=== PATIENT | female | born 1970 | race Caucasian/White ===

== ENCOUNTER → 2017-08-27 13:57 | Day surgery (SDC) | payer OTHER, MEDICAID, SELFPAY ==
[2017-08-27 14:25] VITALS: BP 108/57; PULSE 82; RESP 18; TEMP 36.7; O2SAT 98
[2017-08-27 14:31] VITALS: BP 118/76; PULSE 79; RESP 20
[2017-08-27 14:32] VITALS: BP 126/79; PULSE 79; RESP 20
--- NOTE | 2017-08-27 14:33 | HMH.PMPROC ---
- Procedure Date: 08/27/17 Time: 14:36 Anesthesiologist:: Alberto Raymundo CRNA Complications:: None Pre-procedure Diagnosis:: Degenerative disc disease lumbar spine. Lumbar post laminectomy syndrome. Post-procedure Diagnosis:: Same Indications for Procedure:: Very pleasant 47-year-old white female with been treating for chronic low back pain with bilateral hip leg radicular symptoms secondary to degenerative disc disease lumbar spine multiple levels and postlaminectomy syndrome lumbar spine. Patient has responded extremely well to caudal epidural steroid injections in the past. Procedure Details:: Procedure: Caudal epidural steroid injection under fluoroscopy Informed consent was obtained and the risks and benefits of the procedure were explained to the patient. The patient was taken to the procedure room and noninvasive monitors placed, including noninvasive blood pressure cuff and pulse oximeter. The sacrum was viewed using C-arm Fluoroscopy in the lateral position and prepped using Betadine as a cleansing solution and the bottle interspace was viewed. Skin and subcutaneous tissues were anesthetized using lidocaine 1.5% and a 25-gauge needle. After this, a 22-gauge spinal needle was placed into the caudal space and advanced using fluoroscopic guidance. After confirmation of needle placement in the caudal space, with dye, a solution containing lidocaine 1.5%, 1 mL and Depo-Medrol 80 mg and 5 cc of normal saline were incrementally injected into the lumbar epidural space. The patient tolerated the procedure well with no complications. The patient was observed in the Pain Clinic and then discharged home neurologically intact. Plan and Disposition:: She was reevaluated 10 minutes post procedure. She is doing very well. She will return to see us in a pain clinic for further evaluation.
[2017-08-27 14:40] VITALS: BP 127/75; PULSE 84; RESP 20; O2SAT 97
== END ==
PROVIDERS: Family Provider Emergency Medicine; PCP Emergency Medicine; Visit Provider Nurse Anesthetist, Certified Registered
DX: M51.16 Intervertebral disc disorders with radiculopathy, lumbar region (principal); M96.1 Postlaminectomy syndrome, not elsewhere classified; M25.552 Pain in left hip; M25.551 Pain in right hip
CPT/HCPCS: 62323; J1040; Q9966

== ENCOUNTER → 2017-09-13 15:39 | Outpatient (REF) | payer OTHER, MEDICAID, SELFPAY ==
[2017-09-13 19:30] LABS: Amphetamine/Metha Screen,Urine Negative ng/mL (<1000); Barbiturates Screen,Urine Negative ng/mL (<200); Benzodiazepines Screen,Urine Negative ng/mL (200); Cannabinoid Screen,Urine Negative ng/mL (<50); Cocaine Screen,Urine Negative ng/g (<300); Methadone Screen,Urine Negative ng/mL (<300); Opiate Screen,Urine Negative ng/mL (<300); Phencyclidine Screen,Urine Negative ng/mL (<25)
== END ==
LOC: LAB 15:39
PROVIDERS: Visit Provider Emergency Medicine
DX: Z79.899 Other long term (current) drug therapy (principal)
CPT/HCPCS: 80305

== ENCOUNTER → 2017-10-11 15:17 | Outpatient (CLI) | payer OTHER, MEDICAID, SELFPAY ==
[2017-10-11 17:44] LABS: Amphetamine/Metha Screen,Urine Negative ng/mL (<1000); Barbiturates Screen,Urine Negative ng/mL (<200); Benzodiazepines Screen,Urine Negative ng/mL (200); Cannabinoid Screen,Urine Negative ng/mL (<50); Cocaine Screen,Urine Negative ng/g (<300); Methadone Screen,Urine Negative ng/mL (<300); Opiate Screen,Urine Negative ng/mL (<300); Phencyclidine Screen,Urine Negative ng/mL (<25)
== END ==
PROVIDERS: Visit Provider Emergency Medicine
DX: Z79.899 Other long term (current) drug therapy (principal)
CPT/HCPCS: 80305

== ENCOUNTER → 2017-10-14 11:24 | Outpatient (POV) | payer MEDICAID, SELFPAY ==
[2017-10-14 11:30] VITALS: BP 108/51; PULSE 71; RESP 15; O2SAT 98; BMI 21.2
--- NOTE | 2017-10-14 12:18 | HMH.PAINSOAP ---
[facility] Pain Management SOAP Note Subjective:: Patient is a pleasant 47-year-old white female who is being treated in our pain clinic for chronic low back pain secondary to degenerative disc disease of the lumbar spine and lumbar postlaminectomy syndrome. Patient does have radiculopathy in both legs. The left is worse than the right at this time. Patient is following up after caudal injection. Patient reports 90% relief for 6 weeks. Patient states that after the injection she becomes much more functional. Patient has tried and failed physical therapy, anti-inflammatory therapy and medications. Patient rates her pain today a 4 out of 10. Patient states that sitting down does help relieve the pain while movement can exacerbate it. ROS General: no recent weight change, no fever, no sleep disturbances Respiratory: no cough, no shortness of air, no recurring pulmonary infections Cardiovascular/Peripheral Vascular: No chest pain, No palpitations, no edema, no shortness of breath. Gastrointestinal: no incontinence, normal bowel movements reported Genitourinary: no incontinence Musculoskeletal: Lumbar back pain Psychiatric: normal mood/ affect Neurological: [denies weakness in extremities], [denies balance issues] Objective:: Physical Exam General: Alert and oriented x3, no acute distress, pleasant and cooperative, [on room air] Lungs: Resps E/U, Symmetrical chest expansion, Eyes: PERRL Musculoskeletal: Flexion and extension of lumbar spine somewhat guarded secondary to pain, deep tendon reflexes normal, strength in upper and lower extremities [5/5], slightly antalgic gait noted, positive straight leg raise test bilaterally at 30? Neurological: speech clear, flatcar whacker equal, no gross sensory deficits Assessment:: Postlaminectomy syndrome, degenerative disc disease of the lumbar spine with lumbar radiculopathy Plan:: We will plan another caudal epidural steroid injection. Patient has done well with these in the past receiving up to 90% relief for up to 6 weeks. She has tried and failed physical therapy, medications, anti-inflammatories. I believe that this would be helpful for the patient's functionality on a longer-term basis. We will ask her insurance for approval of this injection. This note was dictated using voice-recognition software and may contain errors or omissions
--- NOTE | 2017-10-14 12:22 | P.CONS_ITS ---
[facility] Pain Management SOAP Note Subjective:: Patient is a pleasant 47-year-old white female who is being treated in our pain clinic for chronic low back pain secondary to degenerative disc disease of the lumbar spine and lumbar postlaminectomy syndrome. Patient does have radiculopathy in both legs. The left is worse than the right at this time. Patient is following up after caudal injection. Patient reports 90% relief for 6 weeks. Patient states that after the injection she becomes much more functional. Patient has tried and failed physical therapy, anti-inflammatory therapy and medications. Patient rates her pain today a 4 out of 10. Patient states that sitting down does help relieve the pain while movement can exacerbate it. ROS General: no recent weight change, no fever, no sleep disturbances Respiratory: no cough, no shortness of air, no recurring pulmonary infections Cardiovascular/Peripheral Vascular: No chest pain, No palpitations, no edema, no shortness of breath. Gastrointestinal: no incontinence, normal bowel movements reported Genitourinary: no incontinence Musculoskeletal: Lumbar back pain Psychiatric: normal mood/ affect Neurological: [denies weakness in extremities], [denies balance issues] Objective:: Physical Exam General: Alert and oriented x3, no acute distress, pleasant and cooperative, [ on room air] Lungs: Resps E/U, Symmetrical chest expansion, Eyes: PERRL Musculoskeletal: Flexion and extension of lumbar spine somewhat guarded secondary to pain, deep tendon reflexes normal, strength in upper and lower extremities [5/5], slightly antalgic gait noted, positive straight leg raise test bilaterally at 30? Neurological: speech clear, spring inspector equal, no gross sensory deficits Assessment:: Postlaminectomy syndrome, degenerative disc disease of the lumbar spine with lumbar radiculopathy Plan:: We will plan another caudal epidural steroid injection. Patient has done well with these in the past receiving up to 90% relief for up to 6 weeks. She has tried and failed physical therapy, medications, anti-inflammatories. I believe that this would be helpful for the patient's functionality on a longer-term basis. We will ask her insurance for approval of this injection. This note was dictated using voice-recognition software and may contain errors or omissions
== END ==
PROVIDERS: Family Provider Emergency Medicine; PCP Emergency Medicine; Visit Provider Clinical Nurse Specialist Family Health
DX: M54.16 Radiculopathy, lumbar region (principal)
CPT/HCPCS: 99212

== ENCOUNTER → 2017-11-08 15:03 | Outpatient (REF) | payer MEDICAID, SELFPAY ==
[2017-11-08 19:05] LABS: Amphetamine/Metha Screen,Urine Negative ng/mL (<1000); Barbiturates Screen,Urine Negative ng/mL (<200); Benzodiazepines Screen,Urine Negative ng/mL (200); Cannabinoid Screen,Urine Negative ng/mL (<50); Cocaine Screen,Urine Negative ng/g (<300); Methadone Screen,Urine Negative ng/mL (<300); Opiate Screen,Urine Negative ng/mL (<300); Phencyclidine Screen,Urine Negative ng/mL (<25)
== END ==
LOC: LAB 15:03
PROVIDERS: Visit Provider Emergency Medicine
CPT/HCPCS: 80305

== ENCOUNTER 2017-11-08 15:33 | Day surgery (SDC) | payer BC, MEDICAID, SELFPAY ==
[2017-11-08 16:01] VITALS: BP 110/69; PULSE 76; RESP 16; TEMP 36.5; O2SAT 98; BMI 20.9
--- NOTE | 2017-11-08 16:05 | PC.NURSE ---
PATIENT ALERT/ORIENTED, CALM AT ASSESSMENT. NO DISTRESSED NOTED, BREATHING NORMALLY AND SITTING QUIETLY. NO SYMPTOMS EXPRESSED TO RN DURING ASSESSMENT.
--- NOTE | 2017-11-08 16:38 | HMH.PMPROC ---
- Procedure Date: 11/08/17 Time: 16:38 Anesthesiologist:: Shahid Grijalva MD Complications:: None Pre-procedure Diagnosis:: Degenerative disc disease of lumbar spine with lumbar radiculopathy symptoms and postlaminectomy syndrome of lumbar spine Post-procedure Diagnosis:: Same Indications for Procedure:: This patient is a pleasant 47-year-old white female who we have been treating for low back pain with degenerative disc disease of lumbar spine with lumbar radiculopathy symptoms and postlaminectomy syndrome lumbar spine. She did very well with her last epidural steroid injection. Pain is starting to return in her back and down her legs. We will plan on a repeat epidural steroid injection today. Procedure Details:: Lumbar epidural steroid injection under fluoroscopy Informed consent was obtained and the risk and benefits of the procedure was explained to the patient. The patient was taken to the procedure room. The patient was placed prone on the procedure table. The patient was prepped and draped in sterile fashion. C-arm fluoroscopy was used to view the lumbar spine. Skin and subcutaneous tissues were anesthetized using lidocaine. I placed an 18-gauge epidural needle and advanced into the L5-S1 interspace using fluoroscopic guidance and [id number] to air. After confirmation of needle placement in the epidural space with dye I injected 2 mL of lidocaine 1.5% with Depo-Medrol 80 mg. Patient tolerated the procedure well with no complications. Plan and Disposition:: Follow up with her in 2 weeks. We will reevaluate her symptoms at that time.
--- NOTE | 2017-11-08 16:42 | P.PCN_ITS ---
- Procedure Date: 11/08/17 Time: 16:38 Anesthesiologist:: Shahid Grijalva MD Complications:: None Pre-procedure Diagnosis:: Degenerative disc disease of lumbar spine with lumbar radiculopathy symptoms and postlaminectomy syndrome of lumbar spine Post-procedure Diagnosis:: Same Indications for Procedure:: This patient is a pleasant 47-year-old white female who we have been treating for low back pain with degenerative disc disease of lumbar spine with lumbar radiculopathy symptoms and postlaminectomy syndrome lumbar spine. She did very well with her last epidural steroid injection. Pain is starting to return in her back and down her legs. We will plan on a repeat epidural steroid injection today. Procedure Details:: Lumbar epidural steroid injection under fluoroscopy Informed consent was obtained and the risk and benefits of the procedure was explained to the patient. The patient was taken to the procedure room. The patient was placed prone on the procedure table. The patient was prepped and draped in sterile fashion. C-arm fluoroscopy was used to view the lumbar spine. Skin and subcutaneous tissues were anesthetized using lidocaine. I placed an 18-gauge epidural needle and advanced into the L5-S1 interspace using fluoroscopic guidance and [id number] to air. After confirmation of needle placement in the epidural space with dye I injected 2 mL of lidocaine 1.5 % with Depo-Medrol 80 mg. Patient tolerated the procedure well with no complications. Plan and Disposition:: Follow up with her in 2 weeks. We will reevaluate her symptoms at that time.
[2017-11-08 16:47] VITALS: BP 109/50; PULSE 75; RESP 20
[2017-11-08 16:51] VITALS: BP 128/71; PULSE 65; RESP 18
[2017-11-08 16:56] VITALS: BP 115/72; PULSE 68; RESP 16; O2SAT 98
== END 2017-11-08 17:00 | disposition home or self-care (01) ==
LOC: SC.PAINP 15:34
PROVIDERS: Family Provider Emergency Medicine; PCP Emergency Medicine; Visit Provider Anesthesiology
DX: M51.16 Intervertebral disc disorders with radiculopathy, lumbar region (principal); M96.1 Postlaminectomy syndrome, not elsewhere classified
CPT/HCPCS: 62323; 80305; J1040; Q9966

== ENCOUNTER → 2017-11-12 15:43 | Outpatient (CLI) | payer BC, MEDICAID, SELFPAY ==
--- NOTE | 2017-11-12 15:45 | MM_ITS ---
MM Dig screening mamm BI w/CAD CAD Screening ORDERING PHYSICIAN : Colton Lozano MD PATIENT AGE: 47 years GENDER: Female COMPARISON: Previous mammograms: November 2016[facility]: October 2015 bilateral mammogram. May 2016 right mammogram. October 2015 right breast ultrasound INDICATION: 47-year-old. Estradiol. No new complaints. Noncontributory Family history. TECHNIQUE: Standard CC and MLO images were obtained. R2 CAD reviewed. FINDINGS: Lower density breast with minimal fibroglandular elements bilaterally. RIGHT BREAST:. Small focal. Area of vague additional density towards the upper outer quadrant of the left breast today was not seen on previous studies. This Small low-density cloverleaf area 6 mm on cc view This could be a small collection cysts, vs a developing deep intramammary node given its central lucency on MLO. Would benefit from spot views to further evaluate. Ultrasound would be warranted. If it should persist on those spot views. prior Outside studies which were obtained previously showed a small cystic nodular at the 6:00 right breast which is since resolved since 2016. & No longer evident today LEFT BREAST:. Left breast. A small additional density inferior left breast' labeled X ' on MLO view. 6 mm length. Small density measuring 5 mm labeled Y ' Vague vague 5 mm density at the far lateral left breast labeled Z Suggest full 90 degree view & axillary cc view along with a spot MLO view X and Y ======IMPRESSION: 1. Right breast. Additional views recommended Recommend spot view MLO & 90 degree of the subtle new area of density deepupper-outer quadrant right breast on MLO view.. Most likely benign feature but warrants additional views.. Ultrasound may be warranted if this area persists on spot views 2. Left breast.: Additional views recommended A small additional density inferior left breast' labeled X ' on MLO view. 6 mm length. Small density measuring 5 mm labeled Y ' Vague vague 5 mm density at the far lateral left breast labeled Z Axillary cc view and Focal 90 degree view left breast suggested to further evaluate these small density inferior left breast and far lateral left breast. Ultrasound will likely be required subsequent if persists 3. Above recommended Additional views of these most most likely benign features are not urgent, can be be obtained when convenient for the patient... *In fact a reasonable alternative considered would be follow-up bilateral mammogram in 4- 6 months.. (A more cost -conscious alternative for what strongly believe are incidental benign findings) BI-RADS Category: 0 Need Additional Imaging Evaluaiton RECOMMENDED FOLLOW-UP: IMM - IMMEDIATE FOLLOW-UP RECOMMENDED Additional Spot views both breasts .: ... Left breast spot views as above ... Right breast spot view: upper-outer quadrant recommended If these densities persist ultrasound would be helpful and warranted (A letter has been sent to the patient regarding results of the study.)
--- NOTE | 2017-11-12 15:47 | US_ITS ---
US transvaginal HISTORY: ITS.REASON: Pelvic Mass ORDERING PHYSICIAN: Colton Lozano MD PATIENT AGE: 47 years COMPARISON: None FINDINGS: Patient has had a prior hysterectomy and bilateral oblique correctly. The vaginal cuff has an unremarkable appearance. No pelvic mass or abnormal fluid collection is evident. IMPRESSION: Prior total abdominal hysterectomy. No obvious pelvic mass or abnormal fluid collection
== END ==
PROVIDERS: Family Provider Emergency Medicine; PCP Emergency Medicine; Visit Provider Obstetrics & Gynecology
DX: Z12.31 Encounter for screening mammogram for malignant neoplasm of breast (principal); R10.2 Pelvic and perineal pain
CPT/HCPCS: 76830; 77067

== ENCOUNTER → 2017-12-02 14:35 | Outpatient (POV) | payer BC, MEDICAID, SELFPAY ==
[2017-12-02 15:04] VITALS: BP 130/73; PULSE 69; RESP 20; BMI 19.6
--- NOTE | 2017-12-02 15:27 | HMH.PAINSOAP ---
[facility] Pain Management SOAP Note Subjective:: Is a pleasant 47-year-old white female who is being treated in our pain clinic for chronic low back pain secondary to degenerative disc disease of the lumbar spine with lumbar postlaminectomy syndrome. Patient is following up after an L5-S1 lumbar epidural steroid injection. Patient reports 80% relief however her pain is beginning to return. Patient states that with the change in weather and increased activity she is having some increase in her pain. Patient has tried and failed physical therapy, anti-inflammatory therapy, medications. Patient rates her pain a 6 out of 10 today. Patient states that sitting down does help relieve the pain while movement can exacerbate it. ROS General: no recent weight change, no fever, no sleep disturbances Respiratory: no cough, no shortness of air, no recurring pulmonary infections Cardiovascular/Peripheral Vascular: No chest pain, No palpitations, no edema, no shortness of breath. Gastrointestinal: no incontinence, normal bowel movements reported Genitourinary: no incontinence Musculoskeletal: Back pain, bilateral leg pain Psychiatric: normal mood/ affect, [denies depression], [denies anxiety] Neurological: [denies weakness in extremities], [denies balance issues] Objective:: Physical Exam General: Alert and oriented x3, no acute distress, pleasant and cooperative, [on room air] Lungs: Resps E/U, Symmetrical chest expansion, Eyes: PERRL Musculoskeletal: Flexion and extension of lumbar spine somewhat guarded secondary to pain, deep tendon reflexes normal, strength in upper and lower extremities [5/5], slightly antalgic gait noted, positive straight leg raise test bilaterally at 30? Neurological: speech clear, sap ppm consultant equal, no gross sensory deficits Assessment:: Postlaminectomy syndrome, degenerative disc disease of the lumbar spine with lumbar radiculopathy Plan:: We will plan another lumbar epidural steroid injection at L5-S1 in several weeks. Patient has done well with these in the past receiving over 80% relief of symptoms. She has tried and failed physical therapy, medications, anti-inflammatories. I believe that this will be helpful for the patient's functionality on a longer-term basis. This note was dictated using voice recognition software and may contain errors or omissions
--- NOTE | 2017-12-02 15:30 | P.CONS_ITS ---
[facility] Pain Management SOAP Note Subjective:: Is a pleasant 47-year-old white female who is being treated in our pain clinic for chronic low back pain secondary to degenerative disc disease of the lumbar spine with lumbar postlaminectomy syndrome. Patient is following up after an L5 -S1 lumbar epidural steroid injection. Patient reports 80% relief however her pain is beginning to return. Patient states that with the change in weather and increased activity she is having some increase in her pain. Patient has tried and failed physical therapy, anti-inflammatory therapy, medications. Patient rates her pain a 6 out of 10 today. Patient states that sitting down does help relieve the pain while movement can exacerbate it. ROS General: no recent weight change, no fever, no sleep disturbances Respiratory: no cough, no shortness of air, no recurring pulmonary infections Cardiovascular/Peripheral Vascular: No chest pain, No palpitations, no edema, no shortness of breath. Gastrointestinal: no incontinence, normal bowel movements reported Genitourinary: no incontinence Musculoskeletal: Back pain, bilateral leg pain Psychiatric: normal mood/ affect, [denies depression], [denies anxiety] Neurological: [denies weakness in extremities], [denies balance issues] Objective:: Physical Exam General: Alert and oriented x3, no acute distress, pleasant and cooperative, [ on room air] Lungs: Resps E/U, Symmetrical chest expansion, Eyes: PERRL Musculoskeletal: Flexion and extension of lumbar spine somewhat guarded secondary to pain, deep tendon reflexes normal, strength in upper and lower extremities [5/5], slightly antalgic gait noted, positive straight leg raise test bilaterally at 30? Neurological: speech clear, furniture manager equal, no gross sensory deficits Assessment:: Postlaminectomy syndrome, degenerative disc disease of the lumbar spine with lumbar radiculopathy Plan:: We will plan another lumbar epidural steroid injection at L5-S1 in several weeks. Patient has done well with these in the past receiving over 80% relief of symptoms. She has tried and failed physical therapy, medications, anti- inflammatories. I believe that this will be helpful for the patient's functionality on a longer-term basis. This note was dictated using voice recognition software and may contain errors or omissions
== END ==
PROVIDERS: Family Provider Emergency Medicine; PCP Emergency Medicine; Visit Provider Clinical Nurse Specialist Family Health
DX: M96.1 Postlaminectomy syndrome, not elsewhere classified (principal)
CPT/HCPCS: 99212

== ENCOUNTER → 2017-12-06 13:37 | Outpatient (REF) | payer BC, MEDICAID, SELFPAY ==
[2017-12-06 19:40] LABS: Amphetamine/Metha Screen,Urine Negative ng/mL (<1000); Barbiturates Screen,Urine Negative ng/mL (<200); Benzodiazepines Screen,Urine Negative ng/mL (200); Cannabinoid Screen,Urine Negative ng/mL (<50); Cocaine Screen,Urine Negative ng/g (<300); Methadone Screen,Urine Negative ng/mL (<300); Opiate Screen,Urine Negative ng/mL (<300); Phencyclidine Screen,Urine Negative ng/mL (<25)
== END ==
LOC: LAB 13:37
PROVIDERS: Visit Provider Emergency Medicine
DX: Z79.899 Other long term (current) drug therapy (principal)
CPT/HCPCS: 80305

== ENCOUNTER → 2017-12-11 15:02 | Outpatient (CLI) | payer BC, MEDICAID, SELFPAY ==
--- NOTE | 2017-12-11 15:03 | MM_ITS ---
MM Dig mamm BI DX w/CAD, US breast RT complete, US breast LT complete COMPARISON: 320 03/05 and 11/29/2016 INDICATION: Follow-up abnormal mammogram ORDERING PHYSICIAN: Colton Lozano MD PATIENT AGE: 47 years TECHNIQUE: Problem-solving views performed of both breasts along with bilateral breast ultrasound FINDINGS: Right breast: The asymmetric density in the deep upper aspect of the right breast appear to compress out on the spot compression view and somewhat spread out on the MLO view. There remains some asymmetric density in this region on the spot compression view. Right breast ultrasound: No suspicious solid or cystic nodules evident. On second look there was a small area of increased echogenicity in the outer aspect of the right breast at 9:00 is nonspecific Left breast: Asymmetric density is present in the upper-outer aspect of the left breast and in the inferior aspect of the left breast. These areas appear to somewhat of face on the spot compression views and did not persist on the old views. Left breast ultrasound: 3 mm cyst at 3:00. 3 mm cyst at 5:00. No suspicious solid nodules evident. IMPRESSION: Bilateral asymmetric densities probably related to asymmetric fibroglandular tissue. No convincing evidence of malignancy. Short-term mammographic follow-up however is suggested as some of the nodules are new and did not completely compress out BI-RADS Category: 3 Benign Finding Short Term Follow-up RECOMMENDED FOLLOW-UP: 3M - 3 MONTH FOLLOWUP bilateral (A letter has been sent to the patient regarding results of the study.)
== END ==
PROVIDERS: Family Provider Emergency Medicine; PCP Emergency Medicine; Visit Provider Obstetrics & Gynecology
DX: R92.8 Other abnormal and inconclusive findings on diagnostic imaging of breast (principal)
CPT/HCPCS: 76641; 77066

== ENCOUNTER → 2017-12-17 12:58 | Outpatient (CLI) | payer BC, MEDICAID, SELFPAY ==
--- NOTE | 2017-12-17 13:01 | XR_ITS ---
XR chest 2V HISTORY: Chest pain, left arm pain, low blood pressure ITS.REASON: pt is smoker ORDERING PHYSICIAN: Isaac Pires MD PATIENT AGE: 47 years COMPARISON: FINDINGS: Unremarkable cardiovascular structures. There is mild hyperinflation with attenuation of the peripheral pulmonary vessels consistent with COPD. There is mild biapical pleural thickening. No acute bony anomalies. IMPRESSION: COPD, no acute finding.
== END ==
PROVIDERS: PCP Emergency Medicine; Visit Provider Internal Medicine
DX: R06.02 Shortness of breath (principal); I20.8 Other forms of angina pectoris; Z72.0 Tobacco use
CPT/HCPCS: 71046

== ENCOUNTER → 2018-01-21 11:50 | Outpatient (POV) | payer BC, MEDICAID, SELFPAY ==
[2018-01-21 12:03] VITALS: BP 99/55; PULSE 59; RESP 18; O2SAT 99; BMI 20.2
--- NOTE | 2018-01-21 12:16 | HMH.PAINSOAP ---
[facility] Pain Management SOAP Note Subjective:: Patient is a pleasant 47-year-old white female who presents today for follow-up after her third lumbar epidural steroid injection. Patient is doing extremely well. Patient states her pain is a 1 out of 10. Patient states that the injection has helped her symptoms 90%. Patient is being treated for pain secondary to degenerative disc disease of lumbar spine with lumbar postlaminectomy syndrome and lumbar radiculopathy symptoms. Patient has done well with injective therapies in the past. ROS General: no recent weight change, no fever, no sleep disturbances Respiratory: no cough, no shortness of air, no recurring pulmonary infections Cardiovascular/Peripheral Vascular: No chest pain, No palpitations, no edema, no shortness of breath. Gastrointestinal: no incontinence, normal bowel movements reported Genitourinary: no incontinence Musculoskeletal: Back pain, leg pain Psychiatric: normal mood/ affect Neurological: [denies weakness in extremities], [denies balance issues] Objective:: Physical Exam General: Alert and oriented x3, no acute distress, pleasant and cooperative, [on room air] Lungs: Resps E/U, Symmetrical chest expansion, Eyes: PERRL Musculoskeletal: Flexion and extension of lumbar spine somewhat guarded secondary to pain, deep tendon reflexes normal, strength in upper and lower extremities [5/5], normal gait noted Neurological: speech clear, school bus mechanic equal, no gross sensory deficits Assessment:: Degenerative disc disease of the lumbar spine with lumbar postlaminectomy syndrome and lumbar radiculopathy symptoms Plan:: We will follow-up with the patient on an as-needed basis patient will call us when she needs another appointment. Patient has done extremely well with injective therapy. This note was dictated using voice recognition software and may contain errors or omissions
== END ==
PROVIDERS: Family Provider Emergency Medicine; PCP Emergency Medicine; Visit Provider Clinical Nurse Specialist Family Health
DX: M54.16 Radiculopathy, lumbar region (principal)
CPT/HCPCS: 99212

== ENCOUNTER → 2018-01-22 06:43 | Outpatient (CLI) | payer BC, MEDICAID, SELFPAY ==
--- NOTE | 2018-01-22 06:47 | CA_ITS ---
PROCEDURE: 2-D M-mode and color Doppler study INDICATIONS FOR THE TEST: Chest pain + COPD Heart Murmur Tobacco SmokingY Palpitations FatigueY Syncope Edema Hypertension Diabetes Mellitus Rheumatic Fever SOBYDOE Obesity Hyperlipidemia Family History HDY Additional History PATIENT INFORMATION HEIGHT: 64 WEIGHT: GENDER: Female B/P: 2-D/M-MODE INTERPRETATION: 2-D MEASUREMENTS OBSERVED VALUES IN CMS Right Ventricular Dimension (RVDd) 2.2 Interventricular Septum (Thickness)(IVsd) 1.1 Left Ventricular Internal Dimensions(LVIDd) 4.2 Left Ventricular Posterior Wall (Thickness)(LVPWd) 0.7 Aortic Root 2.9 Aortic Cusp Separation 1.9 Left Atrial Dimensions (LAD) 3.3 2D 1. Left atrium is normal size, left ventricle is normal size, there is no concentric left ventricular hypertrophy, visually estimated ejection fraction 55% with no obvious regional wall motion abnormality. 2. The right atrium and right ventricle are normal size and contractility. 3. The aortic valve is minimally thickened and fibrosed. 4. The mitral and tricuspid valvular grossly normal. 5. The pulmonic valve is poorly visualized. 6. No significant pericardial effusion noted. DOPPLER INTERROGATION: Doppler interrogation of the aortic, mitral and tricuspid valvular presence of mild mitral and tricuspid regurgitation, tricuspid regurgitant jet velocity is insufficient for calculation of the right ventricular systolic pressure, diastolic parameters are within normal range. CONCLUSION: 1. Normal left ventricular size, preserved left ventricular systolic visually estimated ejection fraction 55% with no obvious regional wall motion abnormality, diastolic parameters are within normal range. 2. Mild mitral and tricuspid regurgitation 3. No significant pericardial effusion noted.
--- NOTE | 2018-01-22 06:56 | NM_ITS ---
History and Indications: Hypertension, tobacco use, family history, chest pain, shortness of breath and fatigue Procedure: Patient exercised on Ibrahima protocol 7 minutes and 30 seconds, resting heart rate was 57 bpm resting blood pressure 104/51, with exercise maximum heart rate achieved was 1 42 bpm which is equal to 83% of the maximum predicted heart rate and a blood pressure was 144/80. Test was started due to shortness of breath and fatigue, patient also complained of left shoulder pain. Patient has good exercise capacity achieved 10.1mets of workload on treadmill, the blood pressure response to exercise was adequate, patient did not achieve the target heart rate. Electrocardiogram: Resting electrocardiogram showed sinus bradycardia with exercise there is less than 1.[address] segment depression noted from the baseline EKG. The EKG portion of the exercise Myoview is nondiagnostic as patient did not achieve the target heart rate. Cardiac stress and resting SPECT images: Cardiac stress and resting SPECT images were obtained using technetium 99 Myoview 30.7 mCi at stress then 10.4 mCi at rest, gated SPECT further analysis of segmental wall motion and calculation of the ejection fraction also done. Cardiac stress and rest SPECT images show uniform myocardial activity without any segmental perfusion abnormality, computer derived ejection fraction is over 65% with no obvious regional wall motion, right ventricle is normal size and contractility. Conclusion: 1. The EKG portion of the exercise Myoview is nondiagnostic as patient did not achieve the target heart rate, patient has good exercise capacity achieved 10.1mets of workload on treadmill, the blood pressure response to exercise was adequate, test was started due to shortness of breath, fatigue and left shoulder pain. 2. No obvious scintigraphic evidence of reversible ischemia seen at this level of exercise, computer derived ejection fraction is over 65% with no obvious regional wall motion abnormality, right ventricle is normal size and contractility.
--- NOTE | 2018-01-22 07:17 | HMH.ITSHM ---
LISINOPRIL HCTZ EFFUROSET PERCOCET ESTRADIOL LEXAPRO
== END ==
PROVIDERS: Family Provider Emergency Medicine; PCP Emergency Medicine; Visit Provider Internal Medicine
DX: R07.9 Chest pain, unspecified (principal); R06.02 Shortness of breath; I20.8 Other forms of angina pectoris; I45.10 Unspecified right bundle-branch block
CPT/HCPCS: 78452; 93017; 93306; A9502

== ENCOUNTER → 2018-01-28 14:45 | Outpatient (REF) | payer BC, MEDICAID, SELFPAY ==
[2018-01-28 17:56] LABS: Amphetamine/Metha Screen,Urine Negative ng/mL (<1000); Barbiturates Screen,Urine Negative ng/mL (<200); Benzodiazepines Screen,Urine Negative ng/mL (200); Cannabinoid Screen,Urine Negative ng/mL (<50); Cocaine Screen,Urine Negative ng/g (<300); Methadone Screen,Urine Negative ng/mL (<300); Opiate Screen,Urine Negative ng/mL (<300); Phencyclidine Screen,Urine Negative ng/mL (<25)
== END ==
LOC: LAB 14:45
PROVIDERS: PCP Emergency Medicine; Visit Provider Emergency Medicine
DX: Z79.899 Other long term (current) drug therapy (principal)
CPT/HCPCS: 80305

== ENCOUNTER → 2018-02-26 15:14 | Outpatient (REF) | payer BC, MEDICAID, SELFPAY ==
[2018-02-26 18:23] LABS: Amphetamine/Metha Screen,Urine Negative ng/mL (<1000); Barbiturates Screen,Urine Negative ng/mL (<200); Benzodiazepines Screen,Urine Negative ng/mL (<200); Cannabinoid Screen,Urine Negative ng/mL (<50); Cocaine Screen,Urine Negative ng/mL (<300); Methadone Screen,Urine Negative ng/mL (<300); Opiate Screen,Urine Negative ng/mL (<300); Phencyclidine Screen,Urine Negative ng/mL (<25)
== END ==
LOC: LAB 15:14
PROVIDERS: Visit Provider Emergency Medicine
DX: Z79.899 Other long term (current) drug therapy (principal)
CPT/HCPCS: 80305

== ENCOUNTER → 2018-03-28 15:03 | Outpatient (REF) | payer MEDICAID, SELFPAY ==
[2018-03-28 18:46] LABS: Amphetamine/Metha Screen,Urine Negative ng/mL (<1000); Barbiturates Screen,Urine Negative ng/mL (<200); Benzodiazepines Screen,Urine Negative ng/mL (<200); Cannabinoid Screen,Urine Negative ng/mL (<50); Cocaine Screen,Urine Negative ng/mL (<300); Methadone Screen,Urine Negative ng/mL (<300); Opiate Screen,Urine Positive ng/mL (<300); Phencyclidine Screen,Urine Negative ng/mL (<25)
== END ==
LOC: LAB 15:03
PROVIDERS: Visit Provider Emergency Medicine
DX: Z79.899 Other long term (current) drug therapy (principal)
CPT/HCPCS: 80305

== ENCOUNTER → 2018-05-02 15:47 | Outpatient (CLI) | payer MEDICAID, SELFPAY ==
[2018-05-02 18:29] LABS: Amphetamine/Metha Screen,Urine Negative ng/mL (<1000); Barbiturates Screen,Urine Negative ng/mL (<200); Benzodiazepines Screen,Urine Negative ng/mL (<200); Cannabinoid Screen,Urine Negative ng/mL (<50); Cocaine Screen,Urine Negative ng/mL (<300); Methadone Screen,Urine Negative ng/mL (<300); Opiate Screen,Urine Positive ng/mL (<300); Phencyclidine Screen,Urine Negative ng/mL (<25)
== END ==
PROVIDERS: Visit Provider Emergency Medicine
DX: Z79.899 Other long term (current) drug therapy (principal)
CPT/HCPCS: 80305

== ENCOUNTER → 2018-05-30 16:07 | Outpatient (CLI) | payer MEDICAID, SELFPAY ==
[2018-05-30 19:14] LABS: Amphetamine/Metha Screen,Urine Negative ng/mL (<1000); Barbiturates Screen,Urine Negative ng/mL (<200); Benzodiazepines Screen,Urine Negative ng/mL (<200); Cannabinoid Screen,Urine Negative ng/mL (<50); Cocaine Screen,Urine Negative ng/mL (<300); Methadone Screen,Urine Negative ng/mL (<300); Opiate Screen,Urine Negative ng/mL (<300); Phencyclidine Screen,Urine Negative ng/mL (<25)
== END ==
PROVIDERS: Visit Provider Emergency Medicine
DX: Z79.899 Other long term (current) drug therapy (principal)
CPT/HCPCS: 80305

== ENCOUNTER → 2018-07-01 17:50 | Outpatient (CLI) | payer MEDICAID, SELFPAY ==
[2018-07-01 21:01] LABS: Amphetamine/Metha Screen,Urine Negative ng/mL (<1000); Barbiturates Screen,Urine Negative ng/mL (<200); Benzodiazepines Screen,Urine Negative ng/mL (<200); Cannabinoid Screen,Urine Negative ng/mL (<50); Cocaine Screen,Urine Negative ng/mL (<300); Methadone Screen,Urine Negative ng/mL (<300); Opiate Screen,Urine Negative ng/mL (<300); Phencyclidine Screen,Urine Negative ng/mL (<25)
== END ==
PROVIDERS: Visit Provider Emergency Medicine
DX: Z79.899 Other long term (current) drug therapy (principal)
CPT/HCPCS: 80305

== ENCOUNTER → 2018-07-30 18:37 | Outpatient (CLI) | payer MEDICAID, SELFPAY ==
[2018-07-30 22:39] LABS: Amphetamine/Metha Screen,Urine Negative ng/mL (<1000); Barbiturates Screen,Urine Negative ng/mL (<200); Benzodiazepines Screen,Urine Negative ng/mL (<200); Cannabinoid Screen,Urine Negative ng/mL (<50); Cocaine Screen,Urine Negative ng/mL (<300); Methadone Screen,Urine Negative ng/mL (<300); Opiate Screen,Urine Negative ng/mL (<300); Phencyclidine Screen,Urine Negative ng/mL (<25)
[2018-08-07 08:46] LABS: Oxycodone (GC/MS) 800 ng/mL (Cutoff=100)
[2018-08-08 16:10] LABS: Opiates Negative (Cutoff=100)
== END ==
PROVIDERS: Visit Provider Emergency Medicine
DX: Z79.899 Other long term (current) drug therapy (principal)
CPT/HCPCS: 80305; 80361; 80365; G0480

== ENCOUNTER → 2018-08-27 18:49 | Outpatient (CLI) | payer MEDICAID, SELFPAY ==
[2018-08-27 19:27] LABS: Amphetamine/Metha Screen,Urine Negative ng/mL (<1000); Barbiturates Screen,Urine Negative ng/mL (<200); Benzodiazepines Screen,Urine Negative ng/mL (<200); Cannabinoid Screen,Urine Negative ng/mL (<50); Cocaine Screen,Urine Negative ng/mL (<300); Methadone Screen,Urine Negative ng/mL (<300); Opiate Screen,Urine Negative ng/mL (<300); Phencyclidine Screen,Urine Negative ng/mL (<25)
[2018-09-02 09:21] LABS: Oxycodone (GC/MS) 629 ng/mL (Cutoff=100)
[2018-09-03 13:04] LABS: Opiates Negative (Cutoff=100)
== END ==
PROVIDERS: Visit Provider Emergency Medicine
DX: Z79.899 Other long term (current) drug therapy (principal)
CPT/HCPCS: 80305; 80361; 80365; G0480

== ENCOUNTER → 2018-10-24 13:39 | Outpatient (CLI) | payer MEDICAID, SELFPAY ==
[2018-10-24 14:59] LABS: Amphetamine/Metha Screen,Urine Negative ng/mL (<1000); Barbiturates Screen,Urine Positive ng/mL (<200); Benzodiazepines Screen,Urine Negative ng/mL (<200); Cannabinoid Screen,Urine Negative ng/mL (<50); Cocaine Screen,Urine Negative ng/mL (<300); Methadone Screen,Urine Negative ng/mL (<300); Opiate Screen,Urine Negative ng/mL (<300); Phencyclidine Screen,Urine Negative ng/mL (<25)
[2018-11-02 10:08] LABS: Oxycodone (GC/MS) 131 ng/mL (Cutoff=100)
[2018-11-02 17:29] LABS: Opiates Negative (Cutoff=100)
== END ==
PROVIDERS: Visit Provider Emergency Medicine
DX: Z79.899 Other long term (current) drug therapy (principal)
CPT/HCPCS: 80305; 80361; 80365; G0480

== ENCOUNTER → 2018-12-22 13:42 | Outpatient (CLI) | payer MEDICAID, SELFPAY ==
[2018-12-22 14:30] LABS: Amphetamine/Metha Screen,Urine Negative ng/mL (<1000); Barbiturates Screen,Urine Negative ng/mL (<200); Benzodiazepines Screen,Urine Negative ng/mL (<200); Cannabinoid Screen,Urine Negative ng/mL (<50); Cocaine Screen,Urine Negative ng/mL (<300); Methadone Screen,Urine Negative ng/mL (<300); Opiate Screen,Urine Negative ng/mL (<300); Phencyclidine Screen,Urine Negative ng/mL (<25)
[2018-12-30 15:09] LABS: Oxycodone (GC/MS) 669 ng/mL (Cutoff=100)
[2018-12-31 06:51] LABS: Opiates Negative (Cutoff=100); Oxymorphone (GC/MS) 535 ng/mL (Cutoff=100)
== END ==
PROVIDERS: Visit Provider Emergency Medicine
DX: Z79.899 Other long term (current) drug therapy (principal)
CPT/HCPCS: 80305; 80361; 80365; G0480

== ENCOUNTER → 2019-01-19 13:47 | Outpatient (POV) | payer MEDICAID, SELFPAY ==
[2019-01-19 13:57] VITALS: BP 144/87; PULSE 76; RESP 18; O2SAT 98; BMI 25.7
--- NOTE | 2019-01-19 14:02 | P.CONS_ITS ---
[facility] Pain Management SOAP Note Subjective:: Patient is a pleasant 47-year-old white female who presents today for complaints of lower pain. She is being treated for pain secondary to degenerative disc disease of lumbar spine with lumbar postlaminectomy syndrome and lumbar radiculopathy symptoms. The patient has been seen in the past, back in January 2018 for lumbar epidural steroid injections. She did really well at that time and reports the pain was relieved by 90% for a year. She is done well with injective therapies in the past, until the last month. ROS General: no recent weight change, no fever, no sleep disturbances Respiratory: no cough, no shortness of air, no recurring pulmonary infections Cardiovascular/Peripheral Vascular: No chest pain, No palpitations, no edema, no shortness of breath. Gastrointestinal: no incontinence, normal bowel movements reported Genitourinary: no incontinence Musculoskeletal: Back pain, leg pain Psychiatric: normal mood/ affect, [denies depression], [denies anxiety] Neurological: [denies weakness in extremities], [denies balance issues] Objective:: Physical Exam General: Alert and oriented x3, no acute distress, pleasant and cooperative, [on room air] Lungs: Resps E/U, Symmetrical chest expansion, Eyes: PERRL Musculoskeletal: Flexion and extension of lumbar spine somewhat guarded secondary to pain, deep tendon reflexes normal, strength in upper and lower extremities [5/5], normal gait noted. Neurological: speech clear, first aid director equal, no gross sensory deficits Assessment:: Degenerative disc disease of the lumbar spine with lumbar post laminectomy syndrome and lumbar radiculopathy symptoms Plan:: We will schedule the patient for a L5-S1 lumbar epidural steroid injection. The patient is not on any anticoagulants. Doing a home stretching routine and is on anti-inflammatories. she is been instructed to call the office if she has any issues prior to the next appointment. Dr. Grijalva has reviewed this note and agrees with this plan of care. This note was dictated using voice recognition software and may contain errors or omissions
== END ==
PROVIDERS: PCP Emergency Medicine; Visit Provider Clinical Nurse Specialist Family Health
DX: M51.16 Intervertebral disc disorders with radiculopathy, lumbar region (principal); M96.1 Postlaminectomy syndrome, not elsewhere classified
CPT/HCPCS: 99212

== ENCOUNTER → 2019-01-28 16:00 | Outpatient (CLI) | payer MEDICAID, SELFPAY ==
--- NOTE | 2019-01-28 16:01 | XR_ITS ---
XR mandible min 4V CLINICAL INDICATION: Laceration and bruising of the chin, pain ITS.REASON: jaw pain ORDERING PHYSICIAN: Colton Lozano MD PATIENT AGE: 48 years Comparison: None FINDINGS: No obvious fracture or dislocation. The patient is edentulous. IMPRESSION: No acute fracture.
--- NOTE | 2019-01-28 16:01 | XR_ITS ---
XR ankle LT min 3V HISTORY: Pain and swelling following injury ITS.REASON: ankle pain ORDERING PHYSICIAN: Colton Lozano MD PATIENT AGE: 48 years Comparison: None FINDINGS: No fracture or dislocation. No lytic or blastic change. There is normal mineralization.. The joint spaces are well-preserved. No significant degenerative/arthritic changes. No erosive changes evident. IMPRESSION: Negative ankle, no acute finding
--- NOTE | 2019-01-28 16:01 | XR_ITS ---
XR tibia fibula LT 2V CLINICAL INDICATION: Injury with pain and swelling ITS.REASON: left leg pain ORDERING PHYSICIAN: Colton Lozano MD PATIENT AGE: 48 years Comparison: None FINDINGS: No fracture or dislocation IMPRESSION: No acute finding
--- NOTE | 2019-01-28 16:01 | MM_ITS ---
MM Dig screening mamm BI w/CAD ORDERING PHYSICIAN : Colton Lozano MD PATIENT AGE: 48 years GENDER: Female COMPARISON: October 2017, November 2016 mammogram studies from [facility] Also bilateral breast ultrasound November 2017 [facility] mammogram: October 2015right mammogram May 2016 INDICATION:. No new complaints. Noncontributory family history This was ordered as routine screening mammography--(although previous mammogram/ultrasound studies November 2017 recommended short-term interval follow-up) TECHNIQUE: Standard CC and MLO images were obtained. R2 CAD reviewed. . Additional axillary cc views both breast FINDINGS: Mild residual fibroglandular elements bilaterally. Background fibroglandular elements slightly accentuated when compared back to 2016 , likely due to exogenous hormone effect LEFT BREAST: Minimal scattered areas of density at the lateral left breast are again noted.- For the most part these are by these are stable; but there but there is a new nodule which is Labeled 'New 'which measures up to 5 mm maximally. This is located deep left breast likely towards 10 o'clock position. Suggest spot views of this area ( cc & 90 degrees spot view) as well as a left breast ultrasound This may be a small cyst as Small cysts were identified previous left breast ultrasound 2017 RIGHT BREAST: A fairly stable area of density labeled A at deep axillary tail of right breast. Only slightly more focal & apparent on axillary cc view. when the patient returns I suggest spot views & ultrasound of this area again is well,-. Since This density is a new feature when compared back to 2016, 2017 mammogram studies..- It could reflect merely the accentuation of fibroglandular elements from estradiol or could be a tiny cyst in this area. ----IMPRESSION LEFT BREAST. New small focal 5 mm density at the deep LEFT breast towards 10 o'clock position. Recommend spot views & ultrasound primarily to address this area,. (These spot views this can also include other stable appearing areas nodularity upper-outer quadrant as well) Right Breast:. Small area of density towards upper-outer quadrant most likely stable since 2018, but would benefit from spot views an ultrasound to the patient returns as well (. This feature was not evident on 2017 or 2016 studies and likely reflects accentuated elements from exogenous hormone effect or possibly a small cyst) BI-RADS Category: 0 Need Additional Imaging Evaluation RECOMMENDED FOLLOW-UP: IMM - IMMEDIATE FOLLOW-UP RECOMMENDED Bilateral Spot views, with Bilateral breast ultrasound follow (A letter has been sent to the patient regarding results of the study.)
--- NOTE | 2019-01-28 16:01 | XR_ITS ---
XR foot LT min 3V HISTORY: Pain following injury ITS.REASON: left foot pain ORDERING PHYSICIAN: Colton Lozano MD PATIENT AGE: 48 years COMPARISON: None FINDINGS: No fracture or dislocation. No lytic or blastic change. There is normal mineralization.. The joint spaces are well-preserved. No significant degenerative/arthritic changes. No erosive changes evident. IMPRESSION: Negative, no acute finding
--- NOTE | 2019-01-28 16:01 | XR_ITS ---
XR DEXA axial skeleton HISTORY: ITS.REASON: screening ORDERING PHYSICIAN: Colton Lozano MD PATIENT AGE: 48 years COMPARISON: None FINDINGS: The BMD measured at the Total Left femoral neck is 0.600 g/cm squared with a T score of -3.2. This is considered Osteoporotic according to the World Health Organization criteria. Fracture risk is High. Treatment is advised. IMPRESSION: Osteoporosis with high fracture risk. Treatment is advised. Suggest follow up exam in 2019
== END ==
PROVIDERS: PCP Emergency Medicine; Visit Provider Obstetrics & Gynecology
DX: Z01.419 Encounter for gynecological examination (general) (routine) without abnormal findings (principal); Z78.0 Asymptomatic menopausal state; Z02.6 Encounter for examination for insurance purposes; R68.84 Jaw pain; M79.605 Pain in left leg; Z12.31 Encounter for screening mammogram for malignant neoplasm of breast
CPT/HCPCS: 70110; 73590; 73610; 73630; 77067; 77080

== ENCOUNTER → 2019-02-16 14:25 | Outpatient (CLI) | payer MEDICAID, SELFPAY ==
--- NOTE | 2019-02-16 14:34 | US_ITS ---
MM Dig mamm BI DX w/CAD, US breast LT complete, US breast RT complete INDICATION: Follow-up abnormal screening mammogram ORDERING PHYSICIAN: Colton Lozano MD PATIENT AGE: 48 years COMPARISON: 01/28/2019, 11/12/2017 TECHNIQUE: Spot compression views performed along with bilateral breast ultrasound complete with axilla. FINDINGS: Right breast: Persistent area of nodularity in the deep outer aspect of the right breast which is not well delineated. This may only be due to an area of asymmetric fibroglandular tissue. Right breast ultrasound: No sonographic findings detected in the breasts. There are small nodes in the axilla. Left breast: There are 3 areas of asymmetric density noted as previously described in the lateral aspect of the left breast. Spot compression views performed of these areas show them to partially compress out. Left breast ultrasound: At 3:00 there is a 4 mm hypoechoic nodule which may be due to a small cyst. This was present on previous exam. IMPRESSION: Follow-up of benign findings. Bilateral nodular areas may be due to asymmetric fibroglandular tissue in this patient with hormonal supplementation BI-RADS Category: 3 Probably Benign Finding Short Term Follow-up RECOMMENDED FOLLOW-UP: 6M - 6 MONTH FOLLOW-UP (A letter has been sent to the patient regarding results of the study.)
== END ==
PROVIDERS: PCP Emergency Medicine; Visit Provider Obstetrics & Gynecology
DX: R92.8 Other abnormal and inconclusive findings on diagnostic imaging of breast (principal)
CPT/HCPCS: 76641; 77066

== ENCOUNTER → 2019-02-20 13:27 | Outpatient (CLI) | payer MEDICAID, SELFPAY ==
[2019-02-20 15:04] LABS: Amphetamine/Metha Screen,Urine Negative ng/mL (<1000); Barbiturates Screen,Urine Negative ng/mL (<200); Benzodiazepines Screen,Urine Negative ng/mL (<200); Cannabinoid Screen,Urine Negative ng/mL (<50); Cocaine Screen,Urine Negative ng/mL (<300); Methadone Screen,Urine Negative ng/mL (<300); Opiate Screen,Urine Negative ng/mL (<300); Phencyclidine Screen,Urine Negative ng/mL (<25)
[2019-02-28 13:10] LABS: Oxycodone (GC/MS) 176 ng/mL (Cutoff=100)
[2019-03-01 22:47] LABS: Opiates Negative (Cutoff=100)
== END ==
PROVIDERS: Visit Provider Emergency Medicine
DX: Z79.899 Other long term (current) drug therapy (principal)
CPT/HCPCS: 80305; 80361; 80365; G0480

== ENCOUNTER 2019-02-24 09:16 | Outpatient (POV) | payer MEDICAID, SELFPAY ==
[2019-02-24 09:28] VITALS: BP 130/68; PULSE 80; RESP 18; O2SAT 98; BMI 24.4
--- NOTE | 2019-02-24 09:46 | HMH.PAINSOAP ---
[facility] Pain Management SOAP Note Subjective:: Patient is a pleasant 47-year-old white female who is following up today after a lumbar epidural steroid injection at L5-S1. Patient rates her pain a 2 out of 10 today. She says that the epidural was 90% effective. She does complain of muscle spasms in her lower back today. Patient has taken Flexeril in the past and says that this is been effective. She is continuing a home stretching program and anti-inflammatories. Review of Systems General: No recent weight changes, no fever, no sleep disturbances Respiratory: No cough, no shortness of air, no recurring pulmonary infections Cardiovascular/peripheral vascular: No chest pain, no palpitations, no edema, no shortness of breath Gastrointestinal: No new onset incontinence, normal bowel movements reported Genitourinary: No new onset incontinence Musculoskeletal: Back pain Psychiatric: Normal mood/affect Neurological: [Denies weakness in extremities], [denies balance issues] Objective:: Physical exam General: Alert and oriented x3, no acute distress, pleasant and cooperative, [on room air] Lungs: Respirations even and unlabored, symmetrical chest expansion Eyes: PERRL Musculoskeletal: Flexion and extension of lumbar spine somewhat guarded secondary to pain, deep tendon reflexes normal, strength in upper and lower extremities [5/5], [abnormal gait noted] Neurological: 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 3 times daily as needed muscle spasms. We will see her back in 1 month to reassess her symptoms at that time. She is been instructed to call the office if she has any concerns prior to her next appointment. She will continue a home stretching program, along with her T inflammatories. Dr. Grijalva has reviewed this note and agrees with this plan of care. This note was dictated using voice recognition software and make contain errors or omissions.
--- NOTE | 2019-02-24 09:50 | P.CONS_ITS ---
[facility] Pain Management SOAP Note Subjective:: Patient is a pleasant 47-year-old white female who is following up today after a lumbar epidural steroid injection at L5-S1. Patient rates her pain a 2 out of 10 today. She says that the epidural was 90% effective. She does complain of muscle spasms in her lower back today. Patient has taken Flexeril in the past and says that this is been effective. She is continuing a home stretching program and anti-inflammatories. Review of Systems General: No recent weight changes, no fever, no sleep disturbances Respiratory: No cough, no shortness of air, no recurring pulmonary infections Cardiovascular/peripheral vascular: No chest pain, no palpitations, no edema, no shortness of breath Gastrointestinal: No new onset incontinence, normal bowel movements reported Genitourinary: No new onset incontinence Musculoskeletal: Back pain Psychiatric: Normal mood/affect Neurological: [Denies weakness in extremities], [denies balance issues] Objective:: Physical exam General: Alert and oriented x3, no acute distress, pleasant and cooperative, [on room air] Lungs: Respirations even and unlabored, symmetrical chest expansion Eyes: PERRL Musculoskeletal: Flexion and extension of lumbar spine somewhat guarded secondary to pain, deep tendon reflexes normal, strength in upper and lower extremities [5/5], [abnormal gait noted] Neurological: Speech clear, 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 3 times daily as needed muscle spasms. We will see her back in 1 month to reassess her symptoms at that time. She is been instructed to call the office if she has any concerns prior to her next appointment. She will continue a home stretching program, along with her T inflammatories. Dr. Grijalva has reviewed this note and agrees with this plan of care. This note was dictated using voice recognition software and make contain errors or omissions.
[2019-02-24 10:05] VITALS: BP 127/72; PULSE 65; RESP 18; TEMP 36.7; O2SAT 98
== END 2019-02-24 10:27 | disposition home or self-care (01) ==
LOC: SC.PAIN 09:16
PROVIDERS: PCP Emergency Medicine; Referring Provider Obstetrics & Gynecology; Visit Provider Clinical Nurse Specialist Family Health
DX: M51.16 Intervertebral disc disorders with radiculopathy, lumbar region (principal); Z79.899 Other long term (current) drug therapy
CPT/HCPCS: 96372; 99212; J0897

== ENCOUNTER → 2019-03-24 09:10 | Outpatient (POV) | payer MEDICAID, SELFPAY ==
[2019-03-24 09:29] VITALS: BP 122/77; PULSE 86; RESP 18; O2SAT 99; BMI 24.0
--- NOTE | 2019-03-24 09:42 | HMH.PAINSOAP ---
[facility] Pain Management SOAP Note Subjective:: Patient is a pleasant 48-year-old white female who presents today for follow-up. Patient has not had a L5-S1 lumbar epidural steroid injection which was 90% effective. She still having good success from it she rates her pain today 3 out of 10. She is complaining of muscle spasms and was started on Flexeril. She states that this has taking care of her. Overall doing extremely well and would like to follow-up on an as-needed basis. ROS General: no recent weight change, no fever, no sleep disturbances Respiratory: no cough, no shortness of air, no recurring pulmonary infections Cardiovascular/Peripheral Vascular: No chest pain, No palpitations, no edema, no shortness of breath. Gastrointestinal: no incontinence, normal bowel movements reported Genitourinary: no incontinence Musculoskeletal: Back pain, muscle spasms Psychiatric: normal mood/ affect Neurological: [denies weakness in extremities], [denies balance issues] Objective:: Physical Exam General: Alert and oriented x3, no acute distress, pleasant and cooperative, [on room air] Lungs: Resps E/U, Symmetrical chest expansion, Eyes: PERRL Musculoskeletal: Flexion and extension of lumbar spine somewhat guarded secondary to pain, deep tendon reflexes normal, strength in upper and lower extremities [5/5], lightly antalgic gait noted Neurological: speech clear, director of product design equal, no gross sensory deficits Assessment:: Degenerative disc disease lumbar spine with lumbar radiculopathy and muscle spasms Plan:: Patient is good to continue her Flexeril 10 mg 1 p.o. 3 times daily as needed. Patient overall doing extremely well and will call us when she needs us. Dr. Grijalva has reviewed this note and agrees with this plan of care. This note was dictated using voice recognition software and may contain errors or omissions Pain Management Hx Components *Have you ever received a pneumonia vaccine?: No *Have you received a flu vaccine this season?: No - *Social History *Occupational Status:: other *Travel in the last 8 weeks: None
--- NOTE | 2019-06-29 08:50 | PC.NURSE ---
2 refills for flexeril 10mg tid faxed to [facility] [place] per provider order
== END ==
PROVIDERS: PCP Emergency Medicine; Visit Provider Clinical Nurse Specialist Family Health
DX: M51.16 Intervertebral disc disorders with radiculopathy, lumbar region (principal); M62.838 Other muscle spasm
CPT/HCPCS: 99212

== ENCOUNTER → 2019-04-22 11:48 | Outpatient (CLI) | payer MEDICAID, SELFPAY ==
[2019-04-23 16:49] LABS: Amphetamine/Metha Screen,Urine Negative ng/mL (<1000); Barbiturates Screen,Urine Negative ng/mL (<200); Benzodiazepines Screen,Urine Negative ng/mL (<200); Cannabinoid Screen,Urine Negative ng/mL (<50); Cocaine Screen,Urine Negative ng/mL (<300); Methadone Screen,Urine Negative ng/mL (<300); Opiate Screen,Urine Negative ng/mL (<300); Phencyclidine Screen,Urine Negative ng/mL (<25)
[2019-05-04 05:09] LABS: Oxycodone Positive (.); Oxymorphone Negative (Cutoff=100)
[2019-05-05 06:50] LABS: Oxycodone Confirm 360 ng/mL (Cutoff=100)
== END ==
PROVIDERS: Visit Provider Emergency Medicine
DX: Z79.891 Long term (current) use of opiate analgesic (principal)
CPT/HCPCS: 80305; 80365

== ENCOUNTER → 2019-06-22 17:11 | Outpatient (CLI) | payer MEDICAID, SELFPAY ==
[2019-06-22 19:41] LABS: Amphetamine/Metha Screen,Urine Negative ng/mL (<1000); Barbiturates Screen,Urine Positive ng/mL (<200); Benzodiazepines Screen,Urine Negative ng/mL (<200); Cannabinoid Screen,Urine Negative ng/mL (<50); Cocaine Screen,Urine Negative ng/mL (<300); Methadone Screen,Urine Negative ng/mL (<300); Opiate Screen,Urine Negative ng/mL (<300); Phencyclidine Screen,Urine Negative ng/mL (<25)
[2019-06-28 13:17] LABS: Oxycodone Positive (.); Oxymorphone Positive (.)
[2019-06-28 17:24] LABS: Barbiturates Positive (.); Oxycodone Confirm 657 ng/mL (Cutoff=100); Oxymorphone Confirm 275 ng/mL (Cutoff=100)
== END ==
PROVIDERS: Visit Provider Emergency Medicine
DX: Z79.899 Other long term (current) drug therapy (principal)
CPT/HCPCS: 80305; 80345; 80365

== ENCOUNTER → 2019-08-10 13:52 | Outpatient (CLI) | payer MEDICAID, SELFPAY ==
[2019-08-10 15:16] LABS: Amphetamine/Metha Screen,Urine Negative ng/mL (<1000); Barbiturates Screen,Urine Negative ng/mL (<200); Benzodiazepines Screen,Urine Negative ng/mL (<200); Cannabinoid Screen,Urine Negative ng/mL (<50); Cocaine Screen,Urine Negative ng/mL (<300); Methadone Screen,Urine Negative ng/mL (<300); Opiate Screen,Urine Negative ng/mL (<300); Phencyclidine Screen,Urine Negative ng/mL (<25)
[2019-08-17 21:22] LABS: Opiates Negative ng/mL (Cutoff=100)
== END ==
PROVIDERS: Visit Provider Emergency Medicine
DX: Z79.899 Other long term (current) drug therapy (principal)
CPT/HCPCS: 80305; 80361; G0480

== ENCOUNTER 2019-08-27 12:54 | Outpatient (CLI) | payer MEDICAID, SELFPAY ==
[2019-08-27 13:00] VITALS: BP 117/64; PULSE 75; RESP 18; TEMP 36.6; O2SAT 100
[2019-08-27 13:30] VITALS: BP 122/69; PULSE 73; RESP 18; TEMP 36.6; O2SAT 100
== END 2019-08-27 13:30 | disposition home or self-care (01) ==
LOC: INF 12:54
PROVIDERS: Visit Provider Obstetrics & Gynecology
DX: M81.0 Age-related osteoporosis without current pathological fracture (principal)
CPT/HCPCS: 96372; J0897

== ENCOUNTER → 2019-11-16 14:38 | Outpatient (CLI) | payer MEDICAID, SELFPAY ==
--- NOTE | 2019-11-16 14:54 | US_ITS ---
PROCEDURE: US BREAST RT COMPLETE CLINICAL INDICATION: family history of breast cancer COMPARISON: US BREAST LT COMPLETE from 11/16/2019. Mammogram 11/16/2019. FINDINGS: No discrete cystic or solid lesion is seen in the right breast. Three separate axillary lymph nodes are incidentally noted largest 1.3 centimeters. IMPRESSION: BI-RADS category 2 benign findings. Mammographic follow-up will be required Dictated by: Gustavo Rao 11/16/2019 18:52 Electronically signed by Gustavo Rao in [place] 11/16/2019 18:52
--- NOTE | 2019-11-16 14:54 | MM_ITS ---
PROCEDURE: MM DIG MAMM BI DX W/CAD Digital Breast Tomosynthesis Included CLINICAL INDICATION: 6 mo follow up do to family history COMPARISON: [facility] MM Dig mamm BI DX w/CAD from 12/11/2017 [facility] MM Dig screening mamm BI w/CAD from 01/28/2019 DIG MAMM-DX LOIS from 02/16/2019 TECHNIQUE: Standard CC and MLO images and 3D Tomosynthesis was obtained. R2 CAD reviewed. FINDINGS: The breasts are of average density. There has been interval regression of a nodular density seen in the deep lateral left breast. This did measure up to 7 by 5 millimeters 01/28/2019. It is now approximately 6 x 2.8 millimeters. Asymmetrical density in the deep lateral right breast is not significantly changed. There are no new findings suspicious for malignancy. IMPRESSION: BI-RAD Category: 3 Probably Benign Finding Short Term Follow-up FOLLOW-UP: 6M 6Month Follow-up (A letter has been sent to the patient regarding results of the study.) Dictated by: Gustavo Rao 11/16/2019 17:33 Electronically signed by Gustavo Rao in [place] 11/16/2019 17:33
--- NOTE | 2019-11-16 14:54 | US_ITS ---
PROCEDURE: US BREAST LT COMPLETE CLINICAL INDICATION: family history of breast cancer COMPARISON: BREASTLT US breast LT complete from 02/16/2019 FINDINGS: At the 3 o'clock position near the nipple a cystic lesion approximately 3.0 x 2.2 x 1.9 millimeters is noted. This is not significantly changed from the previous exam where it was approximately 3.5 x 2.8 x 2.3 millimeters. There are no other breast lesions. There are 2 separate fat containing lymph nodes in the left axilla largest 1.5 centimeters. IMPRESSION: BI-RADS category 3 probably benign. Six-month follow-up exam is recommended. Dictated by: Gustavo Rao 11/16/2019 17:27 Electronically signed by Gustavo Rao in [place] 11/16/2019 17:27
== END ==
PROVIDERS: PCP Emergency Medicine; Visit Provider Emergency Medicine
DX: R92.8 Other abnormal and inconclusive findings on diagnostic imaging of breast (principal); Z80.3 Family history of malignant neoplasm of breast
CPT/HCPCS: 76641; 77062; 77066; G0279

== ENCOUNTER → 2020-02-23 16:25 | Outpatient (CLI) | payer MEDICAID, SELFPAY ==
[2020-02-23 17:06] LABS: Basophils # 0.1 K/mm3 (0-0.2); Basophils % 0.9 % (0.1-2.0); Eosinophils # 0.2 K/mm3 (0.0-0.4); Eosinophils % 1.7 % (0.1-12.0); Hematocrit 36.9 % (37.0-47.0); Hemoglobin 12.8 g/dL (12.2-16.2); Lymphocytes # 3.7 K/mm3 (0.7-4.5); Lymphocytes % 32.8 % (10-50); Mean Corpuscular HGB Conc 34.7 g/dL (31.8-35.4); Mean Corpuscular Hemoglobin 33.8 pg (27.0-31.2); Mean Corpuscular Volume 97.4 fl (81-99); Mean Platelet Volume 8.7 fl (7.4-10.4); Monocytes # 0.6 K/mm3 (0.1-1.0); Neutrophils # 6.6 K/mm3 (1.8-7.8); Neutrophils % 59.6 % (37.0-80.0); Platelet Count 340 K/mm3 (142-424); White Blood Count 11.1 K/mm3 (4.8-10.8)
[2020-02-23 17:12] LABS: Chloride 106 mmol/L (98-107)
[2020-02-23 17:13] LABS: Potassium 4.6 mmoL/L (3.5-5.1); Sodium 141 mmol/L (136-145)
[2020-02-23 17:15] LABS: Alanine Aminotransferase 18 U/L (12-78); Alkaline Phosphatase 80 U/L (38-126); Anion Gap 14.6 mEq/L (5-15); Aspartate Amino Transferase 24 U/L (14-36); Bilirubin,Total 0.4 mg/dl (0.2-1.3); Blood Urea Nitrogen 23 mg/dl (7-17); Carbon Dioxide 25 mmol/L (22.0-30.0); Cholesterol 293 mg/dl (140-200); Estimated Glomerular Filt Rate 47 ml/min (>60); GFR (African American) 57 ML/MIN (>60); Triglycerides 234 mg/dl (30-150); VLDL Cholesterol 47 mg/dL (0-40)
[2020-02-23 17:16] LABS: Albumin/Globulin Ratio 1.5 (1.1-1.8); Calcium 10.4 mg/dl (8.4-10.2); Chol/HDL Ratio 4.6 (1-3.5); Globulin 2.6 g/dL (1.3-3.2); Glucose 83 mg/dl (74-100); HDL Cholesterol 64 mg/dl (40-60); Total Protein,Serum 6.6 g/dl (6.3-8.2)
[2020-02-23 17:32] LABS: Direct LDL Cholesterol 170.72 mg/dL (100-129)
[2020-02-23 17:33] LABS: 25-OH Vitamin D, Total 56.6 ng/mL (30-100)
[2020-02-23 17:39] LABS: T4 (Thyroxine) 6.9 ug/dl (5.53-11.0)
[2020-02-23 17:52] LABS: Thyroid Stimulating Hormone 2.85 uIU/mL (0.465-4.68)
== END ==
PROVIDERS: Visit Provider Emergency Medicine
DX: M81.0 Age-related osteoporosis without current pathological fracture (principal); R53.83 Other fatigue
CPT/HCPCS: 36415; 80053; 80061; 82306; 84436; 84443; 85025

== ENCOUNTER 2020-03-07 14:10 | Outpatient (CLI) | payer MEDICAID, SELFPAY ==
[2020-03-07 14:25] VITALS: BP 97/55; PULSE 90; RESP 18; TEMP 36.5; O2SAT 98
== END 2020-03-07 14:25 | disposition home or self-care (01) ==
LOC: INF 14:10
PROVIDERS: Visit Provider Emergency Medicine
DX: M81.0 Age-related osteoporosis without current pathological fracture (principal)
CPT/HCPCS: 96372; J0897

== ENCOUNTER → 2020-05-02 15:54 | Outpatient (CLI) | payer MEDICAID, SELFPAY ==
--- NOTE | 2020-05-02 16:06 | MR_ITS ---
PROCEDURE: MR HEAD/BRAIN WO CON CLINICAL INDICATION: severe headaches HEADACHE XYRS GETTING WORSE WITH TIME. NO INURY OR TRAUMA. NO PRIOR. COMPARISON: No exams were available for comparison TECHNIQUE: Routine multiplanar multi echo sequences are performed without gadolinium enhancement. FINDINGS: No midline shift, mass effect, intracranial hemorrhage, or hydrocephalus is evident. There is some nonspecific slight increase FLAIR signal within the central aspect of the fina. No definite acute infarction evident. The cerebellopontine angles, cerebellum, and brainstem have an unremarkable appearance. There are some scattered subcortical T2 white matter hyperintensities. The pituitary, optic chiasm, corpus callosum, and craniocervical junction have an unremarkable appearance. There is bulging disc noted at the C3-C4 level causing some impingement upon the anterior aspect of the cord only imaged in the sagittal plane and may be better evaluated with cervical spine MRI if clinically warranted. No mastoid effusion or sinus air-fluid level. IMPRESSION: 1. No definite acute intracranial finding. 2. There are few scattered and subcortical T2 white matter hyperintensities which are nonspecific. Differential diagnosis would include ischemic gliotic foci, migraine headache, or demyelinating process. Please correlate with clinical parameters. 3. Nonspecific slight increased diffusion signal within the fina centrally not as intense as 1 would expect for an acute infarction and may be due to some ischemic gliotic change. Follow-up may confirm stability. 4. Bulging disc at C3-C4 causing impingement and mild contour deformity of the anterior aspect of the cord. Consider MRI of the cervical spine for more thorough evaluation Dictated by: Geovany Ta MD 05/03/2020 10:00 Geovany Ta MD in [place] 05/03/2020 10:00
== END ==
PROVIDERS: PCP Emergency Medicine; Visit Provider Specialist
DX: G43.719 Chronic migraine without aura, intractable, without status migrainosus (principal); G47.19 Other hypersomnia; I10 Essential (primary) hypertension
CPT/HCPCS: 70551

== ENCOUNTER → 2020-05-05 09:32 | Outpatient (CLI) | payer MEDICAID, SELFPAY ==
--- NOTE | 2020-05-05 09:36 | XR_ITS ---
PROCEDURE: XR KNEE RT 4V CLINICAL INDICATION: right knee pain COMPARISON: No exams were available for comparison FINDINGS: No fracture or dislocation. No lytic or blastic change. There is normal mineralization. The joint spaces are well-preserved. No significant degenerative/arthritic changes. No erosive changes evident. Other findings:None. IMPRESSION: No acute findings. Dictated by: Geovany Ta MD 05/05/2020 11:18 Geovany Ta MD in [facility] 05/05/2020 11:18
== END ==
PROVIDERS: PCP Emergency Medicine; Visit Provider Orthopaedic Surgery
DX: M25.561 Pain in right knee (principal)
CPT/HCPCS: 73564

== ENCOUNTER 2020-05-05 10:36 | Outpatient (RCR) | payer MEDICAID, SELFPAY | END 2020-05-05 11:12 | disposition home or self-care (01) | LOC: PT 10:36 | PROVIDERS: Visit Provider Orthopaedic Surgery | DX: S89.91XA Unspecified injury of right lower leg, initial encounter (principal); S83.411A Sprain of medial collateral ligament of right knee, initial encounter; S83.206A Unspecified tear of unspecified meniscus, current injury, right knee, initial encounter | CPT/HCPCS: 97760 ==

== ENCOUNTER → 2020-05-17 12:45 | Outpatient (CLI) | payer MEDICAID, SELFPAY | PROVIDERS: PCP Emergency Medicine; Visit Provider Orthopaedic Surgery | DX: M25.561 Pain in right knee (principal); M25.461 Effusion, right knee ==

== ENCOUNTER → 2020-05-30 13:04 | Outpatient (CLI) | payer MEDICAID, SELFPAY ==
--- NOTE | 2020-05-30 13:13 | MM_ITS ---
PROCEDURE: MM DIG MAMM BI DX W/CAD Digital Breast Tomosynthesis Included CLINICAL INDICATION: ABN MAMM,6 MONTH F/U COMPARISON: MG SCBI MM Dig screening mamm BI w/CAD from 01/28/2019 MG DIG MAMM-DX LOIS from 02/16/2019 US US BREAST LT COMPLETE from 11/16/2019 MG MM DIG MAMM BI DX W/CAD from 11/16/2019 US US BREAST LT COMPLETE from 05/30/2020 TECHNIQUE: Standard CC and MLO images and 3D Tomosynthesis was obtained. R2 CAD reviewed. FINDINGS: Average fibroglandular tissue. No discrete mass or malignant-appearing microcalcification. Area of asymmetry in the lateral aspect of the left breast is once again noted not significantly changed. Left breast ultrasound: There is a 3 mm cyst at 1 o'clock. Small nodes are present in the axilla. No significant change from 11/16/2019. IMPRESSION: BI-RAD Category: 2 Benign Finding(s) FOLLOW-UP: 1YR 1 Year Follow-up (A letter has been sent to the patient regarding results of the study.) Dictated by: Geovany Ta MD 05/31/2020 13:21 Geovany Ta MD in [place] 05/31/2020 13:21
== END ==
PROVIDERS: PCP Emergency Medicine; Visit Provider Emergency Medicine
DX: R92.8 Other abnormal and inconclusive findings on diagnostic imaging of breast (principal)
CPT/HCPCS: 76641; 77062; 77066; G0279

== ENCOUNTER → 2020-06-09 13:51 | Outpatient (CLI) | payer MEDICAID, SELFPAY ==
--- NOTE | 2020-06-09 13:52 | CA_ITS ---
APPROVED REPORT Exam: Pharmacologic Technologist: Lamar Estrella, Ht: 5 ft 4 in Wt: 137 lbs BSA: 1.67 m2 HR: 80 bpm BP: 143/90 mmHg Rhythm: NSR Medical History Medical History: HTN, Hyperlipidemia Medications: Lisinopril,,,,, Atorvastatin,,,,, Escitalopram,,,,, Albuterol,,,,, AmiTRIPTYLINE,,,,, BuPROPION,,,,, Cyclobenzaprine,,,,, EMGALITY,,,,, Allergies: No known drug allergies Cardiac Risk Factors: HTN, Hyperlipidemia, FHX of CAD, Smoking Stress Test Details Test: Ibrahima HR Resting HR: 93 bpm Max Heart Rate (APMHR): 169 bpm Max HR Achieved: 152 bpm Target HR (85% APMHR): 143 bpm % of APMHR: 89 Recovery HR: 132 bpm BP Resting BP: 143.0/90.0 mmHg Max BP: 179.0/78.0 mmHg Recovery BP: 182.0/80.0 mmHg ECG Resting ECG: NSR Clinical Reason for Termination: Dyspnea Exercise duration: 09:00 min Highest Stage Achieved: Exercise capacity: 10.1 METs Stress ECG Conclusion MAX HEART RATE 152 BPM WHICH IS 102% OF PM FOR AGE. MAX BP 182/80. METS = 10.1. TEST STOPPED DUE TO SOA. NO ARRHYTHMIAS/ECTOPY. NO ST-T CHANGES. Normal exercise treadmill stress test. Test Summary REST . . . . . . . Standing REST . . . . . . . Sitting REST . . . . . . . Sitting REST 14:18 0.0 1.2 93 . 143/ 90 . . Stage 1 01:00 10.0 1.7 103 . . . . Stage 1 02:00 10.0 1.7 114 . . . . Stage 1 03:00 10.0 1.7 115 . 145/ 68 . . Stage 2 01:00 12.0 2.5 120 . . . . Stage 2 02:00 12.0 2.5 123 . . . . Stage 2 03:00 12.0 2.5 125 . 165/ 70 . . Stage 3 01:00 14.0 3.4 95 . . . . Stage 3 02:00 14.0 3.4 133 . . . . Stage 3 03:00 14.0 3.4 106 . . . Stop exercise at 09:00 RECOVERY 01:00 0.0 0.0 132 . . . . RECOVERY 02:00 0.0 0.0 119 . . . . RECOVERY 03:00 0.0 0.0 103 . 179/ 78 . . RECOVERY 04:00 0.0 0.0 93 . 179/ 78 . . RECOVERY 04:54 0.0 0.0 92 . 160/ 84 . . Electronically signed by : Bobby Armas, 06/09/2020 16:45:55
== END ==
PROVIDERS: PCP Emergency Medicine; Visit Provider Urology
DX: Z01.810 Encounter for preprocedural cardiovascular examination (principal); R06.00 Dyspnea, unspecified; R00.2 Palpitations; R94.31 Abnormal electrocardiogram [ECG] [EKG]; R60.0 Localized edema; E78.5 Hyperlipidemia, unspecified
CPT/HCPCS: 93017

== ENCOUNTER → 2020-06-13 13:57 | Outpatient (CLI) | payer MEDICAID, SELFPAY ==
[2020-06-13 16:12] LABS: Coronavirus 19 IgG Antibody Negative (Negative); Coronavirus 19 IgM Antibody Negative (Negative)
== END ==
PROVIDERS: Visit Provider Surgery
DX: Z01.818 Encounter for other preprocedural examination (principal); Z12.11 Encounter for screening for malignant neoplasm of colon
CPT/HCPCS: 36415; 86328

== ENCOUNTER 2020-06-14 07:39 | Day surgery (SDC) | payer MEDICAID, SELFPAY ==
[2020-06-13 12:02] VITALS: BMI 23.6
[2020-06-14 07:55] VITALS: BP 118/94; PULSE 83; RESP 20; TEMP 36.6; O2SAT 99
[2020-06-14 08:13] VITALS: O2SAT 99
--- NOTE | 2020-06-14 08:25 | P.PN_ITS ---
[facility] Anesthesia Checklist - Patient Identification Patient Identification: Arm Band, Verbal (Name & ) - Structural Data Admitted From: Home Planned Operative Procedure/s: Colonoscopy Consent for Planned Operative Procedure(s) Verified: Yes Verified Documents: Surgical Consent, History and Physical - NPO Status Verified Time NPO: 00:00 - Chart Verification Results Verified: None - Additional verifications Anesthesia Reactions: No Hx Blood Transfusions: No Blood Transfusion Reaction: No - Airway Assessment C-Spine Mobility Assessed: Yes (MP 2, TMD 3, Full neck ROM) TMJ Mobility Assessed: Yes Dentition: Edentulous - Neurological Assessment Level of Consciousness: Awake, Alert, Appropriate, Follows Commands Hx Seizures: No Numbness or tingling in extremities: No - Anesthesia Plan Anesthesia Risk discussed: Yes Anesthesia Plan: Verified ASA Class: III Anesthesia Type: MAC [facility] History I have reviewed the patient's past medical history: Yes Medical History: Reports:: Anxiety, Atherosclerotic Heart Disease, Chronic Obstructive Pulmonary Disease (COPD), Depression, Hyperlipidemia, Hypertension, Migraine, Osteoporosis Denies:: Cancer, Diabetes Mellitus Type 1, Diabetes Mellitus Type 2, Internal Pacemaker, Lung Disease, MRSA, Seizures *Have you ever received a pneumonia vaccine?: Yes *Have you received a flu vaccine this season?: Yes Other Medical History: Reports: Anemia, Arthritis, Glaucoma, Hypothyroidism, Osteoporosis, Thyroid Disease, Other. Denies: Blood Transfusion Reaction Anesthesia experience/problems:: None Other Surgeries: Yes: Cholecystectomy, Colonoscopy, , Hysterectomy- Total, Hysterectomy-Partial, Tubal Ligation, Other. No: Pacemaker Amputation: No Fractures: No - *Social History Last grade of school completed: 9th or 10th Smoking Status: Current every day smoker Tobacco Type: cigarettes # Packs/Day (cigarettes): 1 Alcohol Intake: never Alcohol Intake Frequency:: other Substance Use Type: denies use *Occupational Status:: employed Housing: house Household Members: spouse *Travel in the last 8 weeks: None - Psychiatric History Pschychiatric History:: Reports:: Anxiety, Depression Family Hx:: Cancer, Diabetes
[2020-06-14 09:05] VITALS: BP 98/59; PULSE 65; RESP 18; TEMP 36.4; O2SAT 96
--- NOTE | 2020-06-14 09:08 | P.PCN_ITS ---
- Procedure: Date: 06/14/20 Patient Date of :: 1970 Procedure Performed:: Colonoscopy with polypectomy by snare and biopsy forceps Indications:: Patient is a 49-year-old female referred by Dr. Santana for colonoscopy. I had actually seen the patient 2 years ago and she had been scheduled for a colonoscopy after referral by gynecology to investigate lower abdominal/pelvic pain. However, she complained of chest pain immediately prior to the procedure and therefore cardiology consultation was obtained and it was recommended her procedure be postponed. She has never had prior colonoscopy. She does describe abdominal swelling . Patient states I have IBS . This had been diagnosed clinically by a physician in [facility]. She describes moving her bowels about once per week. Performing Provider:: Gustavo Rivera MD Referring Provider:: Agustin Santana Sedation:: MAC sedation Procedure:: Patient was taken to endoscopy procedure room. She was positioned in a lateral decubitus position. Adequate intravenous sedation was achieved with anesthesia titration of propofol. Variable stiffness Olympus colonoscope was inserted via the anus. Was advanced to the cecum with some difficulty due to floppiness and redundancy of the sigmoid colon entered. There was a large amount of stool and particulate food matter retained within the cecum. Thorough irrigation was performed which ultimately allowed for adequate visualization. Ileocecal valve and appendiceal orifice were identified. Colonoscope slowly withdrawn through the colon. Several diminutive polyps were encountered which appeared hyperplastic. Please see findings below. Within the rectum retroflexion was performed which revealed internal anal papillae but no pathologic hemorrhoids. Colonoscope was withdrawn. Findings:: Hyperplastic appearing polyps x3 at the splenic flexure Hyperplastic appearing descending colon polyp x2 Sigmoid colon polyp, hyperplastic appearing, removed with cold cutting snare Hyperplastic appearing rectosigmoid polyp removed with biopsy forceps Internal anal papillae Recommendations:: Pending the pathology repeat colonoscopy 1 or 2 years given the suboptimal preparation. 2 years if no adenomatous component. 1 year if any adenomatous component to the polyps. Complications:: None immediately apparent Estimated blood obtained (mL): 3
[2020-06-14 09:15] VITALS: BP 120/72; PULSE 66; RESP 18; O2SAT 97
[2020-06-14 09:25] VITALS: BP 124/70; PULSE 69; RESP 18; O2SAT 97
[2020-06-14 09:35] VITALS: BP 118/65; PULSE 67; RESP 18; O2SAT 97
== END 2020-06-14 09:35 | disposition home or self-care (01) ==
LOC: OUTP 07:40
PROVIDERS: PCP Emergency Medicine; Visit Provider Surgery
PROC: 0DJD8ZZ Inspection of Lower Intestinal Tract, Via Natural or Artificial Opening Endoscopic (ICD-10-PCS; CPT 45385; principal; 2020-06-14 08:30)
DX: R19.00 Intra-abdominal and pelvic swelling, mass and lump, unspecified site (principal); K63.5 Polyp of colon; D12.9 Benign neoplasm of anus and anal canal; I25.10 Atherosclerotic heart disease of native coronary artery without angina pectoris; J44.9 Chronic obstructive pulmonary disease, unspecified; E78.5 Hyperlipidemia, unspecified; I10 Essential (primary) hypertension; M81.0 Age-related osteoporosis without current pathological fracture; F41.9 Anxiety disorder, unspecified; F32.9 Major depressive disorder, single episode, unspecified; G43.909 Migraine, unspecified, not intractable, without status migrainosus; M19.90 Unspecified osteoarthritis, unspecified site
CPT/HCPCS: 45385; 45380

== ENCOUNTER 2020-09-21 10:45 | Outpatient (CLI) | payer MEDICAID, SELFPAY ==
[2020-09-21 11:00] VITALS: BP 141/84; PULSE 91; RESP 18; TEMP 36.5; O2SAT 98
== END 2020-09-21 11:00 | disposition home or self-care (01) ==
LOC: INF 10:46
PROVIDERS: Visit Provider Emergency Medicine
DX: M81.0 Age-related osteoporosis without current pathological fracture (principal)
CPT/HCPCS: 96372; J0897

== ENCOUNTER → 2020-11-23 17:19 | Outpatient (CLI) | payer MEDICAID, SELFPAY ==
[2020-11-23 17:44] LABS: Amphetamine/Metha Screen,Urine Negative ng/ml (<1000); Benzodiazepines Screen,Urine Negative ng/ml (<200)
[2020-11-23 17:45] LABS: Barbiturates Screen,Urine Negative ng/ml (<200); Methadone Screen,Urine Negative ng/ml (<300)
[2020-11-23 17:46] LABS: Cannabinoid Screen,Urine Negative ng/ml (<50)
[2020-11-23 17:47] LABS: Cocaine Screen,Urine Negative ng/ml (<300); Opiate Screen,Urine Negative ng/ml (<300)
[2020-11-23 17:48] LABS: Phencyclidine Screen,Urine Negative ng/ml (<25)
== END ==
PROVIDERS: Visit Provider Emergency Medicine
DX: G89.29 Other chronic pain (principal); M54.5 Low back pain
CPT/HCPCS: 80305

== ENCOUNTER → 2021-02-01 18:04 | Outpatient (CLI) | payer MEDICAID, SELFPAY ==
[2021-02-01 21:33] LABS: Amphetamine/Metha Screen,Urine Negative ng/ml (<1000); Barbiturates Screen,Urine Negative ng/ml (<200)
[2021-02-01 21:34] LABS: Benzodiazepines Screen,Urine Negative ng/ml (<200)
[2021-02-01 21:35] LABS: Cannabinoid Screen,Urine Negative ng/ml (<50); Cocaine Screen,Urine Negative ng/ml (<300)
[2021-02-01 21:36] LABS: Methadone Screen,Urine Negative ng/ml (<300)
[2021-02-01 21:37] LABS: Opiate Screen,Urine Negative ng/ml (<300); Phencyclidine Screen,Urine Negative ng/ml (<25)
== END ==
PROVIDERS: Visit Provider Emergency Medicine
DX: Z79.899 Other long term (current) drug therapy (principal)
CPT/HCPCS: 80305

== ENCOUNTER 2021-03-21 13:57 | Outpatient (CLI) | payer MEDICAID, SELFPAY | END 2021-03-21 14:39 | disposition home or self-care (01) | LOC: INF 13:58 | PROVIDERS: Visit Provider Emergency Medicine | DX: M81.0 Age-related osteoporosis without current pathological fracture (principal) | CPT/HCPCS: 96401; J0897 ==

== ENCOUNTER → 2021-03-31 17:17 | Outpatient (CLI) | payer MEDICAID, SELFPAY ==
[2021-03-31 20:00] LABS: Amphetamine/Metha Screen,Urine Negative ng/ml (<1000)
[2021-03-31 20:01] LABS: Barbiturates Screen,Urine Negative ng/ml (<200)
[2021-03-31 20:02] LABS: Benzodiazepines Screen,Urine Negative ng/ml (<200)
[2021-03-31 20:03] LABS: Cannabinoid Screen,Urine Negative ng/ml (<50); Cocaine Screen,Urine Negative ng/ml (<300)
[2021-03-31 20:04] LABS: Methadone Screen,Urine Negative ng/ml (<300); Opiate Screen,Urine Negative ng/ml (<300)
[2021-03-31 20:05] LABS: Phencyclidine Screen,Urine Negative ng/ml (<25)
== END ==
PROVIDERS: Visit Provider Emergency Medicine
DX: M54.9 Dorsalgia, unspecified (principal); G89.29 Other chronic pain
CPT/HCPCS: 80305

== ENCOUNTER → 2021-04-12 17:23 | Outpatient (CLI) | payer MEDICAID, SELFPAY ==
[2021-04-12 19:17] LABS: Basophils # 0.1 K/mm3 (0-0.2); Eosinophils # 0.2 K/mm3 (0.0-0.4); Hematocrit 41.5 % (37.0-47.0); Hemoglobin 12.9 g/dL (12.2-16.2); Lymphocytes # 2.6 K/mm3 (0.7-4.5); Lymphocytes % 27.9 % (10-50); Mean Corpuscular HGB Conc 31.1 g/dL (31.8-35.4); Mean Corpuscular Hemoglobin 31.6 pg (27.0-31.2); Mean Corpuscular Volume 101.7 fl (81-99); Mean Platelet Volume 10.4 fl (7.4-10.4); Monocytes # 0.5 K/mm3 (0.1-1.0); Monocytes % 5.2 % (1.7-9.3); Neutrophils # 6.1 K/mm3 (1.8-7.8); Neutrophils % 63.9 % (37.0-80.0); Platelet Count 334 K/mm3 (142-424); Red Blood Count 4.08 M/mm3 (4.20-5.40); Red Cell Distribution Width 14.4 % (11.5-17.5); White Blood Count 9.5 K/mm3 (4.8-10.8)
[2021-04-12 19:36] LABS: Alanine Aminotransferase 79 U/L (12-78); Albumin Level 3.9 g/dl (3.5-5.0); Albumin/Globulin Ratio 1.4 (1.1-1.8); Alkaline Phosphatase 214 U/L (38-126); Anion Gap 12.2 mEq/L (5-15); Aspartate Amino Transferase 49 U/L (14-36); Blood Urea Nitrogen 11 mg/dl (7-17); Calcium 9.8 mg/dl (8.4-10.2); Carbon Dioxide 29 mmol/L (22.0-30.0); Chloride 106 mmol/L (98-107); Chol/HDL Ratio 4.4 (1-3.5); Cholesterol 248 mg/dl (140-200); Estimated Glomerular Filt Rate 66 ml/min (>60); GFR (African American) 80 ML/MIN (>60); Globulin 2.7 g/dL (1.3-3.2); Glucose 94 mg/dl (74-100); HDL Cholesterol 56 mg/dl (40-60); Potassium 5.2 mmoL/L (3.5-5.1); Sodium 142 mmol/L (136-145); Total Protein,Serum 6.6 g/dl (6.3-8.2); Triglycerides 178 mg/dl (30-150); VLDL Cholesterol 36 mg/dL (0-40)
[2021-04-12 19:40] LABS: Bilirubin,Total < 0.1 mg/dl (0.2-1.3)
[2021-04-12 19:46] LABS: Direct LDL Cholesterol 140.41 mg/dL (100-129)
[2021-04-12 19:52] LABS: Free T4 (Free Thyroxine) 0.85 ng/dl (0.78-2.19)
[2021-04-12 19:54] LABS: 25-OH Vitamin D, Total 65.9 ng/mL (30-100)
[2021-04-12 20:09] LABS: Thyroid Stimulating Hormone 3.09 uIU/mL (0.465-4.68)
[2021-04-12 21:31] LABS: Erythrocyte Sedimentation Rate 63 mm/hr (0-30)
[2021-04-14 05:53] LABS: HIV Screen 4th Generation wRfx Non Reactive (Non Reactive)
[2021-04-14 08:17] LABS: Hep A Ab, IgM Negative (Negative); Hep A Ab, Total Negative (Negative); Hep B Core Ab, Total Negative (Negative); Hep B Surface Ab, Qual Non Reactive (.); Hepatitis B Surface Antigen Negative (Negative); Hepatitis C Antibody 0.1 s/co ratio (0.0-0.9)
[2021-04-14 23:44] LABS: ALT (SGPT) P5P 80 IU/L (0-40); Alpha 2-Macroglobulins, Qn 302 mg/dL (110-276); Apolipoprotein A-1 153 mg/dL (116-209); Bilirubin, Total <0.1 mg/dL (0.0-1.2); GGT 191 IU/L (0-60); Haptoglobin 195 mg/dL (33-346); Necroinflammat Activity Grade A1-A2 (.); Necroinflammat Activity Score 0.44 (0.00-0.17)
== END ==
PROVIDERS: Visit Provider Emergency Medicine
DX: N19 Unspecified kidney failure (principal); R10.9 Unspecified abdominal pain; E55.9 Vitamin D deficiency, unspecified; Z11.4 Encounter for screening for human immunodeficiency virus [HIV]; R74.8 Abnormal levels of other serum enzymes; R94.5 Abnormal results of liver function studies
CPT/HCPCS: 80053; 80061; 81596; 82306; 84439; 84443; 85025; 85651; 86703; 86704; 86706; 86708; 87340; 87380; 87522; G0432

== ENCOUNTER → 2021-04-17 14:56 | Outpatient (CLI) | payer MEDICAID, SELFPAY ==
--- NOTE | 2021-04-17 15:00 | XR_ITS ---
PROCEDURE: XR CHEST 2V CLINICAL HISTORY: chest pain COMPARISON: CR CXR2V XR chest 2V from 12/17/2017 FINDINGS: The cardiomediastinal silhouette and pulmonary vascularity are within normal limits. The lungs are clear without infiltrates, suspicious nodules, or pleural effusions. No acute bony abnormalities. IMPRESSION: No acute findings. Dictated by: Geovany Ta MD 04/17/2021 15:36 Geovany Ta MD in [place] 04/17/2021 15:36
== END ==
PROVIDERS: PCP Emergency Medicine; Visit Provider Physician Assistant
DX: R07.89 Other chest pain (principal); R06.00 Dyspnea, unspecified; R60.0 Localized edema; R94.31 Abnormal electrocardiogram [ECG] [EKG]; E78.2 Mixed hyperlipidemia; Z72.0 Tobacco use
CPT/HCPCS: 71046

== ENCOUNTER → 2021-04-26 07:55 | Outpatient (CLI) | payer MEDICAID, SELFPAY ==
--- NOTE | 2021-04-26 07:56 | CA_ITS ---
APPROVED REPORT EXAM: Comprehensive 2D, Doppler, and color-flow Echocardiogram Media Associate: Jaci Dorsey, SAMIRA, RVS Ht: 5 ft 4 in Wt: 133lbs BSA: 1.64 BP: 140/82 mmHg Indications: Smoker, CP, HTN, Abn EKG, Family hx-cad,COPD, Fatigue, SQUIRES 2D Dimensions IVSd 0.90 cm LVEF (Visual) 65.00 % PWd 0.78 cm LA Volume 44.10 mL LVDd 4.72 cm LA Volume Index 26.90 mL/m2 (M/F) 16-34 LVDs 2.56 cm Aortic Root 2.56 cm Left Atrium 3.20 cm LVOT 1.77 cm (M/F) 1.5-2.5 M-Mode Dimensions LA Diam 3.35 cm (1.9-4.0) Ao Diam 2.74 cm (2.0-3.7) EPSs 0.64 cm TAPSE 1.41 (<1.7) LV Diastology E Decel Time 363.00 (160-240 msec) E/A Ratio 1.75 MED E' 10.90 (< 7 cm/sec) MED A' 7.80 cm/s E'/MED E' Ratio 7.24 (>14) LAT E' 13.70 (<10 cm/sec) LAT A' 7.80 cm/s E/LAT E' Ratio 5.76 (>14) Aortic Valve LVOT Max 106.00 (70-110 cm/s) LVOT VTI 22.12 cm AoV Peak Leonel. 100.00 (50-130 cm/s) AO Peak GR. 4.00 mmHg AO Mean GR. 2.00 (<5 mmHg) AO VTI 22.80 (18-25 cm) EMIR (VTI) 2.39 (2.5-4.5 cm2) Mitral Valve MV A Velocity 45.00 (40-130 cm/s) E/A Ratio 1.75 MV Decel. Time 363.00 (160-240 ms) Pulmonary Valve PV Peak Velocity 75.00 (50-150 cm/s) Tricuspid Valve TR P. Velocity 191.00 cm/s RAP Estimate 10.00 mmHg RVSP 24.50 mmHg Left Ventricle Left atrium is mildly enlarged, left ventricle is normal size, mild concentric left ventricular hypertrophy, visually estimated ejection fraction 55% with no regional wall motion abnormality, grade 1 diastolic dysfunction seen without tissue Doppler evidence of raise left atrial pressure. Right Ventricle Right atrium and right ventricle qualitatively mildly enlarged with normal contractility. Aortic Valve Aortic valve is minimally thickened and fibrosed. There is no aortic stenosis or aortic insufficiency. Mitral Valve Mitral valve is grossly normal, there is trace mitral regurgitation. Tricuspid Valve Tricuspid valve grossly normal, there is trace tricuspid regurgitation, calculated right ventricular systolic pressure is 24 mmHg. Pulmonic Valve Pulmonic valve is poorly visualized. Great Vessels Aortic root is normal size. Inferior vena cava is poorly visualized. Pericardium No significant pericardial effusion noted Conclusion 1. Mild biatrial enlargement, normal left ventricular size, mild concentric left ventricular hypertrophy, visually estimated ejection fraction 55% with no regional wall motion abnormality, grade 1 diastolic dysfunction seen without tissue Doppler evidence of raise left atrial pressure. 2. Mildly enlarged right ventricle with normal contractility. 3. Trace mitral and tricuspid regurgitation, calculated right ventricular systolic pressure 24 mmHg 4. No significant pericardial effusion noted. Electronically signed by : Bobby Armas MD 04/27/2021 11:53:28
--- NOTE | 2021-04-26 08:00 | NM_ITS ---
APPROVED REPORT Exam: Nuclear Stress Test Indication: HTN, HYPERLIPIDEMIA, TOB USE, FM HX, C.P., SOB, PALPITATIONS, FATIGUE Patient Location: Outpatient Stress Tech: Nikia Palacio CT Tech:Jania Mi, ARRT, RT (R)(N) Ht: 5 ft 4 in Wt: 130 lbs Bra Size: A HR: 63 bpm BP: 134/60 mmHg BSA: 1.63 m2 BMI: 22.3 History: HTN, HYPERLIPIDEMIA, TOB USE, FM HX, C.P., SOB, PALPITATIONS, FATIGUE Procedure: Patient exercised on Ibrahima protocol 8:45 minutes and sec, resting heart rate 63 bpm, resting blood pressure 134/60 mmHg, with exercise maximum heart rate achived was 120 bpm which is 71 % of the maximum predicted heart rate and blood pressure was 157/73 mmHg. Test was stopped due to FATIGUE. Patient has good exercise capacity, achieved 10.1 METs of workload on treadmill, the blood pressure response to exercise was Adequate. Electrocardiogram Resting electrocardiogram showed sinus rhythm with exercise there is less than 1.[address] segment depression noted from the baseline EKG. The EKG portion of the exercise Myoview is nondiagnostic as patient did not achieve the target heart rate. Cardiac Stress and Resting SPECT Images: Cardiac Stress and Resting SPECT images were obtained using technetium 99m Myoview 30.9 mCi stress and 10.31 mCi at rest. Gated SPECT for analysis of segmental wall motion and calculation of the ejection fraction also done. Prone images were also obtained. Cardiac stress and resting SPECT images show uniform myocardial activity without segmental perfusion abnormality, computer derived ejection fraction is 53% with no regional wall motion abnormality, right ventricle is normal size and contractility. Conclusion: 1. The EKG portion of the exercise Myoview was nondiagnostic as patient did not achieve the target heart rate, patient has good exercise capacity achieved 10.1 METs of workload on treadmill, the blood pressure response to exercise was adequate, there was no exercise-induced chest discomfort. 2. No scintigraphic evidence of reversible ischemia seen, computer derived ejection fraction is 53% with no regional wall motion abnormality, right ventricle is normal size and contractility. Electronically signed by : Bobby Armas MD 04/27/2021 10:39:01
--- NOTE | 2021-04-26 09:29 | HMH.ITSHM ---
Current Home Medications as stated by this patient Aviva Ledbetter or provider relations representative. []ZOLIPIDEM RIMEGEPANT PANTOPRAZOLE OXYCODONE INDOMETHACIN DENOSUMAB CLONAZEPAM VITAMIN D3 BISOPROLOL ASA AMLODIPINE ALBUTEROL AJOVY AMTRIPTYLINE
--- NOTE | 2021-04-26 10:25 | CA_ITS ---
APPROVED REPORT Exam: Exercise Treadmill Technologist: Radha Antuenz, Ht: 5 ft 4 in Wt: 133 lbs BSA: 1.64 m2 HR: 58 bpm BP: 134/60 mmHg Indications: Fatigue, Hypertension Medical History Medications: Amlodipine,,,,, Vitamin D3,,,,, Atorvastatin,,,,, Escitalopram,,,,, ClonAZEPAM,,,,, Albuterol,,,,, Zolpidem,,,,, AmiTRIPTYLINE,,,,, INdomethacin,,,,, Denosumab,,,,, RImegepant,,,,, BuTalbital-Acetominophen,,,,, Stress Test Details Test: Ibrahima HR Resting HR: 63 bpm Max Heart Rate (APMHR): 168.761463 bpm Max HR Achieved: 120 bpm Target HR (85% APMHR): 142.656858 bpm % of APMHR: 71.43 Recovery HR: 68 bpm BP Resting BP: 134/60 mmHg Max BP: 157/73 mmHg Recovery BP: 132.0/78.0 mmHg ECG Resting ECG: Sinus bradycardia, otherwise normal Clinical Exercise duration: 08:45 min Highest Stage Achieved: Exercise capacity: 10.1 METs Stress ECG Conclusion Exercised 8:45 on Ibrahima Protocol Max HR: 120 % of PM: 71% Max BP: 157/73 Met's: 10.1 Test stopped due to: SOA, Fatigue Symptoms: Mild chest pressure in recovery. Arrhythmias/Ectopy: None. ST-T Changes: Within normal ST response to the HR achieved. Conclusion: Mild CP in recovery -Normal EKG's to HR achieved (71% of PM). Myoview images reported separately. Test Summary REST . . . . . . . Sitting REST . . . . . . . Standing REST 03:40 0.0 0.0 63 . 134/ 60 . . Stage 1 01:00 10.0 1.7 80 . . . . Stage 1 02:00 10.0 1.7 87 . . . . Stage 1 03:00 10.0 1.7 90 . 138/ 70 . . Stage 2 01:00 12.0 2.5 91 . . . . Stage 2 02:00 12.0 2.5 95 . . . . Stage 2 03:00 12.0 2.5 97 . 140/ 70 . . Stage 3 01:00 14.0 3.4 108 . . . . Stage 3 . . . . . . . Myoview Injected Stage 3 02:00 14.0 3.4 114 . . . . Stage 3 02:45 14.0 3.4 109 . . . Stop exercise at 08:45 RECOVERY 01:00 0.0 0.0 101 . . . . RECOVERY 02:00 0.0 0.0 85 . 157/ 73 . . RECOVERY . . . . . . . chest pressure RECOVERY 03:00 0.0 0.0 74 . 157/ 73 . . RECOVERY 04:00 0.0 0.0 69 . 156/ 66 . . RECOVERY 05:00 0.0 0.0 69 . 156/ 66 . . RECOVERY 06:00 0.0 0.0 68 . 156/ 66 . . RECOVERY 07:00 0.0 0.0 66 . 132/ 78 . . RECOVERY 07:17 0.0 0.0 66 . 132/ 78 . . Electronically signed by : Bobby Armas MD 04/27/2021 10:35:41
== END ==
PROVIDERS: PCP Emergency Medicine; Visit Provider Physician Assistant
DX: R06.00 Dyspnea, unspecified (principal); Z01.810 Encounter for preprocedural cardiovascular examination; R00.2 Palpitations; R60.0 Localized edema; E78.2 Mixed hyperlipidemia; R07.89 Other chest pain
CPT/HCPCS: 78452; 93017; 93306; A9502

== ENCOUNTER → 2021-04-27 08:56 | Outpatient (CLI) | payer MEDICAID, SELFPAY ==
--- NOTE | 2021-04-27 08:56 | CT_ITS ---
PROCEDURE: CT ABDOMEN PELVIS WO CON CLINICAL INDICATION: right flank pain COMPARISON: No exams were available for comparison TECHNIQUE: Axial images obtained with sagittal and coronal reformats. All CT scans at the facility use one or more dose reduction, viz: automated exposure control, ma/kV adjustment per patient size (including targeted exams where dose is matched to indication, i.e. head), or iterative reconstruction technique. FINDINGS: LOWER THORAX: Minimal atelectatic or fibrotic changes in both lung bases. ABDOMEN & PELVIS: Prior cholecystectomy. No focal liver lesion apparent. Spleen, adrenal glands, pancreas, and kidneys have an unremarkable unenhanced appearance. No renal or ureteral calculi. No hydronephrosis. There is a moderate amount of retained colonic feces. No intestinal obstruction or free air. There is prominence of the tip of the appendix at approximately 9 mm in diameter. This is of questionable clinical significance. Dedicated CT of the abdomen and pelvis with IV and oral contrast may further evaluate if clinically warranted. There has been a prior hysterectomy. No pelvic mass or abnormal fluid collection. There are scattered colonic diverticula but no evidence of diverticulitis. Postsurgical changes are present of the lumbar spine with prior posterior fusion at L4 and L5 with normal alignment. IMPRESSION: No renal or ureteral calculi. No hydronephrosis. Prominence of the tip of the appendix of questionable clinical significance. There is some minimal stranding of the fat at the tip of the appendix. This could even be related to adjacent atrophic ovarian tissue or an unopacified bowel loop. Dedicated CT abdomen pelvis with IV AND oral contrast may provide further evaluation if clinically warranted. Dictated by: Geovany Ta MD 04/27/2021 10:52 Geovany Ta MD in [place] 04/27/2021 10:52
== END ==
PROVIDERS: PCP Emergency Medicine; Visit Provider Emergency Medicine
DX: R10.9 Unspecified abdominal pain (principal)
CPT/HCPCS: 74176

== ENCOUNTER 2021-05-09 20:40 | Emergency (ER) | payer MEDICAID, SELFPAY ==
[2021-05-09 20:41] VITALS: BP 118/67; PULSE 68; RESP 18; TEMP 36.8; O2SAT 100; BMI 23.0
--- NOTE | 2021-05-09 21:21 | CT_ITS ---
PROCEDURE INFORMATION: Exam: CT Abdomen And Pelvis With Contrast Exam date and time: 05/09/2021 9:21 PM Age: 50 years old Clinical indication: Nausea; Abdominal pain; Localized; Right; Prior surgery; Surgery type: Gallbladder, hysterectomy; Additional info: Abd pain TECHNIQUE: Imaging protocol: Computed tomography of the abdomen and pelvis with contrast. Radiation optimization: All CT scans at this facility use at least one of these dose optimization techniques: automated exposure control; mA and/or kV adjustment per patient size (includes targeted exams where dose is matched to clinical indication); or iterative reconstruction. Contrast material: ISOVUE; Contrast volume: 75 ml; Contrast route: IV; COMPARISON: CT ABDOMEN PELVIS WO CON 04/27/2021 9:21 AM FINDINGS: Lungs: No mass/infiltrate at either lung base. No pleural effusion. Liver: The liver is normal in size and attenuation. No intrahapatic biliary dilitation. Gallbladder and bile ducts: Cholecystectomy has been performed. There is no evidence of extrahepatic biliary dilatation. Pancreas: Normal. No ductal dilation. Spleen: Normal. No splenomegaly. Adrenal glands: Normal. No mass. Kidneys and ureters: Normal. No hydronephrosis. Stomach and bowel: Prominent fecal retention within the colon. No obstruction. No mucosal thickening. Small bowel mesentery is normal. Appendix: Unremarkable. Intraperitoneal space: Unremarkable. No free air. No significant fluid collection. Vasculature: Unremarkable. No abdominal aortic aneurysm. Lymph nodes: Unremarkable. No enlarged lymph nodes. Urinary bladder: Unremarkable as visualized. Reproductive: Hysterectomy has been performed. Bones/joints: L4 laminectomy has been performed. There has been fusion of L4-L5. No acute fracture. Soft tissues: Unremarkable. IMPRESSION: 1. Cholecystectomy and hysterectomy has been performed. 2. No evidence of acute process within the abdomen or pelvis. 3. L4-L5 fusion and L4 laminectomy has been performed.
[2021-05-09 21:32] LABS: Microscopic, Urine URINE MICROSCOPIC (MICROSCOPIC)
[2021-05-09 21:34] LABS: Appearance,Urine SL CLOUDY (Clear); Bilirubin,Urine Negative (Negative); Blood, Urine Negative (Negative); Color,Urine RED (Yellow); Glucose,Urine (UA) Negative (Negative); Ketones,Urine Negative (Negative); Leukocyte Esterase,Urine 2+ (Negative); Nitrate,Urine POSITIVE (Negative); Protein,Urine Negative (Negative); Urobilinogen,Urine 0.2 EU/dl (0.2)
[2021-05-09 21:42] LABS: Basophils # 0.1 K/mm3 (0-0.2); Basophils % 1.3 % (0.1-2.0); Eosinophils # 0.4 K/mm3 (0.0-0.4); Eosinophils % 4.9 % (0.1-12.0); Hematocrit 38.1 % (37.0-47.0); Hemoglobin 12.2 g/dL (12.2-16.2); Lymphocytes # 3.3 K/mm3 (0.7-4.5); Lymphocytes % 39.2 % (10-50); Mean Corpuscular HGB Conc 32.2 g/dL (31.8-35.4); Mean Corpuscular Hemoglobin 32.4 pg (27.0-31.2); Mean Corpuscular Volume 100.8 fl (81-99); Mean Platelet Volume 8.7 fl (7.4-10.4); Monocytes # 0.5 K/mm3 (0.1-1.0); Monocytes % 5.3 % (1.7-9.3); Neutrophils # 4.2 K/mm3 (1.8-7.8); Neutrophils % 49.3 % (37.0-80.0); Platelet Count 341 K/mm3 (142-424); Red Blood Count 3.78 M/mm3 (4.20-5.40); Red Cell Distribution Width 14.2 % (11.5-17.5); White Blood Count 8.5 K/mm3 (4.8-10.8)
[2021-05-09 21:50] LABS: Alanine Aminotransferase 104 U/L (12-78); Albumin/Globulin Ratio 1.3 (1.1-1.8); Alkaline Phosphatase 171 U/L (38-126); Amylase 109 U/L (30-110); Anion Gap 12.9 mEq/L (5-15); Aspartate Amino Transferase 62 U/L (14-36); Bilirubin,Total 0.2 mg/dl (0.2-1.3); Blood Urea Nitrogen 25 mg/dl (7-17); Calcium 9.5 mg/dl (8.4-10.2); Carbon Dioxide 33 mmol/L (22.0-30.0); Chloride 100 mmol/L (98-107); Creatinine Clearance Estimated 44 mL/min (50-200); Estimated Glomerular Filt Rate 39 ml/min (>60); GFR (African American) 48 ML/MIN (>60); Globulin 3.2 g/dL (1.3-3.2); Glucose 123 mg/dl (74-100); Lipase 292 U/L (23-300); Potassium 3.9 mmoL/L (3.5-5.1); Sodium 142 mmol/L (136-145); Total Protein,Serum 7.2 g/dl (6.3-8.2)
--- NOTE | 2021-05-09 21:53 | PC.NURSE ---
Pt completed oral contrast @ 2114, radiology notified.
[2021-05-09 21:56] LABS: C-Reactive Protein 5.9 mg/L (0-4)
[2021-05-09 21:58] LABS: Bacteria,Urine 2+ /lpf; RBC,Urine Occasional #/hpf (0-3)
--- NOTE | 2021-05-09 22:02 | HMH.EDNVD ---
ED Disposition Clinical Impression: Abdominal pain Qualifiers: Abdominal location: right lower quadrant Qualified Code(s): R10.31 - Right lower quadrant pain UTI (urinary tract infection) Qualifiers: Urinary tract infection type: site unspecified Hematuria presence: without hematuria Qualified Code(s): N39.0 - Urinary tract infection, site not specified Disposition: Home, Self-Care Condition on Discharge: Good Instructions: DI for Acute Abdominal Pain, DI for Urinary Tract Infection (UTI) Additional Instructions: fluids and call office for urine culture results and follow up Prescriptions: levoFLOXacin [Levaquin 500mg tab] 500 mg PO DAILY #7 tab Transmission Status: Pending to [facility]/pharmacy #[id number] Referrals: Desmond Santana MD [Primary Care Provider] - - Critical Care Critical Care Time: No Attestation: On 05/09/21, the high probability of a clinically significant, sudden or life threatening deterioration of the following system(s) required my full and direct attention, intervention and personal management. The time I documented below is in addition to time spent performing reported procedures but includes the following listed in this critical care notation. Medical Decision Making - Medical Records Medical records reviewed: Yes: I reviewed the patient's medical records. - Luis E Inquiry Pt receiving controlled substance: No Vital Signs: 05/09/21 20:41 05/09/21 23:09 Temperature 98.3 F Temperature Source Oral Pulse Rate 72 Pulse Rate [Right] 68 Respiratory Rate 18 Blood Pressure 98/66 L Blood Pressure [Right Arm] 118/67 Blood Pressure Mean [Right Arm] 84 Blood Pressure Source [Right Arm] Automatic Cuff 02 Sat by Pulse Oximetry 100 92 L Oxygen Delivery Method Room Air - Lab Data Lab results reviewed: Yes: I reviewed the patient's lab results. Lab Results 05/09/21 21:12: Urine Color Red, Urine Appearance Sl cloudy, Urine pH 6.0, Ur Specific [place] 1.020, Urine Protein Negative, Urine Glucose (UA) Negative, Urine Ketones Negative, Urine Blood Negative, Urine Nitrate Positive, Urine Bilirubin Negative, Urine Urobilinogen 0.2, Ur Leukocyte Esterase 2+ A, Urine RBC Occasional, Urine WBC 10-20, Ur Squamous Epith Cells 3-5, Urine Bacteria 2+ 05/09/21 21:30: WBC 8.5, RBC 3.78 L, Hgb 12.2, Hct 38.1, MCV 100.8 H, MCH 32.4 H, MCHC 32.2, RDW 14.2, Plt Count 341, MPV 8.7, Neut % (Auto) 49.3, Lymph % (Auto) 39.2, [place] % (Auto) 5.3, Eos % (Auto) 4.9, Baso % (Auto) 1.3, Neut # (Auto) 4.2, Lymph # (Auto) 3.3, [place] # (Auto) 0.5, Eos # (Auto) 0.4, Baso # (Auto) 0.1, ESR 23 05/09/21 21:30: Sodium 142, Potassium 3.9, Chloride 100, Carbon Dioxide 33 H, Anion Gap 12.9, BUN 25 H, Creatinine 1.40 H, Estimated Creat Clear 44, Estimated GFR 39 L, Est GFR ( Amer) 48 L, Glucose 123 H, Calcium 9.5, Total Bilirubin 0.2, AST 62 H, ALT 104 H, Alkaline Phosphatase 171 H, Troponin I < 0.01, C-Reactive Protein 5.9 H, Total Protein 7.2, Albumin 4.0, Globulin 3.2, Albumin/Globulin Ratio 1.3, Amylase 109, Lipase 292, Procalcitonin 0.061 05/10/21 00:25: Troponin I < 0.01 Result diagrams: 05/09/21 21:30 05/09/21 21:30 Orders (Tests/Meds): ED MEDICATIONS Generic Name Dose Route Start Last Admin Trade Name Freq PRN Reason Stop Dose Admin Sodium Chloride 1,000 mls @ 999 mls/hr 05/09/21 21:45 05/09/21 21:51 Sod Chlor 0.9% 1000ml Bag IV 05/09/21 22:45 999 mls/hr .Q1H1M JARON Administration Sodium Chloride 1,000 mls @ 999 mls/hr 05/09/21 23:45 05/09/21 23:49 Sod Chlor 0.9% 1000ml Bag IV 05/10/21 00:45 999 mls/hr .Q1H1M JARON Administration Ceftriaxone Sodium 1 gm/ 50 mls @ 100 mls/hr 05/10/21 00:30 05/10/21 00:31 Sodium Chloride IV 05/24/21 00:29 100 mls/hr Q24H JARON Administration Sodium Chloride 8 ml 05/09/21 21:39 Sodium Chloride 0.9% 10ml Vial IV 06/08/21 21:38 NEEDED PRN dilute pepcid Discontinued Medications Generic Name Dose Route Start Last Admin Tra
[2021-05-09 22:06] LABS: Troponin I < 0.01 ng/ml (0.00-0.034)
[2021-05-09 22:08] LABS: Erythrocyte Sedimentation Rate 23 mm/hr (0-30)
[2021-05-09 22:09] LABS: Procalcitonin 0.061 ng/mL (0.0-2.0)
--- NOTE | 2021-05-09 22:32 | PC.NURSE ---
pt going up for ct scan
[2021-05-09 23:09] VITALS: BP 98/66; PULSE 72; O2SAT 92
[2021-05-09 23:30] VITALS: BP 117/69; PULSE 59; O2SAT 98
[2021-05-10] VITALS: BP 112/73; PULSE 64; O2SAT 95
[2021-05-10 00:30] VITALS: BP 113/67; PULSE 69; O2SAT 96
[2021-05-10 01:00] VITALS: BP 103/58; PULSE 63; O2SAT 95
[2021-05-10 01:01] LABS: Troponin I < 0.01 ng/ml (0.00-0.034)
[2021-05-10 01:16] VITALS: BP 103/58; PULSE 60; RESP 16; TEMP 36.7; O2SAT 97
== END 2021-05-10 01:18 | disposition home or self-care (01) ==
PROVIDERS: Emergency Provider Emergency Medicine; PCP Emergency Medicine
DX: N30.00 Acute cystitis without hematuria (principal); J44.9 Chronic obstructive pulmonary disease, unspecified; I25.10 Atherosclerotic heart disease of native coronary artery without angina pectoris; F41.8 Other specified anxiety disorders; E78.5 Hyperlipidemia, unspecified; I10 Essential (primary) hypertension; M81.0 Age-related osteoporosis without current pathological fracture; F17.290 Nicotine dependence, other tobacco product, uncomplicated; Z79.899 Other long term (current) drug therapy
CPT/HCPCS: 36415; 74177; 80053; 81001; 82150; 83690; 84145; 84484; 85025; 85651; 86140; 87086; 96365; 96366; 96367; 96375; 99283; J2405; Q9967

== ENCOUNTER → 2021-05-29 19:03 | Outpatient (CLI) | payer MEDICAID, SELFPAY ==
[2021-05-29 21:49] LABS: Amphetamine/Metha Screen,Urine Negative ng/ml (<1000); Barbiturates Screen,Urine Negative ng/ml (<200); Benzodiazepines Screen,Urine Negative ng/ml (<200); Cannabinoid Screen,Urine Negative ng/ml (<50); Cocaine Screen,Urine Negative ng/ml (<300); Methadone Screen,Urine Negative ng/ml (<300); Opiate Screen,Urine Negative ng/ml (<300); Phencyclidine Screen,Urine Negative ng/ml (<25)
== END ==
PROVIDERS: Visit Provider Emergency Medicine
DX: Z79.899 Other long term (current) drug therapy (principal)
CPT/HCPCS: 80305

== ENCOUNTER → 2021-07-26 18:23 | Outpatient (CLI) | payer MEDICAID, SELFPAY ==
[2021-07-27 04:54] LABS: Amphetamine/Metha Screen,Urine Negative ng/ml (<1000); Barbiturates Screen,Urine Positive ng/ml (<200); Benzodiazepines Screen,Urine Negative ng/ml (<200); Cannabinoid Screen,Urine Negative ng/ml (<50); Cocaine Screen,Urine Negative ng/ml (<300); Methadone Screen,Urine Negative ng/ml (<300); Opiate Screen,Urine Negative ng/ml (<300); Phencyclidine Screen,Urine Negative ng/ml (<25)
== END ==
PROVIDERS: Visit Provider Emergency Medicine
DX: Z79.899 Other long term (current) drug therapy (principal)
CPT/HCPCS: 80305

== ENCOUNTER → 2021-08-02 15:15 | Outpatient (CLI) | payer MEDICAID, SELFPAY ==
[2021-08-02 15:40] LABS: Basophils # 0.1 K/mm3 (0-0.2); Eosinophils # 0.2 K/mm3 (0.0-0.4); Eosinophils % 2.7 % (0.1-12.0); Hematocrit 36.8 % (37.0-47.0); Hemoglobin 12.5 g/dL (12.2-16.2); Lymphocytes # 3.5 K/mm3 (0.7-4.5); Lymphocytes % 40.3 % (10-50); Mean Corpuscular Hemoglobin 33.1 pg (27.0-31.2); Mean Corpuscular Volume 97.5 fl (81-99); Mean Platelet Volume 10.4 fl (7.4-10.4); Monocytes # 0.4 K/mm3 (0.1-1.0); Monocytes % 5.1 % (1.7-9.3); Neutrophils # 4.4 K/mm3 (1.8-7.8); Neutrophils % 50.9 % (37.0-80.0); Platelet Count 320 K/mm3 (142-424); Red Blood Count 3.77 M/mm3 (4.20-5.40); Red Cell Distribution Width 14.9 % (11.5-17.5); White Blood Count 8.7 K/mm3 (4.8-10.8)
[2021-08-02 17:01] LABS: Chloride 109 mmol/L (98-107); Potassium 5.3 mmoL/L (3.5-5.1); Sodium 144 mmol/L (136-145)
[2021-08-02 17:04] LABS: Alanine Aminotransferase 46 U/L (12-78); Albumin Level 4.2 g/dl (3.5-5.0); Alkaline Phosphatase 174 U/L (38-126); Anion Gap 12.3 mEq/L (5-15); Aspartate Amino Transferase 43 U/L (14-36); Bilirubin,Direct 0.2 mg/dl (0.0-0.4); Bilirubin,Total 0.2 mg/dl (0.2-1.3); Blood Urea Nitrogen 26 mg/dl (7-17); Calcium 10.3 mg/dl (8.4-10.2); Carbon Dioxide 28 mmol/L (22.0-30.0); Cholesterol 273 mg/dl (140-200); Estimated Glomerular Filt Rate 52 ml/min (>60); GFR (African American) 63 ML/MIN (>60); Glucose 97 mg/dl (74-100); Total Protein,Serum 6.8 g/dl (6.3-8.2); Triglycerides 312 mg/dl (30-150); VLDL Cholesterol 62 mg/dL (0-40)
[2021-08-02 17:05] LABS: Chol/HDL Ratio 5.6 (1-3.5); HDL Cholesterol 49 mg/dl (40-60)
[2021-08-02 17:24] LABS: Direct LDL Cholesterol 152.89 mg/dL (100-129)
[2021-08-02 17:38] LABS: Free T4 (Free Thyroxine) 0.92 ng/dl (0.78-2.19)
== END ==
PROVIDERS: Visit Provider Physician Assistant
DX: R06.00 Dyspnea, unspecified (principal); R07.89 Other chest pain; E78.2 Mixed hyperlipidemia; R60.0 Localized edema; R94.31 Abnormal electrocardiogram [ECG] [EKG]
CPT/HCPCS: 36415; 80048; 80061; 80076; 84439; 84443; 85025

== ENCOUNTER → 2021-09-25 16:00 | Outpatient (CLI) | payer MEDICAID, SELFPAY ==
[2021-09-25 18:12] LABS: Barbiturates Screen,Urine Negative ng/ml (<200); Benzodiazepines Screen,Urine Negative ng/ml (<200)
[2021-09-25 18:13] LABS: Amphetamine/Metha Screen,Urine Negative ng/ml (<1000)
[2021-09-25 18:14] LABS: Cocaine Screen,Urine Negative ng/ml (<300); Methadone Screen,Urine Negative ng/ml (<300)
[2021-09-25 18:15] LABS: Cannabinoid Screen,Urine Negative ng/ml (<50); Opiate Screen,Urine Negative ng/ml (<300)
[2021-09-25 18:16] LABS: Phencyclidine Screen,Urine Negative ng/ml (<25)
== END ==
PROVIDERS: Visit Provider Emergency Medicine
DX: Z79.899 Other long term (current) drug therapy (principal)
CPT/HCPCS: 80305

== ENCOUNTER 2021-10-10 14:07 | Outpatient (CLI) | payer MEDICAID, SELFPAY ==
[2021-10-10 14:30] VITALS: BP 127/79; PULSE 65; RESP 18; TEMP 36.2; O2SAT 97
[2021-10-10 14:52] VITALS: BP 124/69; PULSE 69; RESP 16; TEMP 36.2; O2SAT 98
== END 2021-10-10 14:52 | disposition home or self-care (01) ==
PROVIDERS: PCP Emergency Medicine; Visit Provider Emergency Medicine
DX: M81.0 Age-related osteoporosis without current pathological fracture (principal)
CPT/HCPCS: 96372; J0897

== ENCOUNTER → 2021-11-21 14:39 | Outpatient (CLI) | payer MEDICAID, SELFPAY ==
[2021-11-21 19:34] LABS: Barbiturates Screen,Urine Negative ng/ml (<200)
[2021-11-21 19:35] LABS: Benzodiazepines Screen,Urine Negative ng/ml (<200)
[2021-11-21 19:36] LABS: Amphetamine/Metha Screen,Urine Negative ng/ml (<1000); Cannabinoid Screen,Urine Negative ng/ml (<50)
[2021-11-21 19:37] LABS: Cocaine Screen,Urine Negative ng/ml (<300); Methadone Screen,Urine Negative ng/ml (<300)
[2021-11-21 19:38] LABS: Opiate Screen,Urine Negative ng/ml (<300)
[2021-11-21 19:39] LABS: Phencyclidine Screen,Urine Negative ng/ml (<25)
== END ==
PROVIDERS: Visit Provider Emergency Medicine
DX: Z79.899 Other long term (current) drug therapy (principal)
CPT/HCPCS: 80305

== ENCOUNTER → 2022-01-18 06:43 | Outpatient (CLI) | payer MEDICAID, SELFPAY ==
[2022-01-17 18:47] LABS: Amphetamine/Metha Screen,Urine Negative ng/ml (<1000)
[2022-01-17 18:48] LABS: Barbiturates Screen,Urine Negative ng/ml (<200)
[2022-01-17 18:49] LABS: Benzodiazepines Screen,Urine Negative ng/ml (<200); Cannabinoid Screen,Urine Negative ng/ml (<50)
[2022-01-17 18:50] LABS: Cocaine Screen,Urine Negative ng/ml (<300)
[2022-01-17 18:51] LABS: Methadone Screen,Urine Negative ng/ml (<300)
[2022-01-17 18:52] LABS: Opiate Screen,Urine Negative ng/ml (<300); Phencyclidine Screen,Urine Negative ng/ml (<25)
== END ==
PROVIDERS: PCP Emergency Medicine; Visit Provider Emergency Medicine
DX: Z79.899 Other long term (current) drug therapy (principal)
CPT/HCPCS: 80305

== ENCOUNTER → 2022-05-11 06:35 | Outpatient (CLI) | payer MEDICAID, SELFPAY | PROVIDERS: PCP Emergency Medicine; Visit Provider Emergency Medicine | DX: M54.50 Low back pain, unspecified (principal) ==

== ENCOUNTER → 2022-07-09 13:17 | Outpatient (CLI) | payer MEDICAID, SELFPAY ==
[2022-07-09 20:22] LABS: Amphetamine/Metha Screen,Urine Negative ng/ml (<1000)
[2022-07-09 20:23] LABS: Barbiturates Screen,Urine Positive ng/ml (<200)
[2022-07-09 20:24] LABS: Benzodiazepines Screen,Urine Negative ng/ml (<200); Cannabinoid Screen,Urine Negative ng/ml (<50)
[2022-07-09 20:25] LABS: Cocaine Screen,Urine Negative ng/ml (<300)
[2022-07-09 20:26] LABS: Methadone Screen,Urine Negative ng/ml (<300)
[2022-07-09 20:27] LABS: Opiate Screen,Urine Negative ng/ml (<300); Phencyclidine Screen,Urine Negative ng/ml (<25)
== END ==
PROVIDERS: PCP Emergency Medicine; Visit Provider Emergency Medicine
DX: Z79.899 Other long term (current) drug therapy (principal)
CPT/HCPCS: 80305

== ENCOUNTER → 2022-09-05 14:00 | Outpatient (CLI) | payer MEDICAID, SELFPAY ==
[2022-09-05 20:09] LABS: Amphetamine/Metha Screen,Urine Negative ng/ml (<1000)
[2022-09-05 20:10] LABS: Barbiturates Screen,Urine Negative ng/ml (<200); Benzodiazepines Screen,Urine Negative ng/ml (<200)
[2022-09-05 20:11] LABS: Cannabinoid Screen,Urine Negative ng/ml (<50)
[2022-09-05 20:12] LABS: Cocaine Screen,Urine Negative ng/ml (<300); Methadone Screen,Urine Negative ng/ml (<300)
[2022-09-05 20:13] LABS: Opiate Screen,Urine Negative ng/ml (<300); Phencyclidine Screen,Urine Negative ng/ml (<25)
== END ==
PROVIDERS: PCP Emergency Medicine; Visit Provider Emergency Medicine
DX: Z79.899 Other long term (current) drug therapy (principal)
CPT/HCPCS: 80305

== ENCOUNTER → 2022-10-31 22:33 | Outpatient (CLI) | payer MEDICAID, SELFPAY ==
[2022-10-31 18:22] LABS: Barbiturates Screen,Urine Negative ng/ml (<200)
[2022-10-31 18:23] LABS: Benzodiazepines Screen,Urine Negative ng/ml (<200)
[2022-10-31 18:25] LABS: Cannabinoid Screen,Urine Negative ng/ml (<50); Cocaine Screen,Urine Negative ng/ml (<300)
[2022-10-31 18:26] LABS: Opiate Screen,Urine Negative ng/ml (<300)
[2022-10-31 18:27] LABS: Phencyclidine Screen,Urine Negative ng/ml (<25)
[2022-10-31 18:56] LABS: Amphetamine/Metha Screen,Urine Negative ng/ml (<1000)
[2022-10-31 19:00] LABS: Methadone Screen,Urine Negative ng/ml (<300)
== END ==
PROVIDERS: PCP Emergency Medicine; Visit Provider Emergency Medicine
DX: Z79.899 Other long term (current) drug therapy (principal)
CPT/HCPCS: 80305

== ENCOUNTER → 2022-11-26 14:29 | Outpatient (POV) | payer MEDICAID, SELFPAY ==
--- NOTE | 2022-11-26 14:33 | EXP.PAIN.OV ---
HPI Data of Consult Patient: new to practice Consult date: 11/26/22 Requesting Physician: Margie Cavazos APRN Consult Narrative Reason for consult: Low back pain, leg pain History of present illness: Ms. Ledbetter is a 52 year old female who presents today as a new patient. She is a referral from Dr. Santana's office. Today she rates her pain at a 5 out of 10. Patient states her pain is all in her back with radiating symptoms into her lower extremities. She does state that she was a prior patient of ours a couple years ago. Patient has had back injections and a lumbar fusion by Dr. Main in the past. She does states she continues to have back pain with an aching, pounding sensation with occasional catching sensation when going from a bending to standing posture. She states this pain has been going on for at least 6 months if not longer. Patient is currently ordered physical therapy however she has not yet completed this. She does do at home exercising and stretching for longer than 6 weeks with minimal improvement. Patient states she is unable to do a MRI of her lumbar spine until she completes 6 weeks of physical therapy. Patient does state that she also had a fall approximately 1 year ago where she landed on a concrete step and still has a large area over her left hip that is bothersome. Patient is currently managed with Percocet 10 mg 3 times a day from her primary care doctor and lidocaine patches. Patient denies any side effects from this medication. She states she has tried [id number] ibuprofen and Tylenol along with heat and ice and diclofenac gel with no additional improvement. Patient has been prescribed muscle relaxers in the past including Flexeril that she states did not provide any additional relief. Her Luis E is [phone]. Its been reviewed and appropriate. CC: Margie Cavazos APRN [facility] Disclaimer: The information contained in this section may have been updated after the patient was seen, as this information can be updated by other users. Medical History Chest pain Chronic back pain Maintain on chronic narcotic therapy Fatigue Right bundle branch block (RBBB) SOB (shortness of breath) Tobacco abuse Social History (Updated 11/26/22 @ 14:38 by Lorelei Garcia RN) Smoking Status: Current every day smoker tobacco type: cigarettes packs per day: 1 second hand exposure: No alcohol intake: never substance use type: denies use current occupational status: unemployed Travel in the last 8 weeks: None household members: spouse housing: house current occupation: [employer] current occupational exposures/hazards: No caffeine: Yes Review of Systems Review of Systems Review of systems:: pertinent systems reviewed and negative unless documented below Review of systems (narrative): Review of Systems: General: No recent weight changes, no fever, no sleep disturbances Respiratory: No cough, no shortness of air, no recurring pulmonary infections Cardiovascular/peripheral vascular: No chest pain, no palpitations, no edema, no shortness of breath Gastrointestinal: No new onset incontinence, normal bowel movements reported Genitourinary: No new onset incontinence Musculoskeletal: Low back pain, leg pain Psychiatric: [Normal mood/affect] Neurological: [Denies weakness in extremities], [denies balance issues] Meds Home Medications and Allergies Home Medications Medication Instructions Recorded Confirmed Type timolol maleate 0.5 % eye drops 1 drp ophthalmic (eye) BID eye 06/20/21 10/31/22 History drops aspirin 81 mg tablet,delayed 81 mg PO DAILY blood thinner 10/10/21 10/31/22 History release furosemide 20 mg tablet 20 mg PO DAILY PRN 09/25/22 10/31/22 History latanoprost 0.005 % eye drops 1 drp Eye-Both .COMPLEX 09/25/22 10/31/22 History rimegepant 75 mg disintegrating 75 mg PO ONCE PRN migraine 09/25/22 10/31/22 Rx tablet (Nurtec ODT) matias
[2022-11-26 15:11] VITALS: BP 126/76; PULSE 79; RESP 18; O2SAT 97; BMI 21.2
--- NOTE | 2022-11-26 15:37 | XR_ITS ---
FINAL REPORT CLINICAL HISTORY: BACK PAIN FINDINGS: SACROILIAC JOINTS Three views demonstrate no acute fracture or dislocation. The sacral arches are intact. There are mild degenerative changes with mild irregularity. No soft tissue abnormality is seen. IMPRESSION: Mild degenerative change. Reviewed, Interpreted and Dictated by Gustavo Sagastume III, MD Transcribed by Jason Bell Authenticated and [facility]
--- NOTE | 2022-11-26 15:38 | XR_ITS ---
FINAL REPORT CLINICAL HISTORY: lower back pain FINDINGS: Five views were obtained. There has been fusion of L4-L5. There is no acute fracture. There is mild anterolisthesis of L3 on L4. There are mild degenerative changes with osteophytes. IMPRESSION: Postoperative and degenerative changes. Reviewed, Interpreted and Dictated by Gustavo Sagastume III, MD Transcribed by Jason Bell Authenticated and [facility]
== END | disposition home or self-care (01) ==
PROVIDERS: Visit Provider Nurse Practitioner Family
DX: M54.16 Radiculopathy, lumbar region (principal); M46.1 Sacroiliitis, not elsewhere classified; M54.50 Low back pain, unspecified; G89.29 Other chronic pain
CPT/HCPCS: 72110; 72202; 99202; G0463

== ENCOUNTER → 2022-11-26 15:29 | Outpatient (CLI) | payer MEDICAID, SELFPAY | PROVIDERS: PCP Emergency Medicine; Visit Provider Nurse Practitioner Family | DX: M53.3 Sacrococcygeal disorders, not elsewhere classified (principal) ==

== ENCOUNTER 2022-12-04 10:09 | Day surgery (SDC) | payer MEDICAID, SELFPAY ==
[2022-12-04 10:23] VITALS: BP 148/70; PULSE 79; RESP 18; TEMP 36.6; O2SAT 97; BMI 20.5
[2022-12-04 10:38] VITALS: BP 154/86; PULSE 77; RESP 18; O2SAT 97
[2022-12-04 10:39] VITALS: BP 154/86; PULSE 77; RESP 18; O2SAT 97
[2022-12-04 10:45] VITALS: BP 158/90; PULSE 75; RESP 18; O2SAT 97
--- NOTE | 2022-12-04 10:45 | EXP.PAIN.PRO ---
Procedure Date: 12/04/22 Time: 10:40 Anesthesiologist:: Alberto Raymundo CRNA Complications:: None Pre-procedure Diagnosis:: Left sacroiliitis Post-procedure Diagnosis:: Same Indications for Procedure:: Patient is a very pleasant 52-year-old female comes our clinic today for a left sacroiliac joint injection. She has extreme point tenderness of the left sacroiliac joint. Patient reports suffering a fall a year ago onto her buttocks. She developed a hematoma on the left buttock. This pain began shortly after the fall. She has positive Armani's test on the left. Positive left sacroiliac joint compression test. She rates her pain 8/10. Procedure Details:: Procedure: Left sacroiliac injection under fluoroscopy Informed consent was obtained and the risk and benefits of the procedure were explained to the patient.~ The patient was taken to the procedure room and noninvasive monitors were placed including noninvasive blood pressure cuff and pulse oximeter.~ The patient was placed prone on the procedure table.~ The~ left hip was cleansed using Betadine as a cleansing solution.~ C-arm fluorosocpy was used to view the left SI joint.~ The skin and subcutaneous tissues were anesthetized using Lidocaine 1.5% and a 25-gauge needle.~ After this, a 22-gauge spinal needle was inserted under fluoroscopic guidance into the inferior aspect of the left SI joint.~ Omnipaque dye was injected and a good spread was seen throughout the joint.~ After this, approximately 5 mL of bupivacaine 0.25% and Depo-Medrol 40 mg was incrementally injected into the sacroiliac joint.~ The patient tolerated the procedure well with no complications.~ The patient was observed in the Pain Clinic for a period of 30-45 minutes, then discharged home neurologically intact.~ Plan and Disposition:: Patient was reevaluated 10 minutes post procedure. She reports significant improvement terms of her left posterior hip pain. Essentially, patient reports no pain.
== END 2022-12-04 10:45 | disposition home or self-care (01) ==
PROVIDERS: PCP Emergency Medicine; Visit Provider Nurse Anesthetist, Certified Registered
DX: M46.1 Sacroiliitis, not elsewhere classified (principal)
CPT/HCPCS: 27096; G0260; J1040

== ENCOUNTER → 2023-01-23 11:23 | Outpatient (POV) | payer MEDICAID, SELFPAY ==
[2023-01-23 11:36] VITALS: BP 136/79; PULSE 94; RESP 18; O2SAT 96; BMI 21.8
--- NOTE | 2023-01-23 11:46 | EXP.PAIN.SOA ---
[facility] Pain Management SOAP Note Subjective:: Patient is a pleasant 52-year-old female who presents today for follow-up of left SI injection on 12/04/2022. We are currently treating the patient for low back pain with lumbar radiculopathy symptoms, left-sided sacroiliitis, chronic back pain. Today she rates her pain a 6 out of 10. Patient states that she continues to have pain in her low back however now it is going all the way down to her bilateral feet. Patient does describe this as an aching, throbbing sensation that is worse with increased activity. She states this does interfere with her ability to perform activities of daily living such as cooking and cleaning. She states the SI injection only provided approximately 10 to 15% improvement for short-term. She also states she continues to have frequent falls. Patient denies any specific aggravating factors but she states her legs will just randomly give out. She states her most recent episode happened while she was in the bathroom. She states she has been told to use a cane however at this time she has not done this. Patient has had previous back injections and a lumbar fusion. Patient did just recently go to physical therapy however she was not able to complete all of her sessions due to severe worsening pain. She states that physical therapy did discharge her due to the worsening symptoms. Patient states she continues to do at home exercising and stretching for longer than 6 weeks with no additional relief. Patient is currently managed with Percocet 10 mg 3 times a day from her primary care doctor along with lidocaine patches. At her last visit we did prescribe her methocarbamol 500 mg twice a day and she states this did help additionally. She is requesting a refill at today's visit. She does state that she has a metal cage in place and cannot do MRI. Her Luis E is [phone]. Its been reviewed and appropriate. Review of Systems: General: No recent weight changes, no fever, no sleep disturbances Respiratory: No cough, no shortness of air, no recurring pulmonary infections Cardiovascular/peripheral vascular: No chest pain, no palpitations, no edema, no shortness of breath Gastrointestinal: No new onset incontinence, normal bowel movements reported Genitourinary: No new onset incontinence Musculoskeletal: Low back pain, bilateral leg pain Psychiatric: [Normal mood/affect] Neurological: [Denies weakness in extremities], [denies balance issues] Objective:: Physical Exam: General: Alert and oriented x3, no acute distress, pleasant and cooperative Lungs: Respirations even and unlabored, symmetrical chest expansion Eyes: PERRL Musculoskeletal: Flexion and extension of lumbar [spine] somewhat guarded secondary to pain, [antalgic gait noted] Neurological: Speech clear, no gross sensory deficit INDINGS: Five views were obtained.? There has been fusion of L4-L5. There is no acute fracture. There is mild anterolisthesis of L3 on L4.? There are mild degenerative changes with osteophytes. IMPRESSION: Postoperative and degenerative changes. Reviewed, Interpreted and Dictated by Gustavo Sagastume III, MD Transcribed by Jason Bell Authenticated and [facility] Assessment:: Degenerative disc disease of lumbar spine with lumbar radiculopathy symptoms, left-sided sacroiliitis, chronic pain Plan:: Patient continues to experience significant pain in her low back and legs with limited range of motion. I have discussed with the patient that she may benefit from a lumbar epidural steroid injection. Risk and benefits were discussed with the patient and she would like to proceed forward with this plan of care. Patient is not on any blood thinners. I will also order CT without contrast of her lumbar spine. Patient does have a metal cage and from a previous fusion and cannot have an MRI. Patient has tried and failed conservative therap
== END | disposition home or self-care (01) ==
PROVIDERS: PCP Emergency Medicine; Visit Provider Nurse Practitioner Family
DX: M51.16 Intervertebral disc disorders with radiculopathy, lumbar region (principal); M46.1 Sacroiliitis, not elsewhere classified; G89.29 Other chronic pain
CPT/HCPCS: 99212; G0463

== ENCOUNTER 2023-01-29 11:44 | Day surgery (SDC) | payer MEDICAID, SELFPAY ==
[2023-01-29 12:03] VITALS: BP 103/58; PULSE 66; RESP 18; TEMP 36.4; O2SAT 99; BMI 22.3
[2023-01-29 12:15] VITALS: BP 120/66; PULSE 68; RESP 18; O2SAT 99
--- NOTE | 2023-01-29 12:15 | P.PCN_ITS ---
Procedure Date: 01/29/23 Time: 12:10 Anesthesiologist:: Alberto Raymundo CRNA Complications:: None Pre-procedure Diagnosis:: Degenerative disc lumbar spine multilevels. Lumbar radiculopathy. Lumbar postlaminectomy syndrome. Lumbar spondylosis Post-procedure Diagnosis:: Same. Indications for Procedure:: Very pleasant 52-year-old female that comes our clinic today for lumbar epidural steroid injection L5-S1 level. Patient has low back pain she describes as constant, dull, aching. Patient also complains of bilateral hip and leg radicular symptoms. Procedure Details:: Procedure: Lumbar epidural steroid injection under fluoroscopy Informed consent was obtained and the risks and benefits of the procedure were explained to the patient. The patient was taken to the procedure room and noninvasive monitors placed, including noninvasive blood pressure cuff and pulse oximeter. The back was viewed using C-arm Fluoroscopy and prepped using Chloraprep as a cleansing solution and the L4-L5 interspace was palpated. Skin and subcutaneous tissues were anesthetized using lidocaine 1.5% and a 25-gauge needle. After this, an 18-gauge Touhy epidural needle was placed into the L4-L5 interspace and advanced using fluoroscopic guidance and loss of resistance to air until the epidural space was encountered. After confirmation of needle placement in the epidural space, with dye, a solution containing normal saline, 3 mL and Depo-Medrol 80 mg were incrementally injected into the lumbar epidural space. The patient tolerated the procedure well with no complications. The patient was observed in the Pain Clinic and then discharged home neurolog ically intact. Plan and Disposition:: Patient was discharged without incident.
[2023-01-29 13:37] LABS: Basophils # 0.1 K/mm3 (0-0.2); Basophils % 0.7 % (0.1-2.0); Eosinophils # 0.3 K/mm3 (0.0-0.4); Eosinophils % 2.8 % (0.1-12.0); Hematocrit 40.1 % (37.0-47.0); Hemoglobin 12.4 g/dL (12.2-16.2); Lymphocytes # 3.3 K/mm3 (0.7-4.5); Mean Corpuscular HGB Conc 30.8 g/dL (31.8-35.4); Mean Corpuscular Hemoglobin 32.1 pg (27.0-31.2); Mean Corpuscular Volume 104.1 fl (81-99); Mean Platelet Volume 9.4 fl (7.4-10.4); Monocytes # 0.8 K/mm3 (0.1-1.0); Monocytes % 8.1 % (1.7-9.3); Neutrophils # 5.3 K/mm3 (1.8-7.8); Neutrophils % 54.4 % (37.0-80.0); Platelet Count 338 K/mm3 (142-424); Red Blood Count 3.85 M/mm3 (4.20-5.40); Red Cell Distribution Width 15.7 % (11.5-17.5); White Blood Count 9.8 K/mm3 (4.8-10.8)
[2023-01-29 14:14] LABS: Alanine Aminotransferase 40 U/L (12-78); Albumin Level 3.5 g/dl (3.5-5.0); Albumin/Globulin Ratio 1.5 (1.1-1.8); Alkaline Phosphatase 199 U/L (38-126); Anion Gap 12.8 mEq/L (5-15); Aspartate Amino Transferase 47 U/L (14-36); Bilirubin,Total 0.3 mg/dl (0.2-1.3); Blood Urea Nitrogen 18 mg/dl (7-17); Calcium 9.6 mg/dl (8.4-10.2); Carbon Dioxide 28 mmol/L (22.0-30.0); Chloride 106 mmol/L (98-107); Creatinine Clearance Estimated 58 mL/min (50-200); Estimated Glomerular Filt Rate 58 ml/min (>60); GFR (African American) 70 ML/MIN (>60); Globulin 2.4 g/dL (1.3-3.2); Glucose 70 mg/dl (74-100); Potassium 4.8 mmoL/L (3.5-5.1); Sodium 142 mmol/L (136-145); Total Protein,Serum 5.9 g/dl (6.3-8.2)
== END 2023-01-29 12:15 | disposition home or self-care (01) ==
PROVIDERS: PCP Specialist; Visit Provider Nurse Anesthetist, Certified Registered
DX: M51.16 Intervertebral disc disorders with radiculopathy, lumbar region (principal); M96.1 Postlaminectomy syndrome, not elsewhere classified; M47.896 Other spondylosis, lumbar region
CPT/HCPCS: 36415; 62323; 80053; 85025; J1040

== ENCOUNTER → 2023-02-11 09:11 | Outpatient (CLI) | payer MEDICAID, SELFPAY | PROVIDERS: PCP Emergency Medicine; Visit Provider Nurse Practitioner | DX: R07.9 Chest pain, unspecified (principal) ==

== ENCOUNTER 2023-02-12 15:11 | Emergency (ER) | payer MEDICAID, SELFPAY ==
[2023-02-12 15:11] VITALS: BP 124/74; PULSE 82; RESP 16; TEMP 36.8; O2SAT 100; BMI 21.2
[2023-02-12 15:30] VITALS: BP 107/69; PULSE 78; O2SAT 97
--- NOTE | 2023-02-12 15:32 | HMH.EDGENADL ---
Discharge Plan Disposition Patient Disposition: Home, Self-Care Condition: Fair Prescriptions Prescriptions: New diclofenac sodium 3 % gel 1 applic topical BID Qty: 100 0RF Rx Instructions: apply to affected area No Action timolol maleate 0.5 % drops 1 drp OPHTHALMIC BID zolpidem 5 mg tablet 5 mg PO QHS PRN (Reason: insomnia) duloxetine 60 mg capsule,delayed release(DR/EC) 60 mg PO DAILY MDD 90 mg Qty: 30 6RF duloxetine 30 mg capsule,delayed release(DR/EC) 30 mg PO DAILY MDD 90 mg Qty: 30 2RF amlodipine 5 mg tablet See Rx Instructions .ROUTE .COMPLEX Qty: 90 0RF Rx Instructions: TAKE 1 TABLET BY MOUTH EVERYDAY AT BEDTIME atorvastatin 20 mg tablet See Rx Instructions .ROUTE .COMPLEX Qty: 90 0RF Rx Instructions: TAKE 1 TABLET BY MOUTH EVERY DAY bisoprolol fumarate 5 mg tablet See Rx Instructions .ROUTE .COMPLEX Qty: 90 0RF Rx Instructions: TAKE 1 TABLET BY MOUTH EVERY DAY furosemide 20 mg tablet 20 mg PO DAILY PRN (Reason: FLUID) latanoprost 0.005 % drops 1 drp Eye-Both .COMPLEX Rx Instructions: 1 drp Both Eyes BID; Nurtec ODT 75 mg tablet,disintegrating 75 mg PO ONCE PRN (Reason: migraine headache) Qty: 10 11RF iragwvgygd-djruzzsdmyryr-fdax 50-325-40 mg capsule 1 cap PO BID PRN (Reason: pain) Qty: 30 1RF oxycodone-acetaminophen [Percocet] 10-325 mg tablet 1 tab PO TID Qty: 90 0RF clonazepam 0.5 mg tablet 0.5 mg PO BID PRN (Reason: anxiety) Qty: 60 1RF trazodone 100 mg tablet 100 mg PO HS PRN (Reason: insomnia) Qty: 30 2RF pantoprazole 40 mg tablet,delayed release (DR/EC) See Rx Instructions .ROUTE .COMPLEX Qty: 30 5RF Rx Instructions: TAKE 1 TABLET BY MOUTH EVERY DAY cholecalciferol (vitamin D3) 125 mcg (5,000 unit) capsule See Rx Instructions .ROUTE .COMPLEX Rx Instructions: TAKE 1 CAPSULE BY MOUTH EVERY DAY methocarbamol 500 mg tablet 500 mg PO BID PRN (Reason: muscle spasm) Qty: 60 0RF aspirin 81 MG tablet,delayed release (DR/EC) 81 mg PO DAILY amitriptyline 25 mg tablet See Rx Instructions .ROUTE .COMPLEX Rx Instructions: TAKE 1 TABLET BY MOUTH EVERY DAY AT BEDTIME FOR ANXIETY lidocaine 5 % adhesive patch,medicated 1 patch topical DAILY Rx Instructions: leave on most painful area for up to 12 hrs albuterol sulfate [ProAir HFA] 90 mcg/actuation HFA aerosol inhaler See Rx Instructions .ROUTE .COMPLEX Rx Instructions: INHALE 2 PUFFS EVERY 4 TO 6 HOURS NEEDED FOR SHORTNESS OF BREATH/WHEEZING Ajovy Autoinjector 225 mg/1.5 mL auto-injector 225 mg SQ QMONTH diclofenac sodium 1 % gel See Rx Instructions .ROUTE .COMPLEX Rx Instructions: 2 G TOPICALLY FOUR TIMES A DAY APPLY TO SINGLE ELBOW, WRIST OR HAND FOR HAND INCLUDES PALM/FINGERS/BACK OF HAND Referrals Follow up/Referrals: Desmodn Santana MD [Primary Care Provider] - See instructions Clinical Impressions Clinical Impression: Fracture of rib Instructions Patient Instructions: DI for Rib Fracture Print Language Print Language: Georgian Discharge ED Provider: Fran Handley General Adult HPI General Chief complaint: PAIN Stated complaint: CP Time Seen by Provider: 02/12/23 15:31 History of Present Illness HPI narrative: The patient reports right lateral and left lateral chest pain over the past 5 days. Patient reports dyspnea and palpitations. Patient states that she feels movement in her back and she has diffuse weakness. Patient reports weakness and movement in her back has been going on for months. complaint: Chest pain Location: chest Radiation: non-radiation Exacerbating factors: movement Related Data Home Medications Medication Instructions Recorded Confirmed timolol maleate 0.5 % eye drops 1 drp ophthalmic (eye) BID eye 06/20/21 02/12/23 drops aspirin 81 mg tablet,delayed 81 mg PO DAILY blood thinner 0
--- NOTE | 2023-02-12 15:45 | XR_ITS ---
PROCEDURE INFORMATION: Exam: XR Left Ribs with PA Chest Exam date and time: 02/12/2023 3:47 PM Age: 52 years old Clinical indication: Injury or trauma; Fall; Rib area, left side; Blunt trauma; Patient HX: Patient fell 2 days ago, low left anterior rib pain. ; Additional info: Fall chest pain TECHNIQUE: Imaging protocol: Radiologic exam of the left ribs with PA chest. Views: 3 views COMPARISON: CR XR CHEST 2V 04/17/2021 3:25 PM FINDINGS: Lungs: No consolidation or lung nodules. Pleural spaces: No pleural effusion. No pneumothorax. Heart/Mediastinum: No abnormalities. No cardiomegaly. No pulmonary vascular congestion. Bones/joints: Possible fractures in the lateral left 7th and 8th ribs. No other fractures or bone lesions. IMPRESSION: 1. Questionable nondisplaced fractures in the lateral left 7th and/or 8th ribs. No pneumothorax. 2. No other acute findings in the chest.
[2023-02-12 15:56] LABS: Basophils # 0.1 K/mm3 (0-0.2); Basophils % 0.5 % (0.1-2.0); Eosinophils # 0.3 K/mm3 (0.0-0.4); Eosinophils % 2.6 % (0.1-12.0); Hematocrit 39.2 % (37.0-47.0); Hemoglobin 12.3 g/dL (12.2-16.2); Lymphocytes # 2.4 K/mm3 (0.7-4.5); Lymphocytes % 22.3 % (10-50); Mean Corpuscular HGB Conc 31.4 g/dL (31.8-35.4); Mean Corpuscular Volume 105.2 fl (81-99); Mean Platelet Volume 8.8 fl (7.4-10.4); Monocytes # 0.6 K/mm3 (0.1-1.0); Monocytes % 5.4 % (1.7-9.3); Neutrophils # 7.4 K/mm3 (1.8-7.8); Neutrophils % 69.3 % (37.0-80.0); Platelet Count 324 K/mm3 (142-424); Red Blood Count 3.72 M/mm3 (4.20-5.40); Red Cell Distribution Width 15.3 % (11.5-17.5); White Blood Count 10.7 K/mm3 (4.8-10.8)
[2023-02-12 15:59] LABS: Chloride 107 mmol/L (98-107)
--- NOTE | 2023-02-12 15:59 | PC.NURSE ---
PT RETURNED FROM CT
[2023-02-12 16:00] LABS: Potassium 3.6 mmoL/L (3.5-5.1); Sodium 145 mmol/L (136-145)
[2023-02-12 16:02] LABS: Blood Urea Nitrogen 27 mg/dl (7-17); Creatinine Clearance Estimated 57 mL/min (50-200); Estimated Glomerular Filt Rate 58 ml/min (>60); GFR (African American) 70 ML/MIN (>60)
[2023-02-12 16:03] LABS: Anion Gap 11.6 mEq/L (5-15); Calcium 9.8 mg/dl (8.4-10.2); Carbon Dioxide 30 mmol/L (22.0-30.0); Glucose 82 mg/dl (74-100)
[2023-02-12 16:17] LABS: Troponin I < 0.01 ng/ml (0.00-0.034)
[2023-02-12 16:30] VITALS: BP 110/62; PULSE 72; O2SAT 98
[2023-02-12 17:00] VITALS: BP 119/75; PULSE 89; O2SAT 98
[2023-02-12 18:10] VITALS: BP 119/75; PULSE 89; RESP 17; TEMP 36.8; O2SAT 98
== END 2023-02-12 18:10 | disposition home or self-care (01) ==
PROVIDERS: Emergency Provider Emergency Medicine; PCP Emergency Medicine
DX: R07.9 Chest pain, unspecified (principal); R53.1 Weakness; I20.9 Angina pectoris, unspecified; Z87.891 Personal history of nicotine dependence
CPT/HCPCS: 71101; 80048; 84484; 85025; 96374; 99284; 99285

== ENCOUNTER → 2023-02-20 15:27 | Outpatient (CLI) | payer MEDICAID, SELFPAY ==
[2023-02-20 19:57] LABS: Amphetamine/Metha Screen,Urine Negative ng/ml (<1000); Barbiturates Screen,Urine Negative ng/ml (<200)
[2023-02-20 19:58] LABS: Benzodiazepines Screen,Urine Positive ng/ml (<200)
[2023-02-20 19:59] LABS: Cannabinoid Screen,Urine Negative ng/ml (<50); Cocaine Screen,Urine Negative ng/ml (<300)
[2023-02-20 20:00] LABS: Methadone Screen,Urine Negative ng/ml (<300)
[2023-02-20 20:01] LABS: Opiate Screen,Urine Negative ng/ml (<300); Phencyclidine Screen,Urine Negative ng/ml (<25)
== END ==
PROVIDERS: PCP Emergency Medicine; Visit Provider Emergency Medicine
DX: Z79.899 Other long term (current) drug therapy (principal)
CPT/HCPCS: 80305

== ENCOUNTER → 2023-02-25 15:14 | Outpatient (POV) | payer MEDICAID, SELFPAY ==
--- NOTE | 2023-02-25 15:34 | EXP.PAIN.SOA ---
[facility] Pain Management SOAP Note Subjective:: Patient is a pleasant 52-year-old female who presents today following lumbar epidural steroid injection of L4-L5 on 01/29/2023. We are currently treating the patient for degenerative disc disease of lumbar spine with lumbar radiculopathy symptoms, left-sided sacroiliitis, chronic pain. Today she rates her pain a 3 out of 10. She states she has had at least 70% improvement following this injection and feels like it is still continuing to provide additional relief. She states she has been able to increase her activity with decreased pain symptoms and feels overall more functional. She does state that she still will occasionally have some soreness and stiffness however it is much more manageable and tolerable at this level. Patient denies any new trauma or injury. Patient denies any change she will location or type of pain she experiences. She is prescribed methocarbamol 500 mg twice daily and states this also provides significant improvement. She denies any side effects from this medication. She is currently managed with Percocet 10 mg 3 times a day, clonazepam 0.5 mg twice a day, Ambien 5 mg at bedtime and butyryl twice a day as needed from Dr. Santana's office. Her Luis E is [phone]. Its been reviewed and appropriate. Review of Systems: General: No recent weight changes, no fever, no sleep disturbances Respiratory: No cough, no shortness of air, no recurring pulmonary infections Cardiovascular/peripheral vascular: No chest pain, no palpitations, no edema, no shortness of breath Gastrointestinal: No new onset incontinence, normal bowel movements reported Genitourinary: No new onset incontinence Musculoskeletal: Low back pain Psychiatric: [Normal mood/affect] Neurological: [Denies weakness in extremities], [denies balance issues] Objective:: Physical Exam: General: Alert and oriented x3, no acute distress, pleasant and cooperative Lungs: Respirations even and unlabored, symmetrical chest expansion Eyes: PERRL Musculoskeletal: Flexion and extension of lumbar [spine] somewhat guarded secondary to pain, [antalgic gait noted] Neurological: Speech clear, no gross sensory deficit Assessment:: Degenerative disc disease of lumbar spine with lumbar radiculopathy symptoms, left-sided sacroiliitis, chronic pain Plan:: Patient has had significant improvement following her lumbar epidural and does not require any additional injective therapy. I will send in a refill of her methocarbamol 500 mg at bedtime and provide a 1 month supply of this medication. Patient will return to clinic in 1 month for reevaluation of symptoms and medication refill. Patient has been instructed to contact the clinic with any concerns before the next appointment. Dr. Grijalva has reviewed this note and agrees with this plan of care. This note was dictated using voice recognition software and make contain errors or omissions. [facility] Disclaimer: The information contained in this section may have been updated after the patient was seen, as this information can be updated by other users. Medical History (Updated 02/20/23 @ 19:45 by Korin Ryan MD) Back pain at L4-L5 level Chest pain Chronic back pain Fatigue Insomnia Right bundle branch block (RBBB) SOB (shortness of breath) Tobacco abuse Unstable angina Surgical History History of appendectomy History of History of cholecystectomy History of hysterectomy Social History Smoking Status: Never smoker second hand exposure: No alcohol intake: never substance use type: denies use current occupational status: unemployed Travel in the last 8 weeks: None household members: spouse housing: house current occupation: [employer] current occupational exposures/hazards: No caffeine: Yes
[2023-02-25 15:37] VITALS: BP 122/72; PULSE 70; RESP 18; O2SAT 98; BMI 20.5
== END | disposition home or self-care (01) ==
PROVIDERS: PCP Emergency Medicine; Visit Provider Nurse Practitioner Family
DX: M51.16 Intervertebral disc disorders with radiculopathy, lumbar region (principal); M46.1 Sacroiliitis, not elsewhere classified; G89.29 Other chronic pain
CPT/HCPCS: 99212; G0463

== ENCOUNTER → 2023-03-21 07:06 | Outpatient (CLI) | payer MEDICAID, SELFPAY ==
--- NOTE | 2023-03-21 | CA_ITS ---
APPROVED REPORT Exam: Pharmacologic Technologist: Winnie Salazar, Ht: 5 ft 3 in Wt: 125 lbs BSA: 1.58 m2 HR: 61 bpm BP: 129/66 mmHg Medical History Medications: Amlodipine,,,,, Aspirin,,,,, Vitamin D3,,,,, Pantoprazole,,,,, Atorvastatin,,,,, PERCOCET,,,,, ClonAZEPAM,,,,, Albuterol,,,,, DulOXETINE,,,,, BisOPROLOL Fumarate,,,,, AmiTRIPTYLINE,,,,, Trazodone,,,,, Stress Test Details Test: Ibrahima Reason for pharmacologic stress test: physical limitation. HR Resting HR: 62 bpm Max Heart Rate (APMHR): 166 bpm Max HR Achieved: 72 bpm Target HR (85% APMHR): 141 bpm % of APMHR: 43 Recovery HR: 68 bpm BP Resting BP: 129.0/66.0 mmHg Max BP: 129.0/66.0 mmHg Recovery BP: 113.0/66.0 mmHg ECG Resting ECG: NSR, low voltage QRS Stress ECG: No change Arrhythmia: None Clinical Exercise duration: 04:00 min Highest Stage Achieved: Exercise capacity: 1.0 METs Stress ECG Conclusion Symptoms: None Arrhythmias/Ectopy: None ST-T Changes: No significant changes. Conclusion: Unremarkable Lexiscan stress. Myoview images reported separately. Test Summary REST . . . . . . . Resting REST 04:42 0.0 0.0 62 . 129/ 66 . . Stage 1 01:00 10.0 0.0 68 . . . . Stage 1 02:00 10.0 0.0 71 . . . . Stage 1 03:00 10.0 0.0 71 . 115/ 62 . . Stage 2 01:00 12.0 0.0 72 . 108/ 68 . Stop exercise at 04:00 RECOVERY 01:00 0.0 0.0 71 . . . . RECOVERY 02:00 0.0 0.0 70 . 112/ 66 . . RECOVERY 03:00 0.0 0.0 70 . 113/ 66 . . RECOVERY 03:18 0.0 0.0 68 . 113/ 66 . . Electronically signed by : Sary Guerra, 03/23/2023 15:26:27
--- NOTE | 2023-03-21 07:12 | NM_ITS ---
APPROVED REPORT Exam: Nuclear Stress Test Indication: chest pain..soa Patient Location: Outpatient Stress Tech: Winnie Guillen [place] Tech:Karey CaputoANGEL RT(R)(N) Ht: 5 ft 3 in Wt: 125 lbs Bra Size: 32a HR: 62 bpm BP: 129/65 mmHg BSA: 1.58 m2 Rhythm: NSR TID: 1.07 BMI: 22.1 History: chest pain Procedure: Patient received 0.4 mg of intravenous Lexiscan, resting heart rate 62 bpm, resting blood pressure 129/65 mmHg, with Lexiscan maximum heart rate achieved was 72 bpm which is 85 % of the maximum predicted heart rate and blood pressure was 129/66 mmHg. With Lexiscan, patient denied any complaint of chest pain. Cardiac Stress and Resting SPECT Images: Cardiac Stress and Resting SPECT images were obtained using technetium 99m Myoview 30.0 mCi stress and 9.39 mCi at rest. Resting and stress imaging in both supine and prone positions demonstrate no fixed or reversible perfusion defects. Gated imaging demonstrates normal global and regional LV systolic function. LVEF is calculated at 61%. Conclusion: No fixed or reversible perfusion defects. Gated imaging demonstrates normal global and regional LV systolic function. LVEF is calculated at 61%. Electronically signed by : Sary Guerra, 03/23/2023 15:29:11
== END ==
LOC: RAD 07:07
PROVIDERS: PCP Emergency Medicine; Visit Provider Nurse Practitioner
DX: R06.02 Shortness of breath (principal); R07.9 Chest pain, unspecified
CPT/HCPCS: 78452; 93017; A9502; J2785

== ENCOUNTER → 2023-04-16 21:03 | Outpatient (CLI) | payer MEDICAID, SELFPAY ==
[2023-04-16 22:35] LABS: Microscopic, Urine URINE MICROSCOPIC (MICROSCOPIC)
[2023-04-16 23:04] LABS: Appearance,Urine CLEAR (Clear); Blood, Urine 1+ (Negative); Color,Urine YELLOW (Yellow); Glucose,Urine (UA) Negative (Negative); Ketones,Urine Negative (Negative); Leukocyte Esterase,Urine Negative (Negative); Nitrate,Urine Negative (Negative); Protein,Urine TRACE (Negative); Specific Gravity, Urine >= 1.030 (1.005-1.030); Urobilinogen,Urine 0.2 EU/dl (0.2)
[2023-04-16 23:14] LABS: Bilirubin,Urine 1+ (Negative)
[2023-04-16 23:31] LABS: Calcium Oxalate Crystals,Urine 2+ /lpf; Squamous Epithelial Cell,Urine Occasional #/hpf (0-5); WBC,Urine Occasional #/hpf (0-3)
== END ==
PROVIDERS: PCP Emergency Medicine; Visit Provider Emergency Medicine
DX: N39.0 Urinary tract infection, site not specified (principal)
CPT/HCPCS: 81001; 87086

== ENCOUNTER → 2023-04-25 10:18 | Outpatient (CLI) | payer MEDICAID, SELFPAY ==
--- NOTE | 2023-04-25 10:18 | US_ITS ---
FINAL REPORT CLINICAL HISTORY: questionable mass on left posterior thigh COMPARISON: none FINDINGS: ULTRASOUND SOFT TISSUE Sonographic images of the left posterior thigh were obtained in the area of interest. There is a focal area of soft tissue fluid in the left upper thigh. Within this fluid is a 20 mm ovoid solid mass of uncertain etiology. This could represent hematoma or other solid mass. In addition, there is a 12 mm hypoechoic solid-appearing focus also in the left upper thigh. This does not appear to be fluid and has a nonspecific appearance. IMPRESSION: 20 mm mass left upper thigh of uncertain etiology. Additional 12 mm solid-appearing focus left upper thigh. These can be further evaluated with follow-up ultrasound or MRI. Reviewed, Interpreted and Dictated by Gustavo Sagastume III, MD Transcribed by Chiquita Mcgill Authenticated and [facility]
== END ==
PROVIDERS: PCP Emergency Medicine; Visit Provider Emergency Medicine
DX: R22.42 Localized swelling, mass and lump, left lower limb (principal)
CPT/HCPCS: 76882

== ENCOUNTER → 2023-05-15 14:50 | Outpatient (CLI) | payer MEDICAID, SELFPAY ==
--- NOTE | 2023-05-15 14:54 | XR_ITS ---
FINAL REPORT CLINICAL HISTORY: CHF COMPARISON: 04/17/2021 FINDINGS: PA and lateral views of the chest were obtained. The cardiac and mediastinal silhouettes are within normal limits. The lungs are clear. There is no pleural effusion or pneumothorax. No acute osseous abnormality is identified. IMPRESSION: No radiographic evidence of acute cardiac or pulmonary disease. Reviewed, Interpreted and Dictated by Edita Arvizu MD Transcribed by Araceli French Authenticated and [facility]
[2023-05-15 19:59] LABS: Creatinine,Urine Random 44 mg/dL (Not Estab.)
[2023-05-15 20:02] LABS: Microalbumin/Creatinine Ratio 14.5
[2023-05-15 20:08] LABS: Chloride 108 mmol/L (98-107); Potassium 3.9 mmoL/L (3.5-5.1); Sodium 143 mmol/L (136-145)
[2023-05-15 20:10] LABS: Blood Urea Nitrogen 22 mg/dl (7-17); Estimated Glomerular Filt Rate 52 ml/min (>60); GFR (African American) 63 ML/MIN (>60)
[2023-05-15 20:11] LABS: Alanine Aminotransferase 55 U/L (12-78); Albumin Level 3.3 g/dl (3.5-5.0); Albumin/Globulin Ratio 1.4 (1.1-1.8); Alkaline Phosphatase 251 U/L (38-126); Anion Gap 7.9 mEq/L (5-15); Aspartate Amino Transferase 47 U/L (14-36); Bilirubin,Total < 0.1 mg/dl (0.2-1.3); Calcium 9.1 mg/dl (8.4-10.2); Carbon Dioxide 31 mmol/L (22.0-30.0); Globulin 2.3 g/dL (1.3-3.2); Glucose 89 mg/dl (74-100); Total Protein,Serum 5.6 g/dl (6.3-8.2)
== END ==
PROVIDERS: PCP Emergency Medicine; Visit Provider Internal Medicine
DX: R06.02 Shortness of breath (principal)
CPT/HCPCS: 71046; 80053; 82043; 82570

== ENCOUNTER → 2023-05-15 23:24 | Outpatient (CLI) | payer MEDICAID, SELFPAY | PROVIDERS: PCP Emergency Medicine; Visit Provider Internal Medicine | DX: R06.02 Shortness of breath (principal) ==

== ENCOUNTER → 2023-05-21 08:45 | Outpatient (CLI) | payer MEDICAID, SELFPAY ==
--- NOTE | 2023-05-21 08:45 | MR_ITS ---
FINAL REPORT CLINICAL HISTORY: Lt thigh mass fall x 1 year ago palpable area 10ml prohance FINDINGS: Multiplanar MR imaging of the left thigh was performed with and without contrast. There is a wraparound artifact which obscures detail. There is motion on many of the images. There is no evidence of fracture, bone bruise or marrow edema. No bony mass is identified. The musculature is intact. No localized soft tissue inflammation is identified. There is an irregular fluid collection measuring 10.0 x 3.5 x 1.5 cm in the posterior upper thigh subcutaneous tissues. There is no definite evidence of abnormal contrast enhancement. IMPRESSION: Irregular fluid collection in the posterior upper thigh subcutaneous tissues may represent a seroma or chronic hematoma. Reviewed, Interpreted and Dictated by Gustavo Sagastume III, MD Transcribed by Jason Bell Authenticated and [facility]
== END ==
PROVIDERS: PCP Emergency Medicine; Visit Provider Surgery
DX: R22.40 Localized swelling, mass and lump, unspecified lower limb (principal)
CPT/HCPCS: 73720; A9576

== ENCOUNTER → 2023-05-28 08:19 | Outpatient (CLI) | payer MEDICAID, SELFPAY ==
--- NOTE | 2023-05-28 08:24 | US_ITS ---
FINAL REPORT CLINICAL HISTORY: .lt post thigh fna and drained-- keshav ortez--5 ml drained FINDINGS: Ultrasound guided right posterior thigh aspiration HISTORY: Right posterior thigh fluid collection. Attending radiologist: Dr. Sagastume Physician [employer]: Keshav Ortez PA-C PROCEDURE: After informed consent was obtained and a time-out was performed, the patient was prepped and draped in usual sterile fashion over the right posterior thigh. Utilizing local anesthesia and sterile technique with a 25-gauge needle, access to lesion was obtained under direct ultrasound guidance. Aspiration was performed with removal of approximately 5 mL of serosanguineous fluid. No other fluid was able to be aspirated. Preprocedure imaging demonstrated a heterogeneous collection within the posterior thigh containing a small amount of fluid. The patient received no conscious sedation. The patient tolerated procedure well and left the department in good condition. IMPRESSION: Status post ultrasound guided aspiration of right posterior thigh fluid collection without immediate complication. Films reviewed , interpreted and dictated by Dr. Sagastume. Transcribed by Keshav Ortez PA-C. Reviewed, Interpreted and Dictated by Gustavo Sagastume III, MD Transcribed by ETHAN Ag Authenticated and [facility]
== END ==
PROVIDERS: PCP Emergency Medicine; Visit Provider Surgery
DX: D17.9 Benign lipomatous neoplasm, unspecified (principal); M79.89 Other specified soft tissue disorders
CPT/HCPCS: 10005; 76942

== ENCOUNTER → 2023-05-28 14:20 | Outpatient (CLI) | payer MEDICAID, SELFPAY | PROVIDERS: PCP Surgery; Visit Provider Surgery | DX: M79.89 Other specified soft tissue disorders (principal) | CPT/HCPCS: 87070 ==

== ENCOUNTER → 2023-06-05 11:53 | Outpatient (CLI) | payer MEDICAID, SELFPAY ==
--- NOTE | 2023-06-05 11:56 | XR_ITS ---
FINAL REPORT CLINICAL HISTORY: lt hip pain COMPARISON: None FINDINGS: LEFT HIP: Two views of the left hip demonstrate no acute fracture or dislocation. Mild degenerative change is present. The visualized bony structures are well aligned. No soft tissue abnormality is seen. Postoperative change from remote fusion at the L4-5 level is noted. IMPRESSION: Mild degenerative change in the left hip. Reviewed, Interpreted and Dictated by Gustavo Sagastume III, MD Transcribed by Araceli French Authenticated and . [facility]
== END ==
PROVIDERS: PCP Emergency Medicine; Visit Provider Surgery
DX: M25.552 Pain in left hip (principal)
CPT/HCPCS: 73502

== ENCOUNTER → 2023-06-12 06:22 | Outpatient (CLI) | payer MEDICAID, SELFPAY ==
[2023-06-12 18:33] LABS: Amphetamine/Metha Screen,Urine Negative ng/ml (<1000)
[2023-06-12 18:34] LABS: Barbiturates Screen,Urine Negative ng/ml (<200)
[2023-06-12 18:35] LABS: Benzodiazepines Screen,Urine Positive ng/ml (<200); Cannabinoid Screen,Urine Negative ng/ml (<50)
[2023-06-12 18:36] LABS: Cocaine Screen,Urine Negative ng/ml (<300)
[2023-06-12 18:37] LABS: Methadone Screen,Urine Negative ng/ml (<300); Opiate Screen,Urine Negative ng/ml (<300)
[2023-06-12 18:38] LABS: Phencyclidine Screen,Urine Negative ng/ml (<25)
== END ==
PROVIDERS: PCP Emergency Medicine; Visit Provider Emergency Medicine
DX: Z79.899 Other long term (current) drug therapy (principal)
CPT/HCPCS: 80305

== ENCOUNTER → 2023-06-17 07:54 | Outpatient (CLI) | payer MEDICAID, SELFPAY ==
--- NOTE | 2023-06-17 07:56 | CA_ITS ---
APPROVED REPORT EXAM: Comprehensive 2D, Doppler, and color-flow Echocardiogram Catering Barista: Milvia Swenson RVT Ht: 5 ft 4 in Wt: 122lbs BSA: 1.59 BP: 116/60 mmHg Indications: CP,SMOKER,FATIGUE,SOA,RBBB,HTN 2D Dimensions LVOT 2.01 cm (M/F) 1.5-2.5 LA Volume 30.50 mL LA Volume Index 19.18 mL/m2 (M/F) 16-34 M-Mode Dimensions RVDd 3.02 cm (0.9-2.6) LA Diam 3.39 cm (1.9-4.0) LVDd 4.21 cm (3.5-5.7) Ao Diam 2.92 cm (2.0-3.7) LVDs 3.11 cm (3.5-5.7) IVSd 0.61 cm (0.6-1.1) PWd 0.49 cm (0.6-1.1) EF (Teich) 51.60% FS 26.10% EDV (Teich) 79.00 mL TAPSE 2.49 (<1.7) ESV (Teich) 38.20 mL LV Diastology E Decel Time 97.00 (160-240 msec) E/A Ratio 0.9 MED E' 12.00 (< 7 cm/sec) E'/MED E' Ratio 6.15 (>14) LAT E' 12.40 (<10 cm/sec) E/LAT E' Ratio 5.95 (>14) Aortic Valve LVOT Max 90.00 (70-110 cm/s) LVOT VTI 19.14 cm AoV Peak Leonel. 116.00 (50-130 cm/s) AO Peak GR. 5.40 mmHg AO Mean GR. 2.70 (<5 mmHg) AO VTI 23.82 (18-25 cm) EMIR (VTI) 2.55 (2.5-4.5 cm2) Mitral Valve MV E Max Leonel. 74.00 (40-130 cm/s) MV A Velocity 82.00 (40-130 cm/s) E/A Ratio 0.90 MV Decel. Time 97.00 (160-240 ms) MV PHT 28.00 ms Pulmonary Valve PV Peak Velocity 74.00 (50-150 cm/s) Tricuspid Valve TR P. Velocity 244.00 cm/s RAP Estimate 10.00 mmHg RVSP 33.80 mmHg Left Ventricle The left ventricle is normal size. The left ventricular systolic function is low normal. There is normal left ventricular wall thickness. There is low normal LV segmental wall motion. The left ventricular diastolic function is normal. LVEF is 50%. Right Ventricle Right ventricle is mildly dilated. The right ventricular systolic function is normal. There is increased RV wall thickness. Atria The left atrium size is normal. The right atrium size is normal. There is no Doppler evidence of interatrial shunt. Aortic Valve The aortic valve is trileaflet. The aortic valve opens well. There is no aortic valvular stenosis. No aortic regurgitation is present. Mitral Valve The mitral valve is normal in structure. No evidence of mitral valve stenosis. Trace mitral regurgitation. Tricuspid Valve The tricuspid valve leaflets are thin and pliable. Mild tricuspid regurgitation. RVSP is 25???30 mmHg. Pulmonic Valve The pulmonary valve is normal in structure. Trace pulmonic regurgitation. Great Vessels The aortic root is normal in size. The ascending aorta is normal in size. IVC is normal in size and collapses >50% with inspiration. Pericardium There is no pericardial effusion. Other Information Study Quality: Fair Conclusion Low normal LV systolic function (LVEF 50%). Mildly dilated RV. Mild TR. RVSP 25-30 mmHg. Electronically signed by : Sary Guerra MD 06/17/2023 21:51:37
== END ==
PROVIDERS: PCP Emergency Medicine; Visit Provider Nurse Practitioner
DX: R06.00 Dyspnea, unspecified (principal)
CPT/HCPCS: 93306

== ENCOUNTER 2023-10-02 21:38 | Outpatient (CLI) | payer MEDICAID, SELFPAY ==
[2023-10-02 22:09] LABS: Chloride 104 mmol/L (98-107); Sodium 140 mmol/L (136-145)
[2023-10-02 22:12] LABS: Alanine Aminotransferase 64 U/L (12-78); Albumin Level 4.5 g/dl (3.5-5.0); Albumin/Globulin Ratio 1.7 (1.1-1.8); Alkaline Phosphatase 177 U/L (38-126); Aspartate Amino Transferase 55 U/L (14-36); Bilirubin,Total 0.2 mg/dl (0.2-1.3); Blood Urea Nitrogen 23 mg/dl (7-17); Carbon Dioxide 24 mmol/L (22.0-30.0); Estimated Glomerular Filt Rate 58 ml/min (>60); GFR (African American) 70 ML/MIN (>60); Globulin 2.7 g/dL (1.3-3.2); Total Protein,Serum 7.2 g/dl (6.3-8.2)
[2023-10-02 22:13] LABS: Calcium 10.2 mg/dl (8.4-10.2); Glucose 107 mg/dl (74-100)
[2023-10-02 23:35] LABS: Hemoglobin A1C 4.9 % (4.0-6.0)
== END 2023-10-02 23:59 ==
LOC: LAB.DROPOF 21:39
PROVIDERS: PCP Internal Medicine; Visit Provider Internal Medicine
DX: E11.9 Type 2 diabetes mellitus without complications (principal); Z79.899 Other long term (current) drug therapy
CPT/HCPCS: 80053; 83036

== ENCOUNTER 2023-10-30 20:02 | Outpatient (CLI) | payer MEDICAID, SELFPAY ==
[2023-10-30 19:27] LABS: Alanine Aminotransferase 14 U/L (12-78); Albumin/Globulin Ratio 1.5 (1.1-1.8); Alkaline Phosphatase 192 U/L (38-126); Anion Gap 13.7 mEq/L (5-15); Aspartate Amino Transferase 24 U/L (14-36); Bilirubin,Total 0.3 mg/dl (0.2-1.3); Blood Urea Nitrogen 13 mg/dl (7-17); Calcium 9.9 mg/dl (8.4-10.2); Carbon Dioxide 21 mmol/L (22.0-30.0); Chloride 99 mmol/L (98-107); Estimated Glomerular Filt Rate 58 ml/min (>60); GFR (African American) 70 ML/MIN (>60); Globulin 2.6 g/dL (1.3-3.2); Glucose 88 mg/dl (74-100); Potassium 4.7 mmoL/L (3.5-5.1); Sodium 129 mmol/L (136-145); Total Protein,Serum 6.6 g/dl (6.3-8.2)
[2023-10-30 19:42] LABS: Basophils # 0.1 K/mm3 (0-0.2); Basophils % 1.3 % (0.1-2.0); Eosinophils # 0.1 K/mm3 (0.0-0.4); Eosinophils % 1.1 % (0.1-12.0); Hematocrit 43.2 % (37.0-47.0); Lymphocytes # 3.4 K/mm3 (0.7-4.5); Lymphocytes % 40.1 % (10-50); Mean Corpuscular HGB Conc 32.3 g/dL (31.8-35.4); Mean Corpuscular Hemoglobin 32.7 pg (27.0-31.2); Mean Corpuscular Volume 101.2 fl (81-99); Mean Platelet Volume 8.8 fl (7.4-10.4); Monocytes # 0.5 K/mm3 (0.1-1.0); Monocytes % 5.3 % (1.7-9.3); Neutrophils # 4.5 K/mm3 (1.8-7.8); Neutrophils % 52.3 % (37.0-80.0); Platelet Count 386 K/mm3 (142-424); Red Blood Count 4.27 M/mm3 (4.20-5.40); Red Cell Distribution Width 14.5 % (11.5-17.5); White Blood Count 8.6 K/mm3 (4.8-10.8)
[2023-10-30 19:55] LABS: 25-OH Vitamin D, Total 56.5 ng/mL (30-100)
[2023-10-30 20:26] LABS: Vitamin B12 329 pg/mL (239-931)
[2023-10-30 21:13] LABS: Iron 162 ug/dL (37-170)
[2023-10-30 21:22] LABS: Total Iron Binding Capacity 308 ug/dL (265-497)
[2023-10-30 21:57] LABS: Ferritin 38.8 ng/ml (11.1-264)
== END 2023-10-30 23:59 ==
LOC: LAB.DROPOF 20:02
PROVIDERS: PCP Internal Medicine; Visit Provider Internal Medicine
DX: E78.2 Mixed hyperlipidemia (principal); R53.83 Other fatigue; N18.31 Chronic kidney disease, stage 3a; I10 Essential (primary) hypertension; Z79.899 Other long term (current) drug therapy
CPT/HCPCS: 80053; 82306; 82607; 82728; 83540; 83550; 85025

== ENCOUNTER 2023-11-13 18:11 | Outpatient (CLI) | payer MEDICAID, SELFPAY ==
[2023-11-13 18:58] LABS: Alanine Aminotransferase 19 U/L (12-78); Albumin Level 3.5 g/dl (3.5-5.0); Albumin/Globulin Ratio 1.5 (1.1-1.8); Alkaline Phosphatase 166 U/L (38-126); Aspartate Amino Transferase 24 U/L (14-36); Bilirubin,Total 0.2 mg/dl (0.2-1.3); Blood Urea Nitrogen 9 mg/dl (7-17); Calcium 9.9 mg/dl (8.4-10.2); Carbon Dioxide 27 mmol/L (22.0-30.0); Chloride 105 mmol/L (98-107); Estimated Glomerular Filt Rate 65 ml/min (>60); GFR (African American) 79 ML/MIN (>60); Globulin 2.4 g/dL (1.3-3.2); Glucose 75 mg/dl (74-100); Sodium 137 mmol/L (136-145); Total Protein,Serum 5.9 g/dl (6.3-8.2)
== END 2023-11-13 23:59 ==
LOC: LAB.DROPOF 18:11
PROVIDERS: PCP Nurse Practitioner Acute Care; Visit Provider Nurse Practitioner Acute Care
DX: E87.0 Hyperosmolality and hypernatremia (principal)
CPT/HCPCS: 80053

== ENCOUNTER 2023-12-30 14:42 | Outpatient (CLI) | payer MEDICAID, SELFPAY ==
[2023-12-30 15:51] LABS: Alanine Aminotransferase 43 U/L (12-78); Albumin Level 3.6 g/dl (3.5-5.0); Albumin/Globulin Ratio 1.4 (1.1-1.8); Alkaline Phosphatase 176 U/L (38-126); Anion Gap 9.6 mEq/L (5-15); Aspartate Amino Transferase 34 U/L (14-36); Bilirubin,Total 0.3 mg/dl (0.2-1.3); Blood Urea Nitrogen 22 mg/dl (7-17); Calcium 9.7 mg/dl (8.4-10.2); Carbon Dioxide 28 mmol/L (22.0-30.0); Chloride 104 mmol/L (98-107); Estimated Glomerular Filt Rate 58 ml/min (>60); GFR (African American) 70 ML/MIN (>60); Globulin 2.5 g/dL (1.3-3.2); Glucose 73 mg/dl (74-100); Potassium 4.6 mmoL/L (3.5-5.1); Sodium 137 mmol/L (136-145); Total Protein,Serum 6.1 g/dl (6.3-8.2)
== END 2023-12-30 23:59 | disposition home or self-care (01) ==
LOC: LAB 14:43
PROVIDERS: PCP Internal Medicine; Visit Provider Specialist
DX: R51.9 Headache, unspecified (principal); E87.1 Hypo-osmolality and hyponatremia
CPT/HCPCS: 36415; 80053

== ENCOUNTER 2024-01-10 07:53 | Outpatient (CLI) | payer MEDICAID, SELFPAY ==
--- NOTE | 2024-01-10 07:54 | MR_ITS ---
FINAL REPORT TECHNIQUE: Multiplanar MR, without and with contrast administration CLINICAL HISTORY: Worsening of headaches COMPARISON: 05/02/2020 FINDINGS: Diffusion sequences show no signal abnormalities to indicate acute infarct. There is mildly increased abnormal diffusion in the central fina which is stable from prior exam. There are worsening of bilateral periventricular areas of abnormal T2 flair without enhancement which may represent small vessel ischemic disease. Demyelinating process not excluded. The brain parenchyma is homogeneous with normal signal pattern. Ventricles are normal. No edema or hemorrhage is seen. Major vessel flow-voids are intact. Following contrast administration, there is no mass or abnormal parenchymal enhancement. IMPRESSION: Worsening bilateral periventricular areas of abnormal T2 FLAIR without enhancement. Demyelinating process not excluded. Recommend follow-up. Reviewed, Interpreted and Dictated by Lissette Bhatia MD Transcribed by Susan Lockwood Authenticated and [facility]
[2024-01-10] MEDS: GADOTERIDOL INJ 20ML SYRINGE 13 ML IV (10:09)
[2024-01-10] MEDS: SODIUM CHLORIDE 0.9% 10ML SYR (RAD ONLY) 10 ML IV (10:09)
== END 2024-01-10 23:59 | disposition home or self-care (01) ==
LOC: RAD 07:54
PROVIDERS: PCP Internal Medicine; Visit Provider Specialist
DX: R51.9 Headache, unspecified (principal)
CPT/HCPCS: 70553; A9576

== ENCOUNTER 2024-01-15 09:28 | Outpatient (CLI) | payer MEDICAID, SELFPAY ==
--- NOTE | 2024-01-15 09:28 | XR_ITS ---
FINAL REPORT CLINICAL HISTORY: osteoporosis FINDINGS: Using the right forearm, the bone mineral density of the forearm is 0.358 g/cm2, corresponding to T-score of -4.1. Using the right hip, the bone mineral density of the femoral neck is 0.516 g/cm2, corresponding to a T-score of -3.0. NOTE: T-score: Standard deviation compared with peak bone mass of young adult mean. *Following the recommendations of the International Society of Bone densitometry, classification of hip BMD is based on the lower of two T-scores; total hip or femoral neck. IMPRESSION: Low bone mineral density in the hips and right forearm, consistent with osteoporosis. Reviewed, Interpreted and Dictated by Navid Mendiola MD Transcribed by Araceli French Authenticated and . [facility]
== END 2024-01-15 23:59 | disposition home or self-care (01) ==
LOC: RAD 09:28
PROVIDERS: PCP Internal Medicine; Visit Provider Internal Medicine
DX: M81.0 Age-related osteoporosis without current pathological fracture (principal); R51.9 Headache, unspecified
CPT/HCPCS: 77080; 94762

== ENCOUNTER 2024-02-13 07:32 | Outpatient (CLI) | payer MEDICAID, SELFPAY ==
--- NOTE | 2024-02-13 07:33 | CT_ITS ---
APPROVED REPORT [place] [employer] Guide: CLINICAL INDICATION Chest Pain TECHNIQUE Image Acquisition: A 128 slice MDCT scanner (Actiwavea View) was used for data acquisition. A noncontrast coronary calcium scan was performed. A CT attenuation threshold of 130 Hounsfield units (HU) was used for the detection of calcium in contiguous voxels of 1 sq mm in area to be counted as individual lesions. Bolus tracking in the ascending aorta with a threshold of 180 HU was performed. Immediately afterwards, ECG synchronized cardiac CT was then performed from the cardiac base to apex using retrospective gating with ECG tube current modulation. A total of 85 mL of Isovue 370 mg/mL contrast medium was administered at 5 mL/sec followed by a saline flush using a biphasic injection protocol. A tube voltage of 120 KVp was used. The patient received the following medications prior to the cardiac CT. 50 mg of oral metoprolol 15 mg of oral ivabradine 0.8 mg of sublingual nitroglycerin The average heart rate at the time of acquisition was 45 bpm and regular. Image Reconstruction Transaxial images were reconstructed at 0.67 mm slide thickness. Data was reviewed interactively on an advanced workstation capable of 2 and 3-dimensional displays in all conventional reconstruction formats, including multiplanar reformations, maximum intensity projections, curved multiplanar reformations, and volume rendered reconstructions. When applicable, selected routine images describing the relevant coronary anatomy and pathology were saved and sent to PACS. Complications None Technical Quality Overall image quality was good. Coronary artery opacification was adequate. Total DLP (Dose-Length Product) is 1419.5 mGy-cm. The reported value represents the total of one or more individual components during the CT acquisition of this date and at this time, and as such, the same value may appear in more than one CT report depending on the interpreting/reporting physicians. COMPARISON None FINDINGS CT Coronary Calcium Scoring LMA (Left Main Artery) = 0 LAD (Left Anterior Descending) = 5 LCX (Left Coronary Circumflex) = 0 RCA (Right Coronary Artery) = 12 Total Calcium Score = 17 using the AJ-130 method. The observed calcium score of 17 is at 85th percentile for subjects of the same age, sex, and race/ethnicity. The interpretation of the calcium heart score is based on the following continuum*: 0 = no calcified plaque detected (risk of coronary artery disease is very low ??? less than 5%) 1-10 = calcium detected in extremely minimal levels (risk of coronary diseases is still low ??? less than 10%) 11-100 = mild levels of plaque detected with certainty (mild or minimal narrowing of heart arteries is likely) 101-400 = definite,at least moderate levels of plaque detected (relatively high risk of a heart attack within 3-5 years) >401-999 = extensive levels of plaque detected (high risk of heart attack, high levels of vascular disease are present, high likelihood of at least one significant coronary narrowing) *The calcium heart score quantifies the burden of coronary calcification/plaque in the coronary arteries. The calcium heart score is not able to evaluate the presence or burden of non-calcified (i.e. soft) plaque. There is no identifiable calcification in the aortic valve, mitral annulus or mitral valve, pericardium, or myocardium. Coronary CT Angiography The coronary arterial system is right dominant. Quantitative Stenosis Grading: Left Main (LM): The left main originates normally from the left sinus of Valsalva. The LM triifurcates into the left anterior descending artery, ramus intermedius, and left circumflex artery. The LM is patent with no evidence of atherosclerosis. Left Anterior Descending (LAD) and Diagonal Branches: The LAD gives off 2 diagonal branch(es). There is mixed calcified/noncalcified focal plaque in the ostial LAD segment, with up to 50-70% luminal stenosis. There is no evidence of LAD-myocardial bridge. Ramus-intermedius (RI): The RI is patent. Left Circumflex (LCX) and Obtuse Marginals (OM): The LCX gives off 1 Obtuse Marginal (OM) branch(es). The LCX and its branches are patent with no evidence of atherosclerosis. Right Coronary Artery (RCA): The RCA originates normally from the right sinus of Valsalva. The RCA gives off a posterior descending artery (PDA) and posterolateral (PL) branches. There is mixed calcified plaque noted in the proximal RCA segment, with no luminal stenosis. Non-Coronary Cardiac Findings: Analysis of the left ventricular (LV) structure and function was performed after 3-D reconstruction of the LV from axial images, with user-corrected automatic contouring for assessment of LV volumes and user-defined reconstruction from oblique planes for measurement of 3-D cardiac structure and function. -The left ventricle systolic function is normal. -There is no left atrial appendage filling defect. Two right pulmonary veins and two left pulmonary veins drain normally into the left atrium. -No pericardial thickening or calcification. -Central and branch pulmonary arteries in the [id number] are unremarkable. -Thoracic aorta within the visualized thoracic aortic-branches in the [id number] is unremarkable. Extracardiac Structures No significant extra-cardiac findings. Note, however, that this study is focused on the cardiac findings. IMPRESSION -Presence of coronary calcification with an Agatston score = 17 using the AJ-130 method. -The observed calcium score of 17 is at 85th percentile for subjects of the same age, sex, and race/ethnicity. -Atherosclerotic plaque in the LAD and RCA, with possible evidence of significant flow-limiting atherosclerosis of the ostial LAD segment. -CAD-RADS 3. Management recommendations per ACC/AHA guidelines*, as clinically appropriate. *Recommendations: CAD RADS 0: Reassurance. Consider non-atherosclerotic causes of chest pain. CAD RADS 1: Consider non-atherosclerotic causes of chest pain. Consider preventive therapy and risk factor modification. CAD RADS 2: Consider non-atherosclerotic causes of chest pain. Consider preventive therapy and risk factor modification, particularly for patients with nonobstructive plaque in multiple segments. CAD RADS 3: Consider further functional testing. Consider symptom-guided anti-ischemic and preventive pharmacotherapy as well as risk factor modification per published guideline statements. CAD RADS 4A: Consider further functional testing or invasive coronary angiography with revascularization per published guideline statements. Consider symptom-guided anti-ischemic and preventive pharmacotherapy as well as risk factor modification per published guideline statements. CAD RADS 4B: Invasive coronary angiography recommended with revascularization per published guideline statements. Consider symptom-guided anti-ischemic and preventive pharmacotherapy as well as risk factor modification per published guideline statements. CAD RADS 5: Consider invasive angiography and/or viability assessment with revascularization per published guideline statements. Consider symptom-guided anti-ischemic and preventive pharmacotherapy as well as risk factor modification per published guideline statements. CRITICAL RESULT None COMMUNICATION Per this written report The coronary and cardiac findings of this CCTA were reviewed, reported, and signed by Chi Guerra MD (Agricultural Economist) Conclusion Electronically signed by : Sary Guerra MD 02/17/2024 12:52:55
[2024-02-13 07:42] VITALS: BMI 23.0
[2024-02-13 07:55] VITALS: BP 153/71; PULSE 73; RESP 16; O2SAT 100
[2024-02-13] MEDS: IVABRADINE HCL 7.5MG TABLET *IVABRADINE+METOPROLOL REGIMINE 15 MG PO (08:04)
[2024-02-13] MEDS: METOPROLOL TARTRATE 50MG TABLET *IVABRADINE+METOPROLOL REGIMINE 50 MG PO (08:04)
[2024-02-13 08:31] LABS: Chloride 108 mmol/L (98-107); Sodium 139 mmol/L (136-145)
[2024-02-13 08:32] LABS: Potassium 4.4 mmoL/L (3.5-5.1)
[2024-02-13 08:34] LABS: Blood Urea Nitrogen 15 mg/dl (7-17); Creatinine Clearance Estimated 66 mL/min (50-200); Estimated Glomerular Filt Rate 65 ml/min (>60); GFR (African American) 79 ML/MIN (>60)
[2024-02-13 08:35] LABS: Anion Gap 10.4 mEq/L (5-15); Calcium 9.6 mg/dl (8.4-10.2); Carbon Dioxide 25 mmol/L (22.0-30.0); Glucose 82 mg/dl (74-100)
[2024-02-13 08:40] VITALS: BP 154/84; PULSE 62; RESP 16; O2SAT 100
[2024-02-13] MEDS: NITROGLYCERIN 0.4MG SL TABLET 0.8 MG SL (08:40)
[2024-02-13 08:43] VITALS: BP 162/90; PULSE 59; RESP 16; O2SAT 100
[2024-02-13 08:46] VITALS: BP 127/81; PULSE 62; RESP 16; O2SAT 99
[2024-02-13 08:49] VITALS: BP 128/80; PULSE 56; RESP 16; O2SAT 100
[2024-02-13] MEDS: SODIUM CHLORIDE 0.9% 10ML SYR (RAD ONLY) 10 ML IV (08:53)
[2024-02-13] MEDS: 0.9 % SODIUM CHLORIDE 50 ML VIAL IV (08:53)
[2024-02-13] MEDS: IOPAMIDOL-370 (76%);100ML BOTTLE 85 ML IV (08:53)
[2024-02-13 09:05] VITALS: BP 137/79; PULSE 55; RESP 16; O2SAT 99
== END 2024-02-13 09:14 | disposition home or self-care (01) ==
PROVIDERS: PCP Family Medicine; Visit Provider Family Medicine
DX: I20.89 Other forms of angina pectoris (principal); R60.9 Edema, unspecified; F17.210 Nicotine dependence, cigarettes, uncomplicated
CPT/HCPCS: 75574; 80048; Q9967

== ENCOUNTER 2024-03-17 08:06 | Day surgery (SDC) | payer MEDICAID, SELFPAY ==
[2024-03-17] VITALS (16 sets, daily range): BP systolic 110–163; BP diastolic 61–105; PULSE 65–78; RESP 16–18; TEMP 36.2–36.9; O2SAT 97–100; BMI 22.6
--- NOTE | 2024-03-17 07:02 | IR_ITS ---
APPROVED REPORT Patient Location: Outpatient [employer]: ANGEL Talbot RT (R) PROCEDURES Left heart catheterization Left ventriculogram Selective coronary angiogram INDICATION Abnormal CCTA, Angina pectoris Informed consent was obtained prior to the procedure. COMPLICATIONS None Estimated Blood Loss: Less than 10 mls TECHNIQUE One percent lidocaine used to anesthetize the right anterior aspect of the wrist. The right radial artery was accessed via the Seldinger technique. A 6 Albanian sheath was placed in the right radial artery. 2.5 mg of Verapamil, 800 mcg of nitroglycerin, 1mg Lidocaine and 5000 U Heparin were given through the arterial sheath. The papa catheter was also used to perform left heart catheterization, left ventriculogram and selective coronary angiogram. At the end of the procedure the sheath was removed good hemostasis was achieved using Traclet band, patient was transferred to the postop holding area in stable condition. ANGIOGRAPHIC RESULTS The left main artery Is a distal 20% stenosis which extends into the ostial LAD The left anterior descending artery Has a smooth ostial proximal 30 to 40% stenosis with remaining vessel widely patent The circumflex artery Normal The right coronary artery Dominant with 10% luminal irregularities The BROWNING ventriculogram reveals Normal 65% The left ventricular end-diastolic pressure 10 to 15 mmHg IMPRESSION Mild to moderate coronary artery disease as described above which is unlikely to be producing angina Normal ejection fraction Normal LVEDP PLAN 1. Patient's symptoms appear to be GI in etiology and she is a smoker. Recommend referral to Dr. Bae with plans to perform EGD 2. Consider barium swallow 3. Empiric PPI treatment 4. Avoidance of tobacco products 5. Risk factor modification for coronary disease 6. Maximize antianginals Electronically signed by : Isaac Pires MD 03/17/2024 10:45:05
[2024-03-17 08:59] LABS: Basophils # 0.1 K/mm3 (0-0.2); Basophils % 1.5 % (0.1-2.0); Eosinophils # 0.2 K/mm3 (0.0-0.4); Eosinophils % 1.9 % (0.1-12.0); Hematocrit 40.3 % (37.0-47.0); Hemoglobin 14.4 g/dL (12.2-16.2); Lymphocytes # 2.7 K/mm3 (0.7-4.5); Lymphocytes % 32.4 % (10-50); Mean Corpuscular HGB Conc 35.8 g/dL (31.8-35.4); Mean Corpuscular Hemoglobin 35.2 pg (27.0-31.2); Mean Corpuscular Volume 98.4 fl (81-99); Mean Platelet Volume 7.7 fl (7.4-10.4); Monocytes # 0.6 K/mm3 (0.1-1.0); Monocytes % 7.6 % (1.7-9.3); Neutrophils # 4.7 K/mm3 (1.8-7.8); Neutrophils % 56.7 % (37.0-80.0); Platelet Count 502 K/mm3 (142-424); Red Cell Distribution Width 14.7 % (11.5-17.5); White Blood Count 8.3 K/mm3 (4.8-10.8)
[2024-03-17 09:04] LABS: Anion Gap 11.5 mEq/L (5-15); Blood Urea Nitrogen 21 mg/dl (7-17); Carbon Dioxide 25 mmol/L (22.0-30.0); Chloride 93 mmol/L (98-107); Creatinine Clearance Estimated 58 mL/min (50-200); Estimated Glomerular Filt Rate 58 ml/min (>60); GFR (African American) 70 ML/MIN (>60); Glucose 92 mg/dl (74-100); Potassium 4.5 mmoL/L (3.5-5.1); Sodium 125 mmol/L (136-145)
[2024-03-17] MEDS: LIDOCAINE 1% 10ML MDV 20 ML IJ (09:56)
[2024-03-17] MEDS: 0.9 % SODIUM CHLORIDE 500 ML 25 ML IV (09:56)
[2024-03-17] MEDS: HEPARIN 1,000 UNITS/ML 10ML VIAL (CATH LAB) 10000 UNIT IV (09:57)
[2024-03-17] MEDS: VERAPAMIL 2.5MG/ML 2ML VIAL 2.5 MG IV (09:57)
[2024-03-17] MEDS: NITROGLYCERIN 800MCG/8ML SYR (CATH LAB) 800 MCG IA (09:58)
[2024-03-17] MEDS: HEPARIN 1,000 UNITS/500ML NS (CATH LAB) 3000 UNIT IV (09:58)
[2024-03-17] MEDS: diphenhydrAMINE 50MG/ML VIAL 50 MG IV (10:01)
[2024-03-17] MEDS: FENTANYL 100MCG/2ML VIAL 50 MCG IV (10:17)
[2024-03-17] MEDS: MIDAZOLAM HCL 1MG/1ML 5ML VIAL 1 MG IV (10:17)
[2024-03-17] MEDS: IOPAMIDOL-370 (76%);100ML BOTTLE 50 ML IV (13:06)
== END 2024-03-17 13:45 | disposition home or self-care (01) ==
PROVIDERS: PCP Internal Medicine; Visit Provider Internal Medicine
DX: R93.1 Abnormal findings on diagnostic imaging of heart and coronary circulation (principal); K21.00 Gastro-esophageal reflux disease with esophagitis, without bleeding; R06.02 Shortness of breath; I10 Essential (primary) hypertension; E78.2 Mixed hyperlipidemia; F17.210 Nicotine dependence, cigarettes, uncomplicated; I25.118 Atherosclerotic heart disease of native coronary artery with other forms of angina pectoris; Z79.899 Other long term (current) drug therapy; J44.9 Chronic obstructive pulmonary disease, unspecified
CPT/HCPCS: 80048; 85025; 93458; 99152; C1725; C1769; J1200; J1644; J2250; J3010; Q9967

== ENCOUNTER 2024-03-24 10:53 | Outpatient (CLI) | payer MEDICAID, SELFPAY ==
--- NOTE | 2024-03-24 11:02 | XR_ITS ---
FINAL REPORT CLINICAL HISTORY: Shortness of breath/tob use COMPARISON: 05/15/2023 FINDINGS: Two views of the chest were obtained. The heart size and pulmonary vascularity are within normal limits. The mediastinum is normal. No acute pulmonary abnormality is identified. There is no pneumothorax. The bony thorax is intact. IMPRESSION: No active cardiopulmonary disease. Reviewed, Interpreted and Dictated by Gustavo Sagastume III, MD Transcribed by Chiquita Mcgill Authenticated and [facility]
== END 2024-03-24 23:59 | disposition home or self-care (01) ==
LOC: RAD 10:55
PROVIDERS: PCP Internal Medicine; Visit Provider Internal Medicine
DX: R06.02 Shortness of breath (principal); F17.210 Nicotine dependence, cigarettes, uncomplicated
CPT/HCPCS: 71046

== ENCOUNTER 2024-05-04 16:14 | Outpatient (CLI) | payer MEDICAID, SELFPAY ==
[2024-05-04 19:50] LABS: Alanine Aminotransferase 28 U/L (12-78); Albumin Level 3.5 g/dl (3.5-5.0); Albumin/Globulin Ratio 1.3 (1.1-1.8); Alkaline Phosphatase 195 U/L (38-126); Anion Gap 6.2 mEq/L (5-15); Aspartate Amino Transferase 28 U/L (14-36); Bilirubin,Total 0.3 mg/dl (0.2-1.3); Blood Urea Nitrogen 14 mg/dl (7-17); Calcium 9.5 mg/dl (8.4-10.2); Carbon Dioxide 28 mmol/L (22.0-30.0); Chloride 106 mmol/L (98-107); Estimated Glomerular Filt Rate 43 ml/min (>60); GFR (African American) 51 ML/MIN (>60); Globulin 2.7 g/dL (1.3-3.2); Glucose 67 mg/dl (74-100); Potassium 4.2 mmoL/L (3.5-5.1); Sodium 136 mmol/L (136-145); Total Protein,Serum 6.2 g/dl (6.3-8.2)
[2024-05-04 21:21] LABS: Creatinine,Urine Random 231 mg/dL (Not Estab.)
== END 2024-05-04 23:59 | disposition home or self-care (01) ==
LOC: LAB.DROPOF 05-05 13:35
PROVIDERS: PCP Internal Medicine; Visit Provider Internal Medicine
DX: I25.10 Atherosclerotic heart disease of native coronary artery without angina pectoris (principal); F17.210 Nicotine dependence, cigarettes, uncomplicated
CPT/HCPCS: 80053; 82043; 82570

== ENCOUNTER 2024-05-13 13:38 | Outpatient (CLI) | payer MEDICAID, SELFPAY ==
[2024-05-13] MEDS: DENOSUMAB 60 MG/ML SYRINGE SQ (13:56)
[2024-05-13 13:57] VITALS: BP 115/95; PULSE 77; RESP 17; O2SAT 97
[2024-05-13 14:01] VITALS: BP 115/95; PULSE 77; RESP 17; O2SAT 97
== END 2024-05-13 14:02 | disposition home or self-care (01) ==
LOC: INF 13:39
PROVIDERS: PCP Internal Medicine; Visit Provider Internal Medicine
DX: M81.0 Age-related osteoporosis without current pathological fracture (principal)
CPT/HCPCS: 96372; J0897

== ENCOUNTER 2024-05-13 17:33 | Outpatient (CLI) | payer MEDICAID, SELFPAY ==
[2024-05-13 17:25] LABS: Basophils # 0.1 K/mm3 (0-0.2); Basophils % 1.8 % (0.1-2.0); Eosinophils # 0.3 K/mm3 (0.0-0.4); Eosinophils % 3.8 % (0.1-12.0); Hematocrit 40.7 % (37.0-47.0); Hemoglobin 12.7 g/dL (12.2-16.2); Lymphocytes # 3.1 K/mm3 (0.7-4.5); Lymphocytes % 43.5 % (10-50); Mean Corpuscular HGB Conc 31.1 g/dL (31.8-35.4); Mean Corpuscular Hemoglobin 32.3 pg (27.0-31.2); Mean Corpuscular Volume 103.9 fl (81-99); Mean Platelet Volume 8.8 fl (7.4-10.4); Monocytes # 0.5 K/mm3 (0.1-1.0); Monocytes % 6.7 % (1.7-9.3); Neutrophils # 3.2 K/mm3 (1.8-7.8); Neutrophils % 44.2 % (37.0-80.0); Platelet Count 417 K/mm3 (142-424); Red Blood Count 3.92 M/mm3 (4.20-5.40); Red Cell Distribution Width 15.1 % (11.5-17.5); White Blood Count 7.2 K/mm3 (4.8-10.8)
[2024-05-13 17:40] LABS: Hemoglobin A1C 5.3 % (4.0-6.0)
[2024-05-13 17:54] LABS: Alanine Aminotransferase 15 U/L (12-78); Albumin Level 3.7 g/dl (3.5-5.0); Albumin/Globulin Ratio 1.6 (1.1-1.8); Alkaline Phosphatase 152 U/L (38-126); Anion Gap 5.5 mEq/L (5-15); Aspartate Amino Transferase 25 U/L (14-36); Bilirubin,Total 0.4 mg/dl (0.2-1.3); Blood Urea Nitrogen 15 mg/dl (7-17); Calcium 9.6 mg/dl (8.4-10.2); Carbon Dioxide 27 mmol/L (22.0-30.0); Chloride 112 mmol/L (98-107); Chol/HDL Ratio 3.8 (1-3.5); Cholesterol 160 mg/dl (140-200); Estimated Glomerular Filt Rate 58 ml/min (>60); GFR (African American) 70 ML/MIN (>60); Globulin 2.3 g/dL (1.3-3.2); Glucose 75 mg/dl (74-100); HDL Cholesterol 42 mg/dl (40-60); Potassium 4.5 mmoL/L (3.5-5.1); Sodium 140 mmol/L (136-145); Triglycerides 175 mg/dl (30-150); VLDL Cholesterol 35 mg/dL (0-40)
[2024-05-13 18:05] LABS: Direct LDL Cholesterol 73.07 mg/dL (100-129)
[2024-05-13 18:11] LABS: 25-OH Vitamin D, Total 81.1 ng/mL (30-100)
== END 2024-05-13 23:59 | disposition home or self-care (01) ==
LOC: LAB.DROPOF 17:33
PROVIDERS: PCP Nurse Practitioner Acute Care; Visit Provider Nurse Practitioner Acute Care
DX: E78.2 Mixed hyperlipidemia (principal); E87.1 Hypo-osmolality and hyponatremia; E55.9 Vitamin D deficiency, unspecified; Z13.1 Encounter for screening for diabetes mellitus; R53.83 Other fatigue
CPT/HCPCS: 80053; 80061; 82306; 83036; 85025

== ENCOUNTER → 2024-09-11 14:40 | Outpatient (CLI) | payer MEDICAID, SELFPAY | LOC: SL 14:41 | PROVIDERS: PCP Internal Medicine; Visit Provider Specialist | DX: G47.34 Idiopathic sleep related nonobstructive alveolar hypoventilation (principal); R51.9 Headache, unspecified | CPT/HCPCS: 94762 ==

== ENCOUNTER 2024-11-12 14:03 | Outpatient (CLI) | payer MEDICAID, SELFPAY ==
[2024-11-12 14:12] VITALS: BP 144/95; PULSE 79; RESP 18; TEMP 36.7; O2SAT 98
[2024-11-12] MEDS: DENOSUMAB 60 MG/ML SYRINGE SUBCUT (14:12)
[2024-11-12 14:35] LABS: Basophils # 0.1 K/mm3 (0-0.2); Basophils % 0.5 % (0.1-2.0); Eosinophils # 0.3 K/mm3 (0.0-0.4); Eosinophils % 2.6 % (0.1-12.0); Hematocrit 40.3 % (37.0-47.0); Hemoglobin 13.8 g/dL (12.2-16.2); Lymphocytes # 3.3 K/mm3 (0.7-4.5); Lymphocytes % 25.2 % (10-50); Mean Corpuscular HGB Conc 34.2 g/dL (31.8-35.4); Mean Corpuscular Hemoglobin 32.4 pg (27.0-31.2); Mean Corpuscular Volume 94.6 fl (81-99); Mean Platelet Volume 10.2 fl (7.4-10.4); Monocytes # 0.7 K/mm3 (0.1-1.0); Monocytes % 5.6 % (1.7-9.3); Neutrophils # 8.6 K/mm3 (1.8-7.8); Neutrophils % 65.7 % (37.0-80.0); Platelet Count 382 K/mm3 (142-424); Red Blood Count 4.26 M/mm3 (4.20-5.40); White Blood Count 13.1 K/mm3 (4.8-10.8)
[2024-11-12 14:47] LABS: Albumin Level 4.2 g/dl (3.5-5.0); Chloride 103 mmol/L (98-107); Potassium 4.4 mmoL/L (3.5-5.1); Sodium 135 mmol/L (136-145)
[2024-11-12 14:50] LABS: Alanine Aminotransferase 24 U/L (12-78); Albumin/Globulin Ratio 1.8 (1.1-1.8); Alkaline Phosphatase 102 U/L (38-126); Anion Gap 12.4 mEq/L (5-15); Aspartate Amino Transferase 34 U/L (14-36); Bilirubin,Total 0.3 mg/dl (0.2-1.3); Blood Urea Nitrogen 18 mg/dl (7-17); Calcium 9.8 mg/dl (8.4-10.2); Carbon Dioxide 24 mmol/L (22.0-30.0); Cholesterol 238 mg/dl (140-200); Estimated Glomerular Filt Rate 57 ml/min (>60); GFR (African American) 69 ML/MIN (>60); Globulin 2.3 g/dL (1.3-3.2); Glucose 97 mg/dl (74-100); Total Protein,Serum 6.5 g/dl (6.3-8.2); Triglycerides 205 mg/dl (30-150); VLDL Cholesterol 41 mg/dL (0-40)
[2024-11-12 14:51] LABS: Chol/HDL Ratio 3.2 (1-3.5); HDL Cholesterol 74 mg/dl (40-60)
[2024-11-12 15:01] LABS: Direct LDL Cholesterol 114.85 mg/dL (100-129)
[2024-11-12 15:45] LABS: Vitamin B12 305 pg/mL (239-931)
[2024-11-12 16:13] LABS: Folate 2.69 ng/mL
== END 2024-11-12 14:44 | disposition home or self-care (01) ==
PROVIDERS: PCP Family Medicine; Visit Provider Internal Medicine
DX: D75.89 Other specified diseases of blood and blood-forming organs (principal); E78.2 Mixed hyperlipidemia; I10 Essential (primary) hypertension; M81.0 Age-related osteoporosis without current pathological fracture
CPT/HCPCS: 36415; 80053; 80061; 82607; 82746; 85025; 96372; J0897

== ENCOUNTER 2025-02-04 16:09 | Outpatient (CLI) | payer MEDICAID, SELFPAY ==
--- OUTSIDE RECORDS SUMMARY | 2025-02-04 16:12 | XMS_ITS ---
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 Name Role Phone ZIGGY ROMAN Registered Nurse Unavailable AUGUSTIN REYNOLDS Attending Unavailable [facility] Unavailable AUGUSTIN REYNOLDS Referring Provider Immunization Immunization Date Status Additional Notes Code Code System pneumococcal polysaccharide PPV23 12/24/2016 Completed 33 CVX DTaP, unspecified formulation 08/18/2022 Completed 107 CVX Tdap 08/18/2022 Completed 115 CVX Tdap 12/24/2016 Completed 115 CVX Tdap 12/31/2020 Completed 115 CVX Influenza, split virus, quadrivalent, PF 05/24/2017 Completed 150 CVX Influenza, split virus, quadrivalent, PF 04/22/2019 Completed 150 CVX Influenza, split virus, quadrivalent, PF 04/21/2020 Completed 150 CVX Influenza, split virus, quadrivalent, PF 05/29/2021 Completed 150 CVX zoster recombinant 04/21/2020 Completed 187 CVX zoster recombinant 12/31/2020 Completed 187 CVX COVID-19, mRNA, LNP-S, PF, 1 00 mcg/0.5mL dose or 50 mcg/0.25mL dose 07/08/2021 Completed 207 CVX COVID-19, mRNA, LNP-S, PF, 1 00 mcg/0.5mL dose or 50 mcg/0.25mL dose 01/01/2022 Completed 207 CVX COVID-19, mRNA, LNP-S, PF, 3 0 mcg/0.3 mL dose 08/25/2020 Completed 208 CVX COVID-19, mRNA, LNP-S, PF, 3 0 mcg/0.3 mL dose 09/15/2020 Completed 208 CVX COVID-19, mRNA, LNP-S, bivalent, PF, 30 mcg/0.3 mL dose 05/08/2022 Completed 300 CVX COVID-19, mRNA, LNP-S, bivalent, PF, 30 mcg/0.3 mL dose 03/12/2023 Completed 300 CVX COVID-19, mRNA, LNP-S, PF, 5 0 mcg/0.5 mL 01/28/2024 Completed 312 CVX Social History Type Status Start Date End Date Code Code Syst em Smoking History Never smoker (Never Smoked) 305222758 SNOMED CT Smoking History Current every day smoker 280695837 SNOMED CT Sex Female Vital Signs Vital Sign Value Unit Rhea Value Rhea Unit Date/Time Recent/Initial? Code Code System Body Mass Index 22.85 kg/m2 06/08/2024 10:34 Initial 36705 -5 INC Systolic Blood Pressure 158 mm[Hg] 06/08/2024 10:34 Initial 8480- 6 LOINC Diastolic Blood Pressure 92 mm[Hg] 06/08/2024 10:34 Initial 8462- 4 [facility] Body Surface Area 1.61 m2 06/08/2024 10:34 Initial 3140- 1 LOINC Height 160.020 0 cm 63.00 in 06/08/2024 10:34 Initial 8302- 2 LOINC Pulse 88.0 /min 06/08/2024 10:34 Initial 8867- 4 LOINC Respiration 20 /min 06/08/20 24 10:34 Initial 9279- 1 LOINC Temperature 37.1 Barbara 98.7 F 06/08/20 24 10:34 Initial 8310- 5 LOINC Weight 58.51 kg 129.00 lbs 06/08/2024 10:34 Initial 67119 -7 [facility] Medications Medication Start Date End Date Route Frequency Dose Code Code System Medication Instructions Home Meds Ajovy 225MG/1.5ML Subcutaneous Solution 03/02/2022 Unknown SUBCUTANEOUS MONTHLY 1 Unit RxNorm INJECT 1 Unit SUBCUTANEOUS MONTHLY Latanoprost 0.005% Ophthalmic Solution 03/02/2022 Unknown BOTH EYES AT BEDTIME 1 DROP 934674 RxNorm 1 DROP BOTH EYES AT BEDTIME Bisoprolol Fumarate 5MG Oral Tablet 03/02/2022 11/05/19 25 ORAL DAILY 1 TABLE T 454251 RxNorm TAKE 1 TABLET ORAL DAILY Lasix 20MG Oral Tablet 03/02/2022 Unknown ORAL DAILY 1 TABLE T 337230 RxNorm TAKE 1 TABLET ORAL DAILY Protonix 40 MG Oral Tablet, Delayed Release 03/02/2022 Unknown ORAL DAILY 1 TABLE T 955603 RxNorm TAKE 1 TABLET ORAL DAILY Lipitor 20MG Oral Tablet 03/02/2022 11/05/19 25 ORAL AT BEDTIME 1 TABLE T 028627 RxNorm TAKE 1 TABLET ORAL AT BEDTIME Vitamin D 5000 IU Oral Tablet 03/02/2022 11/05/19 25 ORAL DAILY 1 TABLE T 075867 RxNorm TAKE 1 TABLET ORAL DAILY Timolol Maleate 0.5% Ophthalmic Solution 03/02/2022 Unknown BOTH EYES AT BEDTIME 1 DROP 8941661 RxNorm 1 DROP BOTH EYES AT BEDTIME Nurtec ODT 75 MG Oral Tablet, Disintegratin g 03/02/2022 Unknown ORAL NEEDED DAILY 1 TABLE T 2683873 RxNorm TAKE 1 TABLET ORAL NEEDED DAILY ZyrTEC 10MG Oral Tablet 10/01/2023 11/05/19 25 ORAL DAILY 1 TABLE T RxNorm TAKE 1 TABLET ORAL DAILY Trileptal 150MG Oral Tablet 10/18/2023 11/05/19 25 ORAL TWICE A DAY 1 TABLE T 032082 RxNorm TAKE 1 TABLET ORAL TWICE A DAY amLODIPine Besylate 5MG Oral Tablet 10/18/2023 11/05/19 25 ORAL DAILY 1 TABLE T 271237 RxNorm TAKE 1 TABLET ORAL DAILY traZODone hydrochloride 100MG Oral Tablet 10/18/2023 11/05/19 25 ORAL AT BEDTIME 1 TABLE T 493892 RxNorm TAKE 1 TABLET ORAL AT BEDTIME Macrobid 100MG Oral Capsule 05/21/2024 06/08/20 24 ORAL TWICE A DAY 1 [facility] 427967 RxNorm TAKE 1 CAPSULE ORAL TWICE A DAY Zofran 4MG Oral Tablet 05/21/2024 07/27/20 24 ORAL NEEDED EVERY 8 HOURS 1 TABLE T 232932 RxNorm TAKE 1 TABLET ORAL NEEDED EVERY 8 HOURS Cipro 500MG Oral Tablet 06/08/2024 06/14/20 24 ORAL TWICE A DAY 1 TABLE T 653001 RxNorm TAKE 1 TABLET ORAL TWICE A DAY metroNIDAZOLE 500MG Oral Tablet 06/08/2024 06/14/20 24 ORAL THREE TIMES A DAY 1 TABLE T 182737 RxNorm TAKE 1 TABLET ORAL THREE TIMES A DAY Zofran 4MG Oral Tablet 07/24/2024 11/05/19 25 ORAL NEEDED EVERY 8 HOURS 1 TABLE T 696403 RxNorm TAKE 1 TABLET ORAL NEEDED EVERY 8 HOURS Atorvastatin Calcium 40MG Oral Tablet 11/04/2024 Unknown ORAL DAILY 1 TABLE T 499835 RxNorm TAKE 1 TABLET ORAL DAILY Baclofen 5MG Oral Tablet 11/04/2024 Unknown ORAL NEEDED EVERY 8 HOURS 1 TABLE T 043751 RxNorm TAKE 1 TABLET ORAL NEEDED EVERY 8 HOURS Cyproheptadin e HCl 4MG Oral Tablet 11/04/2024 Unknown ORAL AT BEDTIME 1 TABLE T 086935 RxNorm TAKE 1 TABLET ORAL AT BEDTIME Fosamax 10MG Oral Tablet 11/04/2024 Unknown ORAL DAILY 1 TABLE T RxNorm TAKE 1 TABLET ORAL DAILY Linzess 145MCG Oral Capsule 11/04/2024 Unknown ORAL DAILY 1 CAPSU LE 3845710 RxNorm TAKE 1 CAPSULE ORAL DAILY OXcarbazepine 300MG Oral Tablet 11/04/2024 Unknown ORAL TWICE A DAY 1 TABLE T 250817 RxNorm TAKE 1 TABLET ORAL TWICE A DAY Wellbutrin SR 150MG Oral Tablet, Extended Release, 12 HR 11/04/2024 11/05/19 25 ORAL DAILY 1 TABLE T 909585 RxNorm TAKE 1 TABLET ORAL DAILY hydrOXYzine HCl 10MG Oral Tablet 11/04/2024 Unknown ORAL NEEDED EVERY 8 HOURS 1 TABLE T 433965 RxNorm TAKE 1 TABLET ORAL NEEDED EVERY 8 HOURS HYDROcodone bitartrate-ac etaminophen 10MG-325MG Oral Tablet 11/04/2024 Unknown ORAL NEEDED EVERY 6 HOURS 1 TABLE T 299862 RxNorm TAKE 1 TABLET ORAL NEEDED EVERY 6 HOURS predniSONE 20MG Oral Tablet 11/04/2024 12/10/19 25 ORAL TWICE A DAY 1 TABLE T 303288 RxNorm TAKE 1 TABLET ORAL TWICE A DAY FOR 5 DAYS Meloxicam 15MG Oral Tablet 11/04/2024 01/26/20 25 ORAL DAILY 1 TABLE T 070071 RxNorm TAKE 1 TABLET ORAL DAILY Remeron 30MG Oral Tablet 11/04/2024 Unknown ORAL AT BEDTIME 1 TABLE T 823670 RxNorm TAKE 1 TABLET ORAL AT BEDTIME Elavil 25MG Oral Tablet 11/04/2024 Unknown ORAL AT BEDTIME 1 TABLE T 555054 RxNorm TAKE 1 TABLET ORAL AT BEDTIME Augmentin 875MG-125MG Oral Tablet 12/09/2024 12/19/19 25 ORAL TWICE A DAY 1 TABLE T 973777 RxNorm TAKE 1 TABLET ORAL TWICE A DAY Cymbalta 20MG Oral Capsule, Delayed Release 12/09/2024 Unknown ORAL DAILY 1 LUZ PADILLA 682850 RxNorm TAKE 1 CAPSULE ORAL DAILY Meloxicam 15MG Oral Tablet 01/25/2025 Unknown ORAL DAILY 1 TABLE T 133073 RxNorm take 1 tablet by mouth daily. Assessment You had the following problems:ESSENTIAL HYPERTENSIONINSOMNIACHRONIC BACK PAINDEPRESSIVE DISORDERCHRONIC HEADACHE DISORDERBIPOLAR DISORDERMIGRAINECADCKDURIFAMILY GRIEVINGANXIETYHYPERLIPIDEMIA Hospital Discharge Instructions Should you have any questions prior to discharge, please contact a member of your healthcare team. If you have left the hospital and have any questions, please contact your primary care physician. Reason For Referral Reason for Referral: PERSIST (R) ABD PAIN,CT WAS NEG, ENDOSCOPY NEED Receiving Provider: [facility] [place], [place] Appointment Date: 07/01/2024 Additional Information: APPT 07/01/24 2 PM,PT NOTIFIED OF APPT TIME Problems Problem Start Date Resolved Date Status Code Code System ESSENTIAL HYPERTENSION active 8642278 0 SNOMED-CT INSOMNIA active 039747752 SNOMED-CT CHRONIC BACK PAIN active 168770832 SN OMED-CT DEPRESSIVE DISORDER active 44879711 SNOMED-CT CHRONIC HEADACHE DISORDER active 4312 34279 SNOMED-CT BIPOLAR DISORDER active 08262778 SNO MED-CT MIGRAINE active 83710566 SNOMED-CT CAD active 81913234 SNOMED-CT CKD active 452421009 SNOMED-CT URI active 32709294 SNOMED-CT FAMILY GRIEVING active 936725817 SNOM ED-CT ANXIETY active 46462217 SNOMED-CT HYPERLIPIDEMIA active 65130671 SNOME D-CT FACIAL INJURY 05/20/2024 resolved 697347742 SNOME D-CT RLQ PAIN 12/09/2024 resolved 714268062 SNOMED-CT DYSURIA 12/09/2024 resolved 94824681 SNOMED-CT FALL 05/20/2024 resolved 1452453 SNOMED-CT ABDOMINAL PAIN 12/09/2024 resolved 03220305 SNOM ED-CT HEMATURIA 12/09/2024 resolved 16299162 SNOMED-CT HIDRADENITIS SUPPURATIVA 05/20/2024 resolved 5939 3003 SNOMED-CT FALLING 08/28/2022 resolved 964171687 SNOMED-CT DISLOCATION OF TOE JOINT 10/18/2023 resolved 2638 68783 SNOMED-CT Allergies and Adverse Reactions Allergy Substance Reaction Severity Start Date Concern Status Co de Code System LISINOPRIL Cough (SNOMED-CT: 98290898) Moderate Active 66062 RxNorm LAMOTRIGINE Active 54399 RxNorm Plan of Treatment CT FACIAL-SINUS WO CONTRAST 05/14/2024 MAMMO SCREEN 06/10/2024 CT ABDOMEN - PELVIS WO CONTRAST 025 [facility] 07/01/2024 Personal Care Team Section Progress Notes [facility] 06/08/2024 11:13 Patient Name: SIMRAN BILLRajendra, : 1970, Age: 53 years 06/08/2024 10:32 History of Present Illness Chief Complaint: Continued RLQ/low back pain - pain not any better 53-year-old white female seen for follow-up. Patient with RLQ pain for the last 4 weeks. No change. Workup was negative including CT on 05/19/2024. Past Medical/Surgical/Family/Social History Past Medical History: All Problems Problem ICD Code Onset Date Resolved Date Age Status Comment Essential hypertension I10 Active Insomnia G47.00 Active Chronic back pain M54.9 Active Depressive disorder F32.A Active Chronic headache disorder G44.89 Active Dislocation of toe joint S93.105A 10/18/2023 Historic Anxiety F41.9 02/04/2022 Historic Depression F32.A 02/04/2022 Historic Hypertension I10 02/04/2022 Historic Migraine G43.909 Active Falling R29.6 08/28/2022 Historic Hidradenitis suppurativa L73.2 05/20/2024 Historic Bipolar disorder F31.9 Active Fall W19.XXXA 05/20/2024 Historic Facial injury S09.93XA 05/20/2024 Historic CAD I25.10 Active RLQ pain R10.31 Active Dysuria R30.0 Active Past Surgical History: Surgery List Laminotomy, History of appendectomy, section, History of cholecystectomy, Hysterectomy, History of section, Past Family History: Family History List FH: Congenital heart disease, BROTHER Family history of cancer, FATHER FH: Hypertension, MOTHER Smoking Status: Smoking Status: Current every day smoker, Cessation Education: Allergy List No Known Drug Allergies, Medication Home Meds: Dose and Freq Medication Dosage Frequency Ajovy 225MG/1.5ML Subcutaneous Solution 1 Unit MONTHLY Latanoprost 0.005% Ophthalmic Solution 1 DROP AT BEDTIME Bisoprolol Fumarate 5MG Oral Tablet 1 TABLET DAILY Lasix 20MG Oral Tablet 1 TABLET DAILY Protonix 40 MG Oral Tablet, Delayed Release 1 TABLET DAILY Lipitor 20MG Oral Tablet 1 TABLET AT BEDTIME Vitamin D 5000 IU Oral Tablet 1 TABLET DAILY Timolol Maleate 0.5% Ophthalmic Solution 1 DROP AT BEDTIME Nurtec ODT 75 MG Oral Tablet, Disintegrating 1 TABLET NEEDED DAILY ZyrTEC 10MG Oral Tablet 1 TABLET DAILY Trileptal 150MG Oral Tablet 1 TABLET TWICE A DAY amLODIPine Besylate 5MG Oral Tablet 1 TABLET DAILY traZODone hydrochloride 100MG Oral Tablet 1 TABLET AT BEDTIME Macrobid 100MG Oral Capsule 1 CAPSULE TWICE A DAY Zofran 4MG Oral Tablet 1 TABLET NEEDED EVERY 8 HOURS Review of Systems Constitutional: Denies fever, Denies chills, Denies fatigue, Denies malaise Denies night sweats, Denies weight gain HEENT: Denies ear drainage, Denies ear pain, Denies eye discharge, Denies eye pain, Denies hearing loss, Denies nasal drainage, Denies sinus pressure, Denies sore throat, Denies visual changes Respiratory: Denies cough, Denies Shortness of breath, Denies wheezing Cardiovascular: Denies chest pain, Denies claudication, Denies edema, Denies palpitations Gastrointestinal: c/o abdominal pain, Denies blood in stools, Denies change in stools, Denies constipation, Denies diarrhea, Denies heartburn, Denies loss of appetite, Denies nausea, Denies vomiting Genitourinary: Denies dysuria, Denies hematuria, Denies urinary frequency, Denies urinary incontinence, Denies urinary retention Skin: Denies hair loss, Denies brittle hair, Denies brittle nails, Denies hives, Denies rash, Denies skin lesion, Denies mole changes Neurological: Denies dizziness, Denies extremity numbness, Denies extremity weakness, Denies gait disturbance, Denies headache, Denies memory impairment, Denies seizures, Denies tremors Psychiatric: Denies anxiety, Denies depression, Denies insomnia Metabolic / Endocrine: Denies cold intolerance, Denies heat intolerance, Denies polydipsia, Denies polyphagia Musculoskeletal: c/o back pain, Denies joint pain, Denies joint swelling, Denies muscle weakness, Denies neck pain Hematologic / Lymphatic: Denies easy bleeding, Denies easy bruising, Denies Lymphadenopathy Physical Exam Vital Signs: This Visit Date/Time BP (mm/Hg) BP Position/Site MAP (mm/Hg) Heart Rate Pulse Site Resp Temp (C) Temp (F) SPO2% O2 L/min FiO2 O2 Device Blood Sugar Pain Score Height (cm) Height (in) Weight (kg) Weight (lbs/ozs) Scale BMI BSA Head Cir (cm) 06/08/2024 10:34 158/92 Sitting/Left Arm 114 88 Radial 20 37.1 Oral 98.7 Oral 7 160 cm 63 in 58.51 kg 129.0 Floor Scale 22.85 1.61 GENERAL: Well appearing and well nourished. In no apparent distress. EYES: Conjunctiva - Right: Normal, Left: Normal. Pupil - Right: Normal , Left: Normal EARS: Inspection - Right: Normal, Left: Normal. Canal - Right: Normal, Left: Normal. TM - Right: Normal, Left: Normal Respiratory: Inspection - Normal. Auscultation - Normal. Effort - Normal Cardiovascular: Heart rate - Regular rate. Rhythm - Regular. ABDOMEN: Inspection - Normal. Auscultation - Positive bowel sounds. Right sided abdominal tenderness EXTREMITIES: No edema PSYCHIATRIC: Orientation - Oriented to time, place, person and situation Assessment Treated This Visit RLQ pain, R10.31 CKD, N18.2 Plan 1. Persistent right sided abdominal pain - CT was negative on 05/19/2024. Will prescribe Flagyl 500 mg 3 times daily for 7 days and Cipro 500 mg twice daily for 7 days. Will refer to GI for endoscopy. 2. History of CKD stage II - Nothing to do. Avoid NSAIDs [id number]. Medications given this visit: New Prescriptions This Visit New Rx This Visit Cipro 500MG Oral Tablet, 1 TABLET, ORAL, TWICE A DAY, 06/08/2024 metroNIDAZOLE 500MG Oral Tablet, 1 TABLET, ORAL, THREE TIMES A DAY, 06/08/2024 Portions of this note were transcribed by ronen Roman LPN. GAIL Hernandez personally performed the history, physical exam and medical decision making; and confirmed the accuracy of the information in the transcribed note
--- OUTSIDE RECORDS SUMMARY | 2025-02-04 16:12 | XMS_ITS ---
Author Organization Unknown Address [address] [place] [address] Phone Care Team Providers Care Journal Clerk Name Role Phone ELIOT Trujillo Attending Unavailable Immunization Immunization Date Status Additional Notes Code [...] 0 mcg/0.5 mL 01/28/2024 Completed [address] ABD/PELVIS W/O C - Comple mj: 11/06/2024 14:07 LOINC: HX: Flank pain, hematuria, a bdominal pain. Axial images through the abdomen and pelvis were obtained without IV or oral contrast following the renal stone protocol. Coronal and sagittal reformatted images were also obtained. Comparisons are made with the exam from 05/19/2024. There is subsegmental atelectasis in the lung bases. There is a non-obstructing 3 mm calculus in the inferior pole of the left kidney. There are no ureteral or bladder calculi identified. There is no hydroureter or hydronephrosis identified. Unchanged mild rotation of the right kidney. Status post cholecystectomy. The non contrasted liver, adrenals, and pancreas appear grossly unremarkable. Calcified splenic granulomas. There is fluid within the stomach. No evidence of bowel obstruction. Status post appendectomy. No free fluid or free air identified. Status post hysterectomy. No bladder wall thickening identified. Small bladder wall calcification is unchanged. Aortic and other arteriovascular calcifications are noted. No evidence of abdominal aortic aneurysm. Post surgical changes in the anterior abdominal wall. Post surgical changes of L4/L5 fusion with posterior rods and screws. Superior L5/S1 degenerative disc disease. Unchanged mild anterolisthesis of L3 on L4. IMPRESSION: 1. Non obstructing left nephrolithiasis. 2. No ureteral calculi identified. No hydroureter or hydronephrosis identified. 3. Status post cholecystectomy, appendectomy, hysterectomy, and L4/L5 posterior fusion. Electronically Reviewed and Signed By NINO TAYLOR MD RADIOLOGIST 11/10/24 18:25 Dictating Initials: STD Transcribe Initials: 11/06/24 16:02 Transcribe Initials: AC Copy for: ELIOT Trujillo via fax Social History Type Status Start Date End Date Code Code Syst em Smoking History Never smoker (Never Smoked) 518538340 SNOMED CT Smoking History Current every day smoker 670970017 SNOMED CT Sex Female Medications Medication Start Date End Date Route Frequency Dose Code Code System Medication Instructions Home Meds Ajovy 225MG/1.5ML Subcutaneous Solution 03/02/2022 Unknown SUBCUTANEOUS MONTHLY 1 Unit RxNorm INJECT 1 Unit SUBCUTANEOUS MONTHLY Latanoprost 0.005% Ophthalmic Solution 03/02/2022 Unknown BOTH EYES AT BEDTIME 1 DROP 854174 RxNorm 1 DROP BOTH EYES AT BEDTIME Lasix 20MG Oral Tablet 03/02/2022 Unknown ORAL DAILY 1 TABLE T RxNorm TAKE 1 TABLET ORAL DAILY Protonix 40 MG Oral Tablet, Delayed Release 03/02/2022 Unknown ORAL DAILY 1 TABLE T 023810 RxNorm TAKE 1 TABLET ORAL DAILY Timolol Maleate 0.5% Ophthalmic Solution 03/02/2022 Unknown BOTH EYES AT BEDTIME 1 DROP 0920650 RxNorm 1 DROP BOTH EYES AT BEDTIME Nurtec ODT 75 MG Oral Tablet, Disintegratin g 03/02/2022 Unknown ORAL NEEDED DAILY 1 TABLE T 2172873 RxNorm TAKE 1 TABLET ORAL NEEDED DAILY Atorvastatin Calcium 40MG Oral Tablet 11/04/2024 Unknown ORAL DAILY 1 TABLE T 195372 RxNorm TAKE 1 TABLET ORAL DAILY Baclofen 5MG Oral Tablet 11/04/2024 Unknown ORAL NEEDED EVERY 8 HOURS 1 TABLE T 952928 RxNorm TAKE 1 TABLET ORAL NEEDED EVERY 8 HOURS Cyproheptadin e HCl 4MG Oral Tablet 11/04/2024 Unknown ORAL AT BEDTIME 1 TABLE T 843796 RxNorm TAKE 1 TABLET ORAL AT BEDTIME Fosamax 10MG Oral Tablet 11/04/2024 Unknown ORAL DAILY 1 TABLE T RxNorm TAKE 1 TABLET ORAL DAILY Linzess 145MCG Oral Capsule 11/04/2024 Unknown ORAL DAILY [facility] RxNorm TAKE 1 CAPSULE ORAL DAILY OXcarbazepine 300MG Oral Tablet 11/04/2024 Unknown ORAL TWICE A DAY 1 TABLE T 044106 RxNorm TAKE 1 TABLET ORAL TWICE A DAY hydrOXYzine HCl 10MG Oral Tablet 11/04/2024 Unknown ORAL NEEDED EVERY 8 HOURS 1 TABLE T 759134 RxNorm TAKE 1 TABLET ORAL NEEDED EVERY 8 HOURS HYDROcodone bitartrate-ac etaminophen 10MG-325MG Oral Tablet 11/04/2024 Unknown ORAL NEEDED EVERY 6 HOURS 1 TABLE T 570374 RxNorm TAKE 1 TABLET ORAL NEEDED EVERY 6 HOURS predniSONE 20MG Oral Tablet 11/04/2024 12/10/19 25 ORAL TWICE A DAY 1 TABLE T 517587 RxNorm TAKE 1 TABLET ORAL TWICE A DAY FOR 5 DAYS Meloxicam 15MG Oral Tablet 11/04/2024 01/26/20 25 ORAL DAILY 1 TABLE T 116563 RxNorm TAKE 1 TABLET ORAL DAILY Remeron 30MG Oral Tablet 11/04/2024 Unknown ORAL AT BEDTIME 1 TABLE T 400215 RxNorm TAKE 1 TABLET ORAL AT BEDTIME Elavil 25MG Oral Tablet 11/04/2024 Unknown ORAL AT BEDTIME 1 TABLE T 236317 RxNorm TAKE 1 TABLET ORAL AT BEDTIME Augmentin 875MG-125MG Oral Tablet 12/09/2024 12/19/19 25 ORAL TWICE A DAY 1 TABLE T 929831 RxNorm TAKE 1 TABLET ORAL TWICE A DAY Cymbalta 20MG Oral Capsule, Delayed Release 12/09/2024 Unknown ORAL DAILY 1 [facility] 838803 RxNorm TAKE 1 CAPSULE ORAL DAILY Meloxicam 15MG Oral Tablet 01/25/2025 Unknown ORAL DAILY 1 TABLE T 709349 RxNorm take 1 tablet by mouth daily. Assessment You had the following problems:ESSENTIAL HYPERTENSIONINSOMNIACHRONIC BACK PAINDEPRESSIVE DISORDERCHRONIC HEADACHE DISORDERBIPOLAR DISORDERMIGRAINECADCKDURIFAMILY GRIEVINGANXIETYHYPERLIPIDEMIA Hospital Discharge Instructions Should you have any questions prior to discharge, please contact a member of your healthcare team. If you have left the hospital and have any questions, please contact your primary care physician. Reason For Referral No Data Found Problems Problem Start Date Resolved Date Status Code Code System ESSENTIAL HYPERTENSION active 6771294 0 SNOMED-CT INSOMNIA active 661193884 SNOMED-CT CHRONIC BACK PAIN active 859102900 SN OMED-CT DEPRESSIVE DISORDER active 63973774 SNOMED-CT CHRONIC HEADACHE DISORDER active 4312 13569 SNOMED-CT BIPOLAR DISORDER active 63551480 SNO MED-CT MIGRAINE active 51486545 SNOMED-CT CAD active 15736222 SNOMED-CT CKD active 690329867 SNOMED-CT URI active 41105145 SNOMED-CT FAMILY GRIEVING active 652178781 SNOM ED-CT ANXIETY active 35859059 SNOMED-CT HYPERLIPIDEMIA active 58819399 SNOME D-CT FACIAL INJURY 05/20/2024 resolved 626893894 SNOME D-CT RLQ PAIN 12/09/2024 resolved 704050871 SNOMED-CT DYSURIA 12/09/2024 resolved 60751548 SNOMED-CT FALL 05/20/2024 resolved 4810228 SNOMED-CT ABDOMINAL PAIN 12/09/2024 resolved 58623563 SNOM ED-CT HEMATURIA 12/09/2024 resolved 08197127 SNOMED-CT HIDRADENITIS SUPPURATIVA 05/20/2024 resolved 5939 3003 SNOMED-CT FALLING 08/28/2022 resolved 853362576 SNOMED-CT DISLOCATION OF TOE JOINT 10/18/2023 resolved 5454 10074 SNOMED-CT Allergies and Adverse Reactions Allergy Substance Reaction Severity Start Date Concern Status Co de Code System LISINOPRIL Cough (SNOMED-CT: 42437637) Moderate Active 21713 RxNorm LAMOTRIGINE Active 70633 RxNorm Plan of Treatment CT FACIAL-SINUS WO CONTRAST 05/14/2024 MAMMO SCREEN 06/10/2024 CT ABDOMEN - PELVIS WO CONTRAST 025 Encounters Encounter Diagnosis Start Date Code Code Sys tem Abdominal pain 11/06/2024 73768429 SNOMED-CT Personal Care Team Section Imaging Narrative Notes [facility] 11/10/2024 18:[address] [address] DIAGNOSTIC IMAGING REPORT Name: FLY KHALIL [facility] Type: O/P Patient Number: [id number] Room: X-Ray Number: [id number] MR Number: [id number] Age: 54 Sex: F Admit. Physician: ELIOT FITZPATRICK Date of : 1970 Ordering Physician: ELIOT FITZPATRICK CT ABD/PELVIS W/O C 36473 COMPLETE:11/06/24 14:07 NOV [id number] (REASON FOR ABDOMEN: ABD PAIN/RT SIDE FLANK PAIN/HEMATURIA HX: Flank pain, hematuria, abdominal pain. Axial images through the abdomen and pelvis were obtained without IV or oral contrast following the renal stone protocol. Coronal and sagittal reformatted images were also obtained. Comparisons are made with the exam from 05/19/2024. There is subsegmental atelectasis in the lung bases. There is a non-obstructing 3 mm calculus in the inferior pole of the left kidney. There are no ureteral or bladder calculi identified. There is no hydroureter or hydronephrosis identified. Unchanged mild rotation of the right kidney. Status post cholecystectomy. The non contrasted liver, adrenals, and pancreas appear grossly unremarkable. Calcified splenic granulomas. There is fluid within the stomach. No evidence of bowel obstruction. Status post appendectomy. No free fluid or free air identified. Status post hysterectomy. No bladder wall thickening identified. Small bladder wall calcification is unchanged. Aortic and other arteriovascular calcifications are noted. No evidence of abdominal aortic aneurysm. Post surgical changes in the anterior abdominal wall. Post surgical changes of L4/L5 fusion with posterior rods and screws. Superior L5/S1 degenerative disc disease. Unchanged mild anterolisthesis of L3 on L4. IMPRESSION: 1. Non obstructing left nephrolithiasis. 2. No ureteral calculi identified. No hydroureter or hydronephrosis identified. 3. Status post cholecystectomy, appendectomy, hysterectomy, and L4/L5 posterior fusion. Electronically Reviewed and Signed By NINO TAYLOR MD RADIOLOGIST 11/10/24 18:25 Dictating Initials: STD Transcribe Initials: 11/06/24 16:02 Transcribe Initials: AC *Unsigned transcriptions represent a preliminary report and do not reflect a medical or legal document* [address] [place] [address] DIAGNOSTIC IMAGING REPORT Name: FLY MIRANDACY Stay Type: O/P Patient Number: [id number] Room: X-Ray Number: [id number] MR Number: [id number] Age: 54 Sex: F Admit. Physician: ELIOT FITZPATRICK Date of : 1970 Ordering Physician: ELIOT FITZPATRICK CT ABD/PELVIS W/O C 00831 COMPLETE:11/06/24 14:07 NOV [id number] (REASON FOR ABDOMEN: ABD PAIN/RT SIDE FLANK PAIN/HEMATURIA Copy for: ELIOT DEAN K via fax *Unsigned transcriptions represent a preliminary report and do not reflect a medical or legal document*
--- OUTSIDE RECORDS SUMMARY | 2025-02-04 16:12 | XMS_ITS | Clinical Summary ---
Author Organization Healthcare Address [address] [place] [address] Care Team Providers Care Wrapper Opener Name Role Phone Desmond Santana MD Primary Care Provider [phone] Family History Medical History Relation Name Comments Cardiac disorder Father Other cancer Father Cardiac disorder Mother Hypertension Mother Relation Name Status Comments Father Mother Social History Tobacco Use Types Packs/Day Years Used Date Smoking Tobacco: Never Assessed Comments Unknown Sex and Gender Information Value Date Recorded Sex Assigned at Not on file Legal Sex Female 8:28 PM EDT Gender Identity Not on file Sexual Orientation Not on file Last Filed Vital Signs Vital Sign Reading Time Taken Comments Blood Pressure - - Pulse - - Temperature - - Respiratory Rate - - Oxygen Saturation - - Inhaled Oxygen Concentration - - Weight 56.3 kg (124 lb 0.1 oz) 11/02/2016 9:04 A M EDT Height 162.6 cm (5' 4 ) 11/02/2016 9:04 AM EDT Body Mass Index 21.29 11/02/2016 9:04 AM EDT Plan of Treatment Not on file Care Teams Wrapper Opener Relationship Specialty Start Date End Date Desmond Santana MD [address] [place] [address] PCP - General 12/30/20
--- OUTSIDE RECORDS SUMMARY | 2025-02-04 16:12 | XMS_ITS ---
Author Organization Unknown Address [address] [place] [address] Phone Care Team Providers Care Exterminator Termite Name Role Phone ZIGGY ROMAN Registered Nurse Unavailable AUGUSTIN REYNOLDS Attending Unavailable [facility] Unavailable NFD Primary Unavailable Immunization Immunization Date Status Additional Notes [...] em Smoking History Never smoker (Never Smoked) 057163548 SNOMED CT Smoking History Current every day smoker 436663612 SNOMED CT Sex Female Vital Signs Vital Sign Value Unit [place] Value [place] [facility] Date/Time Recent/Initial? Code Code System Body Mass Index 22.50 kg/m2 05/12/2024 11:51 Initial 92182 -5 LOINC Systolic Blood Pressure 140 mm[Hg] 05/12/2024 11:51 Initial 8480- 6 LOINC Diastolic Blood Pressure 80 mm[Hg] 05/12/2024 11:51 Initial 8462- 4 [facility] Body Surface Area 1.60 m2 05/12/2024 11:51 Initial 3140- 1 LOINC Height 160.020 0 cm 63.00 in 05/12/2024 11:51 Initial 8302- 2 LOINC Pulse 104.0 /min 05/12/2024 11:51 Initial 8867- 4 LOINC Respiration 20 /min 05/12/20 11:51 Initial 9279- 1 LOINC Temperature 36.8 Barbara 98.2 F 05/12/20 11:51 Initial 8310- 5 LOINC Weight 57.61 kg 127.00 lbs 05/12/2024 11:51 Initial 72426 -7 [facility] Medications Medication Start Date End Date Route Frequency Dose Code Code System Medication Instructions Home Meds Ajovy 225MG/1.5ML Subcutaneous Solution 03/02/2022 Unknown SUBCUTANEOUS MONTHLY 1 Unit RxNorm INJECT 1 Unit SUBCUTANEOUS MONTHLY Latanoprost 0.005% Ophthalmic Solution 03/02/2022 Unknown BOTH EYES AT BEDTIME 1 DROP 021405 RxNorm 1 DROP BOTH EYES AT BEDTIME Bisoprolol Fumarate 5MG Oral Tablet 03/02/2022 11/05/19 25 ORAL DAILY 1 TABLE T 463849 RxNorm TAKE 1 TABLET ORAL DAILY Lasix 20MG Oral Tablet 03/02/2022 Unknown ORAL DAILY 1 TABLE T 573285 RxNorm TAKE 1 TABLET ORAL DAILY Protonix 40 MG Oral Tablet, Delayed Release 03/02/2022 Unknown ORAL DAILY 1 TABLE T 024565 RxNorm TAKE 1 TABLET ORAL DAILY Lipitor 20MG Oral Tablet 03/02/2022 11/05/19 25 ORAL AT BEDTIME 1 TABLE T 492476 RxNorm TAKE 1 TABLET ORAL AT BEDTIME Vitamin D 5000 IU Oral Tablet 03/02/2022 11/05/19 25 ORAL DAILY 1 TABLE T 901375 RxNorm TAKE 1 TABLET ORAL DAILY Timolol Maleate 0.5% Ophthalmic Solution 03/02/2022 Unknown BOTH EYES AT BEDTIME 1 DROP 5113086 RxNorm 1 DROP BOTH EYES AT BEDTIME Nurtec ODT 75 MG Oral Tablet, Disintegratin g 03/02/2022 Unknown ORAL NEEDED DAILY 1 TABLE T 4647597 RxNorm TAKE 1 TABLET ORAL NEEDED DAILY ZyrTEC 10MG Oral Tablet 10/01/2023 11/05/19 25 ORAL DAILY 1 TABLE T RxNorm TAKE 1 TABLET ORAL DAILY Trileptal 150MG Oral Tablet 10/18/2023 11/05/19 25 ORAL TWICE A DAY 1 TABLE T 889013 RxNorm TAKE 1 TABLET ORAL TWICE A DAY amLODIPine Besylate 5MG Oral Tablet 10/18/2023 11/05/19 25 ORAL DAILY 1 TABLE T 920900 RxNorm TAKE 1 TABLET ORAL DAILY traZODone hydrochloride 100MG Oral Tablet 10/18/2023 11/05/19 25 ORAL AT BEDTIME 1 TABLE T 346891 RxNorm TAKE 1 TABLET ORAL AT BEDTIME Macrobid 100MG Oral Capsule 05/21/2024 06/08/20 24 ORAL TWICE A DAY 1 [facility] 186628 RxNorm TAKE 1 CAPSULE ORAL TWICE A DAY Zofran 4MG Oral Tablet 05/21/2024 07/27/20 24 ORAL NEEDED EVERY 8 HOURS 1 TABLE T 178569 RxNorm TAKE 1 TABLET ORAL NEEDED EVERY 8 HOURS Cipro 500MG Oral Tablet 06/08/2024 06/14/20 24 ORAL TWICE A DAY 1 TABLE T 031381 RxNorm TAKE 1 TABLET ORAL TWICE A DAY metroNIDAZOLE 500MG Oral Tablet 06/08/2024 06/14/20 24 ORAL THREE TIMES A DAY 1 TABLE T 669707 RxNorm TAKE 1 TABLET ORAL THREE TIMES A DAY Zofran 4MG Oral Tablet 07/24/2024 11/05/19 25 ORAL NEEDED EVERY 8 HOURS 1 TABLE T 407528 RxNorm TAKE 1 TABLET ORAL NEEDED EVERY 8 HOURS Atorvastatin Calcium 40MG Oral Tablet 11/04/2024 Unknown ORAL DAILY 1 TABLE T 823818 RxNorm TAKE 1 TABLET ORAL DAILY Baclofen 5MG Oral Tablet 11/04/2024 Unknown ORAL NEEDED EVERY 8 HOURS 1 TABLE T 613036 RxNorm TAKE 1 TABLET ORAL NEEDED EVERY 8 HOURS Cyproheptadin e HCl 4MG Oral Tablet 11/04/2024 Unknown ORAL AT BEDTIME 1 TABLE T 103219 RxNorm TAKE 1 TABLET ORAL AT BEDTIME Fosamax 10MG Oral Tablet 11/04/2024 Unknown ORAL DAILY 1 TABLE T RxNorm TAKE 1 TABLET ORAL DAILY Linzess 145MCG Oral Capsule 11/04/2024 Unknown ORAL DAILY 1 [facility] LE 4473384 RxNorm TAKE 1 CAPSULE ORAL DAILY OXcarbazepine 300MG Oral Tablet 11/04/2024 Unknown ORAL TWICE A DAY 1 TABLE T 502841 RxNorm TAKE 1 TABLET ORAL TWICE A DAY Wellbutrin SR 150MG Oral Tablet, Extended Release, 12 HR 11/04/2024 11/05/19 25 ORAL DAILY 1 TABLE T 401906 RxNorm TAKE 1 TABLET ORAL DAILY hydrOXYzine HCl 10MG Oral Tablet 11/04/2024 Unknown ORAL NEEDED EVERY 8 HOURS 1 TABLE T 589979 RxNorm TAKE 1 TABLET ORAL NEEDED EVERY 8 HOURS HYDROcodone bitartrate-ac etaminophen 10MG-325MG Oral Tablet 11/04/2024 Unknown ORAL NEEDED EVERY 6 HOURS 1 TABLE T 405897 RxNorm TAKE 1 TABLET ORAL NEEDED EVERY 6 HOURS predniSONE 20MG Oral Tablet 11/04/2024 12/10/19 25 ORAL TWICE A DAY 1 TABLE T 690703 RxNorm TAKE 1 TABLET ORAL TWICE A DAY FOR 5 DAYS Meloxicam 15MG Oral Tablet 11/04/2024 01/26/20 25 ORAL DAILY 1 TABLE T 398839 RxNorm TAKE 1 TABLET ORAL DAILY Remeron 30MG Oral Tablet 11/04/2024 Unknown ORAL AT BEDTIME 1 TABLE T 106214 RxNorm TAKE 1 TABLET ORAL AT BEDTIME Elavil 25MG Oral Tablet 11/04/2024 Unknown ORAL AT BEDTIME 1 TABLE T 406011 RxNorm TAKE 1 TABLET ORAL AT BEDTIME Augmentin 875MG-125MG Oral Tablet 12/09/2024 12/19/19 25 ORAL TWICE A DAY 1 TABLE T 607105 RxNorm TAKE 1 TABLET ORAL TWICE A DAY Cymbalta 20MG Oral Capsule, Delayed Release 12/09/2024 Unknown ORAL DAILY 1 [facility] 631665 RxNorm TAKE 1 CAPSULE ORAL DAILY Meloxicam 15MG Oral Tablet 01/25/2025 Unknown ORAL DAILY 1 TABLE T 797748 RxNorm take 1 tablet by mouth daily. [...] Status Code Code System ESSENTIAL HYPERTENSION active 8969978 0 SNOMED-CT INSOMNIA active 360207619 SNOMED-CT CHRONIC BACK PAIN active 816926235 SN OMED-CT DEPRESSIVE DISORDER active 35946785 SNOMED-CT CHRONIC HEADACHE DISORDER active 4312 39392 SNOMED-CT BIPOLAR DISORDER active 55972439 SNO MED-CT MIGRAINE active 67767673 SNOMED-CT CAD active 21304370 SNOMED-CT CKD active 751893001 SNOMED-CT URI active 61798528 SNOMED-CT FAMILY GRIEVING active 860570083 SNOM ED-CT ANXIETY active 40311421 SNOMED-CT HYPERLIPIDEMIA active 16351390 SNOME D-CT FACIAL INJURY 05/20/2024 resolved 125171251 SNOME D-CT RLQ PAIN 12/09/2024 resolved 266011413 SNOMED-CT DYSURIA 12/09/2024 resolved 02357299 SNOMED-CT FALL 05/20/2024 resolved 7628822 SNOMED-CT ABDOMINAL PAIN 12/09/2024 resolved 91806610 SNOM ED-CT HEMATURIA 12/09/2024 resolved 58447449 SNOMED-CT HIDRADENITIS SUPPURATIVA 05/20/2024 resolved 5939 3003 SNOMED-CT FALLING 08/28/2022 resolved 285943285 SNOMED-CT DISLOCATION OF TOE JOINT 10/18/2023 resolved 6582 72118 SNOMED-CT Allergies and Adverse Reactions Allergy Substance Reaction Severity Start Date Concern Status Co de Code System LISINOPRIL Cough (SNOMED-CT: 40982094) Moderate Active 48792 RxNorm LAMOTRIGINE Active 69495 RxNorm Plan of Treatment CT FACIAL-SINUS WO CONTRAST 05/14/2024 MAMMO SCREEN 06/10/2024 CT ABDOMEN - PELVIS WO CONTRAST 025 Personal Care Team Section Progress Notes [facility] 05/13/2024 14:26 Patient Name: SIMRAN BILL, : 1970, Age: 53 years 05/12/2024 11:48 History of Present Illness Chief Complaint: c/o fall at home . c/o BHAT, right face bruising 53-year-old white female who fell on 05/07/2024 at home in the backyard. Patient with right below orbit and right cheek bruises. No vision problems. Past Medical/Surgical/Family/Social History Past Medical History: All [...] Falling R29.6 08/28/2022 Historic Hidradenitis suppurativa L73.2 Active Bipolar disorder F31.9 Active CAD I25.10 Active Past Surgical History: Surgery List Laminotomy, History of appendectomy, section, History of cholecystectomy, Hysterectomy, History of hysterectomy, History of section, Past Family History: Family [...] Oral Tablet, Delayed Release 1 TABLET DAILY traZODone hydrochloride 100MG Oral Tablet 1 TABLET AT BEDTIME ZyrTEC 10MG Oral Tablet 1 TABLET DAILY Nurtec ODT 75 MG Oral Tablet, Disintegrating 1 TABLET NEEDED DAILY Timolol Maleate 0.5% Ophthalmic Solution 1 DROP AT BEDTIME Vitamin D 5000 IU Oral Tablet 1 TABLET DAILY amLODIPine Besylate 5MG Oral Tablet 1 TABLET DAILY Trileptal 150MG Oral Tablet 1 TABLET TWICE A DAY Lipitor 20MG Oral Tablet 1 TABLET AT BEDTIME Review of Systems Constitutional: Denies fever, Denies [...] Denies claudication, Denies edema, Denies palpitations Gastrointestinal: Denies abdominal pain, Denies blood in stools, Denies change in stools, Denies constipation, Denies diarrhea, Denies heartburn, Denies loss of appetite, Denies nausea, Denies vomiting Genitourinary: Denies dysuria, Denies hematuria, Denies urinary frequency, Denies urinary incontinence, Denies urinary retention Skin: Denies hair loss, Denies brittle hair, Denies brittle nails, Denies hives, Denies rash, Denies skin lesion, Denies mole changes, c/o facial bruising Neurological: Denies dizziness, Denies extremity numbness, Denies extremity weakness, Denies gait disturbance, Denies headache, Denies memory impairment, Denies seizures, Denies tremors Psychiatric: Denies anxiety, Denies depression, Denies insomnia Metabolic / Endocrine: Denies cold intolerance, Denies heat intolerance, Denies polydipsia, Denies polyphagia Musculoskeletal: Denies back pain, Denies joint pain, Denies joint [...] (lbs/ozs) Scale BMI BSA Head Cir (cm) 05/12/2024 11:51 140/80 Sitting/Left Arm 100 104 Radial 20 36.8 Oral 98.2 Oral 0 160 cm 63 in 57.61 kg 127.0 Floor Scale 22.5 1.6 GENERAL: Well appearing and well nourished. In no apparent distress. SKIN: Right below orbit ecchymosis. EYES: Conjunctiva - Right: Normal, Left: Normal. Pupil - Right: Normal , Left: Normal EARS: Inspection - Right: Normal, Left: Normal. Canal - Right: Normal, Left: Normal. TM - Right: Normal, Left: Normal Respiratory: Inspection - Normal. Auscultation - Normal. Effort - Normal Cardiovascular: Heart rate - Regular rate. Rhythm - Regular. ABDOMEN: Inspection - Normal. Auscultation - Normal. No abdominal tenderness EXTREMITIES: No edema PSYCHIATRIC: Orientation - Oriented to time, place, person and situation Assessment Treated This Visit Migraine, G43.909 Fall, W19.XXXA Facial injury, S09.93XA Plan 1. Fall with facial injury - Fall with excessive swelling, bruising, and pain over the right orbit and right jaw. Will check CT of facial bones. 2. Severe migraine - Patient is on Nurtec and Ajovy injections. Will refer to Neurology. Medications given this visit: New Prescriptions This Visit Portions of this note were transcribed by ronen Roman LPN. GAIL Hernandez personally performed the history, physical exam and medical decision making; and confirmed the accuracy of the information in the transcribed note
--- OUTSIDE RECORDS SUMMARY | 2025-02-04 16:12 | XMS_ITS ---
Author Organization Unknown Address [address] [place] [address] Phone Care Team Providers Care Professor Of Sociology Name Role Phone PAT COSTA Registered Nurse Unavailable [facility] Unavailable [facility] Primary Unavailable Immunization Immunization [...] em Smoking History Never smoker (Never Smoked) [id number] SNOMED CT Smoking History Current every day smoker [id number] SNOMED CT Sex Female Vital Signs Vital Sign Value Unit Scenic Value Scenic Unit Date/Time Recent/Initial? Code Code System Body Mass Index 24.62 kg/m2 10/18/2023 14:42 Initial 40525 -5 LOINC Systolic Blood Pressure 116 mm[Hg] 10/18/2023 14:42 Initial 8480- 6 LOINC Diastolic Blood Pressure 80 mm[Hg] 10/18/2023 14:42 Initial 8462- 4 LOINC Body Surface Area 1.67 m2 10/18/2023 14:42 Initial 3140- 1 LOINC Height 160.020 0 cm 63.00 in 10/18/2023 14:42 Initial 8302- 2 LOINC Pulse 84.0 /min 10/18/2023 14:42 Initial 8867- 4 LOINC Respiration 20 /min 10/18/19 14:42 Initial 9279- 1 LOINC Temperature 36.7 Barbara 98.0 F 10/18/19 14:42 Initial 8310- 5 LOINC Weight 63.05 kg 139.00 lbs 10/18/2023 14:42 Initial 79782 -7 [facility] Medications Medication Start Date End Date Route Frequency Dose Code Code System Medication Instructions Home Meds amLODIPine Besylate 5MG Oral Tablet 03/02/2022 10/18/2023 ORAL DAILY 1 TABLET 169791 RxNorm TAKE 1 TABLET ORAL DAILY EC Naprosyn 375MG Oral Tablet, Enteric Coated 03/02/2022 10/18/2023 ORAL TWICE A DAY 1 TABLET 379155 RxNorm TAKE 1 TABLET ORAL TWICE A DAY with food KlonoPIN 0.5MG Oral Tablet 03/02/2022 10/18/2023 ORAL TWICE A DAY 1 TABLET 161438 RxNorm TAKE 1 TABLET ORAL TWICE A DAY Ambien 5MG Oral Tablet 03/02/2022 10/18/2023 ORAL AT BEDTIME 1 TABLET 029559 RxNorm TAKE 1 TABLET ORAL AT BEDTIME oxyCODONE HCl-acetaminop hen 5MG-325MG Oral Tablet 03/02/2022 10/18/2023 ORAL THREE TIMES A DAY 1 TABLET 3173886 RxNorm TAKE 1 TABLET ORAL THREE TIMES A DAY Butalbital-Francisco Javier taminophen-Caf feine [id number] G Oral Tablet 03/02/2022 10/18/2023 ORAL TWICE A DAY 1 TABLET 319409 RxNorm TAKE 1 TABLET ORAL TWICE A DAY Amitriptyline 25MG Oral Tablet 03/02/2022 10/18/2023 ORAL DAILY 1 TABLET 899743 RxNorm TAKE 1 TABLET ORAL DAILY Ajovy 225MG/1.5ML Subcutaneous Solution 03/02/2022 Unknown SUBCUTAN EOUS MONTHLY 1 Unit RxNorm INJECT 1 Unit SUBCUTANE OUS MONTHLY Latanoprost 0.005% Ophthalmic Solution 03/02/2022 Unknown BOTH EYES AT BEDTIME 1 DROP 475604 RxNorm 1 DROP BOTH EYES AT BEDTIME Bisoprolol Fumarate 5MG Oral Tablet 03/02/2022 11/04/2024 ORAL DAILY 1 TABLET 344415 RxNorm TAKE 1 TABLET ORAL DAILY Lasix 20MG Oral Tablet 03/02/2022 Unknown ORAL DAILY 1 TABLET 909080 RxNorm TAKE 1 TABLET ORAL DAILY Protonix 40 MG Oral Tablet, Delayed Release 03/02/2022 Unknown ORAL DAILY 1 TABLET 515385 RxNorm TAKE 1 TABLET ORAL DAILY Lipitor 20MG Oral Tablet 03/02/2022 11/04/2024 ORAL AT BEDTIME 1 TABLET 693735 RxNorm TAKE 1 TABLET ORAL AT BEDTIME Vitamin D 5000 IU Oral Tablet 03/02/2022 11/04/2024 ORAL DAILY 1 TABLET 787991 RxNorm TA KE 1 TABLET ORAL DAILY Timolol Maleate 0.5% Ophthalmic Solution 03/02/2022 Unknown BOTH EYES AT BEDTIME 1 DROP 8007039 RxNorm 1 DROP BOTH EYES AT BEDTIME Nurtec ODT 75 MG Oral Tablet, Disintegrating 03/02/2022 Unknown ORAL NEEDED DAILY 1 TABLET 6876257 RxNorm TAKE 1 TABLET ORAL NEEDED DAILY Prolia 60MG/1ML Subcutaneous Solution 03/02/2022 10/18/2023 SUBCUTAN EOUS every 6 months 1 Unit 149921 RxNorm INJECT 1 Unit SUBCUTANE OUS every 6 months Cyclobenzaprin e HCl 5MG Oral Tablet 04/27/2022 10/18/2023 ORAL NEEDED DAILY 1 TABLET 682351 RxNorm TAKE 1 TABLET ORAL NEEDED DAILY CeleXA 10MG Oral Tablet 05/21/2022 10/18/2023 ORAL DAILY 1 TABLET 153103 RxNorm TAKE 1 TABLET ORAL DAILY Zanaflex 2MG Oral Tablet 06/28/2022 10/18/2023 ORAL DAILY 1 TABLET 888515 RxNorm TAKE 1 TABLET ORAL DAILY Penicillin VK 500MG Oral Tablet 08/28/2022 10/18/2023 ORAL FOUR TIMES A DAY 1 TABLET 750172 RxNorm TAKE 1 TABLET ORAL FOUR TIMES A DAY Medrol Dosepak 4MG Oral Tablet 10/01/2023 10/18/2023 ORAL DAILY 1 TABLET 558393 RxNorm TAKE PER PACKAGE DIRECTION S ZyrTEC 10MG Oral Tablet 10/01/2023 11/04/2024 ORAL DAILY 1 TABLET RxNorm TAKE 1 TABLET ORAL DAILY Trileptal 150MG Oral Tablet 10/18/2023 11/04/2024 ORAL TWICE A DAY 1 TABLET 937403 RxNorm TAKE 1 TABLET ORAL TWICE A DAY Bactrim DS 800MG-160MG Oral Tablet 10/18/2023 10/28/2023 ORAL EVERY 12 HOURS 1 TABLET 530679 RxNorm TAKE 1 TABLET ORAL EVERY 12 HOURS FOR 10 DAYS Mupirocin 2% Topical application Ointment 10/18/2023 10/25/2023 TOPICAL APPLICAT ION THREE TIMES A DAY 1 APPLICATI ON 804623 RxNorm APPLY TO AFFECTED AREA THREE TIMES A DAY FOR 7 DAYS amLODIPine Besylate 5MG Oral Tablet 10/18/2023 11/04/2024 ORAL DAILY 1 TABLET 370526 RxNorm TAKE 1 TABLET ORAL DAILY traZODone hydrochloride 100MG Oral Tablet 10/18/2023 11/04/2024 ORAL AT BEDTIME 1 TABLET 999224 RxNorm TAKE 1 TABLET ORAL AT BEDTIME Macrobid 100MG Oral Capsule 05/21/2024 06/08/2024 ORAL TWICE A DAY 1 CAPSULE 617486 RxNorm TAKE 1 CAPSULE ORAL TWICE A DAY Zofran 4MG Oral Tablet 05/21/2024 07/27/2024 ORAL NEEDED EVERY 8 HOURS 1 TABLET 390153 RxNorm TAKE 1 TABLET ORAL NEEDED EVERY 8 HOURS Cipro 500MG Oral Tablet 06/08/2024 06/14/2024 ORAL TWICE A DAY 1 TABLET 833196 RxNorm TAKE 1 TABLET ORAL TWICE A DAY metroNIDAZOLE 500MG Oral Tablet 06/08/2024 06/14/2024 ORAL THREE TIMES A DAY 1 TABLET 534627 RxNorm TAKE 1 TABLET ORAL THREE TIMES A DAY Zofran 4MG Oral Tablet 07/24/2024 11/04/2024 ORAL NEEDED EVERY 8 HOURS 1 TABLET 618830 RxNorm TAKE 1 TABLET ORAL NEEDED EVERY 8 HOURS Atorvastatin Calcium 40MG Oral Tablet 11/04/2024 Unknown ORAL DAILY 1 TABLET 396814 RxNorm TAKE 1 TABLET ORAL DAILY Baclofen 5MG Oral Tablet 11/04/2024 Unknown ORAL NEEDED EVERY 8 HOURS 1 TABLET 400792 RxNorm TAKE 1 TABLET ORAL NEEDED EVERY 8 HOURS Cyproheptadine HCl 4MG Oral Tablet 11/04/2024 Unknown ORAL AT BEDTIME 1 TABLET 582864 RxNorm TAKE 1 TABLET ORAL AT BEDTIME Fosamax 10MG Oral Tablet 11/04/2024 Unknown ORAL DAILY 1 TABLET RxNorm TAKE 1 TABLET ORAL DAILY Linzess 145MCG Oral Capsule 11/04/2024 Unknown ORAL DAILY 1 CAPSULE 0547390 RxNorm TAKE 1 CAPSULE ORAL DAILY OXcarbazepine 300MG Oral Tablet 11/04/2024 Unknown ORAL TWICE A DAY 1 TABLET 027423 RxNorm TAKE 1 TABLET ORAL TWICE A DAY Wellbutrin SR 150MG Oral Tablet, Extended Release, 12 HR 11/04/2024 11/04/2024 ORAL DAILY 1 TABLET 919898 RxNorm TA KE 1 TABLET ORAL DAILY hydrOXYzine HCl 10MG Oral Tablet 11/04/2024 Unknown ORAL NEEDED EVERY 8 HOURS 1 TABLET 138652 RxNorm TAKE 1 TABLET ORAL NEEDED EVERY 8 HOURS HYDROcodone bitartrate-francisco javier taminophen 10MG-325MG Oral Tablet 11/04/2024 Unknown ORAL NEEDED EVERY 6 HOURS 1 TABLET 306231 RxNorm TAKE 1 TABLET ORAL NEEDED EVERY 6 HOURS predniSONE 20MG Oral Tablet 11/04/2024 12/09/2024 ORAL TWICE A DAY 1 TABLET 820873 RxNorm TAKE 1 TABLET ORAL TWICE A DAY FOR 5 DAYS Meloxicam 15MG Oral Tablet 11/04/2024 01/25/2025 ORAL DAILY 1 TABLET 341918 RxNorm TAKE 1 TABLET ORAL DAILY Remeron 30MG Oral Tablet 11/04/2024 Unknown ORAL AT BEDTIME 1 TABLET 367694 RxNorm TAKE 1 TABLET ORAL AT BEDTIME Elavil 25MG Oral Tablet 11/04/2024 Unknown ORAL AT BEDTIME 1 TABLET 832209 RxNorm TAKE 1 TABLET ORAL AT BEDTIME Augmentin 875MG-125MG Oral Tablet 12/09/2024 12/18/2024 ORAL TWICE A DAY 1 TABLET 454043 RxNorm TAKE 1 TABLET ORAL TWICE A DAY Cymbalta 20MG Oral Capsule, Delayed Release 12/09/2024 Unknown ORAL DAILY 1 CAPSULE 673716 RxNorm TAKE 1 CAPSULE ORAL DAILY Meloxicam 15MG Oral Tablet 01/25/2025 Unknown ORAL DAILY 1 TABLET 124352 RxNorm take 1 tablet by mouth daily. [...] Status Code Code System ESSENTIAL HYPERTENSION active 6377061 0 SNOMED-CT INSOMNIA active 178464036 SNOMED-CT CHRONIC BACK PAIN active 133754051 SN OMED-CT DEPRESSIVE DISORDER active 54417950 SNOMED-CT CHRONIC HEADACHE DISORDER active 4312 70015 SNOMED-CT BIPOLAR DISORDER active 80250227 SNO MED-CT MIGRAINE active 39740157 SNOMED-CT CAD active 16888547 SNOMED-CT CKD active 715016367 SNOMED-CT URI active 61287361 SNOMED-CT FAMILY GRIEVING active 442404989 SNOM ED-CT ANXIETY active 80978951 SNOMED-CT HYPERLIPIDEMIA active 49334533 SNOME D-CT FACIAL INJURY 05/20/2024 resolved 997537097 SNOME D-CT RLQ PAIN 12/09/2024 resolved 587724845 SNOMED-CT DYSURIA 12/09/2024 resolved 67655961 SNOMED-CT FALL 05/20/2024 resolved 2501760 SNOMED-CT ABDOMINAL PAIN 12/09/2024 resolved 42311609 SNOM ED-CT HEMATURIA 12/09/2024 resolved 59318104 SNOMED-CT HIDRADENITIS SUPPURATIVA 05/20/2024 resolved 5939 3003 SNOMED-CT FALLING 08/28/2022 resolved 761067360 SNOMED-CT DISLOCATION OF TOE JOINT 10/18/2023 resolved 2630 55456 SNOMED-CT Allergies and Adverse Reactions Allergy Substance Reaction Severity Start Date Concern Status Co de Code System LISINOPRIL Cough (SNOMED-CT: 31874195) Moderate Active 58659 RxNorm LAMOTRIGINE Active 51276 RxNorm Plan of Treatment CT FACIAL-SINUS WO CONTRAST 05/14/2024 MAMMO SCREEN 06/10/2024 CT ABDOMEN - PELVIS WO CONTRAST 025 Encounters Encounter Diagnosis Start Date Code Code Sys tem Essential hypertension 10/18/2023 50399573 SNOME D-CT Personal Care Team Section Progress Notes [facility] 10/18/2023 16:00 Patient Name: SIMRAN BILL, : 1970, Age: 53 years 10/18/2023 14:44 Chief Complaint: c/o possible reaction to new medication, lesion to genital area History of Present Illness 53-year-old female presents to clinic with complaints of lesion to mons pubis/genital area. She reports area was blistered and had drainage. She appears area appeared 3 days ago. She is concerned she is having a possible reaction to her new bipolar medication oxycarbazepine. He has been on oxcarbazepine 150 mg daily for the past 2 weeks. Patient denies any other symptoms or any other lesions. Past Medical/Surgical/Family/Social History Past Medical History: All Problems Problem ICD Code Onset Date Resolved Date Age Status Comment Essential hypertension I10 Active Insomnia G47.00 Active Chronic back pain M54.9 Active Depressive disorder F32.A Active Chronic headache disorder G44.89 Active Dislocation of toe joint S93.105A Active Anxiety F41.9 02/04/2022 Historic Depression F32.A 02/04/2022 Historic Hypertension I10 02/04/2022 Historic Migraine G43.909 08/18/2022 Historic Falling R29.6 08/28/2022 Historic Past Surgical History: Surgery List Laminotomy, History of appendectomy, section, History of cholecystectomy, Hysterectomy, History of hysterectomy, History of section, Past Family History: Family History List FH: Congenital heart disease, BROTHER Family history of cancer, FATHER FH: Hypertension, MOTHER Smoking Status: Current every day smoker, Cessation Education: Allergy List No Known Drug Allergies, Medication Home Meds: Dose and Freq Medication Dosage Frequency amLODIPine Besylate 5MG Oral Tablet 1 TABLET DAILY EC Naprosyn 375MG Oral Tablet, Enteric Coated 1 TABLET TWICE A DAY Ajovy 225MG/1.5ML Subcutaneous Solution 1 Unit MONTHLY Latanoprost 0.005% Ophthalmic Solution 1 DROP AT BEDTIME Bisoprolol Fumarate 5MG Oral Tablet 1 TABLET DAILY Lasix 20MG Oral Tablet 1 TABLET DAILY Zanaflex 2MG Oral Tablet 1 TABLET DAILY ZyrTEC 10MG Oral Tablet 1 TABLET DAILY Lipitor 20MG Oral Tablet 1 TABLET AT BEDTIME Nurtec ODT 75 MG Oral Tablet, Disintegrating 1 TABLET NEEDED DAILY Protonix 40 MG Oral Tablet, Delayed Release 1 TABLET DAILY Timolol Maleate 0.5% Ophthalmic Solution 1 DROP AT BEDTIME Vitamin D 5000 IU Oral Tablet 1 TABLET DAILY Review of Systems Constitutional: Denies fever, Denies chills, Denies fatigue, Denies myalgia, Denies weight gain. HEENT: Denies ear drainage, Denies ear pain, Denies eye discharge, Denies eye pain, Denies hearing loss, Denies nasal drainage, Denies sinus pressure, Denies sore throat, Denies visual changes. Respiratory: Denies cough, Denies Shortness of breath, Denies wheezing. Cardiovascular: Denies chest pain, Denies edema, Denies palpitations. Gastrointestinal: Denies abdominal pain, Denies blood in stools, Denies constipation, Denies diarrhea, Denies heartburn, Denies loss of appetite, Denies nausea, Denies vomiting. Genitourinary: Denies dysuria, Denies hematuria, Denies urinary frequency, Denies urinary incontinence, Denies urinary retention. Skin: Denies hair loss Denies hives, Denies rash, C/O skin lesion. Neurological: Denies dizziness, Denies extremity numbness, Denies extremity weakness, Denies gait disturbance, Denies headache, Denies memory impairment, Denies seizures, Denies tremors Psychiatric: Denies anxiety, Denies depression, Denies insomnia Metabolic / Endocrine: denies cold intolerance, Denies heat intolerance, Denies polydipsia, Denies polyphagia. Musculoskeletal: Denies backpain, Denies joint pain, Denies joint swelling, Denies muscle weakness, Denies neck pain Hematologic / Lymphatic: Denies easy bleeding, easy bruising, Denies Lymphadenopathy. Physical Exam Vital Signs: This Visit Date/Time BP (mm/Hg) BP Position/Site MAP (mm/Hg) Heart Rate Pulse Site Resp Temp (C) Temp (F) SPO2% O2 L/min FiO2 O2 Device Blood Sugar Pain Score Height (cm) Height (in) Weight (kg) Weight (lbs/ozs) Scale BMI BSA Head Cir (cm) 10/18/2023 14:42 116/80 Sitting/Left Arm 92 84 Radial 20 36.7 Oral 98 Oral 5 160 cm 63 in 63.05 kg 139 lbs Floor Scale 24.62 1.67 General: Awake, alert and oriented. No acute distress. Well developed, hydrated and nourished. Appears stated age. Skin: Nickel sized lesion/blister to mons pubis, no drainage at this time. Eyes: Conjunctivae are clear without exudates or hemorrhage. EOM are intact, PERRLA. Eyelids are normal in appearance without swelling or lesions. Ears: The external ear and ear canal are non-tender and without swelling. The canal is clear without discharge. The tympanic membrane is normal in appearance with normal landmarks and cone of light. Hearing is intact. Nose: Nasal mucosa is pink and moist. The nasal septum is midline. Nares are patent bilaterally. Throat: Oral mucosa is pink and moist with good dentition. Tongue normal in appearance without lesions and with good symmetrical movement. No buccal nodules or lesions are noted. The pharynx is normal in appearance without tonsillar swelling or exudates. Neck: The neck is supple without adenopathy. Trachea is midline. Thyroid gland is normal without masses. No JVD. Cardiac: Heart rate and rhythm are normal. No murmurs, gallops, or rubs are auscultated. S1 and S2 are heard and are of normal intensity. Respiratory: No signs of respiratory distress. Lung sounds are clear in all lobes bilaterally without rales, rhonchi, or wheezes. Abdominal: Abdomen is soft, symmetric, and non-tender without distention. Bowel sounds are present and normoactive in all four quadrants. No masses, hepatomegaly, or splenomegaly are noted. Extremities: Upper and lower extremities are atraumatic in appearance without tenderness or deformity. No swelling or erythema. Full range of motion is noted to all joints. Steady gait noted. Neurological: Memory is normal and thought process is intact. No gait abnormalities are appreciated. Speech is normal. Psychiatric: Appropriate mood and affect. Good judgement and insight. No visual or auditory hallucinations. No suicidal or homicidal ideation. Assessment Treated This Visit Essential hypertension, I10 Hidradenitis suppurativa, L73.2 Bipolar disorder, F31.9 Plan 1. Hypertensionrefill amlodipine 5 mg daily #90+1 2. Hidradenitis suppurativa- take Bactrim DS take 1 tablet twice a day for 10 days Use mupirocin ointment 3 times a day for 7 days. Return to care if worsening or no improvement. Keep area clean, wash area with antibacterial soap daily. 3. Bipolar disorderpatient to continue oxycarbazepine and follow-up with Psychiatrist. I do not believe she is having reaction or side effect to oxycarbazepine. Lab Results: Last 4 Hours: No Labs Available New Rx This Visit Bactrim DS 800MG-160MG Oral Tablet, 1 TABLET, ORAL, EVERY 12 HOURS, 10/18/2023 Mupirocin 2% Topical application Ointment, 1 APPLICATION, TOPICAL APPLICATION, THREE TIMES A DAY, 10/18/2023 amLODIPine Besylate 5MG Oral Tablet, 1 TABLET, ORAL, DAILY, 10/18/2023
--- OUTSIDE RECORDS SUMMARY | 2025-02-04 16:12 | XMS_ITS ---
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 Code Code System Body Mass Index 23.91 kg/m2 07/24/2024 15:36 Initial 86655 -5 LOINC Systolic Blood Pressure 118 mm[Hg] 07/24/2024 15:36 Initial 8480- 6 LOINC Diastolic Blood Pressure 64 mm[Hg] 07/24/2024 15:36 Initial 8462- 4 LOINC Body Surface Area 1.65 m2 07/24/2024 15:36 Initial 3140- 1 LOINC Height 160.020 0 cm 63.00 in 07/24/2024 15:36 Initial 8302- 2 LOINC Pulse 72.0 /min 07/24/2024 15:36 Initial 8867- 4 LOINC Respiration 20 /min 07/24/20 15:36 Initial 9279- 1 LOINC Temperature 36.8 Barbara 98.2 F 07/24/20 15:36 Initial 8310- 5 LOINC Weight 61.23 kg 135.00 lbs 07/24/2024 15:36 Initial 84555 -[facility] Medication Start Date End Date Route Frequency Dose Code Code System Medication Instructions Home Meds Ajovy 225MG/1.5ML Subcutaneous Solution 03/02/2022 Unknown SUBCUTANEOUS MONTHLY 1 Unit RxNorm INJECT 1 Unit SUBCUTANEOUS MONTHLY Latanoprost 0.005% Ophthalmic Solution 03/02/2022 Unknown BOTH EYES AT BEDTIME 1 DROP 168704 RxNorm 1 DROP BOTH EYES AT BEDTIME Bisoprolol Fumarate 5MG Oral Tablet 03/02/2022 11/05/19 25 ORAL DAILY 1 TABLE T 576174 RxNorm TAKE 1 TABLET ORAL DAILY Lasix 20MG Oral Tablet 03/02/2022 Unknown ORAL DAILY 1 TABLE T 254237 RxNorm TAKE 1 TABLET ORAL DAILY Protonix 40 MG Oral Tablet, Delayed Release 03/02/2022 Unknown ORAL DAILY 1 TABLE T 470110 RxNorm TAKE 1 TABLET ORAL DAILY Lipitor 20MG Oral Tablet 03/02/2022 11/05/19 25 ORAL AT BEDTIME 1 TABLE T 096825 RxNorm TAKE 1 TABLET ORAL AT BEDTIME Vitamin D 5000 IU Oral Tablet 03/02/2022 11/05/19 25 ORAL DAILY 1 TABLE T 446576 RxNorm TAKE 1 TABLET ORAL DAILY Timolol Maleate 0.5% Ophthalmic Solution 03/02/2022 Unknown BOTH EYES AT BEDTIME 1 DROP 4481449 RxNorm 1 DROP BOTH EYES AT BEDTIME Nurtec ODT 75 MG Oral Tablet, Disintegratin g 03/02/2022 Unknown ORAL NEEDED DAILY 1 TABLE T 6848861 RxNorm TAKE 1 TABLET ORAL NEEDED DAILY ZyrTEC 10MG Oral Tablet 10/01/2023 11/05/19 25 ORAL DAILY 1 TABLE T RxNorm TAKE 1 TABLET ORAL DAILY Trileptal 150MG Oral Tablet 10/18/2023 11/05/19 25 ORAL TWICE A DAY 1 TABLE T 696319 RxNorm TAKE 1 TABLET ORAL TWICE A DAY amLODIPine Besylate 5MG Oral Tablet 10/18/2023 11/05/19 25 ORAL DAILY 1 TABLE T 501214 RxNorm TAKE 1 TABLET ORAL DAILY traZODone hydrochloride 100MG Oral Tablet 10/18/2023 11/05/19 25 ORAL AT BEDTIME 1 TABLE T 371244 RxNorm TAKE 1 TABLET ORAL AT BEDTIME Zofran 4MG Oral Tablet 05/21/2024 07/27/20 24 ORAL NEEDED EVERY 8 HOURS 1 TABLE T 821491 RxNorm TAKE 1 TABLET ORAL NEEDED EVERY 8 HOURS Zofran 4MG Oral Tablet 07/24/2024 11/05/19 25 ORAL NEEDED EVERY 8 HOURS 1 TABLE T 737581 RxNorm TAKE 1 TABLET ORAL NEEDED EVERY 8 HOURS Atorvastatin Calcium 40MG Oral Tablet 11/04/2024 Unknown ORAL DAILY 1 TABLE T 297058 RxNorm TAKE 1 TABLET ORAL DAILY Baclofen 5MG Oral Tablet 11/04/2024 Unknown ORAL NEEDED EVERY 8 HOURS 1 TABLE T 265226 RxNorm TAKE 1 TABLET ORAL NEEDED EVERY 8 HOURS Cyproheptadin e HCl 4MG Oral Tablet 11/04/2024 Unknown ORAL AT BEDTIME 1 TABLE T 998865 RxNorm TAKE 1 TABLET ORAL AT BEDTIME Fosamax 10MG Oral Tablet 11/04/2024 Unknown ORAL DAILY 1 TABLE T RxNorm TAKE 1 TABLET ORAL DAILY Linzess 145MCG Oral Capsule 11/04/2024 Unknown ORAL DAILY 1 CAPSU LE 5855264 RxNorm TAKE 1 CAPSULE ORAL DAILY OXcarbazepine 300MG Oral Tablet 11/04/2024 Unknown ORAL TWICE A DAY 1 TABLE T 501409 RxNorm TAKE 1 TABLET ORAL TWICE A DAY Wellbutrin SR 150MG Oral Tablet, Extended Release, 12 HR 11/04/2024 11/05/19 25 ORAL DAILY 1 TABLE T 388182 RxNorm TAKE 1 TABLET ORAL DAILY hydrOXYzine HCl 10MG Oral Tablet 11/04/2024 Unknown ORAL NEEDED EVERY 8 HOURS 1 TABLE T 627031 RxNorm TAKE 1 TABLET ORAL NEEDED EVERY 8 HOURS HYDROcodone bitartrate-ac etaminophen 10MG-325MG Oral Tablet 11/04/2024 Unknown ORAL NEEDED EVERY 6 HOURS 1 TABLE T 748564 RxNorm TAKE 1 TABLET ORAL NEEDED EVERY 6 HOURS predniSONE 20MG Oral Tablet 11/04/2024 12/10/19 25 ORAL TWICE A DAY 1 TABLE T 757408 RxNorm TAKE 1 TABLET ORAL TWICE A DAY FOR 5 DAYS Meloxicam 15MG Oral Tablet 11/04/2024 01/26/20 25 ORAL DAILY 1 TABLE T 795128 RxNorm TAKE 1 TABLET ORAL DAILY Remeron 30MG Oral Tablet 11/04/2024 Unknown ORAL AT BEDTIME 1 TABLE T 817003 RxNorm TAKE 1 TABLET ORAL AT BEDTIME Elavil 25MG Oral Tablet 11/04/2024 Unknown ORAL AT BEDTIME 1 TABLE T 592385 RxNorm TAKE 1 TABLET ORAL AT BEDTIME Augmentin 875MG-125MG Oral Tablet 12/09/2024 12/19/19 25 ORAL TWICE A DAY 1 TABLE T 382502 RxNorm TAKE 1 TABLET ORAL TWICE A DAY Cymbalta 20MG Oral Capsule, Delayed Release 12/09/2024 Unknown ORAL DAILY 1 CAPSU LE 974707 RxNorm TAKE 1 CAPSULE ORAL DAILY Meloxicam 15MG Oral Tablet 01/25/2025 Unknown ORAL DAILY 1 TABLE T 126284 RxNorm take 1 tablet by mouth daily. Assessment You had the following problems:ESSENTIAL HYPERTENSIONINSOMNIACHRONIC BACK PAINDEPRESSIVE DISORDERCHRONIC HEADACHE DISORDERBIPOLAR DISORDERMIGRAINECADCKDURIFAMILY GRIEVINGANXIETYHYPERLIPIDEMIA Assessments: Chronic headache Anxiety Chronic pain syndrome Hospital Discharge Instructions Should you have any questions prior to discharge, please contact a member of your healthcare team. If you have left the hospital and have any questions, please contact your primary care physician. Reason For Referral No Data Found Problems Problem Start Date Resolved Date Status Code Code System ESSENTIAL HYPERTENSION active 4945503 0 SNOMED-CT INSOMNIA active 194795434 SNOMED-CT CHRONIC BACK PAIN active 949723599 SN OMED-CT DEPRESSIVE DISORDER active 68975178 SNOMED-CT CHRONIC HEADACHE DISORDER active 4312 55207 SNOMED-CT BIPOLAR DISORDER active 81127030 SNO MED-CT MIGRAINE active 13597520 SNOMED-CT CAD active 38587685 SNOMED-CT CKD active 545304312 SNOMED-CT URI active 74857796 SNOMED-CT FAMILY GRIEVING active 613012961 SNOM ED-CT ANXIETY active 66773892 SNOMED-CT HYPERLIPIDEMIA active 56279471 SNOME D-CT FACIAL INJURY 05/20/2024 resolved 435357497 SNOME D-CT RLQ PAIN 12/09/2024 resolved 633625400 SNOMED-CT DYSURIA 12/09/2024 resolved 22299682 SNOMED-CT FALL 05/20/2024 resolved 2185621 SNOMED-CT ABDOMINAL PAIN 12/09/2024 resolved 83889137 SNOM ED-CT HEMATURIA 12/09/2024 resolved 50427259 SNOMED-CT HIDRADENITIS SUPPURATIVA 05/20/2024 resolved 5939 3003 SNOMED-CT FALLING 08/28/2022 resolved 285060368 SNOMED-CT DISLOCATION OF TOE JOINT 10/18/2023 resolved 2630 26314 SNOMED-CT Allergies and Adverse Reactions Allergy Substance Reaction Severity Start Date Concern Status Co de Code System LISINOPRIL Cough (SNOMED-CT: 17692411) Moderate Active 59658 RxNorm LAMOTRIGINE Active 52361 RxNorm Plan of Treatment CT FACIAL-SINUS WO CONTRAST 05/14/2024 MAMMO SCREEN 06/10/2024 CT ABDOMEN - PELVIS WO CONTRAST 025 Treatment: Reviewed chart has been on nonsteroidals in the past. Prescription Zofran 4 mg 3 times daily p.o. as needed #21 no refill Toradol 30 mg IM given. Medication called to [facility] pharmacy Rest fluids recheck as needed Go to ER if necessary. Personal Care Team Section Progress Notes [facility] 07/24/2024 18:32 Patient Name: SIMRAN BILL, : 1970, Age: 54 years 07/24/2024 15:33 Current Medications: Active Home Meds Medication Dosage Route Frequency Last Dose Date Prescribing MD Special Instructions Ajovy 225MG/1.5ML Subcutaneous Solution 1 Unit SUBCUTANEOUS MONTHLY SMART PITA Hurtado Latanoprost 0.005% Ophthalmic Solution 1 DROP BOTH EYES AT BEDTIME LENNIE PITA Hurtado Bisoprolol Fumarate 5MG Oral Tablet 1 TABLET ORAL DAILY LENNIE PITA Hurtado Lasix 20MG Oral Tablet 1 TABLET ORAL DAILY LENNIE PITA Hurtado Protonix 40 MG Oral Tablet, Delayed Release 1 TABLET ORAL DAILY LENNIE Hurtado Lipitor 20MG Oral Tablet 1 TABLET ORAL AT BEDTIME LENNIE PITA Hurtado Vitamin D 5000 IU Oral Tablet 1 TABLET ORAL DAILY LENNIE PITA Hurtado Timolol Maleate 0.5% Ophthalmic Solution 1 DROP BOTH EYES AT BEDTIME LENNIE PITA Hurtado Nurtec ODT 75 MG Oral Tablet, Disintegrating 1 TABLET ORAL NEEDED DAILY LENNIE PITA Hurtado ZyrTEC 10MG Oral Tablet 1 TABLET ORAL DAILY DORIS JACKSON Trileptal 150MG Oral Tablet 1 TABLET ORAL TWICE A DAY DORIS JACKSON amLODIPine Besylate 5MG Oral Tablet 1 TABLET ORAL DAILY SEAN Hsieh traZODone hydrochloride 100MG Oral Tablet 1 TABLET ORAL AT BEDTIME SEAN Hsieh Zofran 4MG Oral Tablet 1 TABLET ORAL NEEDED EVERY 8 HOURS AUGUSTIN REYNOLDS Past Medical History: All Problems Problem ICD Code Onset Date Resolved Date Age Status Comment Essential hypertension I10 Active Insomnia G47.00 Active Chronic back pain M54.9 Active Depressive disorder F32.A Active Chronic headache disorder G44.89 Active Dislocation of toe joint S93.105A 10/18/2023 Historic Anxiety F41.9 02/04/2022 Historic Migraine G43.909 Active Falling R29.6 08/28/2022 Historic Hidradenitis suppurativa L73.2 05/20/2024 Historic Bipolar disorder F31.9 Active Fall W19.XXXA 05/20/2024 Historic Facial injury S09.93XA 05/20/2024 Historic CAD I25.10 Active RLQ pain R10.31 Active Dysuria R30.0 Active CKD N18.2 Active Surgical/Procedural History: Surgery History Table Procedure Procedure Date Age Notes History of cholecystectomy History of appendectomy Laminotomy History of section section Hysterectomy Family History: Family History Table Problem Entered Relative Age Notes FH: Congenital heart disease 01/30/2022 14:04 BROTHER Family history of cancer 01/30/2022 14:04 FATHER FH: Hypertension 01/30/2022 14:04 MOTHER Social History: Smoking Status Years Use Start Year End Year Cessation Education Current every day smoker Allergies: Allergy List No Known Drug Allergies, Medication Review of Systems: Positive for what is mentioned in the chief complaint. Otherwise is negative as below. Constitutional: fever, fatigue HEENT: sore throat, ear pain Respiratory: cough, shortness of breath Cardiovascular: chest pain, palpitation, edema GI: abdominal pain, nausea, vomiting, diarrhea, constipation, blood in stool : dysuria, hematuria, urinary frequency Musculoskeletal: Pain, weakness skin: lesions, rash Neurological: syncope, numbness psychiatric: anxiety, depression Reason for Appointment Chief Complaint: c/o BHAT x 4 days; c/o increased stress History of Present Illness General: White 54-year-old female presents with frontal generalized headache bilaterally involved throbbing in nature with some nausea. A lot of stress because has serious illness and she is left his total caregiver. Has long history of migraines and is on several medications to try to treat them. Current headache has been going on for 4 days. Last migraine was 1024 she states. She mentioned other treatment she has had in the past appears that tramadol. Vital Signs Vital Signs: This Visit Date/Time BP (mm/Hg) BP Position/Site MAP (mm/Hg) Heart Rate Pulse Site Resp Temp (C) Temp (F) SPO2% O2 L/min FiO2 EtCO2 (mm/Hg) O2 Device Blood Sugar Pain Score Height (cm) Height (in) Weight (kg) Weight (lbs/ozs) Scale BMI BSA Head Cir (cm) 07/24/2024 15:36 118/64 Sitting/Left Arm 82 72 Radial 20 36.8 Oral 98.2 Oral 8 160 cm 63 in 61.23 kg 135.0 Floor Scale 23.91 1.65 Examination General Examination: General: Well appearing and well nourished. In no apparent distress. Heart: Regular rate and rhythm. No murmurs Chest/Lungs: Clear to auscultation. Abdomen: Soft, non-tender and non-distended. Normal bowel sounds. Extremities: Adequate range of motion and strength. Skin: No rashes. ENT: Unremarkable. Musculoskeletal: Gait good. Range of motion and strength adequate. Neurological: Nonfocal. Cranial nerves II through XII grossly intact External genitalia: Deferred Assessments: Chronic headache Anxiety Chronic pain syndrome Treatment: Reviewed chart has been on nonsteroidals in the past. Prescription Zofran 4 mg 3 times daily p.o. as needed #21 no refill Toradol 30 mg IM given. Medication called to [facility] pharmacy Rest fluids recheck as needed Go to ER if necessary. Ordered & Completed Meds Table Ordered Medication Start Date/Time Dosage Route Frequency Status CL-KETOROLAC VIAL 30MG/1ML 07/24/2024 16:59 30 MG IM OPTIONS X1 completed
--- OUTSIDE RECORDS SUMMARY | 2025-02-04 16:13 | XMS_ITS ---
Author Organization Unknown Address [address] [place] [address] Phone Care Team Providers Care Youth Services Specialist Name Role Phone ERIC ENAMORADO Registered Nurse Unavailable ELIOT Trujillo Attending Unavailable THA WAGON[facility] Unavailable AUGUSTIN REYNOLDS Primary Unavailable Immunization Immunization [...] mcg/0.5 mL 01/28/2024 Completed 312 CVX Results CFP URINE DIPSTICK - Collect Date/Time: 11/04/2024 10:50 [facility] ID: [id number] [address] [place] [address], [id number] LOINC: Test Value Unit Reference Range Code Code System Flag .SOURCE CLEAN CATCH NORMAL: CLEAN CATCH .COLOR LT YELLOW NORMAL: YELLOW .CLARITY CLOUDY NORMAL: CLEAR A .GLUCOSE NEGATIVE NORMAL: NEGATIVE .BILIRUBIN SMALL___ NORMAL: NEGATIVE A .KETONES NEGATIVE NORMAL: NEGATIVE .SPEC GRAV 1.020 NORMAL: 1.005-1.015 A .BLOOD SMALL HEMO____ NORMAL: NEGATIVE A .PH 6.5_ NORMAL: 5.0-8.0 .PROTEIN 30+ NORMAL: NEGATIVE A .UROBILINOGEN 0.2 NORMAL: 0.2-2.0 .NITRATE NEGATIVE NORMAL: NEGATIVE .LEUKOCYTES NEGATIVE__ NORMAL: NEGATIVE Social History Type Status Start Date End Date Code Code Syst em Smoking History Never smoker (Never Smoked) 360168646 SNOMED CT Smoking History Current every day smoker 696195614 SNOMED CT Sex Female Vital Signs Vital Sign Value Unit Cross Anchor Value Cross Anchor Unit Date/Time Recent/Initial? Code Code System Body Mass Index 23.31 kg/m2 11/04/2024 10:31 Initial 19957 -5 LOINC Systolic Blood Pressure 122 mm[Hg] 11/04/2024 10:31 Initial 8480- 6 LOINC Diastolic Blood Pressure 80 mm[Hg] 11/04/2024 10:31 Initial 8462- 4 LOINC Body Surface Area 1.63 m2 11/04/2024 10:31 Initial 3140- 1 LOINC Height 160.020 0 cm 63.00 in 11/04/2024 10:31 Initial 8302- 2 LOINC O2 Saturation 98 % 2024 10:31 Initial 71187 -5 LOINC Pulse 73.0 /min 11/04/2024 10:31 Initial 8867- 4 [facility] Respiration 18 /min 11/05/19 10:31 Initial 9279- 1 [facility] Temperature 36.2 Barbara 97.1 F 11/05/19 10:31 Initial 8310- 5 [facility] Weight 59.69 kg 131.60 lbs 11/04/2024 10:31 Initial 56938 -7 [facility] Medications Medication Start Date End Date Route Frequency Dose Code Code System Medication Instructions Home Meds Ajovy 225MG/1.5ML Subcutaneous Solution 03/02/2022 Unknown SUBCUTANEOUS MONTHLY 1 Unit RxNorm INJECT 1 Unit SUBCUTANEOUS MONTHLY Latanoprost 0.005% Ophthalmic Solution 03/02/2022 Unknown BOTH EYES AT BEDTIME 1 DROP 431580 RxNorm 1 DROP BOTH EYES AT BEDTIME Bisoprolol Fumarate 5MG Oral Tablet 03/02/2022 11/05/19 25 ORAL DAILY 1 TABLE T 303192 RxNorm TAKE 1 TABLET ORAL DAILY Lasix 20MG Oral Tablet 03/02/2022 Unknown ORAL DAILY 1 TABLE T 368142 RxNorm TAKE 1 TABLET ORAL DAILY Protonix 40 MG Oral Tablet, Delayed Release 03/02/2022 Unknown ORAL DAILY 1 TABLE T 606507 RxNorm TAKE 1 TABLET ORAL DAILY Lipitor 20MG Oral Tablet 03/02/2022 11/05/19 25 ORAL AT BEDTIME 1 TABLE T 732681 RxNorm TAKE 1 TABLET ORAL AT BEDTIME Vitamin D 5000 IU Oral Tablet 03/02/2022 11/05/19 25 ORAL DAILY 1 TABLE T 744958 RxNorm TAKE 1 TABLET ORAL DAILY Timolol Maleate 0.5% Ophthalmic Solution 03/02/2022 Unknown BOTH EYES AT BEDTIME 1 DROP 7167057 RxNorm 1 DROP BOTH EYES AT BEDTIME Nurtec ODT 75 MG Oral Tablet, Disintegratin g 03/02/2022 Unknown ORAL NEEDED DAILY 1 TABLE T 0394864 RxNorm TAKE 1 TABLET ORAL NEEDED DAILY ZyrTEC 10MG Oral Tablet 10/01/2023 11/05/19 25 ORAL DAILY 1 TABLE T RxNorm TAKE 1 TABLET ORAL DAILY Trileptal 150MG Oral Tablet 10/18/2023 11/05/19 25 ORAL TWICE A DAY 1 TABLE T 973613 RxNorm TAKE 1 TABLET ORAL TWICE A DAY amLODIPine Besylate 5MG Oral Tablet 10/18/2023 11/05/19 25 ORAL DAILY 1 TABLE T 255377 RxNorm TAKE 1 TABLET ORAL DAILY traZODone hydrochloride 100MG Oral Tablet 10/18/2023 11/05/19 25 ORAL AT BEDTIME 1 TABLE T 963591 RxNorm TAKE 1 TABLET ORAL AT BEDTIME Zofran 4MG Oral Tablet 07/24/2024 11/05/19 25 ORAL NEEDED EVERY 8 HOURS 1 TABLE T 826730 RxNorm TAKE 1 TABLET ORAL NEEDED EVERY 8 HOURS Atorvastatin Calcium 40MG Oral Tablet 11/04/2024 Unknown ORAL DAILY 1 TABLE T 605518 RxNorm TAKE 1 TABLET ORAL DAILY Baclofen 5MG Oral Tablet 11/04/2024 Unknown ORAL NEEDED EVERY 8 HOURS 1 TABLE T 433049 RxNorm TAKE 1 TABLET ORAL NEEDED EVERY 8 HOURS Cyproheptadin e HCl 4MG Oral Tablet 11/04/2024 Unknown ORAL AT BEDTIME 1 TABLE T 825000 RxNorm TAKE 1 TABLET ORAL AT BEDTIME Fosamax 10MG Oral Tablet 11/04/2024 Unknown ORAL DAILY 1 TABLE T RxNorm TAKE 1 TABLET ORAL DAILY Linzess 145MCG Oral Capsule 11/04/2024 Unknown ORAL DAILY 1 CAPSU LE 1555036 RxNorm TAKE 1 CAPSULE ORAL DAILY OXcarbazepine 300MG Oral Tablet 11/04/2024 Unknown ORAL TWICE A DAY 1 TABLE T 905718 RxNorm TAKE 1 TABLET ORAL TWICE A DAY Wellbutrin SR 150MG Oral Tablet, Extended Release, 12 HR 11/04/2024 11/05/19 25 ORAL DAILY 1 TABLE T 733897 RxNorm TAKE 1 TABLET ORAL DAILY hydrOXYzine HCl 10MG Oral Tablet 11/04/2024 Unknown ORAL NEEDED EVERY 8 HOURS 1 TABLE T 605582 RxNorm TAKE 1 TABLET ORAL NEEDED EVERY 8 HOURS HYDROcodone bitartrate-ac etaminophen 10MG-325MG Oral Tablet 11/04/2024 Unknown ORAL NEEDED EVERY 6 HOURS 1 TABLE T 713501 RxNorm TAKE 1 TABLET ORAL NEEDED EVERY 6 HOURS predniSONE 20MG Oral Tablet 11/04/2024 12/10/19 25 ORAL TWICE A DAY 1 TABLE T 813710 RxNorm TAKE 1 TABLET ORAL TWICE A DAY FOR 5 DAYS Meloxicam 15MG Oral Tablet 11/04/2024 06/09/20 25 ORAL DAILY 1 TABLE T 746363 RxNorm TAKE 1 TABLET ORAL DAILY Remeron 30MG Oral Tablet 11/04/2024 Unknown ORAL AT BEDTIME 1 TABLE T 524646 RxNorm TAKE 1 TABLET ORAL AT BEDTIME Elavil 25MG Oral Tablet 11/04/2024 Unknown ORAL AT BEDTIME 1 TABLE T 987852 RxNorm TAKE 1 TABLET ORAL AT BEDTIME Augmentin 875MG-125MG Oral Tablet 12/09/2024 12/19/19 25 ORAL TWICE A DAY 1 TABLE T 732283 RxNorm TAKE 1 TABLET ORAL TWICE A DAY Cymbalta 20MG Oral Capsule, Delayed Release 12/09/[address] [facility] 675086 RxNorm TAKE 1 CAPSULE ORAL DAILY Meloxicam 15MG Oral Tablet 01/25/2025 Unknown ORAL DAILY 1 TABLE T 815349 RxNorm take 1 tablet by mouth daily. Assessment You had the following problems:ESSENTIAL HYPERTENSIONINSOMNIACHRONIC BACK PAINDEPRESSIVE DISORDERCHRONIC HEADACHE DISORDERBIPOLAR DISORDERMIGRAINECADCKDURIFAMILY GRIEVINGANXIETYHYPERLIPIDEMIA Hospital Discharge Instructions Should you have any questions prior to discharge, please contact a member of your healthcare team. If you have left the hospital and have any questions, please contact your primary care physician. Reason For Referral No Data Found Procedures Procedure Name Date Status Code Code Syste m Cataract extraction completed [id number] SNOME DCT Cataract extraction completed [id number] SNOME DCT Tobacco abuse prevention education completed 4 [id number] SNOMEDCT Problems Problem Start Date Resolved Date Status Code Code System ESSENTIAL HYPERTENSION active 7126158 0 SNOMED-CT INSOMNIA active 951398626 SNOMED-CT CHRONIC BACK PAIN active 251954089 SN OMED-CT DEPRESSIVE DISORDER active 31810125 SNOMED-CT CHRONIC HEADACHE DISORDER active 1342 04606 SNOMED-CT BIPOLAR DISORDER active 88461601 SNO MED-CT MIGRAINE active 56474577 SNOMED-CT CAD active 21073075 SNOMED-CT CKD active 343787019 SNOMED-CT URI active 33409725 SNOMED-CT FAMILY GRIEVING active 388199746 SNOM ED-CT ANXIETY active 96314604 SNOMED-CT HYPERLIPIDEMIA active 88652331 SNOME D-CT FACIAL INJURY 05/20/2024 resolved 043838265 SNOME D-CT RLQ PAIN 12/09/2024 resolved 787987656 SNOMED-CT DYSURIA 12/09/2024 resolved 33376978 SNOMED-CT FALL 05/20/2024 resolved 4985854 SNOMED-CT ABDOMINAL PAIN 12/09/2024 resolved 81423511 SNOM ED-CT HEMATURIA 12/09/2024 resolved 99323735 SNOMED-CT HIDRADENITIS SUPPURATIVA 05/20/2024 resolved 5939 3003 SNOMED-CT FALLING 08/28/2022 resolved 998691508 SNOMED-CT DISLOCATION OF TOE JOINT 10/18/2023 resolved 2630 14394 SNOMED-CT Allergies and Adverse Reactions Allergy Substance Reaction Severity Start Date Concern Status Co de Code System LISINOPRIL Cough (SNOMED-CT: 93934931) Moderate Active 75153 RxNorm LAMOTRIGINE Active 43016 RxNorm Plan of Treatment CT FACIAL-SINUS WO CONTRAST 05/14/2024 MAMMO SCREEN 06/10/2024 CT ABDOMEN - PELVIS WO CONTRAST 025 Personal Care Team Section Progress Notes [facility] PRACT 11/05/2024 15:05 Patient Name: SIMRAN BILL, : 1970, Age: 54 years 11/04/2024 11:02 Chief Complaint: NEW: PT C/O UTI OR KIDNEY STONE WITH LOWER ABDOMEN PAIN AND LBP ONSET 2-3 WEEKS, C/O DEPRESSION SINCE PASSED. History of Present Illness Patient presents for lower abdominal pain and possible kidney stone of which she has a history. Increased low back pain x 3 weeks. Her in August. Past Medical/Surgical/Family/Social History Past Medical History: All [...] Active Dysuria R30.0 Active CKD N18.2 Active Past Surgical History: Surgery List History of cholecystectomy, Cataract extraction, Tobacco abuse prevention education, History of appendectomy, Laminotomy, History of section, section, Cataract extraction, Hysterectomy, Past Family History: Family History List FH: Congenital heart disease, BROTHER Family history of cancer, FATHER FH: Hypertension, MOTHER Smoking Status: Never chewed tobacco, Cessation Education: How to Stop Smoking - Completed Smoking Status: Current every day smoker, Cessation Education: How to Stop Smoking - Completed Allergy List LISINOPRIL, Medication Home Meds: Dose and Freq Medication Dosage Frequency Latanoprost 0.005% Ophthalmic Solution 1 DROP AT BEDTIME Lasix 20MG Oral Tablet 1 TABLET DAILY Protonix 40 MG Oral Tablet, Delayed Release 1 TABLET DAILY Timolol Maleate 0.5% Ophthalmic Solution 1 DROP AT BEDTIME Nurtec ODT 75 MG Oral Tablet, Disintegrating 1 TABLET NEEDED DAILY Cyproheptadine HCl 4MG Oral Tablet 1 TABLET AT BEDTIME Ajovy 225MG/1.5ML Subcutaneous Solution 1 Unit MONTHLY Baclofen 5MG Oral Tablet 1 TABLET NEEDED EVERY 8 HOURS Atorvastatin Calcium 40MG Oral Tablet 1 TABLET DAILY Fosamax 10MG Oral Tablet 1 TABLET DAILY Wellbutrin SR 150MG Oral Tablet, Extended Release, 12 HR 1 TABLET DAILY hydrOXYzine HCl 10MG Oral Tablet 1 TABLET NEEDED EVERY 8 HOURS Linzess 145MCG Oral Capsule 1 CAPSULE DAILY OXcarbazepine 300MG Oral Tablet 1 TABLET TWICE A DAY traZODone hydrochloride 100MG Oral Tablet 1 TABLET AT BEDTIME Review [...] chest pain, Denies edema, Denies palpitations. Gastrointestinal: Positive abdominal pain, Denies blood in stools, Denies constipation, Denies diarrhea, Denies heartburn, Denies loss of appetite, Denies nausea, Denies vomiting. Genitourinary: Positive dysuria, Denies hematuria, Denies urinary frequency, Denies urinary incontinence, Denies urinary retention. Skin: Denies hair loss Denies hives, Denies rash, Denies skin lesion. Neurological: Denies dizziness, Denies extremity numbness, Denies extremity weakness, Denies gait disturbance, Denies headache, Denies memory impairment, Denies seizures, Denies tremors Psychiatric: Denies anxiety, Positive depression, Positive insomnia Metabolic / Endocrine: denies cold intolerance, Denies heat intolerance, Denies polydipsia, Denies polyphagia. Musculoskeletal: Positive backpain, Denies joint pain, Denies joint swelling, [...] (lbs/ozs) Scale BMI BSA Head Cir (cm) 11/04/2024 10:31 122/80 Standing/Right Arm 94 73 Pulse Ox 18 36.2 Temporal 97.1 Temporal 98 % Room Air 21% 9 160 cm 63 in 59.69 kg 131.10 Floor Scale 23.31 1.63 General: Awake, alert and oriented. No acute distress. Well developed, hydrated and nourished. Appears stated age. Skin: Skin in warm, dry and intact without rashes or lesions. Cardiac: Heart rate and rhythm are normal. [...] No masses, hepatomegaly, or splenomegaly are noted. Back: Tenderness to palpation lumbar spine no CVA tenderness Psychiatric: Appropriate mood and affect. Good judgement and insight. No visual or auditory hallucinations. No suicidal or homicidal ideation. Assessment Treated This Visit: Insomnia G4700 Depressive disorder F32A Abdominal pain R109 Hematuria R319 Plan REFERRAL: CT abd/pelvis renal stone protocol Elavil 25 mg 1 p.o. at bedtime Prednisone 20 mg 1 p.o. twice daily for 5 days Mobic 15 mg 1 p.o. daily Remeron 30 mg p.o. nightly Lab Results: Last 4 Hours Test Results Units Reference Range Ordered Collected Status .SOURCE CLEAN CATCH NORMAL: CLEAN CATCH 11/04/2024 10:57 11/04/2024 10:50 final .COLOR LT YELLOW NORMAL: YELLOW 11/04/2024 10:57 11/04/2024 10:50 final .CLARITY CLOUDY A NORMAL: CLEAR 11/04/2024 10:57 11/04/2024 10:50 final .GLUCOSE NEGATIVE NORMAL: NEGATIVE 11/04/2024 10:57 11/04/2024 10:50 final .BILIRUBIN SMALL___ A NORMAL: NEGATIVE 11/04/2024 10:57 11/04/2024 10:50 final .KETONES NEGATIVE NORMAL: NEGATIVE 11/04/2024 10:57 11/04/2024 10:50 final .SPEC GRAV 1.020 A NORMAL: 1.005-1.015 11/04/2024 10:57 11/04/2024 10:50 final .BLOOD SMALL HEMO____ A NORMAL: NEGATIVE 11/04/2024 10:57 11/04/2024 10:50 final .PH 6.5_ NORMAL: 5.0-8.0 11/04/2024 10:57 11/04/2024 10:50 final .PROTEIN 30+ A NORMAL: NEGATIVE 11/04/2024 10:57 11/04/2024 10:50 final .UROBILINOGEN 0.2 NORMAL: 0.2-2.0 11/04/2024 10:57 11/04/2024 10:50 final .NITRATE NEGATIVE NORMAL: NEGATIVE 11/04/2024 10:57 11/04/2024 10:50 final .LEUKOCYTES NEGATIVE__ NORMAL: NEGATIVE 11/04/2024 10:57 11/04/2024 10:50 final Ordered & Completed Meds Table: No Current Medications Available New Rx This Visit Atorvastatin Calcium 40MG Oral Tablet, 1 TABLET, ORAL, DAILY, 11/04/2024 Baclofen 5MG Oral Tablet, 1 TABLET, ORAL, NEEDED EVERY 8 HOURS, 11/04/2024 Cyproheptadine HCl 4MG Oral Tablet, 1 TABLET, ORAL, AT BEDTIME, 11/04/2024 Fosamax 10MG Oral Tablet, 1 TABLET, ORAL, DAILY, 11/04/2024 Linzess 145MCG Oral Capsule, 1 CAPSULE, ORAL, DAILY, 11/04/2024 OXcarbazepine 300MG Oral Tablet, 1 TABLET, ORAL, TWICE A DAY, 11/04/2024 Wellbutrin SR 150MG Oral Tablet, Extended Release, 12 HR, 1 TABLET, ORAL, DAILY, 11/04/2024 hydrOXYzine HCl 10MG Oral Tablet, 1 TABLET, ORAL, NEEDED EVERY 8 HOURS, 11/04/2024
--- OUTSIDE RECORDS SUMMARY | 2025-02-04 16:13 | XMS_ITS ---
Author Organization Unknown Address [address] [place] [address] Phone Care Team Providers Care Burr Picker Name Role Phone DORIS JACKSON Attending Unavailable NFD Primary Unavailable Immunization Immunization Date [...] em Smoking History Never smoker (Never Smoked) 435232454 SNOMED CT Smoking History Current every day smoker 212346262 SNOMED CT Sex Female Vital Signs Vital Sign Value Unit Evans Value Evans Unit Date/Time Recent/Initial? Code Code System Body Mass Index 28.35 kg/m2 10/01/2023 12:38 Initial 46579 -5 [facility] Systolic Blood Pressure 135 mm[Hg] 10/01/2023 12:38 Initial 8480- 6 [facility] Diastolic Blood Pressure 84 mm[Hg] 10/01/2023 12:38 Initial 8462- 4 [facility] Body Surface Area 1.75 m2 10/01/2023 12:38 Initial 3140- 1 [facility] Height 157.480 0 cm 62.00 in 10/01/2023 12:38 Initial 8302- 2 [facility] O2 Saturation 99 % 2023 12:38 Initial 26893 -5 [facility] Pulse 100.0 /min 10/01/2023 12:38 Initial 8867- 4 [facility] Respiration 24 /min 10/01/19 24 12:38 Initial 9279- 1 [facility] Temperature 36.4 Barbara 97.5 F 10/01/19 24 12:38 Initial 8310- 5 [facility] Weight 70.31 kg 155.00 lbs 10/01/2023 12:38 Initial 10339 -7 [facility] Medications Medication Start Date End Date Route Frequency Dose Code Code System Medication Instructions Home Meds amLODIPine Besylate 5MG Oral Tablet 03/02/2022 10/18/2023 ORAL DAILY 1 TABLET 573298 RxNorm TAKE 1 TABLET ORAL DAILY EC Naprosyn 375MG Oral Tablet, Enteric Coated 03/02/2022 10/18/2023 ORAL TWICE A DAY 1 TABLET 843657 RxNorm TAKE 1 TABLET ORAL TWICE A DAY with food KlonoPIN 0.5MG Oral Tablet 03/02/2022 10/18/2023 ORAL TWICE A DAY 1 TABLET 405675 RxNorm TAKE 1 TABLET ORAL TWICE A DAY Ambien 5MG Oral Tablet 03/02/2022 10/18/2023 ORAL AT BEDTIME 1 TABLET 434327 RxNorm TAKE 1 TABLET ORAL AT BEDTIME oxyCODONE HCl-acetaminop hen 5MG-325MG Oral Tablet 03/02/2022 10/18/2023 ORAL THREE TIMES A DAY 1 TABLET 9716943 RxNorm TAKE 1 TABLET ORAL THREE TIMES A DAY Butalbital-Francisco Javier taminophen-Caf feine 76LM-047EP-11K G Oral Tablet 03/02/2022 10/18/2023 ORAL TWICE A DAY 1 TABLET 647921 RxNorm TAKE 1 TABLET ORAL TWICE A DAY Amitriptyline 25MG Oral Tablet 03/02/2022 10/18/2023 ORAL DAILY 1 TABLET 314597 RxNorm TAKE 1 TABLET ORAL DAILY Ajovy 225MG/1.5ML Subcutaneous Solution 03/02/2022 Unknown SUBCUTAN EOUS MONTHLY 1 Unit RxNorm INJECT 1 Unit SUBCUTANE OUS MONTHLY Latanoprost 0.005% Ophthalmic Solution 03/02/2022 Unknown BOTH EYES AT BEDTIME 1 DROP 014952 RxNorm 1 DROP BOTH EYES AT BEDTIME Bisoprolol Fumarate 5MG Oral Tablet 03/02/2022 11/04/2024 ORAL DAILY 1 TABLET 137791 RxNorm TAKE 1 TABLET ORAL DAILY Lasix 20MG Oral Tablet 03/02/2022 Unknown ORAL DAILY 1 TABLET 861891 RxNorm TAKE 1 TABLET ORAL DAILY Protonix 40 MG Oral Tablet, Delayed Release 03/02/2022 Unknown ORAL DAILY 1 TABLET 683708 RxNorm TAKE 1 TABLET ORAL DAILY Lipitor 20MG Oral Tablet 03/02/2022 11/04/2024 ORAL AT BEDTIME 1 TABLET 854100 RxNorm TAKE 1 TABLET ORAL AT BEDTIME Vitamin D 5000 IU Oral Tablet 03/02/2022 11/04/2024 ORAL DAILY 1 TABLET 371900 RxNorm TA KE 1 TABLET ORAL DAILY Timolol Maleate 0.5% Ophthalmic Solution 03/02/2022 Unknown BOTH EYES AT BEDTIME 1 DROP 3577421 RxNorm 1 DROP BOTH EYES AT BEDTIME Nurtec ODT 75 MG Oral Tablet, Disintegrating 03/02/2022 Unknown ORAL NEEDED DAILY 1 TABLET 5148371 RxNorm TAKE 1 TABLET ORAL NEEDED DAILY Prolia 60MG/1ML Subcutaneous Solution 03/02/2022 10/18/2023 SUBCUTAN EOUS every 6 months 1 Unit 574032 RxNorm INJECT 1 Unit SUBCUTANE OUS every 6 months Cyclobenzaprin e HCl 5MG Oral Tablet 04/27/2022 10/18/2023 ORAL NEEDED DAILY 1 TABLET 185885 RxNorm TAKE 1 TABLET ORAL NEEDED DAILY CeleXA 10MG Oral Tablet 05/21/2022 10/18/2023 ORAL DAILY 1 TABLET 884452 RxNorm TAKE 1 TABLET ORAL DAILY Zanaflex 2MG Oral Tablet 06/28/2022 10/18/2023 ORAL DAILY 1 TABLET 087455 RxNorm TAKE 1 TABLET ORAL DAILY Penicillin VK 500MG Oral Tablet 08/28/2022 10/18/2023 ORAL FOUR TIMES A DAY 1 TABLET 347499 RxNorm TAKE 1 TABLET ORAL FOUR TIMES A DAY Medrol Dosepak 4MG Oral Tablet 10/01/2023 10/18/2023 ORAL DAILY 1 TABLET 134525 RxNorm TAKE PER PACKAGE DIRECTION S ZyrTEC 10MG Oral Tablet 10/01/2023 10/01/2023 ORAL DAILY 1 TABLET RxNorm TAKE 1 TABLET ORAL DAILY Medrol Dosepak 4MG Oral Tablet 10/01/2023 10/01/2023 ORAL DAILY 1 TABLET 741687 RxNorm TAKE PER PACKAGE DIRECTION S ZyrTEC 10MG Oral Tablet 10/01/2023 11/04/2024 ORAL DAILY 1 TABLET RxNorm TAKE 1 TABLET ORAL DAILY Trileptal 150MG Oral Tablet 10/18/2023 11/04/2024 ORAL TWICE A DAY 1 TABLET 402916 RxNorm TAKE 1 TABLET ORAL TWICE A DAY Bactrim DS 800MG-160MG Oral Tablet 10/18/2023 10/28/2023 ORAL EVERY 12 HOURS 1 TABLET 240383 RxNorm TAKE 1 TABLET ORAL EVERY 12 HOURS FOR 10 DAYS Mupirocin 2% Topical application Ointment 10/18/2023 10/25/2023 TOPICAL APPLICAT ION THREE TIMES A DAY 1 APPLICATI ON 330634 RxNorm APPLY TO AFFECTED AREA THREE TIMES A DAY FOR 7 DAYS amLODIPine Besylate 5MG Oral Tablet 10/18/2023 11/04/2024 ORAL DAILY 1 TABLET 983999 RxNorm TAKE 1 TABLET ORAL DAILY traZODone hydrochloride 100MG Oral Tablet 10/18/2023 11/04/2024 ORAL AT BEDTIME 1 TABLET 164236 RxNorm TAKE 1 TABLET ORAL AT BEDTIME Macrobid 100MG Oral Capsule 05/21/2024 06/08/2024 ORAL TWICE A DAY 1 CAPSULE 889548 RxNorm TAKE 1 CAPSULE ORAL TWICE A DAY Zofran 4MG Oral Tablet 05/21/2024 07/27/2024 ORAL NEEDED EVERY 8 HOURS 1 TABLET 835205 RxNorm TAKE 1 TABLET ORAL NEEDED EVERY 8 HOURS Cipro 500MG Oral Tablet 06/08/2024 06/14/2024 ORAL TWICE A DAY 1 TABLET 580213 RxNorm TAKE 1 TABLET ORAL TWICE A DAY metroNIDAZOLE 500MG Oral Tablet 06/08/2024 06/14/2024 ORAL THREE TIMES A DAY 1 TABLET 342648 RxNorm TAKE 1 TABLET ORAL THREE TIMES A DAY Zofran 4MG Oral Tablet 07/24/2024 11/04/2024 ORAL NEEDED EVERY 8 HOURS 1 TABLET 149179 RxNorm TAKE 1 TABLET ORAL NEEDED EVERY 8 HOURS Atorvastatin Calcium 40MG Oral Tablet 11/04/2024 Unknown ORAL DAILY 1 TABLET 701107 RxNorm TAKE 1 TABLET ORAL DAILY Baclofen 5MG Oral Tablet 11/04/2024 Unknown ORAL NEEDED EVERY 8 HOURS 1 TABLET 360264 RxNorm TAKE 1 TABLET ORAL NEEDED EVERY 8 HOURS Cyproheptadine HCl 4MG Oral Tablet 11/04/2024 Unknown ORAL AT BEDTIME 1 TABLET 909664 RxNorm TAKE 1 TABLET ORAL AT BEDTIME Fosamax 10MG Oral Tablet 11/04/2024 Unknown ORAL DAILY 1 TABLET RxNorm TAKE 1 TABLET ORAL DAILY Linzess 145MCG Oral Capsule 11/04/2024 Unknown ORAL DAILY 1 CAPSULE 5290922 RxNorm TAKE 1 CAPSULE ORAL DAILY OXcarbazepine 300MG Oral Tablet 11/04/2024 Unknown ORAL TWICE A DAY 1 TABLET 853203 RxNorm TAKE 1 TABLET ORAL TWICE A DAY Wellbutrin SR 150MG Oral Tablet, Extended Release, 12 HR 11/04/2024 11/04/2024 ORAL DAILY 1 TABLET 716739 RxNorm TA KE 1 TABLET ORAL DAILY hydrOXYzine HCl 10MG Oral Tablet 11/04/2024 Unknown ORAL NEEDED EVERY 8 HOURS 1 TABLET 536057 RxNorm TAKE 1 TABLET ORAL NEEDED EVERY 8 HOURS HYDROcodone bitartrate-francisco javier taminophen 10MG-325MG Oral Tablet 11/04/2024 Unknown ORAL NEEDED EVERY 6 HOURS 1 TABLET 666406 RxNorm TAKE 1 TABLET ORAL NEEDED EVERY 6 HOURS predniSONE 20MG Oral Tablet 11/04/2024 12/09/2024 ORAL TWICE A DAY 1 TABLET 380250 RxNorm TAKE 1 TABLET ORAL TWICE A DAY FOR 5 DAYS Meloxicam 15MG Oral Tablet 11/04/2024 01/25/2025 ORAL DAILY 1 TABLET 732226 RxNorm TAKE 1 TABLET ORAL DAILY Remeron 30MG Oral Tablet 11/04/2024 Unknown ORAL AT BEDTIME 1 TABLET 459904 RxNorm TAKE 1 TABLET ORAL AT BEDTIME Elavil 25MG Oral Tablet 11/04/2024 Unknown ORAL AT BEDTIME 1 TABLET 869546 RxNorm TAKE 1 TABLET ORAL AT BEDTIME Augmentin 875MG-125MG Oral Tablet 12/09/2024 12/18/2024 ORAL TWICE A DAY 1 TABLET 970503 RxNorm TAKE 1 TABLET ORAL TWICE A DAY Cymbalta 20MG Oral Capsule, Delayed Release 12/09/2024 Unknown ORAL DAILY 1 CAPSULE 302369 RxNorm TAKE 1 CAPSULE ORAL DAILY Meloxicam 15MG Oral Tablet 01/25/2025 Unknown ORAL DAILY 1 TABLET 967775 RxNorm take 1 tablet by mouth daily. [...] Status Code Code System ESSENTIAL HYPERTENSION active 1805344 0 SNOMED-CT INSOMNIA active 316373935 SNOMED-CT CHRONIC BACK PAIN active 368604250 SN OMED-CT DEPRESSIVE DISORDER active 70138103 SNOMED-CT CHRONIC HEADACHE DISORDER active 4312 15788 SNOMED-CT BIPOLAR DISORDER active 22357554 SNO MED-CT MIGRAINE active 61558694 SNOMED-CT CAD active 63107673 SNOMED-CT CKD active 042185291 SNOMED-CT URI active 02676335 SNOMED-CT FAMILY GRIEVING active 650610276 SNOM ED-CT ANXIETY active 49960442 SNOMED-CT HYPERLIPIDEMIA active 00457579 SNOME D-CT FACIAL INJURY 05/20/2024 resolved 967774581 SNOME D-CT RLQ PAIN 12/09/2024 resolved 537650456 SNOMED-CT DYSURIA 12/09/2024 resolved 96342573 SNOMED-CT FALL 05/20/2024 resolved 0533261 SNOMED-CT ABDOMINAL PAIN 12/09/2024 resolved 15668174 SNOM ED-CT HEMATURIA 12/09/2024 resolved 72661939 SNOMED-CT HIDRADENITIS SUPPURATIVA 05/20/2024 resolved 5939 3003 SNOMED-CT FALLING 08/28/2022 resolved 593336772 SNOMED-CT DISLOCATION OF TOE JOINT 10/18/2023 resolved 2637 97309 SNOMED-CT Allergies and Adverse Reactions Allergy Substance Reaction Severity Start Date Concern Status Co de Code System LISINOPRIL Cough (SNOMED-CT: 72915404) Moderate Active 81661 RxNorm LAMOTRIGINE Active 01702 RxNorm Plan of Treatment CT FACIAL-SINUS WO CONTRAST 05/14/2024 MAMMO SCREEN 06/10/2024 CT ABDOMEN - PELVIS WO CONTRAST 025 Encounters Encounter Diagnosis Start Date Code Code Sys tem Dyspnea 10/01/2023 [id number] SNOMED-CT Personal Care Team Section
--- OUTSIDE RECORDS SUMMARY | 2025-02-04 16:13 | XMS_ITS ---
Author Organization Unknown Address [address] [place] [address] Phone Care Team Providers Care Candle Maker Name Role Phone ZIGGY ROMAN Registered Nurse Unavailable AUGUSTIN REYNOLDS Attending Unavailable AUG MARC WING Unavailable ELIOT Trujillo Primary Unavailable Immunization Immunization Date Status Additional [...] em Smoking History Never smoker (Never Smoked) 819836241 SNOMED CT Smoking History Current every day smoker 735752645 SNOMED CT Sex Female Vital Signs Vital Sign Value Unit [place] Value [place] Unit Date/Time Recent/Initial? Code Code System Body Mass Index 21.26 kg/m2 12/09/2024 14:03 Initial 70006 -5 LOINC Systolic Blood Pressure 170 mm[Hg] 12/09/2024 14:03 Initial 8480- 6 LOINC Diastolic Blood Pressure 90 mm[Hg] 12/09/2024 14:03 Initial 8462- 4 LOINC Body Surface Area 1.56 m2 12/09/2024 14:03 Initial 3140- 1 LOINC Height 160.020 0 cm 63.00 in 12/09/2024 14:03 Initial 8302- 2 LOINC Pulse 100.0 /min 12/09/2024 14:03 Initial 8867- 4 LOINC Respiration 20 /min 12/10/19 14:03 Initial 9279- 1 LOINC Temperature 36.4 Barbara 97.6 F 12/10/19 14:03 Initial 8310- 5 LOINC Weight 54.43 kg 120.00 lbs 12/09/2024 14:03 Initial 94762 -7 [facility] Medications Medication Start Date End Date Route Frequency Dose Code Code System Medication Instructions Home Meds Ajovy 225MG/1.5ML Subcutaneous Solution 03/02/2022 Unknown SUBCUTANEOUS MONTHLY 1 Unit RxNorm INJECT 1 Unit SUBCUTANEOUS MONTHLY Latanoprost 0.005% Ophthalmic Solution 03/02/2022 Unknown BOTH EYES AT BEDTIME 1 DROP 825960 RxNorm 1 DROP BOTH EYES AT BEDTIME Lasix 20MG Oral Tablet 03/02/2022 Unknown ORAL DAILY 1 TABLE T RxNorm TAKE 1 TABLET ORAL DAILY Protonix 40 MG Oral Tablet, Delayed Release 03/02/2022 Unknown ORAL DAILY 1 TABLE T 241385 RxNorm TAKE 1 TABLET ORAL DAILY Timolol Maleate 0.5% Ophthalmic Solution 03/02/2022 Unknown BOTH EYES AT BEDTIME 1 DROP 0117590 RxNorm 1 DROP BOTH EYES AT BEDTIME Nurtec ODT 75 MG Oral Tablet, Disintegratin g 03/02/2022 Unknown ORAL NEEDED DAILY 1 TABLE T 4098548 RxNorm TAKE 1 TABLET ORAL NEEDED DAILY Atorvastatin Calcium 40MG Oral Tablet 11/04/2024 Unknown ORAL DAILY 1 TABLE T 017592 RxNorm TAKE 1 TABLET ORAL DAILY Baclofen 5MG Oral Tablet 11/04/2024 Unknown ORAL NEEDED EVERY 8 HOURS 1 TABLE T 849404 RxNorm TAKE 1 TABLET ORAL NEEDED EVERY 8 HOURS Cyproheptadin e HCl 4MG Oral Tablet 11/04/2024 Unknown ORAL AT BEDTIME 1 TABLE T 159966 RxNorm TAKE 1 TABLET ORAL AT BEDTIME Fosamax 10MG Oral Tablet 11/04/2024 Unknown ORAL DAILY 1 TABLE T RxNorm TAKE 1 TABLET ORAL DAILY Linzess 145MCG Oral Capsule 11/04/2024 Unknown ORAL DAILY 1 CAPSU LE 2452203 RxNorm TAKE 1 CAPSULE ORAL DAILY OXcarbazepine 300MG Oral Tablet 11/04/2024 Unknown ORAL TWICE A DAY 1 TABLE T 429687 RxNorm TAKE 1 TABLET ORAL TWICE A DAY hydrOXYzine HCl 10MG Oral Tablet 11/04/2024 Unknown ORAL NEEDED EVERY 8 HOURS 1 TABLE T 683049 RxNorm TAKE 1 TABLET ORAL NEEDED EVERY 8 HOURS HYDROcodone bitartrate-ac etaminophen 10MG-325MG Oral Tablet 11/04/2024 Unknown ORAL NEEDED EVERY 6 HOURS 1 TABLE T 038143 RxNorm TAKE 1 TABLET ORAL NEEDED EVERY 6 HOURS predniSONE 20MG Oral Tablet 11/04/2024 12/10/19 25 ORAL TWICE A DAY 1 TABLE T 094817 RxNorm TAKE 1 TABLET ORAL TWICE A DAY FOR 5 DAYS Meloxicam 15MG Oral Tablet 11/04/2024 01/26/20 25 ORAL DAILY 1 TABLE T 449165 RxNorm TAKE 1 TABLET ORAL DAILY Remeron 30MG Oral Tablet 11/04/2024 Unknown ORAL AT BEDTIME 1 TABLE T 186325 RxNorm TAKE 1 TABLET ORAL AT BEDTIME Elavil 25MG Oral Tablet 11/04/2024 Unknown ORAL AT BEDTIME 1 TABLE T 111315 RxNorm TAKE 1 TABLET ORAL AT BEDTIME Augmentin 875MG-125MG Oral Tablet 12/09/2024 12/19/19 25 ORAL TWICE A DAY 1 TABLE T 502658 RxNorm TAKE 1 TABLET ORAL TWICE A DAY Cymbalta 20MG Oral Capsule, Delayed Release 12/09/2024 Unknown ORAL DAILY 1 LUZ PADILLA 721253 RxNorm TAKE 1 CAPSULE ORAL DAILY Meloxicam 15MG Oral Tablet 01/25/2025 Unknown ORAL DAILY 1 TABLE T 023937 RxNorm take 1 tablet by mouth daily. [...] Status Code Code System ESSENTIAL HYPERTENSION active 4077730 0 SNOMED-CT INSOMNIA active 597591259 SNOMED-CT CHRONIC BACK PAIN active 111177950 SN OMED-CT DEPRESSIVE DISORDER active 70970434 SNOMED-CT CHRONIC HEADACHE DISORDER active 4312 64501 SNOMED-CT BIPOLAR DISORDER active 15410787 SNO MED-CT MIGRAINE active 86342509 SNOMED-CT CAD active 76112831 SNOMED-CT CKD active 404764732 SNOMED-CT URI active 35983098 SNOMED-CT FAMILY GRIEVING active 375857959 SNOM ED-CT ANXIETY active 54459624 SNOMED-CT HYPERLIPIDEMIA active 98604024 SNOME D-CT FACIAL INJURY 05/20/2024 resolved 994051095 SNOME D-CT RLQ PAIN 12/09/2024 resolved 705857584 SNOMED-CT DYSURIA 12/09/2024 resolved 01403223 SNOMED-CT FALL 05/20/2024 resolved 8994810 SNOMED-CT ABDOMINAL PAIN 12/09/2024 resolved 73426856 SNOM ED-CT HEMATURIA 12/09/2024 resolved 66348100 SNOMED-CT HIDRADENITIS SUPPURATIVA 05/20/2024 resolved 5939 3003 SNOMED-CT FALLING 08/28/2022 resolved 697260238 SNOMED-CT DISLOCATION OF TOE JOINT 10/18/2023 resolved 9262 55526 SNOMED-CT Allergies and Adverse Reactions Allergy Substance Reaction Severity Start Date Concern Status Co de Code System LISINOPRIL Cough (SNOMED-CT: 82824605) Moderate Active 63840 RxNorm LAMOTRIGINE Active 86870 RxNorm Plan of Treatment CT FACIAL-SINUS WO CONTRAST 05/14/2024 MAMMO SCREEN 06/10/2024 CT ABDOMEN - PELVIS WO CONTRAST 025 Encounters Encounter Diagnosis Start Date Code Code Sys tem Essential hypertension 12/09/2024 77637919 SNOME D-CT Personal Care Team Section Progress Notes [facility] 12/09/2024 18:42 Patient Name: SIMRAN BILL, : 1970, Age: 54 years 12/09/2024 14:03 History of Present Illness Chief Complaint: c/o productive cough and sore throat with right ear pain 54-year-old white female with history of hypertension and hyperlipidemia. Patient complains of sore throat, cough, and right ear ache for 2-3 days. Patient lost her in the past 2 months. Past Medical/Surgical/Family/Social History Past Medical History: All Problems Problem ICD Code Onset Date Resolved Date Age Status Comment Essential hypertension I10 Active Insomnia G47.00 Active Chronic back pain M54.9 Active Depressive disorder F32.A Active Chronic headache disorder G44.89 Active Dislocation of toe joint S93.105A 10/18/2023 Historic Anxiety F41.9 Active Migraine G43.909 Active Falling R29.6 08/28/2022 Historic Hidradenitis suppurativa L73.2 05/20/2024 Historic Bipolar disorder F31.9 Active Fall W19.XXXA 05/20/2024 Historic Facial injury S09.93XA 05/20/2024 Historic CAD I25.10 Active RLQ pain R10.31 12/09/2024 Historic Dysuria R30.0 12/09/2024 Historic CKD N18.2 Active Abdominal pain R10.9 12/09/2024 Historic Hematuria R31.9 12/09/2024 Historic URI J06.9 Active Family grieving Z63.8 Active Hyperlipidemia E78.5 Active Past Surgical History: Surgery List History of cholecystectomy, History of appendectomy, Laminotomy, History of section, Cataract extraction, section, Tobacco abuse prevention education, Cataract extraction, Hysterectomy, Past Family History: Family History List FH: Congenital heart disease, BROTHER Family history of cancer, FATHER FH: Hypertension, MOTHER Smoking Status: Smoking Status: Current every day smoker, Cessation Education: Allergy List LISINOPRIL, Medication LAMOTRIGINE, Medication Home Meds: Dose and Freq Medication Dosage Frequency Ajovy 225MG/1.5ML Subcutaneous Solution 1 Unit MONTHLY Atorvastatin Calcium 40MG Oral Tablet 1 TABLET DAILY Baclofen 5MG Oral Tablet 1 TABLET NEEDED EVERY 8 HOURS Cyproheptadine HCl 4MG Oral Tablet 1 TABLET AT BEDTIME Elavil 25MG Oral Tablet 1 TABLET AT BEDTIME Fosamax 10MG Oral Tablet 1 TABLET DAILY HYDROcodone bitartrate-acetaminophen 10MG-325MG Oral Tablet 1 TABLET NEEDED EVERY 6 HOURS hydrOXYzine HCl 10MG Oral Tablet 1 TABLET NEEDED EVERY 8 HOURS Lasix 20MG Oral Tablet 1 TABLET DAILY Latanoprost 0.005% Ophthalmic Solution 1 DROP AT BEDTIME Linzess 145MCG Oral Capsule 1 CAPSULE DAILY Meloxicam 15MG Oral Tablet 1 TABLET DAILY Nurtec ODT 75 MG Oral Tablet, Disintegrating 1 TABLET NEEDED DAILY OXcarbazepine 300MG Oral Tablet 1 TABLET TWICE A DAY Protonix 40 MG Oral Tablet, Delayed Release 1 TABLET DAILY Remeron 30MG Oral Tablet 1 TABLET AT BEDTIME Timolol Maleate 0.5% Ophthalmic Solution 1 DROP AT BEDTIME Review of Systems Constitutional: Denies fever, Denies chills, Denies fatigue, Denies malaise Denies night sweats, Denies weight gain HEENT: Denies ear drainage, c/o ear pain, Denies eye discharge, Denies eye pain, Denies hearing loss, Denies nasal drainage, Denies sinus pressure, c/o sore throat, Denies visual changes Respiratory: c/o cough, Denies Shortness of breath, Denies wheezing [...] Denies seizures, Denies tremors Psychiatric: Denies anxiety, c/o depression, Denies insomnia Metabolic / Endocrine: Denies [...] (lbs/ozs) Scale BMI BSA Head Cir (cm) 12/09/2024 14:03 170/90 Sitting/Left Arm 117 100 Radial 20 36.4 Oral 97.6 Oral 0 160 cm 63 in 54.43 kg 120.0 Floor Scale 21.26 1.56 GENERAL: Well appearing and well nourished. In [...] person and situation Assessment Treated This Visit Essential hypertension, I10 Migraine, G43.909 URI, J06.9 Family grieving, Z63.8 Plan 1. Upper respiratory infection - Will prescribe Augmentin 875 mg twice daily for 10 days. 2. Migraine - Patient is on Ajovy. 3. Grievance - Start Cymbalta. 4. Hypertension - Patient to check blood pressure daily. Patient to return to clinic for follow-up in 4 weeks. Medications given this visit: New Prescriptions This Visit New Rx This Visit Augmentin 875MG-125MG Oral Tablet, 1 TABLET, ORAL, TWICE A DAY, 12/09/2024 Cymbalta 20MG Oral Capsule, Delayed Release, 1 CAPSULE, ORAL, DAILY, 12/09/2024 Portions of this note were transcribed by ronen Roman LPN. GAIL Hernandez personally performed the history, physical exam and medical decision making; and confirmed the accuracy of the information in the transcribed note
--- OUTSIDE RECORDS SUMMARY | 2025-02-04 16:14 | XMS_ITS ---
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 Date/Time: 05/19/2024 10:47 [facility] ID: [id number] [address] [place] [id number], [facility] LOINC: Test Value Unit Reference Range Code Code System Flag .SOURCE CLEAN CATCH NORMAL: CLEAN CATCH .COLOR LT YELLOW NORMAL: YELLOW .CLARITY CLEAR NORMAL: CLEAR .GLUCOSE NEGATIVE NORMAL: NEGATIVE .BILIRUBIN NEGATIVE NORMAL: NEGATIVE .KETONES NEGATIVE NORMAL: NEGATIVE .SPEC GRAV 1.010 NORMAL: 1.005-1.015 .BLOOD TRACE HEMO____ NORMAL: NEGATIVE A .PH 6.0_ NORMAL: 5.0-8.0 .PROTEIN NEGATIVE NORMAL: NEGATIVE .UROBILINOGEN 0.2 NORMAL: 0.2-2.0 .NITRATE NEGATIVE NORMAL: NEGATIVE .LEUKOCYTES NEGATIVE__ NORMAL: NEGATIVE Social History Type Status Start Date End Date Code Code Syst em Smoking History Never smoker (Never Smoked) 790531793 SNOMED CT Smoking History Current every day smoker 543525240 SNOMED CT Sex Female Vital Signs Vital Sign Value Unit [place] Value [place] Unit Date/Time Recent/Initial? Code Code System Body Mass Index 21.97 kg/m2 05/19/2024 10:40 Initial 96300 -5 LOINC Systolic Blood Pressure 160 mm[Hg] 05/19/2024 10:40 Initial 8480- 6 LOINC Diastolic Blood Pressure 102 mm[Hg] 05/19/2024 10:40 Initial 8462- 4 LOINC Body Surface Area 1.58 m2 05/19/2024 10:40 Initial 3140- 1 LOINC Height 160.020 0 cm 63.00 in 05/19/2024 10:40 Initial 8302- 2 LOINC Pulse 76.0 /min 05/19/2024 10:40 Initial 8867- 4 LOINC Respiration 20 /min 05/19/20 24 10:40 Initial 9279- 1 LOINC Temperature 36.8 Barbara 98.2 F 10/01/20 24 10:40 Initial 8310- 5 [facility] Weight 56.25 kg 124.00 lbs 05/19/2024 10:40 Initial 39480 -7 [facility] Medications Medication Start Date End Date Route Frequency Dose Code Code System Medication Instructions Home Meds Ajovy 225MG/1.5ML Subcutaneous Solution 03/02/2022 Unknown SUBCUTANEOUS MONTHLY 1 Unit RxNorm INJECT 1 Unit SUBCUTANEOUS MONTHLY Latanoprost 0.005% Ophthalmic Solution 03/02/2022 Unknown BOTH EYES AT BEDTIME 1 DROP 155381 RxNorm 1 DROP BOTH EYES AT BEDTIME Bisoprolol Fumarate 5MG Oral Tablet 03/02/2022 11/05/19 25 ORAL DAILY 1 TABLE T 657411 RxNorm TAKE 1 TABLET ORAL DAILY Lasix 20MG Oral Tablet 03/02/2022 Unknown ORAL DAILY 1 TABLE T 923062 RxNorm TAKE 1 TABLET ORAL DAILY Protonix 40 MG Oral Tablet, Delayed Release 03/02/2022 Unknown ORAL DAILY 1 TABLE T 622823 RxNorm TAKE 1 TABLET ORAL DAILY Lipitor 20MG Oral Tablet 03/02/2022 11/05/19 25 ORAL AT BEDTIME 1 TABLE T 454022 RxNorm TAKE 1 TABLET ORAL AT BEDTIME Vitamin D 5000 IU Oral Tablet 03/02/2022 11/05/19 25 ORAL DAILY 1 TABLE T 821138 RxNorm TAKE 1 TABLET ORAL DAILY Timolol Maleate 0.5% Ophthalmic Solution 03/02/2022 Unknown BOTH EYES AT BEDTIME 1 DROP 6641389 RxNorm 1 DROP BOTH EYES AT BEDTIME Nurtec ODT 75 MG Oral Tablet, Disintegratin g 03/02/2022 Unknown ORAL NEEDED DAILY 1 TABLE T 0560127 RxNorm TAKE 1 TABLET ORAL NEEDED DAILY ZyrTEC 10MG Oral Tablet 10/01/2023 11/05/19 25 ORAL DAILY 1 TABLE T RxNorm TAKE 1 TABLET ORAL DAILY Trileptal 150MG Oral Tablet 10/18/2023 11/05/19 25 ORAL TWICE A DAY 1 TABLE T 681468 RxNorm TAKE 1 TABLET ORAL TWICE A DAY amLODIPine Besylate 5MG Oral Tablet 10/18/2023 11/05/19 25 ORAL DAILY 1 TABLE T 236931 RxNorm TAKE 1 TABLET ORAL DAILY traZODone hydrochloride 100MG Oral Tablet 10/18/2023 11/05/19 25 ORAL AT BEDTIME 1 TABLE T 471847 RxNorm TAKE 1 TABLET ORAL AT BEDTIME Macrobid 100MG Oral Capsule 05/21/2024 06/08/20 24 ORAL TWICE A DAY 1 [facility] 128456 RxNorm TAKE 1 CAPSULE ORAL TWICE A DAY Zofran 4MG Oral Tablet 05/21/2024 07/27/20 24 ORAL NEEDED EVERY 8 HOURS 1 TABLE T 099477 RxNorm TAKE 1 TABLET ORAL NEEDED EVERY 8 HOURS Cipro 500MG Oral Tablet 06/08/2024 06/14/20 24 ORAL TWICE A DAY 1 TABLE T 057297 RxNorm TAKE 1 TABLET ORAL TWICE A DAY metroNIDAZOLE 500MG Oral Tablet 06/08/2024 06/14/20 24 ORAL THREE TIMES A DAY 1 TABLE T 178654 RxNorm TAKE 1 TABLET ORAL THREE TIMES A DAY Zofran 4MG Oral Tablet 07/24/2024 11/05/19 25 ORAL NEEDED EVERY 8 HOURS 1 TABLE T 276895 RxNorm TAKE 1 TABLET ORAL NEEDED EVERY 8 HOURS Atorvastatin Calcium 40MG Oral Tablet 11/04/2024 Unknown ORAL DAILY 1 TABLE T 596469 RxNorm TAKE 1 TABLET ORAL DAILY Baclofen 5MG Oral Tablet 11/04/2024 Unknown ORAL NEEDED EVERY 8 HOURS 1 TABLE T 011182 RxNorm TAKE 1 TABLET ORAL NEEDED EVERY 8 HOURS Cyproheptadin e HCl 4MG Oral Tablet 11/04/2024 Unknown ORAL AT BEDTIME 1 TABLE T 044529 RxNorm TAKE 1 TABLET ORAL AT BEDTIME Fosamax 10MG Oral Tablet 11/04/2024 Unknown ORAL DAILY 1 TABLE T RxNorm TAKE 1 TABLET ORAL DAILY Linzess 145MCG Oral Capsule 11/04/2024 Unknown [facility]AL DAILY 1 [facility] 1230608 RxNorm TAKE 1 CAPSULE ORAL DAILY OXcarbazepine 300MG Oral Tablet 11/04/2024 Unknown ORAL TWICE A DAY 1 TABLE T 357122 RxNorm TAKE 1 TABLET ORAL TWICE A DAY Wellbutrin SR 150MG Oral Tablet, Extended Release, 12 HR 11/04/2024 11/05/19 25 ORAL DAILY 1 TABLE T 414676 RxNorm TAKE 1 TABLET ORAL DAILY hydrOXYzine HCl 10MG Oral Tablet 11/04/2024 Unknown ORAL NEEDED EVERY 8 HOURS 1 TABLE T 485894 RxNorm TAKE 1 TABLET ORAL NEEDED EVERY 8 HOURS HYDROcodone bitartrate-ac etaminophen 10MG-325MG Oral Tablet 11/04/2024 Unknown ORAL NEEDED EVERY 6 HOURS 1 TABLE T 674070 RxNorm TAKE 1 TABLET ORAL NEEDED EVERY 6 HOURS predniSONE 20MG Oral Tablet 11/04/2024 12/10/19 25 ORAL TWICE A DAY 1 TABLE T 718487 RxNorm TAKE 1 TABLET ORAL TWICE A DAY FOR 5 DAYS Meloxicam 15MG Oral Tablet 11/04/2024 01/26/20 25 ORAL DAILY 1 TABLE T 141261 RxNorm TAKE 1 TABLET ORAL DAILY Remeron 30MG Oral Tablet 11/04/2024 Unknown ORAL AT BEDTIME 1 TABLE T 571336 RxNorm TAKE 1 TABLET ORAL AT BEDTIME Elavil 25MG Oral Tablet 11/04/2024 Unknown ORAL AT BEDTIME 1 TABLE T 711999 RxNorm TAKE 1 TABLET ORAL AT BEDTIME Augmentin 875MG-125MG Oral Tablet 12/09/2024 12/19/19 25 ORAL TWICE A DAY 1 TABLE T 368268 RxNorm TAKE 1 TABLET ORAL TWICE A DAY Cymbalta 20MG Oral Capsule, Delayed Release 12/09/[address] [facility] 461673 RxNorm TAKE 1 CAPSULE ORAL DAILY Meloxicam 15MG Oral Tablet 01/25/2025 Unknown ORAL DAILY 1 TABLE T 115856 RxNorm take 1 tablet by mouth daily. [...] Status Code Code System ESSENTIAL HYPERTENSION active 3509210 0 SNOMED-CT INSOMNIA active 826674386 SNOMED-CT CHRONIC BACK PAIN active 875354079 SN OMED-CT DEPRESSIVE DISORDER active 43521948 SNOMED-CT CHRONIC HEADACHE DISORDER active 1131 22945 SNOMED-CT BIPOLAR DISORDER active 00959300 SNO MED-CT MIGRAINE active 80925512 SNOMED-CT CAD active 18036260 SNOMED-CT CKD active 129413731 SNOMED-CT URI active 65494252 SNOMED-CT FAMILY GRIEVING active 130960285 SNOM ED-CT ANXIETY active 19986998 SNOMED-CT HYPERLIPIDEMIA active 85818583 SNOME D-CT FACIAL INJURY 05/20/2024 resolved 806228868 SNOME D-CT RLQ PAIN 12/09/2024 resolved 263726820 SNOMED-CT DYSURIA 12/09/2024 resolved 12063664 SNOMED-CT FALL 05/20/2024 resolved 7859798 SNOMED-CT ABDOMINAL PAIN 12/09/2024 resolved 50148649 SNOM ED-CT HEMATURIA 12/09/2024 resolved 92596714 SNOMED-CT HIDRADENITIS SUPPURATIVA 05/20/2024 resolved 5939 3003 SNOMED-CT FALLING 08/28/2022 resolved 750559494 SNOMED-CT DISLOCATION OF TOE JOINT 10/18/2023 resolved 2630 18188 SNOMED-CT Allergies and Adverse Reactions Allergy Substance Reaction Severity Start Date Concern Status Co de Code System LISINOPRIL Cough (SNOMED-CT: 54867554) Moderate Active 97167 RxNorm LAMOTRIGINE Active 41642 RxNorm Plan of Treatment CT FACIAL-SINUS WO CONTRAST 05/14/2024 MAMMO SCREEN 06/10/2024 CT ABDOMEN - PELVIS WO CONTRAST 025 Personal Care Team Section Progress Notes [facility] 05/20/2024 17:07 Patient Name: SIMRAN BILL, : 1970, Age: 53 years 05/19/2024 10:37 History of Present Illness Chief Complaint: c/o RLQ pain radiating into R) low back, urinary urgency, nausea x 4-5 days. 53-year-old white female complains of RLQ discomfort that radiates to the back. Positive nausea, no vomiting. Difficulty urinating. Past Medical/Surgical/Family/Social History Past Medical History: All [...] Falling R29.6 08/28/2022 Historic Hidradenitis suppurativa L73.2 Historic Bipolar disorder F31.9 Active Fall W19.XXXA Historic Facial injury S09.93XA Historic CAD I25.10 Active Past Surgical History: Surgery [...] diarrhea, Denies heartburn, Denies loss of appetite, c/o nausea, Denies vomiting Genitourinary: c/o dysuria, Denies hematuria, Denies urinary frequency, Denies [...] (lbs/ozs) Scale BMI BSA Head Cir (cm) 05/19/2024 10:40 160/102 Sitting/Left Arm 121 76 Radial 20 36.8 Oral 98.2 Oral 8 160 cm 63 in 56.25 kg 124.0 Floor Scale 21.97 1.58 GENERAL: Well appearing and well nourished. In [...] - Normal. Auscultation - Positive bowel sounds. RLQ abdominal tenderness EXTREMITIES: No edema PSYCHIATRIC: Orientation - Oriented to time, place, person and situation Assessment Treated This Visit RLQ pain, R10.31 Dysuria, R30.0 Plan 1. RLQ (pelvic) pain with difficulty urinating - Pain radiates to the back. Will schedule patient for CT of abdomen and pelvis. Lab Results: Last Week Test Results Units Reference Range Ordered Collected Status WBC 8.4 x10X3U/L L=4.0 H=10.0 05/19/2024 11:37 05/19/2024 11:37 final RBC 4.00 x10X6/UL L=3.93 H=5.22 05/19/2024 11:37 05/19/2024 11:37 final HEMOGLOBIN 12.7 g/dL L=11.2 H=15.7 05/19/2024 11:37 05/19/2024 11:37 final HEMATOCRIT 38.4 % L=34.1 H=44.9 05/19/2024 11:37 05/19/2024 11:37 final MCV 96.0 H fL L=79.4 H=94.8 05/19/2024 11:37 05/19/2024 11:37 final MCH 31.8 pg L=25.6 H=32.2 05/19/2024 11:37 05/19/2024 11:37 final MCHC 33.1 g/dL L=32.2 H=35.5 05/19/2024 11:37 05/19/2024 11:37 final RDW 14.5 H % L=11.7 H=14.4 05/19/2024 11:37 05/19/2024 11:37 final PLATELETS 398 H x10X3/UL L=182 H=369 05/19/2024 11:37 05/19/2024 11:37 final MPV 9.7 fL L=6.3 H=12.4 05/19/2024 11:37 05/19/2024 11:37 final %NEUT 48.9 % L=39.6 H=80.0 05/19/2024 11:37 05/19/2024 11:37 final %LYMPH 39.7 % L=19.3 H=53.1 05/19/2024 11:37 05/19/2024 11:37 final %MONO 7.7 % L=4.7 H=12.5 05/19/2024 11:37 05/19/2024 11:37 final %EOS 2.7 % L=1.7 H=7.0 05/19/2024 11:37 05/19/2024 11:37 final %BASO 0.9 % L=0.1 H=1.2 05/19/2024 11:37 05/19/2024 11:37 final %IG 0.1 % L=0.0 H=0.5 05/19/2024 11:37 05/19/2024 11:37 final #NEUT 4.1 x10X3/UL L=1.6 H=6.1 05/19/2024 11:37 05/19/2024 11:37 final #LYMPH 3.4 x10X3/UL L=1.2 H=3.7 05/19/2024 11:37 05/19/2024 11:37 final #MONO 0.7 x10X3/UL L=0.2 H=0.8 05/19/2024 11:37 05/19/2024 11:37 final #EOS 0.2 x10X3/UL L=0.0 H=0.5 05/19/2024 11:37 05/19/2024 11:37 final #BASO 0.08 x10X3/UL L=0.01 H=0.08 05/19/2024 11:37 05/19/2024 11:37 final #IG 0.01 x10X3/UL L=0.00 H=0.03 05/19/2024 11:37 05/19/2024 11:37 final MANUAL DIFF 05/19/2024 11:37 05/19/2024 11:37 final RBC MORPH 05/19/2024 11:37 05/19/2024 11:37 final AGE 53 yrs 05/19/2024 11:37 05/19/2024 11:37 final GLUCOSE 96 mg/dL L=70 H=99 05/19/2024 11:37 05/19/2024 11:37 final BUN 8 mg/dL L=7 H=18 05/19/2024 11:37 05/19/2024 11:37 final CREATININE. 1.01 mg/dL L=0.05 H=1.17 05/19/2024 11:37 05/19/2024 11:37 final GFR. 65.7 mL/min 05/19/2024 11:37 05/19/2024 11:37 final BUN/CREAT 8 05/19/2024 11:37 05/19/2024 11:37 final SODIUM 144 mEq/L L=136 H=145 05/19/2024 11:37 05/19/2024 11:37 final POTASSIUM 3.8 mEq/L L=3.5 H=5.1 05/19/2024 11:37 05/19/2024 11:37 final CHLORIDE 107 mEq/L L=98 H=107 05/19/2024 11:37 05/19/2024 11:37 final CO2 26 mEq/L L=21 H=32 05/19/2024 11:37 05/19/2024 11:37 final CALCIUM 9.5 mg/dL L=8.5 H=10.1 05/19/2024 11:37 05/19/2024 11:37 final TOTAL PROTEIN 7.2 g/dL L=6.4 H=8.2 05/19/2024 11:37 05/19/2024 11:37 final ALBUMIN 4.0 g/dL L=3.4 H=5.0 05/19/2024 11:37 05/19/2024 11:37 final GLOBULIN 3.2 g/dL L=1.5 H=4.5 05/19/2024 11:37 05/19/2024 11:37 final ANION GAP 15 L=5 H=18 05/19/2024 11:37 05/19/2024 11:37 final A/G RATIO 1.3 L=1.1 H=2.5 05/19/2024 11:37 05/19/2024 11:37 final TOTAL BILI 0.2 mg/dL L=0.2 H=1.0 05/19/2024 11:37 05/19/2024 11:37 final ALKALINE PHOS 158 H U/L L=46 H=116 05/19/2024 11:37 05/19/2024 11:37 final SGOT/AST 15 U/L L=15 H=37 05/19/2024 11:37 05/19/2024 11:37 final SGPT/ALT 21 U/L L=12 H=78 05/19/2024 11:37 05/19/2024 11:37 final .SOURCE CLEAN CATCH CLEAN CATCH NORMAL: CLEAN CATCH 05/19/2024 11:39 05/19/2024 10:47 final .COLOR LT YELLOW LT YELLOW NORMAL: YELLOW 05/19/2024 11:39 05/19/2024 10:47 final .CLARITY CLEAR CLEAR NORMAL: CLEAR 05/19/2024 11:39 05/19/2024 10:47 final .GLUCOSE NEGATIVE NEGATIVE NORMAL: NEGATIVE 05/19/2024 11:39 05/19/2024 10:47 final .BILIRUBIN NEGATIVE NEGATIVE NORMAL: NEGATIVE 05/19/2024 11:39 05/19/2024 10:47 final .KETONES NEGATIVE NEGATIVE NORMAL: NEGATIVE 05/19/2024 11:39 05/19/2024 10:47 final .SPEC GRAV 1.010 1.010 NORMAL: 1.005-1.015 05/19/2024 11:39 05/19/2024 10:47 final .BLOOD TRACE HEMO____ A TRACE HEMO____ NORMAL: NEGATIVE 05/19/2024 11:39 05/19/2024 10:47 final .PH 6.0_ 6.0_ NORMAL: 5.0-8.0 05/19/2024 11:39 05/19/2024 10:47 final .PROTEIN NEGATIVE NEGATIVE NORMAL: NEGATIVE 05/19/2024 11:39 05/19/2024 10:47 final .UROBILINOGEN 0.2 0.2 NORMAL: 0.2-2.0 05/19/2024 11:39 05/19/2024 10:47 final .NITRATE NEGATIVE NEGATIVE NORMAL: NEGATIVE 05/19/2024 11:39 05/19/2024 10:47 final .LEUKOCYTES NEGATIVE__ NEGATIVE__ NORMAL: NEGATIVE 05/19/2024 11:39 05/19/2024 10:47 final Medications given this visit: New Prescriptions This Visit Portions of this note were transcribed by ronen Roman LPN. GAIL Hernandez personally performed the history, physical exam and medical decision making; and confirmed the accuracy of the information in the transcribed note
--- OUTSIDE RECORDS SUMMARY | 2025-02-04 16:14 | XMS_ITS ---
Author Organization Unknown Address [address] [place] [address] Phone Care Team Providers Care Culture Manager Name Role Phone AUGUSTIN REYNOLDS Attending Unavailable Immunization Immunization Date Status Additional [...] mL 01/28/2024 Completed [address] FACIAL/SINUS W/O - Comple mj: 05/14/2024 10:12 LOINC: HX: Fall, facial injury. Axial images through the face were obtained and bone and soft tissue windows without IV contrast. Coronal and sagittal reformatted images were also obtained. No comparison. There is no acute facial bone fracture identified. The orbital diego and maxillary sinus diego appear intact. The zygomatic arches and mandible appear intact. The patient is edentulous. There is mild rightward deviation of the nasal septum. The bilateral maxillary sinus outflow tracts are patent. Mild right maxillary sinus mucosal thickening measuring up to 5 mm in thickness. There is some debris in the posterior right ethmoid sinus. The left maxillary sinus contains a 7 mm mucus retention cyst or polyp extending from the medial wall. The bilateral frontal, left ethmoid, and bilateral sphenoid sinuses are clear. The mastoids and middle ear cavities are unopacified. The tempo mandibular joints appear intact. Right facial 1.1 x 1 cm subcutaneous hematoma. The orbital structures appear unremarkable. Carotid artery calcifications are noted. Small bilateral cervical chain lymph nodes are noted. Tonsillar calcifications are noted. IMPRESSION: 1. No acute facial bone fracture identified. 2. Mild right maxillary and right ethmoid sinus disease. 3. Sub centimeter left maxillary sinus mucus retention cyst or polyp. 4. Right facial subcutaneous contusion/hematoma. Electronically Reviewed and Signed By NINO TAYLOR MD RADIOLOGIST 05/21/24 18:35 Dictating Initials: STD Transcribe Initials: 05/14/24 16:06 Transcribe Initials: AC Copy for: AUGUSTIN REYNOLDS via modem Social History Type Status Start Date End Date Code Code Syst em Smoking History Never smoker (Never Smoked) 399712593 SNOMED CT Smoking History Current every day smoker 905051218 SNOMED CT Sex Female Medications Medication Start Date End Date Route Frequency Dose Code Code System Medication Instructions Home Meds Ajovy 225MG/1.5ML Subcutaneous Solution 03/02/2022 Unknown SUBCUTANEOUS MONTHLY 1 Unit RxNorm INJECT 1 Unit SUBCUTANEOUS MONTHLY Latanoprost 0.005% Ophthalmic Solution 03/02/2022 Unknown BOTH EYES AT BEDTIME 1 DROP 048454 RxNorm 1 DROP BOTH EYES AT BEDTIME Bisoprolol Fumarate 5MG Oral Tablet 03/02/2022 11/05/19 25 ORAL DAILY 1 TABLE T 388262 RxNorm TAKE 1 TABLET ORAL DAILY Lasix 20MG Oral Tablet 03/02/2022 Unknown ORAL DAILY 1 TABLE T 259508 RxNorm TAKE 1 TABLET ORAL DAILY Protonix 40 MG Oral Tablet, Delayed Release 03/02/2022 Unknown ORAL DAILY 1 TABLE T 509294 RxNorm TAKE 1 TABLET ORAL DAILY Lipitor 20MG Oral Tablet 03/02/2022 11/05/19 25 ORAL AT BEDTIME 1 TABLE T 730978 RxNorm TAKE 1 TABLET ORAL AT BEDTIME Vitamin D 5000 IU Oral Tablet 03/02/2022 11/05/19 25 ORAL DAILY 1 TABLE T 055152 RxNorm TAKE 1 TABLET ORAL DAILY Timolol Maleate 0.5% Ophthalmic Solution 03/02/2022 Unknown BOTH EYES AT BEDTIME 1 DROP 4687481 RxNorm 1 DROP BOTH EYES AT BEDTIME Nurtec ODT 75 MG Oral Tablet, Disintegratin g 03/02/2022 Unknown ORAL NEEDED DAILY 1 TABLE T 3608774 RxNorm TAKE 1 TABLET ORAL NEEDED DAILY ZyrTEC 10MG Oral Tablet 10/01/2023 11/05/19 25 ORAL DAILY 1 TABLE T RxNorm TAKE 1 TABLET ORAL DAILY Trileptal 150MG Oral Tablet 10/18/2023 11/05/19 25 ORAL TWICE A DAY 1 TABLE T 142976 RxNorm TAKE 1 TABLET ORAL TWICE A DAY amLODIPine Besylate 5MG Oral Tablet 10/18/2023 11/05/19 25 ORAL DAILY 1 TABLE T 984607 RxNorm TAKE 1 TABLET ORAL DAILY traZODone hydrochloride 100MG Oral Tablet 10/18/2023 11/05/19 25 ORAL AT BEDTIME 1 TABLE T 493982 RxNorm TAKE 1 TABLET ORAL AT BEDTIME Macrobid 100MG Oral Capsule 05/21/2024 06/08/20 24 ORAL TWICE A DAY 1 [facility] 825868 RxNorm TAKE 1 CAPSULE ORAL TWICE A DAY Zofran 4MG Oral Tablet 05/21/2024 07/27/20 24 ORAL NEEDED EVERY 8 HOURS 1 TABLE T 607974 RxNorm TAKE 1 TABLET ORAL NEEDED EVERY 8 HOURS Cipro 500MG Oral Tablet 06/08/2024 06/14/20 24 ORAL TWICE A DAY 1 TABLE T 803102 RxNorm TAKE 1 TABLET ORAL TWICE A DAY metroNIDAZOLE 500MG Oral Tablet 06/08/2024 06/14/20 24 ORAL THREE TIMES A DAY 1 TABLE T 064771 RxNorm TAKE 1 TABLET ORAL THREE TIMES A DAY Zofran 4MG Oral Tablet 07/24/2024 11/05/19 25 ORAL NEEDED EVERY 8 HOURS 1 TABLE T 161678 RxNorm TAKE 1 TABLET ORAL NEEDED EVERY 8 HOURS Atorvastatin Calcium 40MG Oral Tablet 11/04/2024 Unknown ORAL DAILY 1 TABLE T 877863 RxNorm TAKE 1 TABLET ORAL DAILY Baclofen 5MG Oral Tablet 11/04/2024 Unknown ORAL NEEDED EVERY 8 HOURS 1 TABLE T 333738 RxNorm TAKE 1 TABLET ORAL NEEDED EVERY 8 HOURS Cyproheptadin e HCl 4MG Oral Tablet 11/04/2024 Unknown ORAL AT BEDTIME 1 TABLE T 583335 RxNorm TAKE 1 TABLET ORAL AT BEDTIME Fosamax 10MG Oral Tablet 11/04/2024 Unknown ORAL DAILY 1 TABLE T RxNorm TAKE 1 TABLET ORAL DAILY Linzess 145MCG Oral Capsule 11/04/[address] [facility] 138232[facility] RxNorm TAKE 1 CAPSULE ORAL DAILY OXcarbazepine 300MG Oral Tablet 11/04/2024 Unknown ORAL TWICE A DAY 1 TABLE T 819998 RxNorm TAKE 1 TABLET ORAL TWICE A DAY Wellbutrin SR 150MG Oral Tablet, Extended Release, 12 HR 11/04/2024 11/05/19 25 ORAL DAILY 1 TABLE T 295572 RxNorm TAKE 1 TABLET ORAL DAILY hydrOXYzine HCl 10MG Oral Tablet 11/04/2024 Unknown ORAL NEEDED EVERY 8 HOURS 1 TABLE T 772203 RxNorm TAKE 1 TABLET ORAL NEEDED EVERY 8 HOURS HYDROcodone bitartrate-ac etaminophen 10MG-325MG Oral Tablet 11/04/2024 Unknown ORAL NEEDED EVERY 6 HOURS 1 TABLE T 968696 RxNorm TAKE 1 TABLET ORAL NEEDED EVERY 6 HOURS predniSONE 20MG Oral Tablet 11/04/2024 12/10/19 25 ORAL TWICE A DAY 1 TABLE T 883227 RxNorm TAKE 1 TABLET ORAL TWICE A DAY FOR 5 DAYS Meloxicam 15MG Oral Tablet 11/04/2024 01/26/20 25 ORAL DAILY 1 TABLE T 987557 RxNorm TAKE 1 TABLET ORAL DAILY Remeron 30MG Oral Tablet 11/04/2024 Unknown ORAL AT BEDTIME 1 TABLE T 433861 RxNorm TAKE 1 TABLET ORAL AT BEDTIME Elavil 25MG Oral Tablet 11/04/2024 Unknown ORAL AT BEDTIME 1 TABLE T 071745 RxNorm TAKE 1 TABLET ORAL AT BEDTIME Augmentin 875MG-125MG Oral Tablet 12/09/2024 12/19/19 25 ORAL TWICE A DAY 1 TABLE T 085378 RxNorm TAKE 1 TABLET ORAL TWICE A DAY Cymbalta 20MG Oral Capsule, Delayed Release 12/09/2024 Unknown ORAL DAILY 1 [facility] 759926 RxNorm TAKE 1 CAPSULE ORAL DAILY Meloxicam 15MG Oral Tablet 01/25/2025 Unknown ORAL DAILY 1 TABLE T 552294 RxNorm take 1 tablet by mouth daily. [...] Status Code Code System ESSENTIAL HYPERTENSION active 8533566 0 SNOMED-CT INSOMNIA active 325968821 SNOMED-CT CHRONIC BACK PAIN active 567785120 SN OMED-CT DEPRESSIVE DISORDER active 86918197 SNOMED-CT CHRONIC HEADACHE DISORDER active 4312 63100 SNOMED-CT BIPOLAR DISORDER active 29986890 SNO MED-CT MIGRAINE active 79373653 SNOMED-CT CAD active 19479932 SNOMED-CT CKD active 313194199 SNOMED-CT URI active 57833911 SNOMED-CT FAMILY GRIEVING active 286275973 SNOM ED-CT ANXIETY active 60484093 SNOMED-CT HYPERLIPIDEMIA active 41262591 SNOME D-CT FACIAL INJURY 05/20/2024 resolved 228115302 SNOME D-CT RLQ PAIN 12/09/2024 resolved 947353595 SNOMED-CT DYSURIA 12/09/2024 resolved 47397390 SNOMED-CT FALL 05/20/2024 resolved 0781746 SNOMED-CT ABDOMINAL PAIN 12/09/2024 resolved 83261052 SNOM ED-CT HEMATURIA 12/09/2024 resolved 60604249 SNOMED-CT HIDRADENITIS SUPPURATIVA 05/20/2024 resolved 5939 3003 SNOMED-CT FALLING 08/28/2022 resolved 608240008 SNOMED-CT DISLOCATION OF TOE JOINT 10/18/2023 resolved 2630 27575 SNOMED-CT Allergies and Adverse Reactions Allergy Substance Reaction Severity Start Date Concern Status Co de Code System LISINOPRIL Cough (SNOMED-CT: 79008879) Moderate Active 85815 RxNorm LAMOTRIGINE Active 90364 RxNorm Plan of Treatment CT FACIAL-SINUS WO CONTRAST 05/14/2024 MAMMO SCREEN 06/10/2024 CT ABDOMEN - PELVIS WO CONTRAST 025 Encounters Encounter Diagnosis Start Date Code Code Sys tem Injury of face 05/14/2024 488583304 SNOMED-CT Personal Care Team Section Imaging Narrative Notes [facility] 05/21/2024 18:55 [place] [id number] DIAGNOSTIC IMAGING REPORT Name: FLY K[facility] Type: O/P Patient Number: [id number] Room: X-Ray Number: [id number] MR Number: [id number] Age: 53 Sex: F Admit. Physician: AUGUSTIN WYLIE Date of : 1970 Ordering Physician: AUGUSTIN WYLIE CT FACIAL/SINUS W/O [id number] COMPLETE:05/14/24 10:12 NOV [id number] (REASON FOR TEST: FALL WITH FACIAL INJURY HX: Fall, facial injury. Axial images through the face were obtained and bone and soft tissue windows without IV contrast. Coronal and sagittal reformatted images were also obtained. No comparison. There is no acute facial bone fracture identified. The orbital diego and maxillary sinus diego appear intact. The zygomatic arches and mandible appear intact. The patient is edentulous. There is mild rightward deviation of the nasal septum. The bilateral maxillary sinus outflow tracts are patent. Mild right maxillary sinus mucosal thickening measuring up to 5 mm in thickness. There is some debris in the posterior right ethmoid sinus. The left maxillary sinus contains a 7 mm mucus retention cyst or polyp extending from the medial wall. The bilateral frontal, left ethmoid, and bilateral sphenoid sinuses are clear. The mastoids and middle ear cavities are unopacified. The tempo mandibular joints appear intact. Right facial 1.1 x 1 cm subcutaneous hematoma. The orbital structures appear unremarkable. Carotid artery calcifications are noted. Small bilateral cervical chain lymph nodes are noted. Tonsillar calcifications are noted. IMPRESSION: 1. No acute facial bone fracture identified. 2. Mild right maxillary and right ethmoid sinus disease. 3. Sub centimeter left maxillary sinus mucus retention cyst or polyp. 4. Right facial subcutaneous contusion/hematoma. Electronically Reviewed and Signed By NINO TAYLOR MD RADIOLOGIST 05/21/24 18:35 Dictating Initials: STD Transcribe Initials: 05/14/24 16:06 Transcribe Initials: AC *Unsigned transcriptions represent a preliminary report and do not reflect a medical or legal document* [address] [place] [address] DIAGNOSTIC IMAGING REPORT Name: FLY SIMRAN Stay Type: O/P Patient Number: [id number] Room: X-Ray Number: [id number] MR Number: [id number] Age: 53 Sex: F Admit. Physician: AUGUSTIN WYLIE Date of : 1970 Ordering Physician: AUGUSTIN WYLIE CT FACIAL/SINUS W/O [id number] COMPLETE:05/14/24 10:12 JUN [id number] (REASON FOR TEST: FALL WITH FACIAL INJURY Copy for: AUGUSTIN REYNOLDS via modem *Unsigned transcriptions represent a preliminary report and do not reflect a medical or legal document*
--- OUTSIDE RECORDS SUMMARY | 2025-02-04 16:14 | XMS_ITS ---
Author Organization Unknown Address [address] [place] [address] Phone Care Team Providers Care Division Controller Name Role Phone AUGUSTIN REYNOLDS Attending Unavailable [...] mcg/0.5 mL 01/28/2024 Completed 312 CVX Results CBC AUTO DIFF - Collect Date /Time: 05/19/2024 11:37 [facility] ID: [id number] [address] [place] , [address] LOINC: 11824-0 Test Value Unit Reference Range Code Code System Flag WBC 8.4 x10X3U/L L=4.0 H=10.0 6690-2 LOINC RBC 4.00 x10X6/UL L=3.93 H=5.22 HEMOGLOBIN 12.7 g/dL L=11.2 H=15.7 HEMATOCRIT 38.4 % L=34.1 H=44.9 69587-0 LOINC MCV 96.0 fL L=79.4 H=94.8 H MCH 31.8 pg L=25.6 H=32.2 MCHC 33.1 g/dL L=32.2 H=35.5 RDW 14.5 % L=11.7 H=14.4 H PLATELETS 398 x10X3/UL L=182 H=369 H MPV 9.7 fL L=6.3 H=12.4 %NEUT 48.9 % L=39.6 H=80.0 %LYMPH 39.7 % L=19.3 H=53.1 %MONO 7.7 % L=4.7 H=12.5 %EOS 2.7 % L=1.7 H=7.0 %BASO 0.9 % L=0.1 H=1.2 %IG 0.1 % L=0.0 H=0.5 #NEUT 4.1 x10X3/UL L=1.6 H=6.1 #LYMPH 3.4 x10X3/UL L=1.2 H=3.7 #MONO 0.7 x10X3/UL L=0.2 H=0.8 #EOS 0.2 x10X3/UL L=0.0 H=0.5 #BASO 0.08 x10X3/UL L=0.01 H=0.08 #IG 0.01 x10X3/UL L=0.00 H=0.03 MANUAL DIFF RBC MORPH COMP METABOLIC - Collect Steve e/Time: 05/19/2024 11:37 [facility] ID: [id number] [address] [place] , [address] LOINC: 29147-7 Test Value Unit Reference Range Code Code System Flag AGE 53 yrs GLUCOSE 96 mg/dL L=70 H=99 2339-0 LOINC BUN 8 mg/dL L=7 H=18 CREATININE. 1.01 mg/dL L=0.05 H=1.17 33258-5 LOINC GFR. 65.7 mL/min BUN/CREAT 8 SODIUM 144 mEq/L L=136 H=145 2947-0 LOINC POTASSIUM 3.8 mEq/L L=3.5 H=5.1 6298-4 LOINC CHLORIDE 107 mEq/L L=98 H=107 CO2 26 mEq/L L=21 H=32 1959-6 LOINC CALCIUM 9.5 mg/dL L=8.5 H=10.1 TOTAL PROTEIN 7.2 g/dL L=6.4 H=8.2 ALBUMIN 4.0 g/dL L=3.4 H=5.0 GLOBULIN 3.2 g/dL L=1.5 H=4.5 ANION GAP 15 L=5 H=18 A/G RATIO 1.3 L=1.1 H=2.5 TOTAL BILI 0.2 mg/dL L=0.2 H=1.0 ALKALINE PHOS 158 U/L L=46 H=116 H SGOT/AST 15 U/L L=15 H=37 SGPT/ALT 21 U/L L=12 H=78 CT ABD/PELVIS W/O C - Comple mj: 05/19/2024 13:24 LOINC: HX: Right lower quadrant abd ominal pain, difficulty urinating. Axial images through the abdomen and pelvis were obtained without IV or oral contrast. Coronal and sagittal reformatted images were also obtained. Comparisons are made with the exam from 02/28/2022. There is subsegmental atelectasis in the lung bases. Status post cholecystectomy. There is a 3 mm non obstructing calculus in the left kidney. There are on ureteral or bladder calculi identified. There is no hydroureter or hydronephrosis identified. Calcified splenic granulomas are noted. The non contrasted liver, adrenals, and pancreas appear grossly unremarkable. No evidence of bowel obstruction. Status post appendectomy. No free fluid or free air identified. Pelvis phleboliths. Status post hysterectomy. The bladder is nondistended. Arterial vascular calcifications are noted. No evidence of abdominal aortic aneurysm. Post surgical changes in the anterior abdominal wall. Post surgical changes of L4/L5 fusion with posterior rods and pedicle screws and post laminectomy changes at L4. Severe L5/S1 degenerative disc disease. IMPRESSION: 1. No acute intraabdominal process identified on this non contrasted exam. 2. Non obstructing left nephrolithiasis. 3. Status post cholecystectomy, appendectomy, hysterectomy, and L4/L5 posterior fusion. Electronically Reviewed and Signed By NINO TAYLOR MD RADIOLOGIST 05/21/24 18:33 Dictating Initials: STD Transcribe Initials: 05/19/24 14:25 Transcribe Initials: AC Copy for: AUGUSTIN REYNOLDS via [employer] Social History Type Status Start Date End Date Code Code Syst em Smoking History Never smoker (Never Smoked) 515823311 SNOMED CT Smoking History Current every day smoker 461938522 SNOMED CT Sex Female Medications Medication Start Date End Date Route Frequency Dose Code Code System Medication Instructions Home Meds Ajovy 225MG/1.5ML Subcutaneous Solution 03/02/2022 Unknown SUBCUTANEOUS MONTHLY 1 Unit 2768313 RxNorm INJECT 1 Unit SUBCUTANEOUS MONTHLY Latanoprost 0.005% Ophthalmic Solution 03/02/2022 Unknown BOTH EYES AT BEDTIME 1 DROP 032430 RxNorm 1 DROP BOTH EYES AT BEDTIME Bisoprolol Fumarate 5MG Oral Tablet 03/02/2022 11/05/19 25 ORAL DAILY 1 TABLE T 322421 RxNorm TAKE 1 TABLET ORAL DAILY Lasix 20MG Oral Tablet 03/02/2022 Unknown ORAL DAILY 1 TABLE T 227618 RxNorm TAKE 1 TABLET ORAL DAILY Protonix 40 MG Oral Tablet, Delayed Release 03/02/2022 Unknown ORAL DAILY 1 TABLE T 084181 RxNorm TAKE 1 TABLET ORAL DAILY Lipitor 20MG Oral Tablet 03/02/2022 11/05/19 25 ORAL AT BEDTIME 1 TABLE T 498449 RxNorm TAKE 1 TABLET ORAL AT BEDTIME Vitamin D 5000 IU Oral Tablet 03/02/2022 11/05/19 25 ORAL DAILY 1 TABLE T 979550 RxNorm TAKE 1 TABLET ORAL DAILY Timolol Maleate 0.5% Ophthalmic Solution 03/02/2022 Unknown BOTH EYES AT BEDTIME 1 DROP 6463313 RxNorm 1 DROP BOTH EYES AT BEDTIME Nurtec ODT 75 MG Oral Tablet, Disintegratin g 03/02/2022 Unknown ORAL NEEDED DAILY 1 TABLE T 4320276 RxNorm TAKE 1 TABLET ORAL NEEDED DAILY ZyrTEC 10MG Oral Tablet 10/01/2023 11/05/19 25 ORAL DAILY 1 TABLE T RxNorm TAKE 1 TABLET ORAL DAILY Trileptal 150MG Oral Tablet 10/18/2023 11/05/19 25 ORAL TWICE A DAY 1 TABLE T 350585 RxNorm TAKE 1 TABLET ORAL TWICE A DAY amLODIPine Besylate 5MG Oral Tablet 10/18/2023 11/05/19 25 ORAL DAILY 1 TABLE T 980380 RxNorm TAKE 1 TABLET ORAL DAILY traZODone hydrochloride 100MG Oral Tablet 10/18/2023 11/05/19 25 ORAL AT BEDTIME 1 TABLE T 159160 RxNorm TAKE 1 TABLET ORAL AT BEDTIME Macrobid 100MG Oral Capsule 05/21/2024 06/08/20 24 ORAL TWICE A DAY 1 [facility] 896909 RxNorm TAKE 1 CAPSULE ORAL TWICE A DAY Zofran 4MG Oral Tablet 05/21/2024 07/27/20 24 ORAL NEEDED EVERY 8 HOURS 1 TABLE T 569632 RxNorm TAKE 1 TABLET ORAL NEEDED EVERY 8 HOURS Cipro 500MG Oral Tablet 06/08/2024 06/14/20 24 ORAL TWICE A DAY 1 TABLE T 656301 RxNorm TAKE 1 TABLET ORAL TWICE A DAY metroNIDAZOLE 500MG Oral Tablet 06/08/2024 06/14/20 24 ORAL THREE TIMES A DAY 1 TABLE T 640049 RxNorm TAKE 1 TABLET ORAL THREE TIMES A DAY Zofran 4MG Oral Tablet 07/24/2024 11/05/19 25 ORAL NEEDED EVERY 8 HOURS 1 TABLE T 652278 RxNorm TAKE 1 TABLET ORAL NEEDED EVERY 8 HOURS Atorvastatin Calcium 40MG Oral Tablet 11/04/2024 Unknown ORAL DAILY 1 TABLE T 845680 RxNorm TAKE 1 TABLET ORAL DAILY Baclofen 5MG Oral Tablet 11/04/2024 Unknown ORAL NEEDED EVERY 8 HOURS 1 TABLE T 387061 RxNorm TAKE 1 TABLET ORAL NEEDED EVERY 8 HOURS Cyproheptadin e HCl 4MG Oral Tablet 11/04/2024 Unknown ORAL AT BEDTIME 1 TABLE T 310251 RxNorm TAKE 1 TABLET ORAL AT BEDTIME Fosamax 10MG Oral Tablet 11/04/2024 Unknown ORAL DAILY 1 TABLE T RxNorm TAKE 1 TABLET ORAL DAILY Linzess 145MCG Oral Capsule 11/04/2024 Unknown ORAL DAILY 1 [facility] LE 8795222 RxNorm TAKE 1 CAPSULE ORAL DAILY OXcarbazepine 300MG Oral Tablet 11/04/2024 Unknown ORAL TWICE A DAY 1 TABLE T 451308 RxNorm TAKE 1 TABLET ORAL TWICE A DAY Wellbutrin SR 150MG Oral Tablet, Extended Release, 12 HR 11/04/2024 11/05/19 25 ORAL DAILY 1 TABLE T 887490 RxNorm TAKE 1 TABLET ORAL DAILY hydrOXYzine HCl 10MG Oral Tablet 11/04/2024 Unknown ORAL NEEDED EVERY 8 HOURS 1 TABLE T 426420 RxNorm TAKE 1 TABLET ORAL NEEDED EVERY 8 HOURS HYDROcodone bitartrate-ac etaminophen 10MG-325MG Oral Tablet 11/04/2024 Unknown ORAL NEEDED EVERY 6 HOURS 1 TABLE T 871301 RxNorm TAKE 1 TABLET ORAL NEEDED EVERY 6 HOURS predniSONE 20MG Oral Tablet 11/04/2024 12/10/19 25 ORAL TWICE A DAY 1 TABLE T 485530 RxNorm TAKE 1 TABLET ORAL TWICE A DAY FOR 5 DAYS Meloxicam 15MG Oral Tablet 11/04/2024 01/26/20 25 ORAL DAILY 1 TABLE T 188284 RxNorm TAKE 1 TABLET ORAL DAILY Remeron 30MG Oral Tablet 11/04/2024 Unknown ORAL AT BEDTIME 1 TABLE T 675485 RxNorm TAKE 1 TABLET ORAL AT BEDTIME Elavil 25MG Oral Tablet 11/04/2024 Unknown ORAL AT BEDTIME 1 TABLE T 122778 RxNorm TAKE 1 TABLET ORAL AT BEDTIME Augmentin 875MG-125MG Oral Tablet 12/09/2024 12/19/19 25 ORAL TWICE A DAY 1 TABLE T 466436 RxNorm TAKE 1 TABLET ORAL TWICE A DAY Cymbalta 20MG Oral Capsule, Delayed Release 12/09/2024 Unknown ORAL DAILY 1 [facility] 865562 RxNorm TAKE 1 CAPSULE ORAL DAILY Meloxicam 15MG Oral Tablet 01/25/2025 Unknown ORAL DAILY 1 TABLE T 736740 RxNorm take 1 tablet by mouth daily. [...] Status Code Code System ESSENTIAL HYPERTENSION active 0729607 0 SNOMED-CT INSOMNIA active 699057472 SNOMED-CT CHRONIC BACK PAIN active 164916808 SN OMED-CT DEPRESSIVE DISORDER active 27685212 SNOMED-CT CHRONIC HEADACHE DISORDER active 4312 64215 SNOMED-CT BIPOLAR DISORDER active 77219828 SNO MED-CT MIGRAINE active 52850984 SNOMED-CT CAD active 60621494 SNOMED-CT CKD active 883813389 SNOMED-CT URI active 75120999 SNOMED-CT FAMILY GRIEVING active 204339556 SNOM ED-CT ANXIETY active 68839617 SNOMED-CT HYPERLIPIDEMIA active 15425362 SNOME D-CT FACIAL INJURY 05/20/2024 resolved 234939383 SNOME D-CT RLQ PAIN 12/09/2024 resolved 587416927 SNOMED-CT DYSURIA 12/09/2024 resolved 16401591 SNOMED-CT FALL 05/20/2024 resolved 1757873 SNOMED-CT ABDOMINAL PAIN 12/09/2024 resolved 96307994 SNOM ED-CT HEMATURIA 12/09/2024 resolved 27466699 SNOMED-CT HIDRADENITIS SUPPURATIVA 05/20/2024 resolved 5939 3003 SNOMED-CT FALLING 08/28/2022 resolved 541619837 SNOMED-CT DISLOCATION OF TOE JOINT 10/18/2023 resolved 2630 98477 SNOMED-CT Allergies and Adverse Reactions Allergy Substance Reaction Severity Start Date Concern Status Co de Code System LISINOPRIL Cough (SNOMED-CT: 11871407) Moderate Active 42138 RxNorm LAMOTRIGINE Active 63795 RxNorm Plan of Treatment CT FACIAL-SINUS WO CONTRAST 05/14/2024 MAMMO SCREEN 06/10/2024 CT ABDOMEN - PELVIS WO CONTRAST 025 Encounters Encounter Diagnosis Start Date Code Code Sys tem Right lower quadrant pain 05/19/2024 793968892 SN OMED-CT Personal Care Team Section Imaging Narrative Notes [facility] 05/21/2024 18:40 [facility] [place] [address] DIAGNOSTIC IMAGING REPORT Name: FLY KHALIL Stay Type: O/P Patient Number: [id number] Room: X-Ray Number: [id number] MR Number: [id number] Age: 53 Sex: F Admit. Physician: AUGUSTIN WYLIE Date of : 1970 Ordering Physician: AUGUSTIN WYLIE CT ABD/PELVIS W/O C 51534 COMPLETE:05/19/24 13:24 JUN [id number] (REASON FOR ABDOMEN: RLQ PAIN DIFFICULTY URINATING/RADIATES HX: Right lower quadrant abdominal pain, difficulty urinating. Axial images through the abdomen and pelvis were obtained without IV or oral contrast. Coronal and sagittal reformatted images were also obtained. Comparisons are made with the exam from 02/28/2022. There is subsegmental atelectasis in the lung bases. Status post cholecystectomy. There is a 3 mm non obstructing calculus in the left kidney. There are on ureteral or bladder calculi identified. There is no hydroureter or hydronephrosis identified. Calcified splenic granulomas are noted. The non contrasted liver, adrenals, and pancreas appear grossly unremarkable. No evidence of bowel obstruction. Status post appendectomy. No free fluid or free air identified. Pelvis phleboliths. Status post hysterectomy. The bladder is nondistended. Arterial vascular calcifications are noted. No evidence of abdominal aortic aneurysm. Post surgical changes in the anterior abdominal wall. Post surgical changes of L4/L5 fusion with posterior rods and pedicle screws and post laminectomy changes at L4. Severe L5/S1 degenerative disc disease. IMPRESSION: 1. No acute intraabdominal process identified on this non contrasted exam. 2. Non obstructing left nephrolithiasis. 3. Status post cholecystectomy, appendectomy, hysterectomy, and L4/L5 posterior fusion. Electronically Reviewed and Signed By NINO TAYLOR MD RADIOLOGIST 05/21/24 18:33 Dictating Initials: STD Transcribe Initials: 05/19/24 14:25 Transcribe Initials: AC *Unsigned transcriptions represent a preliminary report and do not reflect a medical or legal document* [address] [place] [address] DIAGNOSTIC IMAGING REPORT Name: [facility] Type: O/P Patient Number: [id number] Room: X-Ray Number: [id number] MR Number: [id number] Age: 53 Sex: F Admit. Physician: AUGUSTIN WYLIE Date of : 1970 Ordering Physician: AUGUSTIN WYLIE CT ABD/PELVIS W/O C 32233 COMPLETE:05/19/24 13:24 NOV [id number] (REASON FOR ABDOMEN: RLQ PAIN DIFFICULTY URINATING/RADIATES Copy for: AUGUSTIN REYNOLDS via modem *Unsigned transcriptions represent a preliminary report and do not reflect a medical or legal document*
--- OUTSIDE RECORDS SUMMARY | 2025-02-04 16:14 | XMS_ITS ---
Author Organization Unknown Address [address] [place] [address] Phone Care Team Providers Care Wrapper Cashier Name Role Phone AUGUSTIN REYNOLDS Attending Unavailable [...] mcg/0.5 mL 01/28/2024 Completed 312 CVX Results MAMMO SCR CINDI - Completed: 06/09/2024 13:35 LOINC: BILATERAL SCREENING MAMMOGRA M WITH 3D TOMOSYNTHESIS. 06/09/2024 HISTORY: NO FAMILY HISTORY OF BREAST CANCER. NO BREAST COMPLAINTS AT THIS TIME. Bilateral screening mammogram was performed with images in the CC and MLO projections. Tomosynthesis views were also performed. Comparisons are made with the exams from 06/05/2016 and 11/01/2015. Computer-aided detection was utilized. There are scattered areas of fibroglandular density. Peripherally calcified right retroareolar old cyst is noted. Some benign appearing breast calcifications are noted. Benign appearing bilateral axillary lymph nodes. There are no dominant masses, suspicious microcalcifications, or architectural distortions identified. IMPRESSION: 1. BI-RADS 2, benign. Advised annual screening mammography. Electronically Reviewed and Signed By NINO TAYLOR MD RADIOLOGIST 06/16/24 16:09 Dictating Initials: STD Transcribe Initials: 06/11/24 23:54 Transcribe Initials: ATTENTION: A negative x-ray report should not delay biopsy of a clinically suspicious mass if present. 10-15% of cancers are not identified by x-ray. Adenosis and dense breasts may obscure underlying neoplasm and decrease detection of breast cancers by 20-30%. [employer] RECOMMENDATIONS FOR ASYMPTOMATIC WOMEN: ANNUAL MAMMOGRAM FOR WOMEN 40 OR OLDER. Copy for: AUGUSTIN REYNOLDS via [employer] Social History Type Status Start Date End Date Code Code Syst em Smoking History Never smoker (Never Smoked) 018884795 SNOMED CT Smoking History Current every day smoker 723185687 SNOMED CT Sex Female Medications Medication Start Date End Date Route Frequency Dose Code Code System Medication Instructions Home Meds Ajovy 225MG/1.5ML Subcutaneous Solution 03/02/2022 Unknown SUBCUTANEOUS MONTHLY 1 Unit RxNorm INJECT 1 Unit SUBCUTANEOUS MONTHLY Latanoprost 0.005% Ophthalmic Solution 03/02/2022 Unknown BOTH EYES AT BEDTIME 1 DROP 217218 RxNorm 1 DROP BOTH EYES AT BEDTIME Bisoprolol Fumarate 5MG Oral Tablet 03/02/2022 11/05/19 25 ORAL DAILY 1 TABLE T 482327 RxNorm TAKE 1 TABLET ORAL DAILY Lasix 20MG Oral Tablet 03/02/2022 Unknown ORAL DAILY 1 TABLE T 004955 RxNorm TAKE 1 TABLET ORAL DAILY Protonix 40 MG Oral Tablet, Delayed Release 03/02/2022 Unknown ORAL DAILY 1 TABLE T 578092 RxNorm TAKE 1 TABLET ORAL DAILY Lipitor 20MG Oral Tablet 03/02/2022 11/05/19 25 ORAL AT BEDTIME 1 TABLE T 169091 RxNorm TAKE 1 TABLET ORAL AT BEDTIME Vitamin D 5000 IU Oral Tablet 03/02/2022 11/05/19 25 ORAL DAILY 1 TABLE T 662880 RxNorm TAKE 1 TABLET ORAL DAILY Timolol Maleate 0.5% Ophthalmic Solution 03/02/2022 Unknown BOTH EYES AT BEDTIME 1 DROP 7695586 RxNorm 1 DROP BOTH EYES AT BEDTIME Nurtec ODT 75 MG Oral Tablet, Disintegratin g 03/02/2022 Unknown ORAL NEEDED DAILY 1 TABLE T 9015238 RxNorm TAKE 1 TABLET ORAL NEEDED DAILY ZyrTEC 10MG Oral Tablet 10/01/2023 11/05/19 25 ORAL DAILY 1 TABLE T RxNorm TAKE 1 TABLET ORAL DAILY Trileptal 150MG Oral Tablet 10/18/2023 11/05/19 25 ORAL TWICE A DAY 1 TABLE T 658183 RxNorm TAKE 1 TABLET ORAL TWICE A DAY amLODIPine Besylate 5MG Oral Tablet 10/18/2023 11/05/19 25 ORAL DAILY 1 TABLE T 366699 RxNorm TAKE 1 TABLET ORAL DAILY traZODone hydrochloride 100MG Oral Tablet 10/18/2023 11/05/19 25 ORAL AT BEDTIME 1 TABLE T 367468 RxNorm TAKE 1 TABLET ORAL AT BEDTIME Zofran 4MG Oral Tablet 05/21/2024 07/27/20 24 ORAL NEEDED EVERY 8 HOURS 1 TABLE T 652896 RxNorm TAKE 1 TABLET ORAL NEEDED EVERY 8 HOURS Cipro 500MG Oral Tablet 06/08/2024 06/14/20 24 ORAL TWICE A DAY 1 TABLE T 656287 RxNorm TAKE 1 TABLET ORAL TWICE A DAY metroNIDAZOLE 500MG Oral Tablet 06/08/2024 06/14/20 24 ORAL THREE TIMES A DAY 1 TABLE T 784222 RxNorm TAKE 1 TABLET ORAL THREE TIMES A DAY Zofran 4MG Oral Tablet 07/24/2024 11/05/19 25 ORAL NEEDED EVERY 8 HOURS 1 TABLE T 741347 RxNorm TAKE 1 TABLET ORAL NEEDED EVERY 8 HOURS Atorvastatin Calcium 40MG Oral Tablet 11/04/2024 Unknown ORAL DAILY 1 TABLE T 524660 RxNorm TAKE 1 TABLET ORAL DAILY Baclofen 5MG Oral Tablet 11/04/2024 Unknown ORAL NEEDED EVERY 8 HOURS 1 TABLE T 594632 RxNorm TAKE 1 TABLET ORAL NEEDED EVERY 8 HOURS Cyproheptadin e HCl 4MG Oral Tablet 11/04/2024 Unknown ORAL AT BEDTIME 1 TABLE T 642481 RxNorm TAKE 1 TABLET ORAL AT BEDTIME Fosamax 10MG Oral Tablet 11/04/2024 Unknown ORAL DAILY 1 TABLE T RxNorm TAKE 1 TABLET ORAL DAILY Linzess 145MCG Oral Capsule 11/04/2024 Unknown ORAL DAILY 1 CAPSU LE 1365411 RxNorm TAKE 1 CAPSULE ORAL DAILY OXcarbazepine 300MG Oral Tablet 11/04/2024 Unknown ORAL TWICE A DAY 1 TABLE T 246317 RxNorm TAKE 1 TABLET ORAL TWICE A DAY Wellbutrin SR 150MG Oral Tablet, Extended Release, 12 HR 11/04/2024 11/05/19 25 ORAL DAILY 1 TABLE T 624185 RxNorm TAKE 1 TABLET ORAL DAILY hydrOXYzine HCl 10MG Oral Tablet 11/04/2024 Unknown ORAL NEEDED EVERY 8 HOURS 1 TABLE T 085694 RxNorm TAKE 1 TABLET ORAL NEEDED EVERY 8 HOURS HYDROcodone bitartrate-ac etaminophen 10MG-325MG Oral Tablet 11/04/2024 Unknown ORAL NEEDED EVERY 6 HOURS 1 TABLE T 472575 RxNorm TAKE 1 TABLET ORAL NEEDED EVERY 6 HOURS predniSONE 20MG Oral Tablet 11/04/2024 12/10/19 25 ORAL TWICE A DAY 1 TABLE T 694523 RxNorm TAKE 1 TABLET ORAL TWICE A DAY FOR 5 DAYS Meloxicam 15MG Oral Tablet 11/04/2024 01/26/20 25 ORAL DAILY 1 TABLE T 507106 RxNorm TAKE 1 TABLET ORAL DAILY Remeron 30MG Oral Tablet 11/04/2024 Unknown ORAL AT BEDTIME 1 TABLE T 431117 RxNorm TAKE 1 TABLET ORAL AT BEDTIME Elavil 25MG Oral Tablet 11/04/2024 Unknown ORAL AT BEDTIME 1 TABLE T 871267 RxNorm TAKE 1 TABLET ORAL AT BEDTIME Augmentin 875MG-125MG Oral Tablet 12/09/2024 12/19/19 25 ORAL TWICE A DAY 1 TABLE T 705364 RxNorm TAKE 1 TABLET ORAL TWICE A DAY Cymbalta 20MG Oral Capsule, Delayed Release 12/09/2024 Unknown ORAL DAILY 1 LUZ PADILLA 051102 RxNorm TAKE 1 CAPSULE ORAL DAILY Meloxicam 15MG Oral Tablet 01/25/2025 Unknown ORAL DAILY 1 TABLE T 981203 RxNorm take 1 tablet by mouth daily. [...] Status Code Code System ESSENTIAL HYPERTENSION active 5569976 0 SNOMED-CT INSOMNIA active 330182633 SNOMED-CT CHRONIC BACK PAIN active 086318837 SN OMED-CT DEPRESSIVE DISORDER active 13969612 SNOMED-CT CHRONIC HEADACHE DISORDER active 4312 97540 SNOMED-CT BIPOLAR DISORDER active 40064727 SNO MED-CT MIGRAINE active 64267820 SNOMED-CT CAD active 35032242 SNOMED-CT CKD active 207226818 SNOMED-CT URI active 07037342 SNOMED-CT FAMILY GRIEVING active 651385629 SNOM ED-CT ANXIETY active 21018012 SNOMED-CT HYPERLIPIDEMIA active 86375740 SNOME D-CT FACIAL INJURY 05/20/2024 resolved 725355324 SNOME D-CT RLQ PAIN 12/09/2024 resolved 739964470 SNOMED-CT DYSURIA 12/09/2024 resolved 76389079 SNOMED-CT FALL 05/20/2024 resolved 7870461 SNOMED-CT ABDOMINAL PAIN 12/09/2024 resolved 18468199 SNOM ED-CT HEMATURIA 12/09/2024 resolved 62439289 SNOMED-CT HIDRADENITIS SUPPURATIVA 05/20/2024 resolved 5939 3003 SNOMED-CT FALLING 08/28/2022 resolved 460537303 SNOMED-CT DISLOCATION OF TOE JOINT 10/18/2023 resolved 3617 47068 SNOMED-CT Allergies and Adverse Reactions Allergy Substance Reaction Severity Start Date Concern Status Co de Code System LISINOPRIL Cough (SNOMED-CT: 90898288) Moderate Active 28586 RxNorm LAMOTRIGINE Active 55405 RxNorm Plan of Treatment CT FACIAL-SINUS WO CONTRAST 05/14/2024 MAMMO SCREEN 06/10/2024 CT ABDOMEN - PELVIS WO CONTRAST 025 Encounters Encounter Diagnosis Start Date Code Code Sys tem Screening mammography 06/09/2024 65357351 SNOMED -CT Personal Care Team Section
--- NOTE | 2025-02-04 16:20 | XR_ITS ---
PROCEDURE INFORMATION: Exam: XR Chest Exam date and time: 02/04/2025 4:21 PM Age: 54 years old Clinical indication: Cough TECHNIQUE: Imaging protocol: Radiologic exam of the chest. Views: 2 views. COMPARISON: CR XR CHEST 2V 03/24/2024 11:08 AM FINDINGS: Lungs: Unremarkable. No consolidation. Pleural spaces: Unremarkable. No pleural effusion. No pneumothorax. Heart/Mediastinum: Unremarkable. No cardiomegaly. Bones/joints: Unremarkable. IMPRESSION: No acute findings.
[2025-02-04 17:10] LABS: Alanine Aminotransferase 33 U/L (12-78); Albumin Level 3.9 g/dl (3.5-5.0); Albumin/Globulin Ratio 1.6 (1.1-1.8); Alkaline Phosphatase 157 U/L (38-126); Anion Gap 7.2 mEq/L (5-15); Aspartate Amino Transferase 44 U/L (14-36); Bilirubin,Total 0.4 mg/dl (0.2-1.3); Blood Urea Nitrogen 24 mg/dl (7-17); Calcium 10.4 mg/dl (8.4-10.2); Carbon Dioxide 25 mmol/L (22.0-30.0); Chloride 108 mmol/L (98-107); Chol/HDL Ratio 3.6 (1-3.5); Cholesterol 173 mg/dl (140-200); Estimated Glomerular Filt Rate 33 ml/min (>60); GFR (African American) 40 ML/MIN (>60); Globulin 2.4 g/dL (1.3-3.2); Glucose 83 mg/dl (74-100); HDL Cholesterol 48 mg/dl (40-60); Potassium 5.2 mmoL/L (3.5-5.1); Sodium 135 mmol/L (136-145); Total Protein,Serum 6.3 g/dl (6.3-8.2); Triglycerides 212 mg/dl (30-150); VLDL Cholesterol 42 mg/dL (0-40)
[2025-02-04 17:21] LABS: Direct LDL Cholesterol 71.36 mg/dL (100-129)
== END 2025-02-04 23:59 | disposition home or self-care (01) ==
LOC: LAB 16:10
PROVIDERS: PCP Family Medicine; Visit Provider Family Medicine
DX: E78.5 Hyperlipidemia, unspecified (principal); I10 Essential (primary) hypertension; R05.9 Cough, unspecified
CPT/HCPCS: 36415; 71046; 80053; 80061

== ENCOUNTER 2025-03-22 11:51 | Outpatient (CLI) | payer MEDICAID, SELFPAY ==
[2025-03-22 15:37] LABS: Chloride 107 mmol/L (98-107); Potassium 3.9 mmoL/L (3.5-5.1); Sodium 134 mmol/L (136-145)
[2025-03-22 15:40] LABS: Blood Urea Nitrogen 21 mg/dl (7-17); Creatinine,Serum 0.80 mg/dl (0.52-1.04); Estimated Glomerular Filt Rate 74 ml/min (>60); GFR (African American) 90 ML/MIN (>60)
[2025-03-22 15:41] LABS: Anion Gap 8.9 mEq/L (5-15); Calcium 9.9 mg/dl (8.4-10.2); Carbon Dioxide 22 mmol/L (22.0-30.0); Glucose 77 mg/dl (74-100)
--- OUTSIDE RECORDS SUMMARY | 2025-03-23 12:43 | XMS_ITS | Encounter Summary ---
Author Organization Healthcare Address [address] [place] [address] Care Team Providers Care Director Of Consumer Affairs Name Role Phone Desmond Santana MD Primary Care Provider [phone] Encounter Details Date Type Department Care Team ([facility] st Contact Info) Description 02/18/2025 Telephone [facility] [address], [address] [place] [address] [place] Social History Tobacco Use Types Packs/Day Years Used Date Smoking Tobacco: Never Assessed Comments Unknown Sex and Gender Information Value Date Recorded Sex Assigned at Not on file Legal Sex Female 8:28 PM EDT Gender Identity Not on file Sexual Orientation Not on file documented as of this encounter Plan of Treatment Not on file documented as of this encounter Visit Diagnoses Not on filedocumented in this encounter Care Teams Director Of Consumer Affairs Relationship Specialty Start Date End Date Desmond Santana MD [address] [place] [address] PCP - General 12/30/20 documented as of this encounter
--- OUTSIDE RECORDS SUMMARY | 2025-03-23 12:43 | XMS_ITS | Clinical Summary ---
Author Organization Healthcare Address [address] [place] [address] Care Team Providers Care Audio Video Mechanic Name Role Phone Desmond Santana MD Primary Care Provider [phone] Encounters Date Type Department Care Team Description 02/18/2025 Telephone [facility]eral Met[facility] [address], [address] [place] [address] [place] from Last 3 Months Family History Medical History Relation Name Comments [...] 11/02/2016 9:04 AM EDT Plan of Treatment Health Maintenance Due Date Last Done Comments [facility]-Depression Screening 1968 [facility]-/Child/Adol SDOH Screenings 1968 [facility]- SDOH Screenings 1986 [facility]-Adult SDOH Screenings 1986 [facility]-Hepatitis B Vaccines (1 of 3 - 19+ 3-dose series) 1987 [facility]-Pap Smear 1989 [facility]-Cervical Cancer Screening 1998 [facility]-HPV/Cotest 1998 CT Colonography 2013 Colonoscopy 2013 FIT-DNA 2013 FIT 2013 FOBT 2013 Sigmoidoscopy 2013 [facility]-Colorectal Cancer Screening 2013 [facility]-Pneumococcal Vaccine: 50+ Years (2 of 2 - PCV) 2018 12/24/2016 [id number] Vaccine ( season) 2024 01/28/2024, 03/12/2023, 05/08/2022, Additional history exists [facility]-Influenza Vaccine (#1) 04/19/202505/29, 04/21/2020, 04/22/2019, Additional history exists [facility]-DTaP,Tdap,and Td Vaccines (5 - Td or Tdap) 08/18/2032 08/18/2022, 08/18/2022, 12/31/2020, Additional history exists [facility]-Zoster Vaccines Completed 12/31/2020, 0 HPV Vaccines Aged Out No longer eligi ble based on patient's age to complete this topic [facility]-HIB Vaccines Aged Out No longer e ligible based on patient's age to complete this topic [facility]-Hepatitis A Vaccines Aged Out No longer eligible based on patient's age to complete this topic [facility]-IPV Vaccines Aged Out No longer e ligible based on patient's age to complete this topic [facility]-Rotavirus Vaccines Aged Out No lo nger eligible based on patient's age to complete this topic Insurance [facility] MEDICAID Care Teams Audio Video Mechanic Relationship Specialty Start Date End Date Desmond Santana MD [address] [place] [address] PCP - General 12/30/20
--- OUTSIDE RECORDS SUMMARY | 2025-03-23 12:43 | XMS_ITS | Patient Health Record ---
Author Organization [facility] Address [address], [place] [address] Care Team Providers Care Associate Financial Advisor Name Role Phone Mala Mcfarland Primary Care Provider Unavailabl e Allergies No Known Allergies Reason For Referral No Information Medications Medication SIG (Take, Route, Frequency, Duration) Notes Start Date End Date Status Amitriptyline HCl 10 MG 1 tablet at bedt reina Orally Once a day Active Lexapro 20 MG 1 tablet Orally Once a day Active oxyCODONE HCl 7.5 MG 1 tablet as needed Orally every 6 hrs Active Ambien 5 MG 1 tablet at bedtime Orally Once a day Active amLODIPine Besylate 5 MG 1 tablet Orally Once a day Active Immunizations Vaccine Route Administration Date Status Comme nts Influenza, Fluzone Quadrivalent Unknown 05/19/2021 Admi nistered Social History Alcohol Screen (Audit-C) Question Answer Notes Did you have a drink containing alcohol in the p ast year? No Points 0 Interpretation Negative Problems Problem Type SNOMED Code ICD Code Onset Dates Problem Status W/U Status Risk Notes Problem Mixed anxiety and depressive disorder (461736724) Anxiety associated with depression (F41.8) Active confirmed Problem Hematoma (99845092) Hematoma (T14.8XXA) Active confirmed Problem Essential hypertension (32296613) Benign essential HTN (I10) Active confirmed Plan Of Treatment No Information Insurance Providers Payer Name Payer Address Payer Phone Subscriber Number Group Number Insured Name Patient Relationship to Insured Coverage Start Date Coverage End Date [facility] [address] [address] [place], [place] [id number] SIMRAN PATEL Self - patient is the insured 7 Medical (General) History Medical History History ICD Code Hematoma T14.8XXA Benign essential HTN I10 Anxiety associated with depression F41.8 Surgical History Surgery Date(Month/Year) appendectomy section x 2 hysterectomy parotidectomy cholecystectomy
== END 2025-03-22 23:59 | disposition home or self-care (01) ==
LOC: LAB.DROPOF 03-23 12:41
PROVIDERS: PCP Family Medicine; Visit Provider Family Medicine
DX: N18.9 Chronic kidney disease, unspecified (principal)
CPT/HCPCS: 80048

== ENCOUNTER 2025-04-01 15:32 | Outpatient (CLI) | payer MEDICAID, SELFPAY ==
--- NOTE | 2025-04-01 15:00 | CT_ITS ---
FINAL REPORT CLINICAL HISTORY: lung cancer screening, patient is currently a smoker and smokes 1 1/2 packs per day. patient has been a smoker for 44 years. patient has COPD and her father had lung cancer. COMPARISON: None FINDINGS: CT CHEST LOW DOSE SCREENING HISTORY: Screening exam for lung cancer. 55-year-old female, current smoker, 93-acad-ykpz history. DOSE: CTDI vol: 2.90 mGy, DLP: 89.60 mGy*cm TECHNIQUE: Axial CT without IV contrast administration using low dose protocol. This study was performed with techniques to keep radiation doses as low as reasonably achievable, (ALARA). Individualized dose reduction techniques using automated exposure control or adjustment of mA and/or kV according to the patient's size were employed. No acute lung disease is present. Scarring is present in the lung apices, as well as mild scarring in the right lower lobe. There is an oval 6 x 4 mm posterior apical nodule in the right upper lobe best seen on image #16 of series 4. No other focal mass or nodule is identified. No pleural or pericardial effusion is seen. No adenopathy or mass lesion is present. IMPRESSION: Right upper lobe noncalcified nodule as described. LUNG RADS CATEGORY 2 RECOMMENDATION: 12 month LDCT follow up Reviewed, Interpreted and Dictated by Mahamed Gallegos MD Transcribed by Araceli French Authenticated and [facility]
--- OUTSIDE RECORDS SUMMARY | 2025-04-01 15:34 | XMS_ITS | Encounter Summary ---
Author Organization Healthcare Address [address] [place] [address] Care Team Providers Care Terminal Computer Operator Name Role Phone Desmond Santana MD Primary Care Provider [phone] Encounter Details Date Type Department Care Team ([facility] st Contact Info) Description 02/18/2025 Telephone [facility] Min[facility] [address], [address] [place] [address] [place] Social History Tobacco [...] on filedocumented in this encounter Care Teams Terminal Computer Operator Relationship Specialty Start Date End Date Desmond Santana MD [address] [place] [address] PCP - General 12/30/20 documented as of this encounter
--- OUTSIDE RECORDS SUMMARY | 2025-04-01 15:34 | XMS_ITS | Patient Health Record ---
Author Organization [facility] Address [address] [place], [place] [address] Care Team Providers Care Baby Nurse Name Role Phone Mala Mcfarland Primary Care [...] Notes Problem Mixed anxiety and depressive disorder (488835023) Anxiety associated with depression (F41.8) Active confirmed Problem Hematoma (38502532) Hematoma (T14.8XXA) Active confirmed Problem Essential hypertension (09669472) Benign essential HTN (I10) Active confirmed Plan Of Treatment No Information Insurance Providers Payer Name Payer Address Payer Phone Subscriber Number Group Number Insured Name Patient Relationship to Insured Coverage Start Date Coverage End Date [facility] [address] [address] [place], [place] [id number] [phone] [id number] SIMRAN PATEL Self - patient is the insured 7 Medical (General) History Medical History History ICD Code Hematoma T14.8XXA Benign essential HTN I10 Anxiety associated with depression F41.8 Surgical History Surgery Date(Month/Year) appendectomy section x 2 hysterectomy parotidectomy cholecystectomy
--- OUTSIDE RECORDS SUMMARY | 2025-04-01 15:34 | XMS_ITS | Clinical Summary ---
Author Organization Healthcare Address [address] [place] [address] Care Team Providers Care Healthcare Administrative Assistant Name Role Phone Desmond Santana MD Primary Care Provider [phone] Encounters Date Type Department Care Team Description 02/18/2025 Telephone [facility] Met[facility] [address], [address] [place] [address] [place] from Last 3 [...] (2 of 2 - PCV) 2018 12/24/2016 [id number] Vaccine ( season) 2024 01/28/2024, 03/12/2023, 05/08/2022, [...] patient's age to complete this topic Insurance [facility] MEDICAID Care Teams Healthcare Administrative Assistant Relationship Specialty Start Date End Date Desmond Santana MD [address] [place] [address] PCP - General 12/30/20
== END 2025-04-01 23:59 | disposition home or self-care (01) ==
LOC: RAD 15:33
PROVIDERS: PCP Family Medicine; Visit Provider Family Medicine
DX: J44.9 Chronic obstructive pulmonary disease, unspecified (principal); F17.210 Nicotine dependence, cigarettes, uncomplicated; R91.1 Solitary pulmonary nodule; Z12.2 Encounter for screening for malignant neoplasm of respiratory organs; Z80.1 Family history of malignant neoplasm of trachea, bronchus and lung
CPT/HCPCS: 71271

== ENCOUNTER 2025-04-30 10:15 | Outpatient (CLI) | payer MEDICAID, SELFPAY ==
[2025-04-30 19:48] LABS: Anion Gap 7.9 mEq/L (5-15); Blood Urea Nitrogen 13 mg/dl (7-17); Calcium 9.2 mg/dl (8.4-10.2); Carbon Dioxide 26 mmol/L (22.0-30.0); Chloride 108 mmol/L (98-107); Creatinine,Serum 0.80 mg/dl (0.52-1.04); Estimated Glomerular Filt Rate 74 ml/min (>60); GFR (African American) 90 ML/MIN (>60); Glucose 95 mg/dl (74-100); Potassium 3.9 mmoL/L (3.5-5.1); Sodium 138 mmol/L (136-145)
--- OUTSIDE RECORDS SUMMARY | 2025-05-03 10:22 | XMS_ITS | Patient Health Record ---
Author Organization [facility] Address [address] [place], [place] [address] Care Team Providers Care Blender Conveyor Operator Name Role Phone Mala Mcfarland Primary Care [...] Notes Problem Mixed anxiety and depressive disorder (749586928) Anxiety associated with depression (F41.8) Active confirmed Problem Hematoma (88851491) Hematoma (T14.8XXA) Active confirmed Problem Essential hypertension (02569285) Benign essential HTN (I10) Active confirmed Plan Of Treatment No Information Insurance Providers Payer Name Payer Address Payer Phone Subscriber Number Group Number Insured Name Patient Relationship to Insured Coverage Start Date Coverage End Date [facility] [address] [address] [place], [place] [id number] SIMRAN PATEL Self - patient is the insured 7 Medical (General) History Medical History History ICD Code Hematoma T14.8XXA Benign essential HTN I10 Anxiety associated with depression F41.8 Surgical History Surgery Date(Month/Year) appendectomy section x 2 hysterectomy parotidectomy cholecystectomy
--- OUTSIDE RECORDS SUMMARY | 2025-05-03 10:22 | XMS_ITS | Clinical Summary ---
Author Organization Healthcare Address [address] [place] [address] Care Team Providers Care Big 6 Dealer Name Role Phone Desmond Santana MD Primary Care Provider [phone] Encounters Date Type Department Care Team Description 02/18/2025 Telephone [facility] Mineral Metabolism [address], [address] [place] [address] [place] from Last 3 [...] (2 of 2 - PCV) 2018 12/24/2016 [id number] Vaccine ( season) 2025 01/28/2024, 03/12/2023, 05/08/2022, Additional history exists [facility]-Influenza [...] patient's age to complete this topic Insurance [facility] MEDICAID Care Teams Big 6 Dealer Relationship Specialty Start Date End Date Desmond Santana MD [address] [place] [address] PCP - General 12/30/20
== END 2025-04-30 23:59 ==
LOC: LAB.DROPOF 05-03 10:16
PROVIDERS: PCP Family Medicine; Visit Provider Family Medicine
DX: N18.9 Chronic kidney disease, unspecified (principal)
CPT/HCPCS: 80048

== ENCOUNTER 2025-06-14 15:46 | Outpatient (CLI) | payer MEDICAID, SELFPAY ==
--- OUTSIDE RECORDS SUMMARY | 2025-06-14 16:12 | XMS_ITS | Clinical Summary ---
Author Organization Healthcare Address [address] [place] [address] Care Team Providers Care Derrick Boat Leverman Name Role Phone Desmond Santana MD Primary Care Provider [phone] Family History Medical History Relation Name Comments [...] (2 of 2 - PCV) 2018 12/24/2016 [id number] Vaccine ( season) 2025 01/28/2024, 03/12/2023, 05/08/2022, [...] patient's age to complete this topic Insurance [facility] MEDICAID Care Teams Derrick Boat Leverman Relationship Specialty Start Date End Date Desmond Santana MD [address] [place] [address] PCP - General 12/30/20
== END 2025-06-14 23:59 | disposition home or self-care (01) ==
LOC: RAD 15:46
PROVIDERS: PCP Family Medicine; Visit Provider Nurse Practitioner Family
DX: M54.50 Low back pain, unspecified (principal)

== ENCOUNTER 2025-06-21 15:16 | Outpatient (CLI) | payer MEDICAID, SELFPAY ==
--- NOTE | 2025-06-21 15:20 | XR_ITS ---
FINAL REPORT CLINICAL HISTORY: low bacjk pain..fusion 30 years ago FINDINGS: AP and lateral views of the lumbar spine were obtained. There is no acute fracture. There is grade 1 anterior subluxation of L3 on L4. There is pedicle screw fusion of L4-L5. There is disc space narrowing and vacuum phenomenon at L5-S1. IMPRESSION: Degenerative and postoperative findings as detailed above. No acute osseous abnormality. Reviewed, Interpreted and Dictated by Mike Rush MD Transcribed by ETHAN Rivers Authenticated and . [facility]
== END 2025-06-21 23:59 | disposition home or self-care (01) ==
LOC: RAD 15:17
PROVIDERS: PCP Family Medicine; Visit Provider Nurse Practitioner Family
DX: M47.816 Spondylosis without myelopathy or radiculopathy, lumbar region (principal); Z98.890 Other specified postprocedural states
CPT/HCPCS: 72100

== ENCOUNTER 2025-06-23 14:59 | Outpatient (CLI) | payer MEDICAID, SELFPAY ==
--- OUTSIDE RECORDS SUMMARY | 2025-06-23 15:02 | XMS_ITS | Clinical Summary ---
Author Organization Healthcare Address [address] [place] [address] Care Team Providers Care Glass Washer And Carrier Name Role Phone Desmond Santana MD Primary Care Provider [phone] Family History Medical History Relation Name Comments [...] (2 of 2 - PCV) 2018 12/24/2016 [id number] Vaccine ( season) 2025 01/28/2024, 03/12/2023, 05/08/2022, [...] patient's age to complete this topic Insurance [facility] MEDICAID Care Teams Glass Washer And Carrier Relationship Specialty Start Date End Date Desmond Santana MD [address] [place] [address] PCP - General 12/30/20
--- NOTE | 2025-06-23 15:15 | MM_ITS ---
PROCEDURE INFORMATION: Exam: MG Bilateral Screening 3D Mammography Exam date and time: 06/23/2025 3:02 PM Age: 55 years old Clinical indication: Screening examination TECHNIQUE: Imaging protocol: Bilateral Screening tomosynthesis and 2D mammography including computer-aided detection (CAD) when performed. COMPARISON: 1. MG MAMMO SCREENING BILAT 3D 06/09/2024 12:26 PM 2. MG MM DIG MAMM BI DX W/CAD 05/30/2020 1:30 PM FINDINGS: MAMMOGRAPHY: Breast composition: The breasts are almost entirely fatty. Mass: None. Architectural distortion: None. Calcifications: No suspicious calcifications. Asymmetric density: None. Skin thickening: None. Axillary adenopathy: None. IMPRESSION: No mammographic evidence of malignancy. Annual screening is recommended unless otherwise clinically indicated. ASSESSMENT: BI-RADS Category 1: Negative.
== END 2025-06-23 23:59 | disposition home or self-care (01) ==
LOC: RAD 15:00
PROVIDERS: PCP Family Medicine; Visit Provider Family Medicine
DX: Z12.31 Encounter for screening mammogram for malignant neoplasm of breast (principal)
CPT/HCPCS: 77063; 77067

== ENCOUNTER 2025-07-13 14:54 | Outpatient (RCR) | payer MEDICAID, SELFPAY ==
--- NOTE | 2025-07-13 16:01 | [facility]H.PTOPEV ---
PT Evaluation Rehab PT Outpatient Evaluation Start: 07/13/25 14:57 Freq: Status: Active Protocol: Document 07/13/25 14:58 ARUNADoroteo (Rec: 07/13/25 16:01 [email or web address] [id number]) E-signed By Margie Rose, PT Outpatient Therapy Subjective History Subjective History Pt is a 55 y/o female referred to PT for low back pain. Pt reports chronic LBP for years after a lifting injury at a [place] [facility]. Pt had a lumbar spine xray on with findings of There is no acute fracture. There is grade 1 anterior subluxation of L3 on L4. There is pedicle screw fusion of L4-L5. There is disc space narrowing and vacuum phenomenon at L5-S1. Pt denies having a recent lumbar spine MRI. Pt reports 2 surgeries on her back with a fusion in the mid s. Pt reports relief from back pain for a few years then it returned. Pt reports continued symptoms of constant central low back and intermittent cramping sensation and paresthesia of the back of both legs. Pt denies b/b dysfunction. Pt reports she often experiences a painful pop of her back which started 1-2 months ago and occurs when bending forward such as to put her shoes on. Pt reports pain is aggravated by rainy/cold weather, housework, prolonged standing, sitting, walking, bending, and lifting. Pt denies fever, n/v, night sweats or severe night pain. Pt reports she has had injections in her back with only short-term improvement. Pt reports she takes prescribed Hydrocodone which helps with her pain. Medical History: IBS, Hypertension, COPD New diagnosis of No cancer in past 12 months? Chief Complaint Pain,Stiff Symptom Type Throb,Sharp Symptoms Relieved By Rest/Positioning,Heat Symptoms Aggravated Sitting,Standing,Bending/Stooping,Physical Activity, By Walking,Lifting Current Functional Lifting,Housework,Sleeping,Standing,Walking,Stairs, Limitations Bending/Stooping Symptom Description Constant but Variable Level of pain today 6 (0-10) Pain scale - at its 4 best (0-10) Pain scale - at its 10 worst (0-10) Lumbopelvic Eval Posture Lumbar Spine Posture Flattened,Decreased Lordosis Standing Position Assistive device Assistive Devices None / NA Gait Observation General Gait Pattern No Deviations/Normal Observation Palapation tenderness bilateral lumbar spinal Yes: L3-L5 tenderness paraspinal Yes: L>R lumbar PS tenderness buttock tenderness Yes: glute med, min, piriformis Lumbar/Sacral Tenderness Palpation Findings Lumbar/Sacral 2-3/4 TTP Palpation Overall Comment Accessory Movement L-spine Vertebrae Central P/A [place] Accessory Movements that Elicit Symptoms L3 bilateral L4 bilateral L5 bilateral Range of Motion Lumbar Spine Active 60 Flexion Range of Motion (degrees) Lumbar Spine Active 10 Extension Range of Motion (degrees) Left Lumbar Spine 10 Lateral Flexion Active Range of Motion (degrees) Right Lumbar Spine 10 Lateral Flexion Active Range of Motion (degrees) Manual Muscle Test Bilateral Knee Extension 5 Normal Strength Grade Knee Flexion 5 Normal Strength Grade Hip Flexion Strength 4- Good- Grade Hip Abduction 4- Good- Strength Grade Hip Adduction 4- Good- Strength Grade Hip Extension 3 Fair Strength Grade Ankle Dorsiflexion 5 Normal Strength Grade DTR Rt Patellar 2+ Lt Patellar 2+ Altered Sensation Bilateral Comment equal and intact to light touch sensation bilaterally Special Tests Unilateral Straight Positive Left,Positive Right Leg Raise (Lasegue) Test Oswestry Index Section 1 Pain Intensity The pain comes and goes and is severe Section 2 Personal Care ( my way of washing or dressing even though it causes Washing,Dresing) some pain Section 3 Lifting I can only lift very light weights at most Section 4 Walking I cannot walk more than 1/2 mile without increasing pain Section 5 Sitting Pain prevents me from sitting for more than one hour Section 6 Standing I cannot stand more than 1 hour without increasing pain Section 7 Sleeping Because of my pain, my normal night's sleep is less than 6 hours sleep Section 8 Social Life Pain has restricted my social life and I do not go out often Section 9 Traveling I get extra pain while traveling which compels me to seek alternate fo Section 10 Changing Degreee of My pain is gradually getting worse Pain Score and Risk Level Oswestry Score 29 Oswestry Risk Level Severe Disability Outpatient Therapy Assessment Impairments Problems/ Palpation Tenderness,Impaired Range of Motion,Impaired Impairmments Strength,Impaired Walking,Impaired Standing,Impaired Sitting,Impaired Lifting,Impaired Household Care, Impaired Squatting,Impaired Bending,Subjective C/O Pain ,Impaired Self Care/Self Management Prognosis Rehab Potential Good Clinical Impression Consistent with Yes Diagnosis PT Patient Goals PT Patient Goals PT Short Term 3 weeks: Patient Goals 1. Verbalize compliance with HEP to assist with progress. 2. Improve pain at worst to 8/10 on VAS to improve overall QOL/function. 3. Improve YANELI score to 24 or less to improve overall QOL/function. PT Fdc Patient 6 weeks: Goals 1. Improve lumbar flexion AROM to at least 70 to improve overall mobility and function. 2. Improve BLE MMT to 4-4+/5 grossly to assist with function. 3. Improve pain at worst to 4/10 on VAS to improve overall QOL/function. 4. Improve YANELI score to 19 or less to improve overall QOL/function. Outpatient Therapy Plan of Care Treatment Plan May Include Therapeutic Exercise Yes Including Home Exercise Program Manual Therapy Yes Techniques Neuromuscular Re- Yes education Therapeutic Yes Activities to Return to Previous Functional/Work Level Gait Training Yes ADL/Self Care Yes Education Mechanical Traction Yes Dry Needling Yes Thermal Modalities Yes Electrical Yes Stimulation Ultrasound/ Yes Phonophoresis Iontophoresis Yes Massage Yes Group Therapy for Yes Medicare Eval/Re-Eval Yes Frequency Times per week 2 Duration Number of Weeks 4-6 Addendums This patient is a No candidate for social or vocational rehab ? Patient/Guardian Yes verbally acknowledges understanding of treatment program and consents to further treatment? Patient/Guardian Yes verbally acknowledges understanding of diagnosis, prognosis and goals for treatment? Eval Complexity PT Charges 40216 - Low Complexity Shoulder/Elbow Eval Shoulder Objective Measurements Elbow Objective Measurements PHYSICIAN CERTIFICATION: I certify the specified therapy services for [facility] Ledbetter are required, authorized, and reviewed every 30 days.
== END 2025-07-13 23:59 | disposition home or self-care (01) ==
LOC: PT 14:54
PROVIDERS: PCP Family Medicine; Visit Provider Nurse Practitioner Family
DX: M54.50 Low back pain, unspecified (principal)
CPT/HCPCS: 97161

== ENCOUNTER 2025-08-05 17:00 | Outpatient (RCR) | payer MEDICAID, SELFPAY | END 2025-08-05 23:59 | disposition home or self-care (01) | LOC: PT 17:00 | PROVIDERS: PCP Family Medicine; Visit Provider Nurse Practitioner Family | DX: M54.50 Low back pain, unspecified (principal) | CPT/HCPCS: 97014; 97110; G0283 ==